=== PATIENT | female | born 1940 | race Caucasian/White ===

== ENCOUNTER → 2017-08-05 | Outpatient (CLI) | payer OTHER ==
[~2017-08-05] MED LIST: ATOR10TA82 PO; CHOL1TAB79 PO; CMD/25 PO; CMD5 PO; COLC0.6T54 PO; FURO-85 PO; FURO40TA3 PO; LDDP5 TOP; LEVO75TA PO; LOSA1TAB PO; METO25TA3 PO; POTA-331 PO; TPRSR25 PO; ULT50X PO; WARF-246 PO
[2017-08-05 16:25] LABS: HEMATOCRIT 43.2 % (37-47); HEMOGLOBIN 14.6 g/dL (12.0-16.0); MEAN CELL VOLUME 92.5 fL (80-100); MEAN CORPUSCULAR HEMOGLOBIN 31.3 pg (25-34); MEAN CORPUSCULAR HGB CONC 33.8 g/dl (32-36); MEAN PLATELET VOLUME 10.2 fL (7.4-10.4); PLATELET COUNT 170 K/uL (130-400); RED CELL DISTRIBUTION WIDTH CV 14.4 % (11.5-14.5); RED CELL DISTRIBUTION WIDTH SD 48.7 fL (36.4-46.3)
[2017-08-05 16:33] LABS: INR 1.8 (0.9-1.1)
== END | disposition home or self-care (01) ==
LOC: C.LAB 16:08
PROVIDERS: ATTEND Ophthalmology
DX: G45.3 Amaurosis fugax (principal)

== ENCOUNTER 2017-08-07 12:03 | Inpatient (IN) | payer OTHER ==
[~2017-08-07] VITALS: Ht 160 cm; Wt 101.7 kg
[~2017-08-07 12:03] MED LIST changes: -ATOR10TA82 PO; -CHOL1TAB79 PO; -CMD/25 PO; -CMD5 PO; -FURO40TA3 PO; -LDDP5 TOP; -TPRSR25 PO
[2017-08-07 12:58] LABS: HEMATOCRIT 41.3 % (37-47); HEMOGLOBIN 14.1 g/dL (12.0-16.0); MEAN CORPUSCULAR HEMOGLOBIN 31.4 pg (25-34); MEAN CORPUSCULAR HGB CONC 34.1 g/dl (32-36); MEAN PLATELET VOLUME 10.2 fL (7.4-10.4); PLATELET COUNT 152 K/uL (130-400); RED CELL DISTRIBUTION WIDTH SD 46.8 fL (36.4-46.3)
[2017-08-07 13:09] LABS: INR 1.8 (0.9-1.1); PTT PATIENT 32.3 SECONDS (21.0-31.0)
[2017-08-07 13:26] LABS: ALBUMIN 3.6 gm/dl (3.4-5.0); CALCIUM 9.3 mg/dl (8.5-10.1); CREATININE 0.98 mg/dl (0.60-1.20); POTASSIUM 4.3 mmol/L (3.5-5.1)
[2017-08-07 13:28] LABS: TOTAL PROTEIN 7.3 gm/dl (6.4-8.2)
[2017-08-07] MEDS ORDERED: SODIUM CHLORIDE 0.9% 500ML 500 ML IV STA (13:32)
--- NOTE | 2017-08-07 13:55 | EMERGENCY ROOM VISIT NOTE ---
History Report prepared by Lyndsey: Tomi Pozo Under the Supervision of: Dr. Fracisco Her M.D. First contact with patient: 13:25 Chief Complaint: TIA Stated Complaint: TIA, SENT FROM DR OFFICE Nursing Triage Summary: Pt presents stating sent by PCP for possible TIA. Sent for STAT MRI. Difficulty with vision. Intermittent h/a. "My head feels weird, like it doesnt want to stay up by itself." Sx started on . History of Present Illness The patient is a 77 year old female who presents to the Emergency Room with complaints of persistent loss of vision in her left eye for the past two days which has been getting slightly better. The vision is worse on the peripheral side. The patient states that she went to an sewer, and they did not find anything and told her to follow up with her PCP. She saw her PCP yesterday , and they told her to come to the ED for further evaluation. The patient is additionally complaining of a headache starting the same time as the vision loss which is worsened with coughing. She notes that she has not been coughing a lot just an occasional cough. The patient denies any dizziness, slurred speech , weakness, and burning with urination. She states that she has not been eating or drinking well recently since it feels like it "gets stuck", and she feels like she is going to throw up. The patient states that she has had this problem for a while, though it comes and goes. She has a history of A-Fib, and she states that she is currently on Coumadin, and she has not taken her medications today. Source of History: patient Onset: two days ago Position: eye (left) Quality: other (loss of vision) Timing: other (persistent but improving) Associated Symptoms: + headache, No weakness Review of Systems See HPI for pertinent positives and negatives. A total of ten systems were reviewed and were otherwise negative. Past Medical & Surgical Medical Problems: (1) Anticoagulated on Coumadin (2) Atrial fibrillation (3) Benign hypertension (4) Chronic atrial fibrillation (5) Gout (6) History of uterine cancer (7) Hyperlipidemia (8) Hypothyroidism (9) Obesity (10) Obstructive sleep apnea (11) Osteoarthritis Surgical Problems: (1) History of total knee arthroplasty (2) Status post cataract extraction (3) Status post cholecystectomy (4) Status post hysterectomy (5) Status post lumbar surgery (6) Status post partial colectomy (7) Status post tonsillectomy (8) Status post total shoulder arthroplasty Social History Problems: (1) Cholecystectomy Family History Cancer Hypertension Social History Smoking Status: Former Smoker Alcohol Use: none Drug Use: none Marital Status: Housing Status: lives with family Occupation Status: retired Current/Historical Medications Scheduled Atorvastatin (Lipitor), 1 TAB PO DAILY Cholecalciferol (D3 2000), 1 TAB PO DAILY Colchicine (Colchicine), 0.6 MG PO BID Furosemide (Lasix), 40 MG PO DAILY Levothyroxine Sodium (Synthroid), 75 MCG PO QAM Losartan Potassium (Cozaar), 25 MG PO QAM Metoprolol Succ (Toprol Xl) (Toprol-Xl), 25 MG PO HS Warfarin Sod (Coumadin), 2.5 MG PO [id number] Warfarin Sod (Coumadin), 1 TAB PO Tu Scheduled PRN Lidocaine (Lidocaine), 1 PATCH TOP DAILY PRN for Pain Potassium Chloride Microencaps (Klor-Con M10), 10 MEQ PO DAILY PRN for If Lasix Taken Tramadol HCl (Tramadol HCl), 50 MG PO BID PRN for Pain Allergies Coded Allergies: Adhesives (Verified Allergy, Unknown, SKIN IRRITATION AND PULLS SKIN OFF, 08/07/17) Iodinated Diagnostic Agents (Verified Allergy, Unknown, RASH, 08/07/17) Morphine (Verified Allergy, Unknown, UNKNOWN, 08/07/17) Penicillins (Verified Allergy, Unknown, UNKNOWN, 08/07/17) Salicylates (Verified Allergy, Unknown, CAUSES HIVES, 08/07/17) Codeine (Verified Adverse Reaction, Unknown, CAUSES NAUSEA, 08/07/17) Physical Exam Vital Signs Date Time Temp Pulse Resp B/P (MAP) Pulse Ox O2 Delivery O2 Flow Rate FiO2 08/07/17 15:18 52 16 148/78 96 Room Air 08/07/17 13:52 54 18 167/85 99 Room Air 08/07/17 13:05 58 08/07/17 12:52 58 20 151/94 94 Room Air 08/07/17 12:51 95 Room Air 08/07/17 12:14 36.5 61 18 155/86 92 Room Air Physical Exam GENERAL: Awake, alert, well-appearing, in no distress HENT: Normocephalic, atraumatic. Oropharynx unremarkable. Dry mucous membranes. EYES: Normal conjunctiva. Sclera non-icteric. Marginal left eye temporal visual field impairment. NECK: Supple. No nuchal rigidity. FROM. No JVD. RESPIRATORY: Clear to auscultation. CARDIAC: Regular rate, normal rhythm. Extremities warm and well perfused. Pulses equal. ABDOMEN: Soft, non-distended. No tenderness to palpation. No rebound or guarding. No masses. RECTAL: Deferred. MUSCULOSKELETAL: Chest examination reveals no tenderness. The back is symmetrical on inspection without obvious abnormality. There is no CVA tenderness to palpation. No joint edema. LOWER EXTREMITIES: Calves are equal size bilaterally and non-tender. No edema. No discoloration. NEURO: Normal sensorium. No sensory or motor deficits noted. Normal cerebellar function with [id number], alternating palms, bclp-zc-[id number]. SKIN: No rash or jaundice noted. Medical Decision & Procedures ER Provider Diagnostic Interpretation: Radiology results as stated below per my review and radiologist interpretation: CHEST ONE VIEW PORTABLE CLINICAL HISTORY: ABDOMINAL PAIN/GI pain COMPARISON STUDY: 05/22/2015 FINDINGS: Moderate cardiac megaly. Mild chronic prominence of pulmonary vasculature. Diaphragms are smooth. No focal infiltrate. Prior left shoulder arthroplasty. IMPRESSION: Cardia megaly. Chronic pulmonary venous congestion. The above report was generated using voice recognition software. It may contain grammatical, syntax or spelling errors. Electronically signed by: Wesely Agee M.D. 08/07/2017 1:57 PM Dictated Date/Time: 08/07/2017 1:57 PM CAROTID DOPPLER NECK ART CLINICAL HISTORY: 77 years-old Female presenting with left eye hemianopia. TECHNIQUE: Real-time grayscale and color and spectral Doppler ultrasound imaging of the bilateral carotid arteries was performed. NASCET criteria was used in evaluating this study. COMPARISON: None. FINDINGS: Right: Common carotid: Atherosclerosis. Peak systolic velocity 42 cm/s. Internal carotid artery: Atherosclerosis. Peak systolic velocity 48 cm/s. Systolic ratio: 1.1. External carotid artery: Patent. Peak systolic velocity 60 cm/s. Left: Common carotid: Atherosclerosis. Peak systolic velocity 45 cm/s. Internal carotid artery: Atherosclerosis. Peak systolic velocity 66 cm/s. Systolic ratio: 1.5. External carotid artery: Patent. Peak systolic velocity 64 cm/s. Bilateral antegrade flow within the vertebral arteries. Reference ranges: Stenosis measurements are compared to reference velocity parameters. Primary parameters: ICA peak systolic velocity (PSV) < 125 cm/s normal or indicating < 50% stenosis; ICA PSV 125-230 cm/s equivalent to 50-69% stenosis; ICA PSV > 230 cm/s equivalent to greater than or equal to 70% stenosis. Additional parameters: ICA PSV to common carotid artery PSV ratio < 2 normal or < 50% stenosis; 2-4 equates to 50-69% stenosis, > 4 equates to greater than or equal to 70% stenosis. Normal ICA end-diastolic velocity less than 40. Blood pressure Not performed. IMPRESSION: Atherosclerosis without hemodynamically significant stenosis seen within the carotid arteries. Electronically signed by: Mauro Alvarez M.D. 08/07/2017 2:58 PM Dictated Date/Time: 08/07/2017 2:57 PM BRAIN WITHOUT CONTRAST CLINICAL HISTORY: 77 years-old Female presenting with left eye hemianopia since Friday, concern for stroke. TECHNIQUE: Multisequence, multiplanar MR imaging of the brain was performed without the use of intravenous contrast. IV contrast: None. COMPARISON: None. FINDINGS: Ventricles and sulci normal in size. Restricted diffusion in the paramedian right occipital lobe with associated sulcal effacement and T2/FLAIR hyperintensity. Evidence of an old infarct with gliosis and cystic encephalomalacia in the paramedian inferior right cerebellar hemisphere. No midline shift. No hemorrhage. No extra-axial fluid collection. T2 skull base flow voids preserved. Mild mucosal thickening in the paranasal sinuses. Bone marrow signal intensity within the calvarium within normal limits. IMPRESSION: 1. Findings consistent with acute infarct in the paramedian right occipital lobe. T2/FLAIR hyperintensity is consistent with an infarct at least 6 to 12 hours old. 2. 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 The report will be called/faxed according to standard departmental protocol. Electronically signed by: Mauro Alvarez M.D. 08/07/2017 3:12 PM Dictated Date/Time: 08/07/2017 3:05 PM Laboratory Results 08/07/17 12:35 08/07/17 12:35 Test 08/07/17 12:35 08/07/17 15:25 Red Blood Count 4.49 M/uL (4.2-5.4) Mean Corpuscular Volume 92.0 fL (80-100) Mean Corpuscular Hemoglobin 31.4 pg (25-34) Mean Corpuscular Hemoglobin Concent 34.1 g/dl (32-36) RDW Standard Deviation 46.8 fL (36.4-46.3) RDW Coefficient of Variation 14.0 % (11.5-14.5) Mean Platelet Volume 10.2 fL (7.4-10.4) Prothrombin Time 18.9 SECONDS (9.0-12.0) Prothromb Time International Ratio 1.8 (0.9-1.1) Activated Partial Thromboplast Time 32.3 SECONDS (21.0-31.0) Partial Thromboplastin Ratio 1.2 Anion Gap 6.0 mmol/L (3-11) Est Creatinine Clear Calc Drug Dose 53.3 ml/min Estimated GFR () 63.6 Estimated GFR (Non- 54.9 BUN/Creatinine Ratio 14.9 (10-20) Calcium Level 9.3 mg/dl (8.5-10.1) Total Bilirubin 2.7 mg/dl (0.2-1) Aspartate Amino Transf (AST/SGOT) 26 U/L (15-37) Alanine Aminotransferase (ALT/SGPT) 15 U/L (12-78) Alkaline Phosphatase 108 U/L (45-117) Total Protein 7.3 gm/dl (6.4-8.2) Albumin 3.6 gm/dl (3.4-5.0) Globulin 3.7 gm/dl (2.5-4.0) Albumin/Globulin Ratio 1.0 (0.9-2) Urine Color YELLOW Urine Appearance CLEAR (CLEAR) Urine pH 6.5 (4.5-7.5) Urine Specific [place] 1.017 (1.000-1.030) Urine Protein NEG (NEG) Urine Glucose (UA) NEG (NEG) Urine Ketones NEG (NEG) Urine Occult Blood NEG (NEG) Urine Nitrite NEG (NEG) Urine Bilirubin NEG (NEG) Urine Urobilinogen NEG (NEG) Urine Leukocyte Esterase NEG (NEG) Laboratory results reviewed by me Medications Administered Medications (Trade) Dose Ordered Sig/Xavi Route Start Time Stop Time Status Last Admin Dose Admin Sodium Chloride 500 ml @ 125 mls/hr Q4H STAT IV 08/07/17 13:32 08/07/17 17:31 DC 08/07/17 13:32 125 MLS/HR ECG Per My Interpretation Indication: other (Neuro symptoms) Rate (beats per minute): 57 Rhythm: atrial fibrillation Findings: no acute ischemic change, other (Normal axis) ED Course 1325: The patient was evaluated in room A11. A complete history and physical exam was performed. 1534: I discussed the patient with Corine Lentz PA-C - she will evaluate the patient for further treatment. 1550: Upon reexamination, the patient was doing well. I discussed the test results and treatment plan with her. The patient will be evaluated for further management. Medical Decision I reviewed the patient's past medical history, medications, and the nursing notes as described above. Differential diagnosis: Etiologies such as metabolic, infection, hypo/hyperglycemia, electrolyte abnormalities, cardiac sources, intracerebral event, toxicologic, neurologic, as well as others were entertained. The patient is a 77 y/o woman with a pmhx of afib on Coumadin who presents to the emergency department with left eye hemianopia than began on Friday per HPI. On arrival the patient is in NAD, AFVSS. On exam the patient has marginal left eye temporal visual field impairment and otherwise is neuro intact including normal cerebellar function with fmantr-[id number], alternating palms, tdyr-ll-jjiq. NIHSS 1. Patient has IV contrast allergy and so CTA deferred. MRI demonstrates right occipital stroke estimated to be 6-12 hours old, although patient's sx did begin on Friday. Carotid duplex without clinically significant stenosis. INR 1.8 but patient reports not taking her Coumadin yet today. Labs otherwise unremarkable. Case was d/w Corine Rubi who will evaluate the patient for further management. Medication Reconcilliation Current Medication List: was personally reviewed by me Blood Pressure Screening Patient's blood pressure: Elevated blood pressure Monitored by the hospitalist Consults Time Called: 1528 Consulting Physician: Corine Lentz PA-C Returned Call: 1534 I discussed the patient with Corine Lentz PA-C - she will evaluate the patient for further treatment. Impression Primary Impression: Occipital stroke Scribe Attestation The scribe's documentation has been prepared under my direction and personally reviewed by me in its entirety. I confirm that the note above accurately reflects all work, treatment, procedures, and medical decision making performed by me. Departure Information Dispostion Being Evaluated By Hospitalist Referrals Jim Alvarez D.O. (PCP) Patient Instructions My [facility]
--- NOTE | 2017-08-07 13:58 | DIAGNOSTIC IMAGING REPORT ---
CHEST ONE VIEW PORTABLE CLINICAL HISTORY: ABDOMINAL PAIN/GI pain COMPARISON STUDY: 05/22/2015 FINDINGS: Moderate cardiac megaly. Mild chronic prominence of pulmonary vasculature. Diaphragms are smooth. No focal infiltrate. Prior left shoulder arthroplasty. IMPRESSION: Cardia megaly. Chronic pulmonary venous congestion. The above report was generated using voice recognition software. It may contain grammatical, syntax or spelling errors. Electronically signed by: Wesley Agee M.D. 08/07/2017 1:57 PM Dictated Date/Time: 08/07/2017 1:57 PM
--- NOTE | 2017-08-07 14:59 | DIAGNOSTIC IMAGING REPORT ---
CAROTID DOPPLER NECK ART CLINICAL HISTORY: 77 years-old Female presenting with left eye hemianopia. TECHNIQUE: Real-time grayscale and color and spectral Doppler ultrasound imaging of the bilateral carotid arteries was performed. NASCET criteria was used in evaluating this study. COMPARISON: None. FINDINGS: Right: Common carotid: Atherosclerosis. Peak systolic velocity 42 cm/s. Internal carotid artery: Atherosclerosis. Peak systolic velocity 48 cm/s. Systolic ratio: 1.1. External carotid artery: Patent. Peak systolic velocity 60 cm/s. Left: Common carotid: Atherosclerosis. Peak systolic velocity 45 cm/s. Internal carotid artery: Atherosclerosis. Peak systolic velocity 66 cm/s. Systolic ratio: 1.5. External carotid artery: Patent. Peak systolic velocity 64 cm/s. Bilateral antegrade flow within the vertebral arteries. Reference ranges: Stenosis measurements are compared to reference velocity parameters. Primary parameters: ICA peak systolic velocity (PSV) < 125 cm/s normal or indicating < 50% stenosis; ICA PSV 125-230 cm/s equivalent to 50-69% stenosis; ICA PSV > 230 cm/s equivalent to greater than or equal to 70% stenosis. Additional parameters: ICA PSV to common carotid artery PSV ratio < 2 normal or < 50% stenosis; 2-4 equates to 50-69% stenosis, > 4 equates to greater than or equal to 70% stenosis. Normal ICA end-diastolic velocity less than 40. Blood pressure Not performed. IMPRESSION: Atherosclerosis without hemodynamically significant stenosis seen within the carotid arteries. Electronically signed by: Mauro Alvarez M.D. 08/07/2017 2:58 PM Dictated Date/Time: 08/07/2017 2:57 PM
--- NOTE | 2017-08-07 15:14 | DIAGNOSTIC IMAGING REPORT ---
BRAIN WITHOUT CONTRAST CLINICAL HISTORY: 77 years-old Female presenting with left eye hemianopia since Friday, concern for stroke. TECHNIQUE: Multisequence, multiplanar MR imaging of the brain was performed without the use of intravenous contrast. IV contrast: None. COMPARISON: None. FINDINGS: Ventricles and sulci normal in size. Restricted diffusion in the paramedian right occipital lobe with associated sulcal effacement and T2/FLAIR hyperintensity. Evidence of an old infarct with gliosis and cystic encephalomalacia in the paramedian inferior right cerebellar hemisphere. No midline shift. No hemorrhage. No extra-axial fluid collection. T2 skull base flow voids preserved. Mild mucosal thickening in the paranasal sinuses. Bone marrow signal intensity within the calvarium within normal limits. IMPRESSION: 1. Findings consistent with acute infarct in the paramedian right occipital lobe. T2/FLAIR hyperintensity is consistent with an infarct at least 6 to 12 hours old. 2. 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 The report will be called/faxed according to standard departmental protocol. Electronically signed by: Mauro Alvarez M.D. 08/07/2017 3:12 PM Dictated Date/Time: 08/07/2017 3:05 PM
[2017-08-07] MEDS ORDERED: PHARMACIST DISCHARGE MED REC CONSULT PRN (17:00)
[2017-08-07] MEDS ORDERED: ACETAMINOPHEN 325 MG TAB PO PRN (17:00)
[2017-08-07] MEDS ORDERED: CHOL1TAB79 PO (17:11)
[2017-08-07] MEDS ORDERED: CMD/25 PO (17:11)
[2017-08-07] MEDS ORDERED: ATOR10TA82 PO (17:11)
[2017-08-07] MEDS ORDERED: CMD5 PO (17:11)
[2017-08-07] MEDS ORDERED: LDDP5 TOP (17:11)
[2017-08-07] MEDS ORDERED: LIDODERM (LIDOCAINE) PATCH 5% TD PRN (17:15)
[2017-08-07] MEDS ORDERED: POTASSIUM CHLORIDE 10 MEQ TABCR PO PRN (17:15)
[2017-08-07] MEDS ORDERED: FURO40TA3 PO (17:33)
--- NOTE | 2017-08-07 17:53 | History and Physical ---
History & Physical Date & Time of Service: Aug 07, 2017 at 17:33 Chief Complaint: Tia, Sent From Dr Office Primary Care Physician: Jim Alvarez D.O. History of Present Illness Source: patient, clinic records, hospital records Patient is a 77-year-old female with a PMH of chronic A. fib (on Coumadin), HTN , HLD, CKD III and other medical problems listed below who presents with persistent loss of vision in left eye 2 days. Patient was playing bingo on Friday and leaned over to pick something off of the ground when she experienced sudden vision loss in both eyes. States that vision of the right eye returned within a minute but left vision loss persisted. Describes it as "seeing amador". Patient drove home and followed up with ophthalmology later that day and her eye exam was unremarkable. Was encouraged to follow-up with PCP, which she did earlier this morning and was sent to ED for further evaluation. Over the last few days, decreased acuity of left eye vision has persisted and patient has been unable to read. Also endorses difficulty with left peripheral vision, but states it is improving. Denies other neurological symptoms such as facial droop, difficulty swallowing or speaking, weakness or paresthesias in extremities. Gait is unaffected. Patient takes Coumadin daily and INR today is 1.8. Denies fever, chills, lightheadedness, dizziness, headache, chest pain, palpitations, SOB, abdominal pain, nausea, vomiting, bowel or bladder changes. LE swelling is at baseline. Patient lives alone in [place]. Denies previous history of CVA. MRI brain was performed in the ED and patient was found to have a subacute paramedian right occipital lobe infarct. Past Medical/Surgical History Medical Problems: (1) Anticoagulated on Coumadin Status: Chronic (2) Atrial fibrillation Status: Chronic (3) Benign hypertension Status: Chronic (4) Chronic atrial fibrillation Status: Chronic (5) Gout Status: Chronic (6) History of uterine cancer Status: Chronic (7) Hyperlipidemia Status: Chronic (8) Hypothyroidism Medical Problems: (1) Anticoagulated on Coumadin Status: Chronic (2) Atrial fibrillation Status: Chronic (3) Benign hypertension Status: Chronic (4) Chronic atrial fibrillation Status: Chronic (5) Gout Status: Chronic (6) History of uterine cancer Status: Chronic (7) Hyperlipidemia Status: Chronic (8) Hypothyroidism Status: Chronic (9) Obesity Status: Chronic (10) Obstructive sleep apnea Status: Chronic (11) Osteoarthritis Status: Chronic Surgical Problems: (1) History of total knee arthroplasty Permanent Comment: bilat; 1993 Status: Resolved (2) Status post cataract extraction Permanent Comment: L side 1994 Status: Chronic (3) Status post cholecystectomy Permanent Comment: 09/14/04; performed by Dr. Barry Status: Chronic (4) Status post hysterectomy Permanent Comment: 1989 Status: Chronic (5) Status post lumbar surgery Permanent Comment: 1984 Status: Chronic (6) Status post partial colectomy Permanent Comment: 10/20/2003 Status: Chronic (7) Status post tonsillectomy Status: Chronic (8) Status post total shoulder arthroplasty Permanent Comment: L side; Dr. Flynn 08/2012 Status: Resolved Social History Problems: (1) Cholecystectomy Status: Resolved Family History CVA Cancer Hypertension Social History Smoking Status: Former Smoker Alcohol Use: none Drug Use: none Marital Status: Housing status: lives alone Occupational Status: retired Immunizations History of Influenza Vaccine: Yes Influenza Vaccine Date: Mar 01, 2015 History of Tetanus Vaccine?: uknown History of Pneumococcal: Yes Pneumococcal Date: Aug 05, 2007 History of Hepatitis B Vaccine: Unknown Allergies Coded Allergies: Adhesives (Verified Allergy, Unknown, SKIN IRRITATION AND PULLS SKIN OFF, 08/07/17) Iodinated Diagnostic Agents (Verified Allergy, Unknown, RASH, 08/07/17) Morphine (Verified Allergy, Unknown, UNKNOWN, 08/07/17) Penicillins (Verified Allergy, Unknown, UNKNOWN, 08/07/17) Salicylates (Verified Allergy, Unknown, CAUSES HIVES, 08/07/17) Codeine (Verified Adverse Reaction, Unknown, CAUSES NAUSEA, 08/07/17) Home Medications Scheduled Atorvastatin (Lipitor), 1 TAB PO DAILY Cholecalciferol (D3 2000), 1 TAB PO DAILY Colchicine (Colchicine), 0.6 MG PO BID Furosemide (Lasix), 40 MG PO DAILY Levothyroxine Sodium (Synthroid), 75 MCG PO QAM Losartan Potassium (Cozaar), 25 MG PO QAM Metoprolol Succ (Toprol Xl) (Toprol-Xl), 25 MG PO HS Warfarin Sod (Coumadin), 2.5 MG PO [id number] Warfarin Sod (Coumadin), 1 TAB PO Tu Scheduled PRN Lidocaine (Lidocaine), 1 PATCH TOP DAILY PRN for Pain Potassium Chloride Microencaps (Klor-Con M10), 10 MEQ PO DAILY PRN for If Lasix Taken Tramadol HCl (Tramadol HCl), 50 MG PO BID PRN for Pain Review of Systems Ten systems reviewed and negative except as noted in the HPI. Physical Exam Vital Signs Date Time Temp Pulse Resp B/P (MAP) Pulse Ox O2 Delivery O2 Flow Rate FiO2 08/07/17 16:56 54 16 175/66 94 Room Air 08/07/17 15:18 52 16 148/78 96 Room Air 08/07/17 13:52 54 18 167/85 99 Room Air 08/07/17 13:05 58 08/07/17 12:52 58 20 151/94 94 Room Air 08/07/17 12:51 95 Room Air 08/07/17 12:14 36.5 61 18 155/86 92 Room Air General Appearance: WD/WN, no apparent distress, + obese Head: normocephalic, atraumatic Eyes: normal inspection, PERRL, EOMI, sclerae normal ENT: normal ENT inspection, hearing grossly normal, pharynx normal (moist mucous membranes ) Neck: supple, thyroid normal, trachea midline Respiratory/Chest: chest non-tender, lungs clear, no respiratory distress Cardiovascular: normal peripheral pulses, + irregularly irregular Abdomen/GI: non tender, soft, no organomegaly Back: normal inspection Extremities/Musculoskelatal: normal inspection, no calf tenderness, no pedal edema Neurologic/Psych: teradata developer II-XII nml as tested (Decreased visual acuity of L eye. Slight impairment of left peripheral vision field. ), no motor/sensory deficits , alert, normal mood/affect, oriented x 3, + pertinent finding (gait intact) Skin: normal color Diagnostics Laboratory Results Results Past 24 Hours Test 08/07/17 12:35 08/07/17 15:25 Range/Units White Blood Count 7.50 4.8-10.8 K/uL Red Blood Count 4.49 4.2-5.4 M/uL Hemoglobin 14.1 12.0-16.0 g/dL Hematocrit 41.3 37-47 % Mean Corpuscular Volume 92.0 80-100 fL Mean Corpuscular Hemoglobin 31.4 25-34 pg Mean Corpuscular Hemoglobin Concent 34.1 32-36 g/dl RDW Standard Deviation 46.8 36.4-46.3 fL RDW Coefficient of Variation 14.0 11.5-14.5 % Platelet Count 152 130-400 K/uL Mean Platelet Volume 10.2 7.4-10.4 fL Prothrombin Time 18.9 9.0-12.0 SECONDS Prothromb Time International Ratio 1.8 0.9-1.1 Activated Partial Thromboplast Time 32.3 21.0-31.0 SECONDS Partial Thromboplastin Ratio 1.2 Sodium Level 136 136-145 mmol/L Potassium Level 4.3 3.5-5.1 mmol/L Chloride Level 105 98-107 mmol/L Carbon Dioxide Level 25 21-32 mmol/L Anion Gap 6.0 3-11 mmol/L Blood Urea Nitrogen 15 7-18 mg/dl Creatinine 0.98 0.60-1.20 mg/dl Est Creatinine Clear Calc Drug Dose 53.3 ml/min Estimated GFR () 63.6 Estimated GFR (Non- 54.9 BUN/Creatinine Ratio 14.9 10-20 Random Glucose 113 70-99 mg/dl Calcium Level 9.3 8.5-10.1 mg/dl Total Bilirubin 2.7 0.2-1 mg/dl Aspartate Amino Transf (AST/SGOT) 26 15-37 U/L Alanine Aminotransferase (ALT/SGPT) 15 12-78 U/L Alkaline Phosphatase 108 45-117 U/L Total Protein 7.3 6.4-8.2 gm/dl Albumin 3.6 3.4-5.0 gm/dl Globulin 3.7 2.5-4.0 gm/dl Albumin/Globulin Ratio 1.0 0.9-2 Urine Color YELLOW Urine Appearance CLEAR CLEAR Urine pH 6.5 4.5-7.5 Urine Specific [place] 1.017 1.000-1.030 Urine Protein NEG NEG Urine Glucose (UA) NEG NEG Urine Ketones NEG NEG Urine Occult Blood NEG NEG Urine Nitrite NEG NEG Urine Bilirubin NEG NEG Urine Urobilinogen NEG NEG Urine Leukocyte Esterase NEG NEG Diagnostic Radiology Brain MRI: IMPRESSION: 1. Findings consistent with acute infarct in the paramedian right occipital lobe. T2/FLAIR hyperintensity is consistent with an infarct at least 6 to 12 hours old. 2. 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 Carotid artery ultrasound: IMPRESSION: Atherosclerosis without hemodynamically significant stenosis seen within the carotid arteries. CXR: IMPRESSION: Cardia megaly. Chronic pulmonary venous congestion. EKG Atrial fibrillation with slow ventricular response at 57 bpm. Impression Assessment and Plan Patient is a 77-year-old female with a PMH of chronic A. fib (on Coumadin), HTN , HLD, CKD III and other medical problems listed below who presents with persistent loss of vision in left eye 2 days and was found to have a sub-acute R occipital infarct. Decreased visual acuity of left eye 2/2 sub-acute R occipital infarct: -Symptoms began suddenly 48 hours ago -L eye vision improving--still unable to read, see full left peripheral field -Brain MRI with findings consistent with acute infarct in the paramedian right occipital lobe. T2/FLAIR hyperintensity is consistent with an infarct at least 6-12 hrs old -Carotid ultrasound with atherosclerosis -June 2016 echo with EF 55-60%, moderate MR, severe TR, pulm HTN -Continue home dose coumadin. Monitor INR -Neuro consult placed for further anticoagulation recommendations -Neuro checks -PT/OT/speech eval -A1c, fasting lipid panel in AM -Telemetry Chronic A Fib: -A fib with slow ventricular response on EKG -Continue Toprol -Continue coumadin -Monitor INR HTN: -Normotensive -Cont home losartan, toprol, lasix HLD: -Cont statin Hypothyroidism: -Cont synthroid Chronic gout: -Cont colchicine CKD III: -At baseline OA, chronic back pain: -Cont tramadol, lidocaine patch PRN YOBANI: -Cpap DVT Ppx: Continue coumadin Code status: FULL PCP: Antonio Dispo: Discharge planning ordered per stroke set protocol Patient seen in collaboration with Dr. Alcantar. Please see addendum. ADDENDUM: I have seen and examined the patient and agree with the assessment as stated above with the following exceptions. She has reported visual deficits that persist on exam but otherwise, no focal neurologic deficits. She reports these visual deficits are continuing to slowly improve. Although her INR was 1.8 today it was therapeutic in mid-June on an outpatient check. She denies any excessive leafy greens in her diet recently and no new medications. MRI revealed R occipital stroke as above. Cont plan as above. Continued with warfarin for now, and would defer to neurology for snf management. Ortiz , DO Resuscitation Status VTE Prophylaxis Will order VTE Prophylaxis: Yes
[2017-08-07 19:15] VITALS: BP 165/90; PULSE 68; TEMP 36.4; O2SAT 96; Ht 160 cm; Wt 101.7 kg
[2017-08-07 19:44] VITALS: BP 165/90; PULSE 68; TEMP 36.4; O2SAT 96
[2017-08-07] MEDS: WARFARIN SOD 2.5 MG TAB PO SCH (20:28)
[2017-08-07] MEDS: COLCHICINE 0.6 MG TAB PO SCH (20:28)
[2017-08-07] MEDS ORDERED: METOPROLOL SUCC 25MG EXT REL TAB PO SCH (21:00)
[2017-08-07] MEDS: TRAMADOL HCL 50 MG TAB PO PRN (22:27)
[2017-08-07 23:50] VITALS: BP 163/94; PULSE 57; TEMP 36.6; O2SAT 96
[2017-08-07 23:59] VITALS: O2SAT 96
[2017-08-08] VITALS (9 sets, daily range): BP systolic 138–158; BP diastolic 63–93; PULSE 51–63; TEMP 36.3–36.9; O2SAT 92–96
[2017-08-08] MEDS: LEVOTHYROXINE 75 MCG TAB PO SCH (05:34)
--- NOTE | 2017-08-08 06:15 | Clinical Documentation Query ---
APOLINAR Gregorio : CLINICAL DOCUMENTATION QUERY Patient is a 77 year old female admitted for subacute right occipital infarct. This occurred in the setting of atrial fibrillation with a subtherapeutic INR. She has been evaluated with CT, MRI, carotid US, to be continued on Coumadin, PT/OT/Speech and neurology consultation and will be monitored on telemetry with serial labs. As appropriate, consider documentation as suggested below. Thank you. In your clinical opinion is this patient being managed for: ( ) Subacute R occipital infarct likely secondary to embolism of posterior cerebral artery in the setting of atrial fibrillation and subtherapeutic INR ( ) Not Agree ( ) Other explanation of clinical findings (Please Explain) ( ) Unable to determine (Please Define) ( ) Need to Discuss The medical record reflects the following clinical findings, treatment, and risk factors. Clinical Indicators: As above Treatment: She has been evaluated with CT, MRI, carotid US, to be continued on Coumadin, PT/OT/Speech and neurology consultation and will be monitored on telemetry with serial labs Risk Factors: Atrial fibrillation with subtherapeutic INR Please clarify and document your clinical opinion in the progress notes and discharge summary. Terms such as "probable", "suspected", "likely", "questionable", "possible", or "still to be ruled out" are acceptable. IF IN AGREEMENT, YOU MUST DOCUMENT ABOVE DIAGNOSTIC STATEMENT IN DAILY PROGRESS NOTES AND DISCHARGE SUMMARY. This document is not part of the patient's record. Thank You, Luis E Mercedes, RN [phone]
[2017-08-08 06:32] LABS: HEMOGLOBIN A1C 5.9 % (4.5-5.6)
[2017-08-08 06:42] LABS: BASO % 0.9 %; BASO ABS # 0.06 K/uL (0-0.2); EOS % 4.5 %; EOS ABS # 0.31 K/uL (0-0.5); HEMATOCRIT 39.6 % (37-47); HEMOGLOBIN 13.3 g/dL (12.0-16.0); IG# 0.02 K/uL (0.00-0.02); LYMPH % 19.6 %; LYMPH ABS # 1.35 K/uL (1.2-3.4); MEAN CELL VOLUME 91.2 fL (80-100); MEAN CORPUSCULAR HEMOGLOBIN 30.6 pg (25-34); MEAN CORPUSCULAR HGB CONC 33.6 g/dl (32-36); MEAN PLATELET VOLUME 9.8 fL (7.4-10.4); MONO % 10.8 %; MONO ABS # 0.74 K/uL (0.11-0.59); NEUT % 63.9 %; PLATELET COUNT 145 K/uL (130-400); RED CELL DISTRIBUTION WIDTH CV 13.8 % (11.5-14.5); RED CELL DISTRIBUTION WIDTH SD 46.4 fL (36.4-46.3); WHITE BLOOD COUNT 6.88 K/uL (4.8-10.8)
[2017-08-08 07:04] LABS: INR 1.9 (0.9-1.1)
[2017-08-08 07:22] LABS: CALCIUM 9.2 mg/dl (8.5-10.1); CREATININE 0.92 mg/dl (0.60-1.20); POTASSIUM 3.9 mmol/L (3.5-5.1)
[2017-08-08] MEDS: COLCHICINE 0.6 MG TAB PO SCH ×2 (08:38→19:48)
[2017-08-08] MEDS: ATORVASTATIN 10 MG TAB PO SCH (08:39)
[2017-08-08] MEDS ORDERED: PERFLUTREN LIPID MICROSPHERE (DEFINITY) IV ONE (08:44)
[2017-08-08] MEDS ORDERED: LOSARTAN POTASSIUM 25 MG TAB PO SCH (09:00)
--- NOTE | 2017-08-08 11:46 | ECHOCARDIOGRAM REPORT ---
*NOTICE TO RECEIVING DEMOCRAT AGENCY This information is strictly Confidential and protected under [place] law. [place] law prohibits you from making any further disclosure of this information unless further disclosure is expressly permitted by the written consent of the person to whom it pertains or is authorized by law. A general authorization for the release of medical or other information is not sufficient for this purpose. Hospital accepts no responsibility if the information is made available to any other person, INCLUDING THE PATIENT. Interpretation Summary * Name: GEORGIE HOLMAN Study Date: 08/08/2017 07:28 AM BP: 158/92 mmHg * Patient Location: C.2T\S\E222\S\1 HR: 55 * : 1940 (M/d/yyy) Gender: Female Height: 63 in * Age: 77 yrs Ethnicity: [place] Weight: 226 lb * Ordering Physician: Abbi Young * Referring Physician: Randi EDDY * Performed By: Zoraida Acosta RDCS * * Reason For Study: Cerebral ischemia/embolus * BSA: 2.0 m2 * The study was technically limited. * Compared to prior study, changes are noted. * -- Conclusions -- * The rhythm is atrial fibrillation with slow ventricular response. * Injection of contrast documented no interatrial shunt. * Moderate biatrial enlargement. * Ejection Fraction = 55-60%. * The right ventricle is moderately dilated. * The right ventricular systolic function is qualitatively normal. * Aortic valve sclerosis mild, without significant aortic valvular stenosis. * There is mild mitral regurgitation. * There is mild tricuspid regurgitation. Procedure Details * A complete two-dimensional transthoracic echocardiogram was performed (2D, M-mode, Doppler and color flow Doppler). * A saline contrast injection was performed to assess for cardiac shunting. * The injection was performed through an intravenous line in the right arm. * The attending nurse who injected the saline contrast was Jamee Dee RN. * A total of 30 cc of agitated saline was given. * A contrast injection of Definity was performed to improve assessment of LV function. * Contrast was injected into an intravenous site in the right arm. * One vial of Definity ultrasound contrast was diluted in normal saline to a total volume of 10 ml. A total of '2' ml of solution was administered during imaging. * Lot # [id number] of Definity utilized for procedure. * Expiration date aug 07. * The attending nurse who injected the contrast agent was Jamee Dee RN. Left Ventricle * The left ventricle is normal in size. * The rhythm is atrial fibrillation with slow ventricular response. * There is normal left ventricular wall thickness. * Ejection Fraction = 55-60%. * Left ventricular systolic function is normal. * The left ventricular wall motion is normal. Right Ventricle * The right ventricle is moderately dilated. * The right ventricular systolic function is qualitatively normal. Atria * The left atrium is moderately dilated. * The right atrium is moderately dilated. * Injection of contrast documented no interatrial shunt. Mitral Valve * The mitral valve is normal. * The mitral valve leaflets appear thickened, but open well. * There is no mitral valve stenosis. * There is mild mitral regurgitation. Tricuspid Valve * The tricuspid valve is normal. * There is no tricuspid stenosis. * There is mild tricuspid regurgitation. * Doppler findings do not suggest pulmonary hypertension. Aortic Valve * The aortic valve is trileaflet. * Aortic valve sclerosis mild, without significant aortic valvular stenosis. * Aortic stenosis is absent. * There is no significant aortic regurgitation. Pulmonic Valve * The pulmonary valve is inadequately visualized, but the Doppler data is adequate for interpretation. * There is no pulmonic valvular stenosis. * Trace pulmonic valvular regurgitation. Great Vessels * The aortic root and proximal ascending aorta are normal sized. Pericardium/Pleural * There is no pericardial effusion. Great Vessels * The inferior vena cava is mildly dilated. Left Ventricular Diastolic Function * Abnormal diastolic function. MMode 2D Measurements and Calculations IVSd 0.98 cm LVIDd 4.4 cm LVIDs 2.9 cm LVPWd 1.2 cm IVS/LVPW 0.81 FS 35.7 % EDV(Teich) 90.0 ml ESV(Teich) 31.2 ml EF(Teich) 65.4 % EDV(cubed) 88.1 ml ESV(cubed) 23.4 ml EF(cubed) 73.4 % LV mass(C)d 171.0 grams LV mass(C)dI 84.0 grams/m\S\2 SV(Teich) 58.8 ml SI(Teich) 28.9 ml/m\S\2 SV(cubed) 64.6 ml SI(cubed) 31.7 ml/m\S\2 Ao root diam 2.7 cm Ao root area 5.8 cm\S\2 ACS 1.5 cm LA dimension 4.8 cm asc Aorta Diam 2.8 cm LA/Ao 1.8 LVOT diam 2.0 cm LVOT area 3.2 cm\S\2 LVAd ap4 28.8 cm\S\2 LVLd ap4 7.1 cm EDV(MOD-sp4) 97.5 ml EDV(sp4-el) 98.2 ml LVAs ap4 14.3 cm\S\2 LVLs ap4 6.0 cm ESV(MOD-sp4) 29.6 ml ESV(sp4-el) 28.5 ml EF(MOD-sp4) 69.6 % EF(sp4-el) 70.9 % LVAd ap2 28.6 cm\S\2 LVLd ap2 6.8 cm EDV(MOD-sp2) 98.5 ml EDV(sp2-el) 102.1 ml LVAs ap2 15.8 cm\S\2 LVLs ap2 6.0 cm ESV(MOD-sp2) 35.8 ml ESV(sp2-el) 35.4 ml EF(MOD-sp2) 63.6 % EF(sp2-el) 65.3 % LVLd %diff -4.82 % EDV(MOD-bp) 98.8 ml LVLs %diff -1.38 % ESV(MOD-bp) 32.6 ml EF(MOD-bp) 67.1 % SV(MOD-sp4) 67.9 ml SI(MOD-sp4) 33.3 ml/m\S\2 SV(MOD-sp2) 62.7 ml SI(MOD-sp2) 30.8 ml/m\S\2 SV(MOD-bp) 66.3 ml SI(MOD-bp) 32.5 ml/m\S\2 SV(sp4-el) 69.7 ml SI(sp4-el) 34.2 ml/m\S\2 SV(sp2-el) 66.7 ml SI(sp2-el) 32.7 ml/m\S\2 Doppler Measurements and Calculations MV E max dede 97.5 cm/sec MV dec time 0.22 sec Ao V2 max 115.4 cm/sec Ao max PG 5.3 mmHg Ao max PG (full) 3.6 mmHg DIOGO(V,A) 1.8 cm\S\2 DIOGO(V,D) 1.8 cm\S\2 LV V1 max PG 1.7 mmHg LV V1 max 65.5 cm/sec PA V2 max 109.9 cm/sec PA max PG 4.8 mmHg PA acc slope 617.2 cm/sec\S\2 PA acc time 0.09 sec PI max dede 158.8 cm/sec PI max PG 10.1 mmHg PI dec slope 168.5 cm/sec\S\2 PI P1/2t 276.1 msec TR max dede 232.1 cm/sec PA pr(Accel) 39.4 mmHg
[2017-08-08] MEDS: WARFARIN SOD 2.5 MG TAB PO SCH (16:10)
--- NOTE | 2017-08-08 16:36 | Neurology Consultation ---
Neurology Consultation Date of Consultation: Aug 08, 2017. Attending Physician: Herson Jiménez MD Primary Care Physician: Jim Alvarez D.O. Reason for Consultation: CVA History of Present Illness Source: patient Bernie is a 77 year old female: PMH of chronic A. fib (on Coumadin), HTN, HLD , CKD III and other medical problems listed below who presents with persistent loss of vision in left eye 2 days. She was playing bingo on Friday and leaned over to pick something off of the ground when she experienced sudden vision loss in both eyes. The vision of the right eye returned within a minute but left vision loss persisted as a graying out. She drove home and followed up with ophthalmology later that day and her eye exam was unremarkable. Over the last few days, decreased acuity of left eye vision has persisted and patient has been unable to read with left peripheral vision. She takes Coumadin daily and INR today is 1.8. LE swelling is at baseline. She has also had bilateral knee replacement back surgery and left shoulder surgery. denies CP, SOB, abdominal pain, one sided weakness, numbness tingling, N, V, swallowing issues, slurred speech. Past Medical/Surgical History Medical Problems: (1) Anticoagulated on Coumadin Status: Chronic (2) Atrial fibrillation Status: Chronic (3) Cellulitis Status: Acute (4) Foot pain Status: Acute (5) Hand pain Status: Acute (6) Left sided chest pain Status: Acute (7) Occipital stroke Status: Acute Social History Smoking Status: Never smoker Alcohol Use: none Drug Use: none Marital Status: Housing Status: lives with family Occupation Status: retired Allergies Coded Allergies: Adhesives (Verified Allergy, Unknown, SKIN IRRITATION AND PULLS SKIN OFF, 08/07/17) Iodinated Diagnostic Agents (Verified Allergy, Unknown, RASH, 08/07/17) Morphine (Verified Allergy, Unknown, UNKNOWN, 08/07/17) Penicillins (Verified Allergy, Unknown, UNKNOWN, 08/07/17) Salicylates (Verified Allergy, Unknown, CAUSES HIVES, 08/07/17) Codeine (Verified Adverse Reaction, Unknown, CAUSES NAUSEA, 08/07/17) Current Inpatient Medications Current Inpatient Medications Medications (Trade) Dose Ordered Sig/Xavi Route Start Time Stop Time Status Last Admin Dose Admin Acetaminophen (Tylenol Tab) 650 mg Q4H PRN PO 08/07/17 17:00 09/06/17 16:59 Miscellaneous Information (Pharmacist Discharge Med Rec Consult) 1 ea UD PRN N/A 08/07/17 17:00 09/06/17 16:59 Atorvastatin Calcium (Lipitor Tab) 10 mg DAILY PO 08/08/17 09:00 09/07/17 08:59 08/08/17 08:39 10 MG Colchicine (Colchicine Tab) 0.6 mg BID PO 08/07/17 21:00 09/06/17 20:59 08/08/17 08:38 0.6 MG Levothyroxine Sodium (Synthroid Tab) 75 mcg DAILYBB PO 08/08/17 06:00 09/07/17 06:59 08/08/17 05:34 75 MCG Lidocaine (Lidoderm Patch 5%) 1 patch DAILY PRN TD 08/07/17 17:15 09/06/17 17:14 Potassium Chloride (Klor-Con M10) 10 meq DAILY PRN PO 08/07/17 17:15 09/06/17 17:14 Tramadol HCl (Ultram Tab) 50 mg BID PRN PO 08/07/17 17:15 09/06/17 17:14 08/07/17 22:27 50 MG Warfarin Sodium (Coumadin Tab) 2.5 mg SuMoWeThFrSa@1600 PO 08/07/17 18:00 09/06/17 17:59 08/07/17 20:28 2.5 MG Warfarin Sodium (Coumadin Tab) 5 mg Tu@1600 PO 08/12/17 16:00 09/11/17 15:59 Miscellaneous Information (Pending Order) 1 ea DAILY@10 N/A 08/08/17 10:00 09/07/17 09:59 Metoprolol Succinate (Toprol Xl Tab) 12.5 mg HS PO 08/08/17 21:00 09/06/17 20:59 Physical Exam Vital Signs (Past 24 Hrs): Date Time Temp Pulse Resp B/P (MAP) Pulse Ox O2 Delivery O2 Flow Rate FiO2 08/08/17 12:00 Room Air 08/08/17 11:46 36.3 53 18 139/82 (101) 95 08/08/17 09:05 96 08/08/17 08:00 Room Air 08/08/17 07:31 36.6 54 18 146/73 (97) 92 08/08/17 04:04 36.8 57 18 158/92 (114) 96 Room Air 08/08/17 04:00 96 Room Air 08/07/17 23:59 96 Room Air 08/07/17 23:50 36.6 57 19 163/94 (117) 96 Room Air 08/07/17 19:44 36.4 68 18 165/90 (115) 96 Room Air 08/07/17 19:15 36.4 68 18 165/90 96 Room Air 08/07/17 18:36 59 22 171/107 96 08/07/17 16:56 54 16 175/66 94 Room Air Physical Exam: Constitutional: appearance nourished, healthy and obese Ears, Nose, Mouth and Throat: mucous membranes moist, no injection and skin normal, eyes normal Cardiovascular: irregular Respiratory: clear to auscultation (CTA) and no rales, rhonchi or wheeze Musculoskeletal: no peripheral edema and good distal pulses Skin: no stigmata of neurocutaneous disease noted and normal and intact Eyes: extraocular muscles intact (EOMI) and pupils equal, round and reactive to light (PERRL) NEUROLOGIC EXAMINATION: Mental status: Alert and interactive Oriented to full date and location Oriented to person Speech fluent with no evidence of aphasia Cranial Nerves smile eye brow raise symmetric Reflexes: Deep tendon reflexes were symmetrical and graded 2/5 UE , decreased LE Sensory: vibration cool touch and GT proprioception intact Coordination: finger to nose with no bi pass Gait/Stance: Posture lying in bed moving with no assistance Motor: Negative for pronator drift of out stretched arms with eyes closed. Strength: biceps triceps deltoids hand senior restaurant manager bilaterally 5/5, hip flex plantar flex ext 5/ 5 bilaterally Laboratory Results Past 24 Hours: 08/08/17 06:32 Red Blood Count 4.34, Mean Corpuscular Volume 91.2, Mean Corpuscular Hemoglobin 30.6, Mean Corpuscular Hemoglobin Concent 33.6, Mean Platelet Volume 9.8, Neutrophils (%) (Auto) 63.9, Lymphocytes (%) (Auto) 19.6, Monocytes (%) (Auto) 10.8, Eosinophils (%) (Auto) 4.5, Basophils (%) (Auto) 0.9, Neutrophils # (Auto ) 4.40, Lymphocytes # (Auto) 1.35, Monocytes # (Auto) 0.74, Eosinophils # (Auto ) 0.31, Basophils # (Auto) 0.06 08/08/17 06:32 Test 08/08/17 06:32 White Blood Count 6.88 K/uL (4.8-10.8) Red Blood Count 4.34 M/uL (4.2-5.4) Hemoglobin 13.3 g/dL (12.0-16.0) Hematocrit 39.6 % (37-47) Mean Corpuscular Volume 91.2 fL (80-100) Mean Corpuscular Hemoglobin 30.6 pg (25-34) Mean Corpuscular Hemoglobin Concent 33.6 g/dl (32-36) Platelet Count 145 K/uL (130-400) Mean Platelet Volume 9.8 fL (7.4-10.4) Neutrophils (%) (Auto) 63.9 % Lymphocytes (%) (Auto) 19.6 % Monocytes (%) (Auto) 10.8 % Eosinophils (%) (Auto) 4.5 % Basophils (%) (Auto) 0.9 % Neutrophils # (Auto) 4.40 K/uL (1.4-6.5) Lymphocytes # (Auto) 1.35 K/uL (1.2-3.4) Monocytes # (Auto) 0.74 K/uL (0.11-0.59) Eosinophils # (Auto) 0.31 K/uL (0-0.5) Basophils # (Auto) 0.06 K/uL (0-0.2) RDW Standard Deviation 46.4 fL (36.4-46.3) RDW Coefficient of Variation 13.8 % (11.5-14.5) Immature Granulocyte % (Auto) 0.3 % Immature Granulocyte # (Auto) 0.02 K/uL (0.00-0.02) Prothrombin Time 19.9 SECONDS (9.0-12.0) Prothromb Time International Ratio 1.9 (0.9-1.1) Anion Gap 6.0 mmol/L (3-11) Est Creatinine Clear Calc Drug Dose 56.7 ml/min Estimated GFR () 68.6 Estimated GFR (Non- 59.2 BUN/Creatinine Ratio 18.9 (10-20) Calcium Level 9.2 mg/dl (8.5-10.1) Triglycerides Level 95 mg/dl (0-150) Cholesterol Level 99 mg/dl (0-200) HDL Cholesterol 31 mg/dl LDL Cholesterol, Calculated 49 mg/dl VLDL Cholesterol, Calculated 19 mg/dl Cholesterol/HDL Ratio 3.2 Thyroid Stimulating Hormone (TSH) 2.390 uIu/ml (0.300-4.500) Imaging MRI brain with and without Findings consistent with acute infarct in the paramedian right occipital lobe. T2/FLAIR hyperintensity is consistent with an infarct at least 6 to 12 hours old. 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 carotid doppler- Atherosclerosis without hemodynamically significant stenosis seen within the carotid arteries. TTE- The rhythm is atrial fibrillation with slow ventricular response. * Injection of contrast documented no interatrial shunt. * Moderate biatrial enlargement. * Ejection Fraction = 55-60%. * The right ventricle is moderately dilated. * The right ventricular systolic function is qualitatively normal. * Aortic valve sclerosis mild, without significant aortic valvular stenosis. * There is mild mitral regurgitation. * There is mild tricuspid regurgitation. Impression 77 year old female s/p left sided occipital stroke Plan 1. PT/OT speech no apparent needs 2. INR today is 1.9 will need to optimize to 2.0.-2.5 3. optimize DL/HTN currently LDL <70 4. add aspirin until coumadin is optimized INR however salicylates are on her allergy list was clarified was when she was a child and is no longer an issue 5. will defer to cardiology when her INR is therapeutic if they prefer to stop. 6. TTE no ASD 7. MRI with right occipital lobe infarct 8. carotid doppler with some plaque no hemodynamic stenosis 9. will need to optimize blood pressure prior to discharge and INR therapeutic neurology follow up in 3-[address] Wilmer Schuster, or Mulu CRUZ I have seen and discussed above patient with Dr Wilmer Schuster, neurology Patient seen and examined and imaging reviewed exam show minimal left paracentral left inferior field cut and imaging shows a larger area that may reflect more edema than completed injury cause likely embolic from afib with subtherapeutic inr now being adjusted and we ae recommending only adding asa low dose and potentially discharge soon will need both neuro and ophthalmology to follow I wll see tomorrow Wilmer Schuster MD
[2017-08-08] MEDS ORDERED: ASPIRIN 81 MG ECTAB PO STA (16:46)
--- NOTE | 2017-08-08 18:19 | Progress Note ---
Medicine Progress Note Date & Time of Visit: Aug 08, 2017 at 18:05. Subjective seen resting in bed, comfortable, in good spirits states she still has blurred left vision- "lines floating" otherwise denies other neurologic deficits denies chest pain, dyspnea, palpitations, dizziness no other symptoms Objective Last 8 Hrs Date Time Temp Pulse Resp B/P (MAP) Pulse Ox O2 Delivery O2 Flow Rate FiO2 08/08/17 16:58 36.5 60 18 141/63 (89) 96 08/08/17 16:00 Room Air 08/08/17 16:00 36.3 57 16 150/81 (104) 96 Room Air 08/08/17 12:00 Room Air 08/08/17 11:46 36.3 53 18 139/82 (101) 95 Physical Exam: General- oriented x 3 , not in distress, speaks in sentences with no effort Head- atraumatic Eyes- PERRL, EOMI, anicteric ENT- oropharynx clear Neck- supple, no JVD, no adenopathy, no thyromegaly; carotids +2/2, no bruits appreciated Lungs- clear to auscultation bilaterally Heart- regular rhythm; no murmurs, normal rate Abdomen- normal bowel sounds, soft, nontender Extremities- no pretibial edema, no calf tenderness; peripheral pulses intact Neuro- alert, oriented x 3; left inferior field cut, PERRL, EOMI; no facial palsy; no dysarthria; motor 5/5 bilaterally; sensation 100% on all ext Skin- warm & dry Laboratory Results: Last 24 Hours Test 08/08/17 06:32 White Blood Count 6.88 K/uL Red Blood Count 4.34 M/uL Hemoglobin 13.3 g/dL Hematocrit 39.6 % Mean Corpuscular Volume 91.2 fL Mean Corpuscular Hemoglobin 30.6 pg Mean Corpuscular Hemoglobin Concent 33.6 g/dl Platelet Count 145 K/uL Mean Platelet Volume 9.8 fL Neutrophils (%) (Auto) 63.9 % Lymphocytes (%) (Auto) 19.6 % Monocytes (%) (Auto) 10.8 % Eosinophils (%) (Auto) 4.5 % Basophils (%) (Auto) 0.9 % Neutrophils # (Auto) 4.40 K/uL Lymphocytes # (Auto) 1.35 K/uL Monocytes # (Auto) 0.74 K/uL Eosinophils # (Auto) 0.31 K/uL Basophils # (Auto) 0.06 K/uL RDW Standard Deviation 46.4 fL RDW Coefficient of Variation 13.8 % Immature Granulocyte % (Auto) 0.3 % Immature Granulocyte # (Auto) 0.02 K/uL Prothrombin Time 19.9 SECONDS Prothromb Time International Ratio 1.9 Sodium Level 136 mmol/L Potassium Level 3.9 mmol/L Chloride Level 104 mmol/L Carbon Dioxide Level 26 mmol/L Anion Gap 6.0 mmol/L Blood Urea Nitrogen 17 mg/dl Creatinine 0.92 mg/dl Est Creatinine Clear Calc Drug Dose 56.7 ml/min Estimated GFR () 68.6 Estimated GFR (Non- 59.2 BUN/Creatinine Ratio 18.9 Random Glucose 82 mg/dl Calcium Level 9.2 mg/dl Triglycerides Level 95 mg/dl Cholesterol Level 99 mg/dl HDL Cholesterol 31 mg/dl LDL Cholesterol, Calculated 49 mg/dl VLDL Cholesterol, Calculated 19 mg/dl Cholesterol/HDL Ratio 3.2 Thyroid Stimulating Hormone (TSH) 2.390 uIu/ml Assessment & Plan Patient is a 77-year-old female with a PMH of chronic A. fib (on Coumadin), HTN , HLD, CKD III and other medical problems listed below who presents with persistent loss of vision in left eye 2 days and was found to have a sub-acute R occipital infarct. Subacute R occipital infarct - presented with left eye blurred vision -Brain MRI with findings consistent with acute infarct in the paramedian right occipital lobe. T2/FLAIR hyperintensity is consistent with an infarct at least 6-12 hrs old -Carotid ultrasound with atherosclerosis -June 2016 echo with EF 55-60%, moderate MR, severe TR, pulm HTN - Neurology consulted Aspirin recommended to be added - continue Coumadin Chronic Atrial Fibrillation -A fib with slow ventricular response on EKG - noted to have episodes of bradycardia, asymptomatic reduce Metoprolol from 25 to 12.5mg po daily - INR 1.9 increase coumadin monitor HTN -Normotensive - hold Losartan to avoid hypotension, in light of recent CVA HLD: -Cont statin Hypothyroidism: -Cont synthroid Chronic gout: -Cont colchicine CKD III: -At baseline OA, chronic back pain: -Cont tramadol, lidocaine patch PRN YOBANI: -Cpap DVT Ppx: Continue coumadin Code status: FULL PCP: Antonio Dispo: pending lives alone at home anticipate return home, when cleared by Neuro Current Inpatient Medications: Current Inpatient Medications Medications (Trade) Dose Ordered Sig/Xavi Route Start Time Stop Time Status Last Admin Dose Admin Acetaminophen (Tylenol Tab) 650 mg Q4H PRN PO 08/07/17 17:00 09/06/17 16:59 Miscellaneous Information (Pharmacist Discharge Med Rec Consult) 1 ea UD PRN N/A 08/07/17 17:00 09/06/17 16:59 Atorvastatin Calcium (Lipitor Tab) 10 mg DAILY PO 08/08/17 09:00 09/07/17 08:59 08/08/17 08:39 10 MG Colchicine (Colchicine Tab) 0.6 mg BID PO 08/07/17 21:00 09/06/17 20:59 08/08/17 08:38 0.6 MG Levothyroxine Sodium (Synthroid Tab) 75 mcg DAILYBB PO 08/08/17 06:00 09/07/17 06:59 08/08/17 05:34 75 MCG Lidocaine (Lidoderm Patch 5%) 1 patch DAILY PRN TD 08/07/17 17:15 09/06/17 17:14 Potassium Chloride (Klor-Con M10) 10 meq DAILY PRN PO 08/07/17 17:15 09/06/17 17:14 Tramadol HCl (Ultram Tab) 50 mg BID PRN PO 08/07/17 17:15 09/06/17 17:14 08/07/17 22:27 50 MG Warfarin Sodium (Coumadin Tab) 2.5 mg SuMoWeThFrSa@1600 PO 08/07/17 18:00 09/06/17 17:59 08/08/17 16:10 2.5 MG Warfarin Sodium (Coumadin Tab) 5 mg Tu@1600 PO 08/12/17 16:00 09/11/17 15:59 Miscellaneous Information (Pending Order) 1 ea DAILY@10 N/A 08/08/17 10:00 09/07/17 09:59 Metoprolol Succinate (Toprol Xl Tab) 12.5 mg HS PO 08/08/17 21:00 09/06/17 20:59 Aspirin (Ecotrin Tab) 81 mg QAM PO 08/09/17 09:00 09/08/17 08:59
[2017-08-08] MEDS ORDERED: WARFARIN SOD 2.5 MG TAB PO ONE (18:30)
[2017-08-08] MEDS ORDERED: CLONIDINE HCL 0.1 MG TAB PO PRN (18:30)
[2017-08-08] MEDS ORDERED: METOPROLOL SUCC 25MG EXT REL TAB PO SCH (21:00)
[2017-08-08] MEDS: TRAMADOL HCL 50 MG TAB PO PRN (21:09)
[2017-08-09 03:44] VITALS: BP 109/57; PULSE 51; TEMP 36.4; O2SAT 96
[2017-08-09] MEDS: LEVOTHYROXINE 75 MCG TAB PO SCH (05:36)
[2017-08-09 06:14] LABS: BASO % 1.1 %; BASO ABS # 0.08 K/uL (0-0.2); EOS % 7.4 %; EOS ABS # 0.52 K/uL (0-0.5); HEMATOCRIT 40.5 % (37-47); HEMOGLOBIN 13.9 g/dL (12.0-16.0); IG# 0.02 K/uL (0.00-0.02); LYMPH ABS # 1.41 K/uL (1.2-3.4); MEAN CORPUSCULAR HEMOGLOBIN 31.2 pg (25-34); MEAN CORPUSCULAR HGB CONC 34.3 g/dl (32-36); MEAN PLATELET VOLUME 9.8 fL (7.4-10.4); MONO % 13.4 %; MONO ABS # 0.94 K/uL (0.11-0.59); NEUT % 57.8 %; NEUT ABS # 4.07 K/uL (1.4-6.5); PLATELET COUNT 149 K/uL (130-400); RED CELL DISTRIBUTION WIDTH SD 46.6 fL (36.4-46.3); WHITE BLOOD COUNT 7.04 K/uL (4.8-10.8)
[2017-08-09 06:38] LABS: INR 2.1 (0.9-1.1)
[2017-08-09 06:46] LABS: CALCIUM 9.2 mg/dl (8.5-10.1); CREATININE 1.09 mg/dl (0.60-1.20); POTASSIUM 4.1 mmol/L (3.5-5.1)
[2017-08-09 07:12] VITALS: BP 150/85; PULSE 52; TEMP 36.3; O2SAT 94
[2017-08-09] MEDS: COLCHICINE 0.6 MG TAB PO SCH (08:10)
[2017-08-09] MEDS: ATORVASTATIN 10 MG TAB PO SCH (08:11)
[2017-08-09] MEDS ORDERED: ASPIRIN 81 MG ECTAB PO SCH (09:00)
[2017-08-09 11:49] VITALS: BP 173/78; PULSE 59; TEMP 36.4; O2SAT 97
--- NOTE | 2017-08-09 12:56 | PROGRESS NOTE ---
DATE: 08/09/2017 Bernie looks good today. Her visual field testing on confrontation appears to be intact, but she still subjectively describes a fuzzy area in her left inferior quadrant which would correlate with the presence of the occipital infarction but would indicate a lesser degree of injury than it would be assumed on the basis of the MRI appearance. Again, what we are seeing may not reflect true tissue injury of a permanent nature. Her INR is up to 2.1. She is on a baby aspirin per day. She wants to go home. I see no reason she could not be discharged today with follow up in the coagulation clinic with continued aspirin, will follow up with ophthalmology for another visual field test and to have her cleared for driving by that individual if he feels it is safe, but to not drive until being assessed and to follow up with neurology in about 3 weeks, specifically with Mulu Brooks PA-C and myself or Dr. Ohara. I reviewed these findings with the current nursing staff that is going to be relayed to Dr. Jiménez and I suspect she will be discharged today as long as she has someone at home to care for her and make sure she follows through with these instructions. Addendum Dr Anderson readdressed the aspirin allergy and the patient now states that is it a valid one In this instance with a now therapeutic INR we will stop the aspirin and not substitute plavix and continue on the other outlined discharge recommendations MTDD
[2017-08-09] MEDS ORDERED: LOSARTAN POTASSIUM 25 MG TAB PO ONE (13:18)
--- NOTE | 2017-08-09 13:20 | Progress Note ---
Medicine Progress Note Date & Time of Visit: Aug 09, 2017 at 13:11. Subjective seen resting in bedside chair states her vision has improved today, seeing less "lines" on the left side no other new focal neuro deficits no chest pain, dyspnea, dizziness, presyncope, palpitations no other symptoms denies lightheadedness, weakness, pre/syncope in the past states she is ready and would like to be discharged today Objective Last 8 Hrs Date Time Temp Pulse Resp B/P (MAP) Pulse Ox O2 Delivery O2 Flow Rate FiO2 08/09/17 12:00 Room Air 08/09/17 11:49 36.4 59 20 173/78 (109) 97 Room Air 08/09/17 08:00 Room Air 08/09/17 07:12 36.3 52 15 150/85 (106) 94 Room Air Physical Exam: General- oriented x 3 , not in distress, speaks in sentences with no effort Eyes- anicteric Neck- supple, no JV Lungs- clear breath sounds bilaterally, no rales/wheezes Heart- regular rhythm; no murmurs,mild deloris (high 50s) Abdomen- normal bowel sounds, soft, nontender Extremities- no pretibial edema, no calf tenderness; peripheral pulses intact Neuro- alert, oriented x 3; left inferior field cut- improved, PERRL, EOMI; no facial palsy; no dysarthria; motor 5/5 bilaterally; sensation 100% on all ext Skin- warm & dry Laboratory Results: Last 24 Hours Test 08/09/17 06:03 White Blood Count 7.04 K/uL Red Blood Count 4.45 M/uL Hemoglobin 13.9 g/dL Hematocrit 40.5 % Mean Corpuscular Volume 91.0 fL Mean Corpuscular Hemoglobin 31.2 pg Mean Corpuscular Hemoglobin Concent 34.3 g/dl Platelet Count 149 K/uL Mean Platelet Volume 9.8 fL Neutrophils (%) (Auto) 57.8 % Lymphocytes (%) (Auto) 20.0 % Monocytes (%) (Auto) 13.4 % Eosinophils (%) (Auto) 7.4 % Basophils (%) (Auto) 1.1 % Neutrophils # (Auto) 4.07 K/uL Lymphocytes # (Auto) 1.41 K/uL Monocytes # (Auto) 0.94 K/uL Eosinophils # (Auto) 0.52 K/uL Basophils # (Auto) 0.08 K/uL RDW Standard Deviation 46.6 fL RDW Coefficient of Variation 14.0 % Immature Granulocyte % (Auto) 0.3 % Immature Granulocyte # (Auto) 0.02 K/uL Prothrombin Time 21.5 SECONDS Prothromb Time International Ratio 2.1 Sodium Level 138 mmol/L Potassium Level 4.1 mmol/L Chloride Level 106 mmol/L Carbon Dioxide Level 26 mmol/L Anion Gap 6.0 mmol/L Blood Urea Nitrogen 21 mg/dl Creatinine 1.09 mg/dl Est Creatinine Clear Calc Drug Dose 47.6 ml/min Estimated GFR () 55.9 Estimated GFR (Non- 48.2 BUN/Creatinine Ratio 18.8 Random Glucose 84 mg/dl Calcium Level 9.2 mg/dl Assessment & Plan Patient is a 77-year-old female with a PMH of chronic A. fib (on Coumadin), HTN , HLD, CKD III and other medical problems listed below who presents with persistent loss of vision in left eye 2 days and was found to have a sub-acute R occipital infarct. Subacute R Occipital Infarct - presented with left eye blurred vision -Brain MRI with findings consistent with acute infarct in the paramedian right occipital lobe. T2/FLAIR hyperintensity is consistent with an infarct at least 6-12 hrs old -Carotid ultrasound with atherosclerosis -June 2016 echo with EF 55-60%, moderate MR, severe TR, pulm HTN - Neurology consulted: Dr. Schuster Aspirin recommended to be added- patient states she has allergy to Aspirin/ Salycilate- causes hives (verified with patient in detail- twice) discussed with Dr. Schuster, due to history of Aspirin allergy, recommends to continue coumadin only, ff up with coumadin clinic closely to ensure INR is therapeutic - follow up with Opthalmologist first before resuming driving follow up with Neurologist in 3 weeks Chronic Atrial Fibrillation -A fib with slow ventricular response on EKG - noted to have episodes of bradycardia 40s, asymptomatic reduce Metoprolol from 25 to 12.5mg po daily HR in the high 50s-60s monitor HR as outpatient - INR 1.8 given additional coumadin INR increased to 2.1 - ff up with Coumadin clinic early next week HTN continue Losartan Metoprolol reduced to 12.5mg due to bradycardia monitor BP HLD: -Cont statin Hypothyroidism: -Cont synthroid Chronic gout: -Cont colchicine CKD III: -At baseline OA, chronic back pain: -Cont tramadol, lidocaine patch PRN YOBANI: -Cpap DVT Ppx: Continue coumadin Code status: FULL PCP: Antonio Dispo: d/c home ff up with Ophthalomology next week (no driving until then) ff up with PCP next week ff up with Neurologist Dr. Schuster in 3 weeks Current Inpatient Medications: Current Inpatient Medications Medications (Trade) Dose Ordered Sig/Xavi Route Start Time Stop Time Status Last Admin Dose Admin Acetaminophen (Tylenol Tab) 650 mg Q4H PRN PO 08/07/17 17:00 09/06/17 16:59 Miscellaneous Information (Pharmacist Discharge Med Rec Consult) 1 ea UD PRN N/A 08/07/17 17:00 09/06/17 16:59 Atorvastatin Calcium (Lipitor Tab) 10 mg DAILY PO 08/08/17 09:00 09/07/17 08:59 08/09/17 08:11 10 MG Colchicine (Colchicine Tab) 0.6 mg BID PO 08/07/17 21:00 09/06/17 20:59 08/09/17 08:10 0.6 MG Levothyroxine Sodium (Synthroid Tab) 75 mcg DAILYBB PO 08/08/17 06:00 09/07/17 06:59 08/09/17 05:36 75 MCG Lidocaine (Lidoderm Patch 5%) 1 patch DAILY PRN TD 08/07/17 17:15 09/06/17 17:14 Potassium Chloride (Klor-Con M10) 10 meq DAILY PRN PO 08/07/17 17:15 09/06/17 17:14 Tramadol HCl (Ultram Tab) 50 mg BID PRN PO 08/07/17 17:15 09/06/17 17:14 08/08/17 21:09 50 MG Warfarin Sodium (Coumadin Tab) 2.5 mg SuMoWeThFrSa@1600 PO 08/07/17 18:00 09/06/17 17:59 08/08/17 16:10 2.5 MG Warfarin Sodium (Coumadin Tab) 5 mg Tu@1600 PO 08/12/17 16:00 09/11/17 15:59 Miscellaneous Information (Pending Order) 1 ea DAILY@10 N/A 08/08/17 10:00 09/07/17 09:59 Metoprolol Succinate (Toprol Xl Tab) 12.5 mg HS PO 08/08/17 21:00 09/06/17 20:59 08/08/17 21:10 12.5 MG Aspirin (Ecotrin Tab) 81 mg QAM PO 08/09/17 09:00 09/08/17 08:59 08/09/17 08:11 81 MG Clonidine HCl (Catapres Tab) 0.1 mg Q6H PRN PO 08/08/17 18:30 09/07/17 18:29
[2017-08-09] MEDS ORDERED: TPRSR25 PO (13:27)
--- NOTE | 2017-08-09 13:38 | Discharge Instructions ---
Discharge Instructions Date of Service Aug 09, 2017. Admission Reason for Admission: Occipital Stroke Discharge Discharge Diagnosis / Problem: ACUTE STROKE- RIGHT OCCIPITAL REGION Discharge Goals Goal(s): Diagnostic testing, Therapeutic intervention Activity Recommendations Activity Limitations: as noted below (NO HEAVY EXERTION UNTIL RE-EVALUATED BY PRIMARY CARE PHYSICIAN) Lifting Limitations: until after follow-up appointment Exercise/Sports Limitations: until after follow-up appointment Driving or Machine Use: NO DRIVING UNTIL EVALUATED AND CLEARED BY AN HAUL CANE BRAKEMAN . Instructions / Follow-Up Instructions / Follow-Up PLEASE REVIEW YOUR NEW MEDICATION LIST AND FOLLOW INSTRUCTIONS CAREFULLY. IF WITH RECURRENCE OF SYMPTOMS, CALL 911 IMMEDIATELY. CALL PRIMARY CARE PHYSICIAN/RIDES ATTENDANT OR RETURN TO ER IMMEDIATELY IF WITH: DIZZINESS, LIGHTHEADEDNESS, PALPITATIONS, SHORTNESS OF BREATH, CHEST PAIN. FOLLOW UP WITH DR. SMITH IN 3- 5 DAYS. THE CLINIC WILL BE CALLING YOU FOR AN APPOINTMENT. FOLLOW UP WITH AN HAUL CANE BRAKEMAN THIS WEEK. NO DRIVING UNTIL CLEARED BY AN HAUL CANE BRAKEMAN. FOLLOW UP WITH NEUROLOGIST DR. ACUNA IN 3 WEEKS. Who to Call and When: Medical Emergencies: Call 911 immediately if you experience any of the following warning signs and symptoms of Stroke: * Sudden numbness or weakness of the face, arm or leg, especially on one side of the body * Sudden confusion, trouble speaking or understanding * Sudden trouble seeing in one or both eyes * Sudden trouble walking, dizziness, loss of balance or coordination * Sudden severe headache with no cause Do not delay calling 911 if you experience any warning signs or symptoms of a stroke. Delay in seeking medical attention may affect what treatments can be given to you. . Risk Factors for Stroke: You can reduce your chances of stroke by working with your medical provider to adopt a healthy lifestyle. Some specific ways to lower your chance of stroke are: * If you are a smoker, now is the time to stop smoking cigarettes * If you are diabetic, improve the control of your blood sugars * Avoid excessive amounts of alcohol * Control high blood pressure * Lose weight if you are overweight * Be sure to lead an active lifestyle * Eat a healthy diet low in salt, cholesterol and fat You should know about other risk factors for stroke that you are unable to control. These include: * Age 55 years or older * Male gender * Certain racial groups: , or / * Family History of Stroke, Mini stroke or Heart Attack * Sickle Cell Disease Follow Up: It is important for you to keep your follow up appointments with your medical provider. Current Hospital Diet Patient's current hospital diet: AHA Diet (Heart Healthy) Discharge Diet Recommended Diet: AHA Diet (Heart Healthy) Procedures Procedures Performed: BRAIN MRI, CAROTID US Pending Studies Studies pending at discharge: yes List of pending studies: EVALUATION BY AN OPHTHALOMOLOGIST Laboratory Results Hemoglobin A1c Test 08/07/17 12:35 Range/Units Estimated Average Glucose 123 mg/dl Hemoglobin A1c 5.9 H 4.5-5.6 % Lipid Panel Test 08/08/17 06:32 Range/Units Triglycerides Level 95 0-150 mg/dl Cholesterol Level 99 0-200 mg/dl HDL Cholesterol 31 mg/dl Cholesterol/HDL Ratio 3.2 LDL Cholesterol, Calculated 49 mg/dl Medical Emergencies . Non-Emergent Contact Non-Emergency issues call your: Primary Care Provider, Neurologist Call Non-Emergent contact if: you have a fever, you have any medication questions . . "Provider Documentation" section prepared by Herson Jiménez. . Stroke Core Measures Reason no t-PA for Stroke: Treatment not indicated Reason no antithrom by day 2: Treatment provided - N/A Reason no antithrom at D/C: Treatment provided - N/A Reason no statin at D/C: Treatment provided - N/A Reason no anticoag w/a fib: Treatment provided - N/A
--- NOTE | 2017-08-09 14:26 | Discharge Summary ---
Discharge Summary Date of Service Aug 09, 2017. Discharge Summary Admission Date: Aug 07, 2017 at 16:47 Discharge Date: Aug 09, 2017 Principal Diagnosis: Subacute Right Occipital Infarct Secondary Diagnoses/Problems: Please refer to hospital course below. Procedures: BRAIN WITHOUT CONTRAST CLINICAL HISTORY: 77 years-old Female presenting with left eye hemianopia since Friday, concern for stroke. TECHNIQUE: Multisequence, multiplanar MR imaging of the brain was performed without the use of intravenous contrast. IV contrast: None. COMPARISON: None. FINDINGS: Ventricles and sulci normal in size. Restricted diffusion in the paramedian right occipital lobe with associated sulcal effacement and T2/FLAIR hyperintensity. Evidence of an old infarct with gliosis and cystic encephalomalacia in the paramedian inferior right cerebellar hemisphere. No midline shift. No hemorrhage. No extra-axial fluid collection. T2 skull base flow voids preserved. Mild mucosal thickening in the paranasal sinuses. Bone marrow signal intensity within the calvarium within normal limits. IMPRESSION: 1. Findings consistent with acute infarct in the paramedian right occipital lobe. T2/FLAIR hyperintensity is consistent with an infarct at least 6 to 12 hours old. 2. 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 The report will be called/faxed according to standard departmental protocol. Electronically signed by: Mauro Alvarez M.D. 08/07/2017 3:12 PM CAROTID DOPPLER NECK ART IMPRESSION: Atherosclerosis without hemodynamically significant stenosis seen within the carotid arteries. ECHO: * -- Conclusions -- * The rhythm is atrial fibrillation with slow ventricular response. * Injection of contrast documented no interatrial shunt. * Moderate biatrial enlargement. * Ejection Fraction = 55-60%. * The right ventricle is moderately dilated. * The right ventricular systolic function is qualitatively normal. * Aortic valve sclerosis mild, without significant aortic valvular stenosis. * There is mild mitral regurgitation. There is mild tricuspid regurgitation Consultations: Neurologist Dr. Acuna Pending Studies/Follow-Up: Please refer to hospital course below. Medication Reconciliation New Medications: Metoprolol Succinate (Metoprolol Succinate ER) 25 Mg Tabcr 0.5 TAB PO HS for 30 Days, #30 TAB 2 Refills Continued Medications: Atorvastatin (Lipitor) 10 Mg Tab 1 TAB PO DAILY for 30 Days, #30 TAB 5 Refills Cholecalciferol (D3 2000) 2,000 Unit Tab 1 TAB PO DAILY Colchicine (Colchicine) 0.6 Mg Tab 0.6 MG PO BID, TAB Furosemide (Lasix) 40 Mg Tab 40 MG PO DAILY, TAB Levothyroxine Sodium (Synthroid) 75 Mcg Tab 75 MCG PO QAM Lidocaine (Lidocaine) 1 Patch Tdsy 1 PATCH TOP DAILY PRN for Pain Losartan Potassium (Cozaar) 25 Mg Tab 25 MG PO QAM Potassium Chloride Microencaps (Klor-Con M10) 10 Meq Tab 10 MEQ PO DAILY PRN for If Lasix Taken Tramadol HCl (Tramadol HCl) 50 Mg Tab 50 MG PO BID PRN for Pain Patient takes HS only Warfarin Sod (Coumadin) 2.5 Mg Tab 2.5 MG PO SuMoWeThFr, TAB Warfarin Sod (Coumadin) 5 Mg Tab 1 TAB PO Discontinued Medications: Metoprolol Succ (Toprol Xl) (Toprol-Xl) 25 Mg Tabcr 25 MG PO HS Admission Information HPI (per Admitting provider): Patient is a 77-year-old female with a PMH of chronic A. fib (on Coumadin), HTN , HLD, CKD III and other medical problems listed below who presents with persistent loss of vision in left eye 2 days. Patient was playing bingo on Friday and leaned over to pick something off of the ground when she experienced sudden vision loss in both eyes. States that vision of the right eye returned within a minute but left vision loss persisted. Describes it as "seeing amador". Patient drove home and followed up with ophthalmology later that day and her eye exam was unremarkable. Was encouraged to follow-up with PCP, which she did earlier this morning and was sent to ED for further evaluation. Over the last few days, decreased acuity of left eye vision has persisted and patient has been unable to read. Also endorses difficulty with left peripheral vision, but states it is improving. Denies other neurological symptoms such as facial droop, difficulty swallowing or speaking, weakness or paresthesias in extremities. Gait is unaffected. Patient takes Coumadin daily and INR today is 1.8. Denies fever, chills, lightheadedness, dizziness, headache, chest pain, palpitations, SOB, abdominal pain, nausea, vomiting, bowel or bladder changes. LE swelling is at baseline. Patient lives alone in [place]. Denies previous history of CVA. MRI brain was performed in the ED and patient was found to have a subacute paramedian right occipital lobe infarct. Physical Exam (per Admitting): General Appearance: WD/WN, no apparent distress, + obese Head: normocephalic, atraumatic Eyes: normal inspection, PERRL, EOMI, sclerae normal ENT: normal ENT inspection, hearing grossly normal, pharynx normal (moist mucous membranes ) Neck: supple, thyroid normal, trachea midline Respiratory/Chest: chest non-tender, lungs clear, no respiratory distress Cardiovascular: normal peripheral pulses, + irregularly irregular Abdomen/GI: non tender, soft, no organomegaly Back: normal inspection Extremities/Musculoskelatal: normal inspection, no calf tenderness, no pedal edema Neurologic/Psych: harvest worker fruit II-XII nml as tested (Decreased visual acuity of L eye. Slight impairment of left peripheral vision field. ), no motor/sensory deficits, alert, normal mood/affect, oriented x 3, + pertinent finding (gait intact) Skin: normal color Hospital Course Patient is a 77-year-old female with a PMH of chronic A. fib (on Coumadin), HTN , HLD, CKD III and other medical problems listed below who presents with persistent loss of vision in left eye 2 days and was found to have a sub-acute R occipital infarct. Subacute Right Occipital Infarct - presented with left eye blurred vision -Brain MRI with findings consistent with acute infarct in the paramedian right occipital lobe. T2/FLAIR hyperintensity is consistent with an infarct at least 6-12 hrs old -Carotid ultrasound with atherosclerosis - Neurology consulted: Dr. Acuna Aspirin initially recommended to be added while INR subetherapeutic- patient states she has allergy to Aspirin/Salycilate- causes hives (verified with patient in detail- twice) discussed with Dr. Acuna, due to history of Aspirin allergy, recommends to continue coumadin only, ff up with coumadin clinic closely to ensure INR is therapeutic - follow up with Metal Container Maker raymond martinez before resuming driving follow up with Neurologist in 3 weeks Chronic Atrial Fibrillation - A fib with slow ventricular response on EKG - noted to have episodes of bradycardia 40s, asymptomatic reduce Metoprolol from 25 to 12.5mg po daily HR improved, in the high 50s-60s monitor HR as outpatient - INR 1.8 given additional coumadin INR increased to 2.1 ff up with Coumadin clinic early next week HTN continue Losartan Metoprolol reduced to 12.5mg due to bradycardia monitor BP HLD: -Cont statin Hypothyroidism TSH normal Cont synthroid Dispo: d/c home ff up with Ophthalomology next week (no driving until then) ff up with PCP next week ff up with Neurologist Dr. Acuna in 3 weeks Total time spent on discharge = 35 minutes This includes examination of the patient, discharge planning, medication reconciliation, and communication with other providers. Discharge Instructions Discharge Instructions Date of Service Aug 09, 2017. Admission Reason for Admission: Occipital Stroke Discharge Discharge Diagnosis / Problem: ACUTE STROKE- RIGHT OCCIPITAL REGION Discharge Goals Goal(s): Diagnostic testing, Therapeutic intervention Activity Recommendations Activity Limitations: as noted below (NO HEAVY EXERTION UNTIL RE-EVALUATED BY PRIMARY CARE PHYSICIAN) Lifting Limitations: until after follow-up appointment Exercise/Sports Limitations: until after follow-up appointment Driving or Machine Use: NO DRIVING UNTIL EVALUATED AND CLEARED BY AN CHIEF GAUGER . Instructions / Follow-Up Instructions / Follow-Up PLEASE REVIEW YOUR NEW MEDICATION LIST AND FOLLOW INSTRUCTIONS CAREFULLY. IF WITH RECURRENCE OF SYMPTOMS, CALL 911 IMMEDIATELY. CALL PRIMARY CARE PHYSICIAN/SANITATION MANAGER OR RETURN TO ER IMMEDIATELY IF WITH: DIZZINESS, LIGHTHEADEDNESS, PALPITATIONS, SHORTNESS OF BREATH, CHEST PAIN. FOLLOW UP WITH DR. SMITH IN 3- 5 DAYS. THE CLINIC WILL BE CALLING YOU FOR AN APPOINTMENT. FOLLOW UP WITH AN CHIEF GAUGER THIS WEEK. NO DRIVING UNTIL CLEARED BY AN CHIEF GAUGER. FOLLOW UP WITH NEUROLOGIST DR. ACUNA IN 3 WEEKS. Who to Call and When: Medical Emergencies: Call 911 immediately if you experience any of the following warning signs and symptoms of Stroke: * Sudden numbness or weakness of the face, arm or leg, especially on one side of the body * Sudden confusion, trouble speaking or understanding * Sudden trouble seeing in one or both eyes * Sudden trouble walking, dizziness, loss of balance or coordination * Sudden severe headache with no cause Do not delay calling 911 if you experience any warning signs or symptoms of a stroke. Delay in seeking medical attention may affect what treatments can be given to you. . Risk Factors for Stroke: You can reduce your chances of stroke by working with your medical provider to adopt a healthy lifestyle. Some specific ways to lower your chance of stroke are: * If you are a smoker, now is the time to stop smoking cigarettes * If you are diabetic, improve the control of your blood sugars * Avoid excessive amounts of alcohol * Control high blood pressure * Lose weight if you are overweight * Be sure to lead an active lifestyle * Eat a healthy diet low in salt, cholesterol and fat You should know about other risk factors for stroke that you are unable to control. These include: * Age 55 years or older * Male gender * Certain racial groups: , or / * Family History of Stroke, Mini stroke or Heart Attack * Sickle Cell Disease Follow Up: It is important for you to keep your follow up appointments with your medical provider. Current Hospital Diet Patient's current hospital diet: AHA Diet (Heart Healthy) Discharge Diet Recommended Diet: AHA Diet (Heart Healthy) Procedures Procedures Performed: BRAIN MRI, CAROTID US Pending Studies Studies pending at discharge: yes List of pending studies: EVALUATION BY AN OPHTHALOMOLOGIST Laboratory Results Hemoglobin A1c Test 08/07/17 12:35 Range/Units Estimated Average Glucose 123 mg/dl Hemoglobin A1c 5.9 H 4.5-5.6 % Lipid Panel Test 08/08/17 06:32 Range/Units Triglycerides Level 95 0-150 mg/dl Cholesterol Level 99 0-200 mg/dl HDL Cholesterol 31 mg/dl Cholesterol/HDL Ratio 3.2 LDL Cholesterol, Calculated 49 mg/dl Medical Emergencies . Non-Emergent Contact Non-Emergency issues call your: Primary Care Provider, Neurologist Call Non-Emergent contact if: you have a fever, you have any medication questions . . "Provider Documentation" section prepared by Herson Jiménez. . Stroke Core Measures Reason no t-PA for Stroke: Treatment not indicated Reason no antithrom by day 2: Treatment provided - N/A Reason no antithrom at D/C: Treatment provided - N/A Reason no statin at D/C: Treatment provided - N/A Reason no anticoag w/a fib: Treatment provided - N/A
[2017-08-09 14:51] VITALS: BP 173/78; PULSE 59; TEMP 36.4; O2SAT 97
--- NOTE | 2017-08-09 14:57 | Pharmacy Progress Note ---
Pharmacist Stroke Counseling Date of Service Aug 09, 2017. Scope Pharmacy has been consulted to provide medication discharge counseling for this patient admitted with ischemic stroke/hemorrhagic stroke/ transient ischemic attack as per the Pharmacist Discharge Counseling for Stroke Patients Protocol. Medications on Discharge New Medications: Metoprolol Succinate (Metoprolol Succinate ER) 25 Mg Tabcr 0.5 TAB PO HS for 30 Days, #30 TAB 2 Refills Continued Medications: Atorvastatin (Lipitor) 10 Mg Tab 1 TAB PO DAILY for 30 Days, #30 TAB 5 Refills Cholecalciferol (D3 2000) 2,000 Unit Tab 1 TAB PO DAILY Colchicine (Colchicine) 0.6 Mg Tab 0.6 MG PO BID, TAB Furosemide (Lasix) 40 Mg Tab 40 MG PO DAILY, TAB Levothyroxine Sodium (Synthroid) 75 Mcg Tab 75 MCG PO QAM Lidocaine (Lidocaine) 1 Patch Tdsy 1 PATCH TOP DAILY PRN for Pain Losartan Potassium (Cozaar) 25 Mg Tab 25 MG PO QAM Potassium Chloride Microencaps (Klor-Con M10) 10 Meq Tab 10 MEQ PO DAILY PRN for If Lasix Taken Tramadol HCl (Tramadol HCl) 50 Mg Tab 50 MG PO BID PRN for Pain Patient takes HS only Warfarin Sod (Coumadin) 2.5 Mg Tab 2.5 MG PO SuMoWeThFrSa, TAB Warfarin Sod (Coumadin) 5 Mg Tab 1 TAB PO Tu Discontinued Medications: Metoprolol Succ (Toprol Xl) (Toprol-Xl) 25 Mg Tabcr 25 MG PO HS Action The above medications, specifically ones for stroke treatment/prophylaxis, have been reviewed in detail with the patient and/or patient jewelry sales representative(s) prior to discharge. This includes indication, common adverse reactions, drug interactions, and medication administration. Medication counseling has been employed using the teach-back method to ensure understanding. Outcome Spoke to patient this afternoon about her medications especially Warfarin and talked also about Aspirin and Plavix in case she gets started on one of them. Asked her about her possible allergy to Aspirin and she said she has taken this occasionally without any problems. She also received a dose of Aspirin this morning here in the hospital and told me she did not have any problems with it. Explained to her the antiplatelet effects of ASA and Plavix and anticoagulant effects of Warfarin and to be careful since they are blood thinners. Went over what to look out for as far as side effects for both of these and Lipitor. I discussed her recent INRs, about them being sub-therapeutic and recommended closer monitoring. Also went over dietary Vit K choices that can affect Warfarin. She was appreciative of the counseling. She preferred the phone call to be on Saturday 08/12 after she has seen Dr. Alvarez on Friday 08/11. Please note, they are aware that the pharmacist will call them within 72 hours post-discharge to confirm that the appropriate medications are being taken and answer any further medication related questions the patient might have at that time. Contact information Individual to be contacted: PATIENT Relationship to patient (if applicable): SELF Phone number: [phone] Best time to call: AFTERNOON on 08/12 (Friday) Thank you for allowing pharmacy to be involved in the care of this patient. Please call [phone] or [phone] with any additional questions
[2017-08-10] MEDS ORDERED: LOSARTAN POTASSIUM 25 MG TAB PO SCH (09:00)
--- NOTE | 2017-08-11 15:44 | Pharmacy Progress Note ---
Pharmacist Post D/C Phone Note Date of phone call: Aug 11, 2017. The patient and/or patient senior human resources representative(s) were unable to be reached for a follow-up phone call within the 72 hour time frame. Discharge counseling pharmacist contact information has already been provided to the patient should questions arise. Thank you for allowing us to be involved in the care of this patient.
[2017-08-12] MEDS ORDERED: WARFARIN SOD 5 MG TAB PO SCH (16:00)
== END 2017-08-09 15:30 | disposition home or self-care (01) | DRG 66 ==
LOC: C.EDB 12:04 → C.2T 16:47 → ENRESERV 18:15
PROVIDERS: ADMIT Hospitalist; ATTEND Internal Medicine
DX: I63.8 Other cerebral infarction (principal); I48.2 Chronic atrial fibrillation; M10.9 Gout, unspecified; E78.5 Hyperlipidemia, unspecified; N18.3 Chronic kidney disease, stage 3 (moderate); E03.9 Hypothyroidism, unspecified; I12.9 Hypertensive chronic kidney disease with stage 1 through stage 4 chronic kidney disease, or unspecified chronic kidney disease; G47.33 Obstructive sleep apnea (adult) (pediatric); G89.29 Other chronic pain; M54.9 Dorsalgia, unspecified; M19.90 Unspecified osteoarthritis, unspecified site; Z96.653 Presence of artificial knee joint, bilateral; Z96.611 Presence of right artificial shoulder joint; Z96.612 Presence of left artificial shoulder joint; Z98.49 Cataract extraction status, unspecified eye; Z90.49 Acquired absence of other specified parts of digestive tract; Z90.710 Acquired absence of both cervix and uterus; Z87.891 Personal history of nicotine dependence; Z88.0 Allergy status to penicillin; Z88.5 Allergy status to narcotic agent; Z85.42 Personal history of malignant neoplasm of other parts of uterus; Z79.01 Long term (current) use of anticoagulants; Z82.49 Family history of ischemic heart disease and other diseases of the circulatory system; Z80.9 Family history of malignant neoplasm, unspecified

== ENCOUNTER 2018-11-22 16:43 | Observation (INO) ==
--- OUTSIDE RECORDS SUMMARY | 2018-11-22 16:45 | External Medical Summary | Continuity of Care Document ---
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 Refills: 0 Metoprolol Succinate ER 25 MG Oral Table t Extended Release 24 Hour; TAKE 1 TABLET DAILY. Refills: 0 Synthroid 50 MCG Oral Tablet; TAKE 1 TABLET DAILY. Refills: 0 traMADol HCl - 50 MG Oral Tablet Refills: 0 Voltaren 1 % Transdermal Gel; APPLY TO U PPER EXTREMITIES, 2 GM OF GEL TO AFFECTED AREA 4 TIMES DAILY. DO NOT APPLY MORE THAN 8 GM DAILY TO ANY ONE AFFECTED JOINT. Denis Mcbride Start: 22-Jun-2014 Quantity: 1 100 GM Tube Refills: 3 Procedures History of Cholecystectomy Status: Compl eted History of Partial Colectomy Status: Com pleted History of Shoulder Surgery Status: Comp leted History of Tonsillectomy Status: Complet ed History of Manual Percutaneous Discectomy Of Nucleus Pulposu s Of Status: Completed Intervertebral Lumbar Disk History of Neuroplasty Decompression Median Nerve At Carpal Status: Completed Tunnel History of Cataract Surgery Status: Comp leted Immunizations Immunizations not documented Family History Mother Family history of arthritis (V17.7) (Z82.61) Status: Active Family history of hypertension (V17.49) (Z82.49) Status: Act nicolas Father Family history of malignant neoplasm of testis (V16.43) (Z80 .43) Status: Active Sister Family history of colon cancer (V16.0) (Z80.0) Status: Activ e Social History - Smoking Status Former smoker Interventions Medication ChangesVoltaren 1 % Transdermal Gel - StartDiscussion/[id number] y.o. WF with R hand/wrist swelling, now resolved, erosive OAReviewed MRI pt had in Mar of her R hand and wrist. Noted to have erosion in the R 2nd DIP which had appearance of erosive OA. Discussed look of erosive OA and how it differs from more typical OA. I amstill not sure why she had the swelling in her R hand previously; crystal arthritis (gout, pseudogout) do seem to be the most likely culprits. Pt aware if she has new swelling, should call if this returns. Until then, suggested treatment with Voltaren gel -- 2gm to her affected fingers at least bid, but may use up to max of 16g/day. Did discuss that with NSAIDs and coumadin, there is a theoretical increase in bleeding risk. She is aware to monitor for this. Pt is aware that I will be leaving the area and will f/u with her PCP for now. Pt agreeable to plan. Plan of Treatment Planned Observations Planned Goals not documented Results No Known Results Results not documented Encounters Appointment; Helen Mcbride M.D. 22-Jun-2014 10:40 Encounter Diagnosis: Problem not documented
[2018-11-22] MEDS ORDERED: TRAMADOL HCL 50 MG TABLET PO STA ×2 (16:55→21:41)
--- NOTE | 2018-11-22 18:05 | XRay Report ---
XR hand LT min 3V routine, XR hand RT min 3V routine CLINICAL HISTORY: Fall. Bilateral hand pain. COMPARISON STUDY: None. FINDINGS: The bones are osteopenic. Advanced degenerative changes within the hands. No fracture or di slocation. Mild soft tissue swelling at the PIP, DIP, and MCP joints likely due to the degenerative c hange. IMPRESSION: No fracture or dislocation within the right or left hand. Electronically signed by: Harlan Sylvester M.D. 11/22/2018 6:03 PM
--- NOTE | 2018-11-22 18:07 | XRay Report ---
XR humerus LT 2V, XR shoulder LT min 2V routine CLINICAL HISTORY: Fall. Left shoulder and arm pain. COMPARISON STUDY: None. FINDINGS: No fracture or dislocation within the left shoulder or left humerus. The left clavicle is i ntact. Mild soft tissue swelling in the shoulder. The left total shoulder arthroplasty. The hardware is intact. IMPRESSION: No fracture or dislocation within the left shoulder or left humerus. Electronically signed by: Harlan Sylvester M.D. 11/22/2018 6:06 PM
--- NOTE | 2018-11-22 18:08 | XRay Report ---
XR knee RT 2V routine CLINICAL HISTORY: Fall. Right knee pain. COMPARISON STUDY: None. FINDINGS: There is a right total knee arthroplasty. The hardware appears intact. No fracture or dislo cation within the right knee. Anterior soft tissue swelling. Small knee effusion. IMPRESSION: 1. No fractures within the right knee. 2. Anterior soft tissue swelling and a small knee effusion. Electronically signed by: Harlan Sylvester M.D. 11/22/2018 6:06 PM
--- NOTE | 2018-11-22 18:35 | CT Scan Report ---
HEAD CT NONCONTRAST CT DOSE: HISTORY: fall, coumadin TECHNIQUE: Multiaxial CT images of the head were performed without the use of intravenous contrast. A utomated exposure control was utilized for this study. A dose lowering technique was utilized adheri ng to the principles of ALARA. Comparison: None. Findings: Mild mucosal thickening within the ethmoid air cells and right maxillary sinus. Trace fluid level within the left maxillary sinus. Nasal bone fractures are noted. Nasal swelling and frontal sc alp swelling. The calvarium and skull base are intact. There is no mass, hematoma, midline shift, acu te infarct. White matter hypodensity is nonspecific but suggestive of microvascular ischemic change. The ventricles and sulci demonstrate mild age-related involutional changes. Old small infarct within the base of the right cerebellum. Impression: 1. No acute intracranial abnormality. 2. Nasal bone fractures. 3. Frontal scalp swelling. Electronically signed by: Harlan Sylvester M.D. 11/22/2018 6:33 PM
--- NOTE | 2018-11-22 18:38 | CT Scan Report ---
CERVICAL SPINE CT CT DOSE: HISTORY: fall, pain TECHNIQUE: Multiaxial CT images of the cervical spine were performed and reformatted in the sagittal and coronal plane without the use of contrast. A dose lowering technique was utilized adhering to th e principles of ALARA. COMPARISON: None. FINDINGS: No fractures. No subluxation. Prevertebral soft tissues and the C1-C2 interval are intact. No pneumothorax. Straightening of the cervical spine. Moderate to severe degenerative changes within the mid to lower cervical spine. IMPRESSION: No fractures within the cervical spine. Electronically signed by: Harlan Sylvester M.D. 11/22/2018 6:37 PM
--- NOTE | 2018-11-22 18:41 | CT Scan Report ---
MAXILLOFACIAL CT CT DOSE: 1508.30 mGy.cm HISTORY: Facial pain. fall, pain TECHNIQUE: Multiaxial CT images of the maxillofacial region were performed and reformatted in the cor onal plane without the use of contrast. A dose lowering technique was utilized adhering to the [place]. COMPARISON: None. FINDINGS: Frontal scalp swelling with a small laceration. Mildly displaced nasal bone fractures. Mild right deviation of the nasal septum. Small fluid level within the left sphenoid sinus. Mild mucosal thickening within the ethmoid air cells and hypoplastic right maxillary sinus. The pterygoid plates, zygomatic arches, skull base, mandible, and orbital floors are intact. The globes and retrobulbar fat are unremarkable. IMPRESSION: 1. Mildly displaced nasal bone fractures. 2. Frontal scalp swelling with a small laceration. Electronically signed by: Harlan Sylvester M.D. 11/22/2018 6:40 PM
--- NOTE | 2018-11-22 20:16 | Emergency Department Note ---
Entered by Nighat Hernandez acting as a scribe for Kody Guzmán MD History of Present Illness General Chief complaint: Fall Time Seen by Provider: 11/22/18 16:45 Source: patient and EMS History of Present Illness Onset (ago): hour(s) (prior to arrival) Location: knee (knee pain due to fall) Pain Consistency: + other (episode) Exacerbated By: + movement Associated symptoms: + denies other symptoms (jaw pain and neck pain) and + other (bilateral knee pain, bilateral leg swelling, left shoulder pain, and finger pain); no chest pain and no shortness of breath The patient is a 78 year old F who presents to the Emergency Room with complaints of a fall that occurred prior to arrival. The HPI was first provided by the delicate fabrics presser. He states that the patient was at a family reunion when she tripped. He notes that the patient was on a tile floor and fell forward. He adds that the patient tried to brace herself with her hand but ended up hitting her face off of the floor. The rest of the HPI was provided by the patient. She states that she did not lose consciousness. She notes that she is currently experiencing bilateral knee pain, bilateral leg swelling, left shoulder pain, and finger pain. She states that her pain is worsened with movement. She denies currently experiencing neck pain, chest pain, shortness of breath, and jaw pain. She states that she has artificial teeth, shoulders, and knees. She adds that she has a history of arthritis. She states that she is currently on Coumadin. She adds that she had her INR level checked 2 day ago, which was 2.3. Home Medications Home Medications Medication Instructions Recorded Confirmed Type cholecalciferol (vitamin D3) 2,000 unit PO DAILY 02/01/18 11/22/18 History colchicine [Colcrys] 0.6 mg PO Q OTHER DAY 02/01/18 11/22/18 History furosemide [Lasix] 40 mg PO DAILY 02/01/18 11/22/18 History levothyroxine [Synthroid] 75 mcg PO QAM 02/01/18 11/22/18 History lidocaine 1 patch TOPICAL DAILY PRN 02/01/18 11/22/18 History losartan [Cozaar] 25 mg PO QAM 02/01/18 11/22/18 History metoprolol succinate [Toprol XL] 12.5 mg PO HS 02/01/18 11/22/18 History potassium chloride 10 meq PO DAILY 02/01/18 11/22/18 History tramadol [Ultram] 50 mg PO BID PRN 02/01/18 11/22/18 History warfarin [Coumadin] 2.5 mg PO DIRECTED 02/01/18 11/22/18 History warfarin [Coumadin] 5 mg PO WK 02/01/18 11/22/18 History Allergies Allergy/AdvReac Type Severity Reaction Status Date / Time adhesive Allergy Unknown SKIN Verified 11/22/18 17:29 IRRITATION AND PULLS SKIN OFF Iodinated Contrast- Oral and Allergy Unknown RASH Verified 11/22/18 17:29 IV Dye morphine Allergy Unknown UNKNOWN Verified 11/22/18 17:29 Penicillins Allergy Unknown UNKNOWN Verified 11/22/18 17:29 salicylates Allergy Unknown CAUSES Verified 11/22/18 17:29 HIVES codeine AdvReac Unknown CAUSES Verified 11/22/18 17:29 NAUSEA Past Med/Surg History Medical History HLD (hyperlipidemia) (Chronic) HTN (hypertension) (Chronic) YOBANI (obstructive sleep apnea) (Chronic) on cpap Hypothyroidism (Chronic) CKD (chronic kidney disease), stage III (Chronic) History of uterine cancer (Chronic) Gout (Chronic) Chronic atrial fibrillation (Chronic) Occipital stroke (Chronic) Surgical History Status post hysterectomy (Chronic) "1989" Status post tonsillectomy (Chronic) Status post cholecystectomy (Chronic) "09/14/04; performed by Dr. Barry" Status post lumbar surgery (Chronic) "1984" Status post cataract extraction (Chronic) "L side 1994" Status post partial colectomy (Chronic) "10/20/2003" Status post total shoulder arthroplasty (Chronic) "L side; Dr. Flynn 08/2012" History of back surgery (Chronic) Total knee replacement status (Chronic) Family History Father Testicular cancer Mother Stroke Other Diabetes Hypertension Social History marital status: / current occupational status: retired Feels Safe at Home: Yes Smoking Status: Former smoker Hx Alcohol Use: No Hx Substance Use: No Review of Systems See HPI for pertinent positives & negatives. and A total of 10 systems reviewed and were otherwise negative Physical Exam Vital Signs Vital Signs - 24 hr 11/22/18 16:56 11/22/18 16:58 11/22/18 17:00 Temperature Temperature Source Sepsis Recent Fever Within 48 Hours Sepsis New/Unexplained Change in Mental Status Sepsis Action Taken by Nursing Pulse Rate 59 L 61 58 L Pulse Rate from SpO2 Sensor 62 63 62 Respiratory Rate 24 18 26 H Respiratory Effort / Characteristics Respiratory Depth Respiratory Pattern Blood Pressure 172/71 H Blood Pressure Mean 104 Pulse Oximetry 94 94 94 Oxygen Delivery Method 11/22/18 17:01 11/22/18 18:00 11/22/18 18:22 Temperature 36.2 C L Temperature Source Oral Sepsis Recent Fever Within 48 Hours No Sepsis New/Unexplained Change in Mental Status No Sepsis Action Taken by Nursing No Action Required Pulse Rate 58 L 60 57 L Pulse Rate from SpO2 Sensor 62 62 Respiratory Rate 20 22 20 Respiratory Effort / Characteristics Non-Labored Spontaneous Respiratory Depth Normal Respiratory Pattern Regular Blood Pressure 172/71 H 171/65 H Blood Pressure Mean 104 100 Pulse Oximetry 94 95 95 Oxygen Delivery Method Room Air 11/22/18 18:23 11/22/18 19:00 Temperature Temperature Source Sepsis Recent Fever Within 48 Hours Sepsis New/Unexplained Change in Mental Status Sepsis Action Taken by Nursing Pulse Rate 59 L 64 Pulse Rate from SpO2 Sensor 58 L 63 Respiratory Rate 19 22 Respiratory Effort / Characteristics Respiratory Depth Respiratory Pattern Blood Pressure Blood Pressure Mean Pulse Oximetry 96 96 Oxygen Delivery Method GENERAL: Patient is in no acute distress. HEENT: 1 cm laceration to the medial right eyebrow. 1 cm laceration to the nasal bridge, evidence of prior nasal bleeding, nothing active, nose is not deformed but tender. Bite is normal, contusion to the forehead nose and the maxillary face. NECK: No stridor, no adenopathy, non-tender cervical spine, trachea is midline. LUNGS: Clear to auscultation bilaterally, no wheeze, no rhonchi, breath sounds equal. HEART: Slightly irregular rhythm, normal rate, no murmur. CHEST: Non-tender chest wall. ABDOMEN: Soft, nontender, bowel sounds positive, no hernias, no peritonitis. EXTREMITIES: Pain to palpate the 2nd metacarpal on the left hand. Pain to palpate the 4th and 5th metacarpals on the right hand. Pain with movement and palpation of the lateral left shoulder. Contusion to the anterior right knee, this area is tender to touch. NEUROLOGIC: Oriented x 3, no acute motor or sensory deficits, no focal weakness. SKIN: No rash, no jaundice, no diaphoresis. Course 1645: The patient was evaluated in room B11B. A complete history and physical exam was performed. 1900: I re-checked the patient. I talked to the patient about the cuts on her face. We are going to use Steri-Strips because the patient does not want sutures. I ordered an ambulation trial on the patient to see if she can get around okay. 3: The nurse states that the patient failed the ambulation trial. She notes that the patient was crying when she was trying to complete the ambulation trial due to right knee pain. 1930: [facility] He will evaluate the patient for further management. Consultations Consultation #1: [facility] He will evaluate the patient for further management. Time: 19:30 Administered Medications Discontinued Medications Tramadol HCl (Ultram) 50 mg PO NOW STA Stop: 11/22/18 16:56 Last Admin: 11/22/18 17:09 Dose: 50 mg Documented by: [id number] Medical Decision Making Differential Diagnosis Differential diagnosis includes: intracranial bleeding, facial fracture, cervical spine fracture, shoulder fracture or dislocation, extremity fracture, right knee fracture, chest or abdominal trauma, coagulopathy Medical Records Attestation: I reviewed the patient's medical records. Home Medications Current Medication List: was personally reviewed by me Imaging Data Radiologist's Impression: Radiology results as stated below per my review and the radiologist's interpretation: MAXILLOFACIAL CT CT DOSE: 1508.30 mGy.cm HISTORY: Facial pain. fall, pain TECHNIQUE: Multiaxial CT images of the maxillofacial region were performed and reformatted in the coronal plane without the use of contrast. A dose lowering technique was utilized adhering to the principles of ALARA. COMPARISON: None. FINDINGS: Frontal scalp swelling with a small laceration. Mildly displaced nasal bone fractures. Mild right deviation of the nasal septum. Small fluid level with in the left sphenoid sinus. Mild mucosal thickening within the ethmoid air cells and hypoplastic right maxillary sinus. The pterygoid plates, zygomatic arches, skull base, mandible, and orbital floors are intact. The globes and retrobulbar fat are unremarkable. IMPRESSION: 1. Mildly displaced nasal bone fractures. 2. Frontal scalp swelling with a small laceration. Electronically signed by: Harlan Sylvester M.D. 11/22/2018 6:[address] DOSE: HISTORY: fall, coumadin TECHNIQUE: Multiaxial CT images of the head were performed without the use of intravenous contrast. Automated exposure control was utilized for this study. A dose lowering technique was utilized adhering to the principles of ALARA. Comparison: None. Findings: Mild mucosal thickening within the ethmoid air cells and right maxillary sinus. Trace fluid level within the left maxillary sinus. Nasal bone fractures are noted. Nasal swelling and frontal scalp swelling. The calvarium and skull base are intact. There is no mass, hematoma, midline shift, acute infarct. White matter hypodensity is nonspecific but suggestive of microvascular ischemic change. The ventricles and sulci demonstrate mild age-related involutional changes. Old small infarct within the base of the right cerebellum. Impression: 1. No acute intracranial abnormality. 2. Nasal bone fractures. 3. Frontal scalp swelling. Electronically signed by: Harlan Sylvester M.D. 11/22/2018 6:33 PM XR hand LT min 3V routine, XR hand RT min 3V routine CLINICAL HISTORY: Fall. Bilateral hand pain. COMPARISON STUDY: None. FINDINGS: The bones are osteopenic. Advanced degenerative changes within the hands. No fracture or dislocation. Mild soft tissue swelling at the PIP, DIP, and MCP joints likely due to the degenerative change. IMPRESSION: No fracture or dislocation within the right or left hand. Electronically signed by: Harlan Sylvester M.D. 11/22/2018 6:03 PM XR humerus LT 2V, XR shoulder LT min 2V routine CLINICAL HISTORY: Fall. Left shoulder and arm pain. COMPARISON STUDY: None. FINDINGS: No fracture or dislocation within the left shoulder or left humerus. The left clavicle is intact. Mild soft tissue swelling in the shoulder. The left total shoulder arthroplasty. The hardware is intact. IMPRESSION: No fracture or dislocation within the left shoulder or left humerus. Electronically signed by: Harlan Sylvester M.D. 11/22/2018 6:06 PM XR knee RT 2V routine CLINICAL HISTORY: Fall. Right knee pain. COMPARISON STUDY: None. FINDINGS: There is a right total knee arthroplasty. The hardware appears intact. No fracture or dislocation within the right knee. Anterior soft tissue swelling. Small knee effusion. IMPRESSION: 1. No fractures within the right knee. 2. Anterior soft tissue swelling and a small knee effusion. Electronically signed by: Harlan Sylvester M.D. 11/22/2018 6:06 PM XR humerus LT 2V, XR shoulder LT min 2V routine CLINICAL HISTORY: Fall. Left shoulder and arm pain. COMPARISON STUDY: None. FINDINGS: No fracture or dislocation within the left shoulder or left humerus. The left clavicle is intact. Mild soft tissue swelling in the shoulder. The left total shoulder arthroplasty. The hardware is intact. IMPRESSION: No fracture or dislocation within the left shoulder or left humerus. Electronically signed by: Harlan Sylvester M.D. 11/22/2018 6:[address] DOSE: HISTORY: fall, pain TECHNIQUE: Multiaxial CT images of the cervical spine were performed and reformatted in the sagittal and coronal plane without the use of contrast. A dose lowering technique was utilized adhering to the principles of ALARA. COMPARISON: None. FINDINGS: No fractures. No subluxation. Prevertebral soft tissues and the C1-C2 interval are intact. No pneumothorax. Straightening of the cervical spine. Moderate to severe degenerative changes within the mid to lower cervical spine. IMPRESSION: No fractures within the cervical spine. Electronically signed by: Harlan Sylvester M.D. 11/22/2018 6:37 PM XR hand LT min 3V routine, XR hand RT min 3V routine CLINICAL HISTORY: Fall. Bilateral hand pain. COMPARISON STUDY: None. FINDINGS: The bones are osteopenic. Advanced degenerative changes within the hands. No fracture or dislocation. Mild soft tissue swelling at the PIP, DIP, and MCP joints likely due to the degenerative change. IMPRESSION: No fracture or dislocation within the right or left hand. Electronically signed by: Harlan Sylvester M.D. 11/22/2018 6:03 PM Blood Pressure Blood Pressure Findings: Elevated blood pressure Blood Pressure Disposition: further management by hospitalist Head Trauma GCS Score: 15 MDM Narrative The patient presents after falling. She fell face first and struck her nose. There was no loss of consciousness. She was complaining of some extremity pain in particular her left shoulder was painful. She also had some right knee pain. The patient was on Coumadin. Films of the left shoulder and left humerus were done. The prosthetic shoulder joint was in proper position. There was no fracture. Films of the bilateral hands were done, there was some arthritis, no fracture seen. A right knee film was done, there was no fracture. The prosthetic joint was in proper position. Brain CT shows no acute bleed or mass-effect. C-spine CT shows no acute fracture. Facial CT shows some minimally displaced nasal bone fractures, no other facial fracture noted. The patient was given oral tramadol for pain. The facial lacerations were fairly small and the patient did not want suturing. Steri-Strips were applied. The patient was helped off the stretcher and did attempt an ambulation trial. She failed. She could not walk because her left shoulder was too painful to help her with balance and her right knee was too painful to move forward. She cannot be discharged in this condition. I did speak with case management, the on-call hospitalist was consulted. I spoke to the family at length. Patient may require rehab pending how she does overnight. In short, the patient has contused and strained her extremities. She cannot function with all her discomfort. She does live alone. Impression & Plan Fracture, nasal, Facial contusion, Head trauma, Contusion of right knee, Coagulopathy, Contusion of arm, right, Contusion of arm, left Discharge Plan Visit Data Chief Complaint: Fall ED Provider: Kody Guzmán Discharge Problem: Fracture, nasal, Facial contusion, Head trauma, Contusion of right knee, Coagulopathy, Contusion of arm, right, Contusion of arm, left Patient Disposition: Admitted As Inpatient Forms Stand Alone Forms: My [facility] Prescriptions Prescriptions: No Action furosemide [Lasix] 40 mg tablet 40 mg PO DAILY RF: 0 potassium chloride 10 mEq Capsule, Extended Release 10 meq PO DAILY RF: 0 warfarin [Coumadin] 2.5 mg tablet 2.5 mg PO DIRECTED RF: 0 tramadol [Ultram] 50 mg tablet 50 mg PO BID PRN (Reason: Pain) RF: 0 levothyroxine [Synthroid] 75 mcg tablet 75 mcg PO QAM RF: 0 warfarin [Coumadin] 5 mg tablet 5 mg PO WK RF: 0 losartan [Cozaar] 25 mg tablet 25 mg PO QAM RF: 0 metoprolol succinate [Toprol XL] 25 mg tablet extended release 24 hr 12.5 mg PO HS RF: 0 colchicine [Colcrys] 0.6 mg tablet 0.6 mg PO Q OTHER DAY RF: 0 cholecalciferol (vitamin D3) 2,000 unit Tablet 2,000 unit PO DAILY RF: 0 lidocaine 1.8 % Adhesive Patch,Medicated 1 patch TOPICAL DAILY PRN (Reason: Pain) RF: 0 Referrals Referrals: Jim Alvarez DO [Primary Care Provider] - Discharge Problem: Fracture, nasal Qualifiers: Encounter type: initial encounter Fracture type: closed Qualified Code(s): S02.2XXA - Fracture of nasal bones, initial encounter for closed fracture Facial contusion Qualifiers: Encounter type: initial encounter Qualified Code(s): S00.83XA - Contusion of other part of head, initial encounter Head trauma Qualifiers: Encounter type: initial encounter Qualified Code(s): S09.90XA - Unspecified injury of head, initial encounter Contusion of right knee Qualifiers: Encounter type: initial encounter Qualified Code(s): S80.01XA - Contusion of right knee, initial encounter Contusion of arm, right Qualifiers: Encounter type: initial encounter Qualified Code(s): S40.021A - Contusion of right upper arm, initial encounter Contusion of arm, left Qualifiers: Encounter type: initial encounter Qualified Code(s): S40.022A - Contusion of left upper arm, initial encounter The scribe's documentation has been prepared under my direction and personally reviewed by me in its entirety. I confirm that the note above accurately reflects all work, treatment, procedures, and medical decision making performed by me.
--- NOTE | 2018-11-22 20:51 | History & Physical Report ---
Date of Service November 22, 2018 Assessment & Plan (1) Fall: (2) Fracture, nasal: (3) Contusion of right knee: (4) Left shoulder pain: (5) Chronic atrial fibrillation: (6) CKD (chronic kidney disease), stage III: (7) YOBANI (obstructive sleep apnea): (8) HTN (hypertension): (9) HLD (hyperlipidemia): (10) Hypothyroidism: Pt presented with mechanical fall today Found to have nasal fracture in ER. No nasal septal hematoma noted on exam. Moderate nasal bridge edema with laceration that was closed with steri strips. Pt should follow up with ENT within 10 days. Will need to hold CPAP with nasal fracture and laceration Will need to obtain INR, CBC, BMP Pt was seen and care coordinated with Dr Sánchez. Assessment and plan per Dr Sánchez History of Present Illness Chief Complaint: Fall Primary Care Provider: Jim Alvarez, Pt is 78 y/o F with PMH chronic atrial fibrillation on Coumadin, CKD III, HTN, HLD, hypothyroidism, gout, CVA, YOBANI on CPAP, obesity presented to ER with complaint of fall. Patient states today was walking when she tripped and fell forward landing on bilateral outstretched hands and hitting face on ground. Patient denies any loss of consciousness. Reports had moderate epistaxis. EMS transported patient to ER. Patient complaining of left shoulder and left upper arm pain and c/of limited ROM left shoulder. C/O right hand and finger pain however reports that has improved since being in ER and able to move right fingers, wrist, elbow and shoulder. Complaining of pain to her forehead and no se. No further epistaxis. Reports pain to right knee and has developed edema to right knee. Reports unable to move right knee and was unable to stand while in ER. Patient typically uses a walker or cane to help ambulate. She reports history of chronic low back pain denies any increased back pain. Reports INR was 2.3 couple of days ago. Denies fever/chills, diaphoresis, N/V/D/C, POTTS, dizziness, syncope, vision changes, neck pain, CP, SOB, orthopnea, palpitations, cough, sore throat, choking, otalgia, rhinorrhea, abdominal pain, paresthesias, recent increased extremity edema, rashes, urinary symptoms. Denies left elbow/wrist pain, right shoulder/elbow pain, hip pain, left knee pain, right or left ankle pain. In ER pt unable to ambulate as reports can't bear weight on right leg with knee pain. Allergies Allergy/AdvReac Type Severity Reaction Status Date / Time adhesive Allergy Unknown SKIN Verified 11/22/18 17:29 IRRITATION AND PULLS SKIN OFF Iodinated Contrast- Oral and Allergy Unknown RASH Verified 11/22/18 17:29 IV Dye morphine Allergy Unknown UNKNOWN Verified 11/22/18 17:29 Penicillins Allergy Unknown UNKNOWN Verified 11/22/18 17:29 salicylates Allergy Unknown CAUSES Verified 11/22/18 17:29 HIVES codeine AdvReac Unknown CAUSES Verified 11/22/18 17:29 NAUSEA Home Medications Home Medications Medication Instructions Recorded Confirmed Type cholecalciferol (vitamin D3) 2,000 unit PO DAILY 02/01/18 11/22/18 History colchicine [Colcrys] 0.6 mg PO Q OTHER DAY 02/01/18 11/22/18 History furosemide [Lasix] 40 mg PO DAILY 02/01/18 11/22/18 History levothyroxine [Synthroid] 75 mcg PO QAM 02/01/18 11/22/18 History lidocaine 1 patch TOPICAL DAILY PRN 02/01/18 11/22/18 History losartan [Cozaar] 25 mg PO QAM 02/01/18 11/22/18 History metoprolol succinate [Toprol XL] 12.5 mg PO HS 02/01/18 11/22/18 History potassium chloride 10 meq PO DAILY 02/01/18 11/22/18 History tramadol [Ultram] 50 mg PO BID PRN 02/01/18 11/22/18 History warfarin [Coumadin] 2.5 mg PO DIRECTED 02/01/18 11/22/18 History warfarin [Coumadin] 5 mg PO WK 02/01/18 11/22/18 History Past Med/Surg History Medical History HLD (hyperlipidemia) (Chronic) HTN (hypertension) (Chronic) YOBANI (obstructive sleep apnea) (Chronic) on cpap Hypothyroidism (Chronic) CKD (chronic kidney disease), stage III (Chronic) History of uterine cancer (Chronic) Gout (Chronic) Chronic atrial fibrillation (Chronic) Occipital stroke (Chronic) Surgical History Status post hysterectomy (Chronic) "1989" Status post tonsillectomy (Chronic) Status post cholecystectomy (Chronic) "09/14/04; performed by Dr. Barry" Status post lumbar surgery (Chronic) "1984" Status post cataract extraction (Chronic) "L side 1994" Status post partial colectomy (Chronic) "10/20/2003" Status post total shoulder arthroplasty (Chronic) "L side; Dr. Flynn 08/2012" History of back surgery (Chronic) Total knee replacement status (Chronic) Family History Father Testicular cancer Mother Stroke Other Diabetes Hypertension Social History Preferred Language: Singaporean Communication Ability: Effective Refrigeration Houseman Required: No Beliefs That Will Affect Care: None marital status: / Current Living Situation: Alone current occupational status: retired Other Information That Helps Us Care for You: No Feels Safe at Home: Yes Safety Concerns: Feels Safe At This Time Smoking Status: Former smoker Smoking End Date: 40 years ago ; Hx Alcohol Use: No Hx Substance Use: No Review of Systems Review of Systems: All systems reviewed & are unremarkable except as noted in HPI & below Physical Exam Physical Exam: General: no acute distress, obese Head: normocephalic, forehead +ecchymosis/hematoma frontal, +laceration with steri strips in place to forehead Eyes: PERRL, EOM's intact, conjunctiva non-injected, anicteric Face: no orbital, maxillary or mandibular tenderness to palpation. Pt able to open and close jaw. ENT: normal inspection external ears; nose: +laceration bridge of nose closed with steri strips, +moderate edema and ecchymosis nose, no active epistaxis, no nasal septum hematoma noted; mucous membranes moist Neck: supple, trachea midline, non-tender to palpation, ROM to rotation and flexion, extension intact Lungs: clear, no respiratory distress CV:rate: 68, irregular irregular, trace pretibial edema Abd: normal BS, soft, non-tender Ext: LUE: no ecchymosis or edema noted to left shoulder or upper arm and nontender to palpation, active ROM left shoulder very limited, Elbow non-tender with ROM flexion and extension intact, forearm with skin tear, wrist and hand and fingers non-tender with ROM intact, distal pulses intact, brisk capillary refill RUE: no ecchymosis or edema noted. Shoulder and elbow non-tender to palpation with ROM intact, Wrist without edema or ecchymosis and ROM intact, 3rd and 4th fingers tender to palpation without ecchymosis with flexion and extension of all digits intact, distal pulses intact, brisk capillary refill RLE: hip non-tender, right knee +edema and ecchymosis, very limited active flexion of knee and moderate tenderness to palpation, ankle and foot without tenderness to palpation, distal pulses intact LLE: Hip non-tender, left leg and knee non-tender and without ecchymosis with limited flexion which pt reports is baseline for left knee, ankle and foot non- tender Neuro: A&O x 3, no focal deficits noted, normal affect Skin: warm, dry, lacerations to face as above Results & Data Vital Signs (Past 12 Hours) Vital Signs Temp Pulse Resp BP Pulse Ox 11/22/18 19:00 64 22 96 11/22/18 18:23 59 L 19 96 11/22/18 18:22 57 L 20 171/65 H 95 11/22/18 18:00 60 22 95 11/22/18 17:01 36.2 C L 58 L 20 172/71 H 94 11/22/18 17:00 58 L 26 H 94 11/22/18 16:58 61 18 94 11/22/18 16:56 59 L 24 172/[address] HEAD: Impression: 1. No acute intracranial abnormality. 2. Nasal bone fractures. 3. Frontal scalp swelling. CT FACE: IMPRESSION: 1. Mildly displaced nasal bone fractures. 2. Frontal scalp swelling with a small laceration. CT C-SPINE: IMPRESSION: No fractures within the cervical spine. L SHOULDER XRAY, L HUMURUS XRAY: IMPRESSION: No fracture or dislocation within the left shoulder or left humerus. BILATERAL HAND XRAY: IMPRESSION: No fracture or dislocation within the right or left hand. R KNEE XRAY: IMPRESSION: 1. No fractures within the right knee. 2. Anterior soft tissue swelling and a small knee effusion. Supervising Physician Co-Signing Physician Notes IM ATTENDING : Patient seen and examined. History obtained from patient and records. Preceding documentation by Ms. Melida Carcamo PA-C reviewed. FINAL ASSESSMENT AND PLAN as follows : Traumatic right knee swelling, left shoulder pain secondary to mechanical fall Possible hemarthrosis, hematoma hx atrial fibrillation on Coumadin, rate controlled, INR therapeutic Hemoglobin stable Hypertension, elevated secondary to discomfort History CVA as per records uterine cancer status post surgery Traumatic nasal bone fracture History YOBANI on CPAP Past tobacco abuse OBS Analgesia Orthopedics consult RE right knee swelling, left shoulder pain Appropriate to hold Coumadin for now until hemoglobin stable. ENT consult RE traumatic nasal bone fracture, hx CPAP use Hold home CPAP until patient seen by ENT. PT OT eval DVT prophylaxis. SCDs while Coumadin on hold if INR less than 2 RE possible hematoma/hemarthrosis Full code (1) Fracture, nasal Encounter type: initial encounter Fracture type: closed Qualified Code(s): S02.2XXA - Fracture of nasal bones, initial encounter for closed fracture (2) Contusion of right knee Encounter type: initial encounter Qualified Code(s): S80.01XA - Contusion of right knee, initial encounter
[2018-11-22] MEDS: METOPROLOL SUCC 25MG EXT REL TAB PO SCH (21:37)
[2018-11-22 22:05] LABS: Basophils # (auto) 0.05 K/uL (0-0.2); Basophils % (auto) 0.5 %; Eosinophils # (auto) 0.26 K/uL (0-0.5); Eosinophils % (auto) 2.6 %; Hematocrit (blood only) 38.3 % (37-47); Hemoglobin 13.1 g/dL (12.0-16.0); Immature Granulocytes # (auto) 0.02 K/uL (0.00-0.02); Immature Granulocytes % (auto) 0.2 %; Lymphocytes # (auto) 1.15 K/uL (1.2-3.4); Lymphocytes % (auto) 11.6 %; Mean Corpuscular Hgb Conc 34.2 g/dL (32-36); Mean Platelet Volume 10.1 fL (7.4-10.4); Monocytes # (auto) 0.97 K/uL (0.11-0.59); Monocytes % (auto) 9.8 %; Neutrophils # (auto) 7.43 K/uL (1.4-6.5); Neutrophils % (auto) 75.3 %; Platelet Count 164 K/uL (130-400); RDW Standard Deviation 46.3 fL (36.4-46.3); Red Blood Count 4.21 M/uL (4.2-5.4); White Blood Count 9.88 K/uL (4.8-10.8)
[2018-11-22 22:18] LABS: Albumin Level 3.4 gm/dl (3.4-5.0); BUN Creatinine Ratio 19.8 (10-20); Calcium 9.3 mg/dl (8.5-10.1); Creatinine Clr Calc Pharmacy 44.6 ml/min; Est GFR (African American) 57.4; Est GFR (Non-African American) 49.6; Magnesium 2.2 mg/dl (1.8-2.4); Potassium 4.2 mmol/L (3.5-5.1)
[2018-11-22 22:20] LABS: Albumin Globulin Ratio 0.9 (0.9-2); Bilirubin,Total 1.5 mg/dl (0.2-1); Globulin 3.9 gm/dl (2.5-4.0); Total Protein 7.3 gm/dl (6.4-8.2)
[2018-11-22 22:24] LABS: INR 2.1 (0.9-1.1); Partial Thromboplastin Ratio 1.2; Partial Thromboplastin Time 32.6 Seconds (21.0-31.0); Prothrombin Time 20.3 Seconds (9.0-12.0)
[2018-11-22] MEDS ORDERED: HYDROmorphone INJ 0.5 MG/0.5 ML SYR IV PRN (23:11)
[2018-11-22] MEDS ORDERED: ACETAMINOPHEN 325 MG TAB PO PRN (23:11)
[2018-11-22] MEDS ORDERED: PROMETHAZINE HCL 12.5 MG in SODIUM CHLORIDE 0.9% 50 ML IV PRN (23:11)
[2018-11-23] MEDS: LOSARTAN POTASSIUM 25 MG TAB PO SCH (02:12)
[2018-11-23] MEDS: TRAMADOL HCL 50 MG TABLET PO PRN ×3 (03:12→20:37)
[2018-11-23 05:28] LABS: Basophils # (auto) 0.06 K/uL (0-0.2); Basophils % (auto) 0.8 %; Eosinophils # (auto) 0.33 K/uL (0-0.5); Eosinophils % (auto) 4.2 %; Hematocrit (blood only) 36.9 % (37-47); Hemoglobin 12.5 g/dL (12.0-16.0); Immature Granulocytes # (auto) 0.02 K/uL (0.00-0.02); Immature Granulocytes % (auto) 0.3 %; Lymphocytes # (auto) 1.08 K/uL (1.2-3.4); Lymphocytes % (auto) 13.7 %; Mean Corpuscular Hgb Conc 33.9 g/dL (32-36); Mean Corpuscular Volume 90.9 fL (80-100); Mean Platelet Volume 10.1 fL (7.4-10.4); Monocytes % (auto) 12.7 %; Neutrophils # (auto) 5.38 K/uL (1.4-6.5); Neutrophils % (auto) 68.3 %; Platelet Count 168 K/uL (130-400); RDW Coefficient of Variation 13.9 % (11.5-14.5); RDW Standard Deviation 46.1 fL (36.4-46.3); Red Blood Count 4.06 M/uL (4.2-5.4); White Blood Count 7.87 K/uL (4.8-10.8)
[2018-11-23 05:42] LABS: INR 2.1 (0.9-1.1); Prothrombin Time 20.4 Seconds (9.0-12.0)
[2018-11-23] MEDS: LEVOTHYROXINE SODIUM 75 MCG TABLET PO SCH (06:35)
[2018-11-23] MEDS ORDERED: PNEUMOCOCCAL POLYSACCHARIDES 25 MCG/0.5 ML VIAL/SYR IM ONE (08:00)
[2018-11-23] MEDS ORDERED: PNEUMOCOCCAL ADMINISTRATION CHARGE ONE (08:00)
[2018-11-23] MEDS ORDERED: COLCHICINE 0.6 MG TAB PO SCH (09:00)
[2018-11-23] MEDS ORDERED: LOSARTAN POTASSIUM 25 MG TAB PO SCH (09:00)
--- NOTE | 2018-11-23 12:11 | Orthopedic Consultation ---
Date of Consultation November 23, 2018 Assessment & Plan (1) Contusion of right knee: X-rays reviewed. Knee replacement done in the mid to late s by Dr. Bernal. Left reverse total shoulder arthroplasty done by Dr. Flynn approximately 4 to 5 years ago. No obvious fractures noted other than nasal bone fractures. No dislocations. There appears to be no hardware issues. Small hemarthrosis of the right knee. Increased soft tissue swelling of the anterior knee. I have discussed the case with Dr. Romo. Patient will be continued weightbearing as tolerated on the right lower extremity. Her left shoulder appears to be unaffected at this time. Continue gentle range of motion and weightbearing as tolerated with the left shoulder. There are concerns for continued bleeding with a therapeutic INR. She went through physical therapy and occupational therapy this morning. I spoke to Davi Bentley PT who said she did well. Ambulated approximately 140 feet without too much difficulty. Plan will be for conservative measures at this time. Ice to the right knee regularly. Her shoulder is not bothering her at this time and can be as used as tolerated. Continue PT and OT. Weightbearing as tolerated. If she begins to experience increased pain in the right knee, plan for CT scan. Follow-up with [facility] in 10 to 14 days if she is continuing to have problems with her knee. History of Present Illness Reason for Consultation: Right knee pain, left shoulder pain. Attending Physician: Darlene Alcantar, History of Present Illness Patient is an 78-year-old white female who sustained a mechanical fall yesterday evening. She states that she was walking and ended up tripping and falling onto outstretched arms. Her face hit the ground during the fall as well and apparently she had a fair amount of epistaxis that occurred afterwards. She denies any shortness of breath, chest pain or lightheadedness prior to or after the fall. She did not lose consciousness. She had multiple complaints of pain over portions of her body and was brought to the emergency room. She was seen by the staff and [facility] service. She was found to have nasal bone fracture and epistaxis was controlled. She also had difficulty ambulating with right knee pain and some left shoulder pain as well. Currently she is lying in bed awake and alert. She appears comfortable. She is in no acute distress, pleasant and cooperative. Allergies Allergy/AdvReac Type Severity Reaction Status Date / Time adhesive Allergy Unknown SKIN Verified 11/22/18 17:29 IRRITATION AND PULLS SKIN OFF Iodinated Contrast- Oral and Allergy Unknown RASH Verified 11/22/18 17:29 IV Dye morphine Allergy Unknown UNKNOWN Verified 11/22/18 17:29 Penicillins Allergy Unknown UNKNOWN Verified 11/22/18 17:29 salicylates Allergy Unknown CAUSES Verified 11/22/18 17:29 HIVES codeine AdvReac Unknown CAUSES Verified 11/22/18 17:29 NAUSEA Home Medications Home Medications Medication Instructions Recorded Confirmed Type cholecalciferol (vitamin D3) 2,000 unit PO DAILY 02/01/18 11/22/18 History colchicine [Colcrys] 0.6 mg PO Q OTHER DAY 02/01/18 11/22/18 History furosemide [Lasix] 40 mg PO DAILY 02/01/18 11/22/18 History levothyroxine [Synthroid] 75 mcg PO QAM 02/01/18 11/22/18 History lidocaine 1 patch TOPICAL DAILY PRN 02/01/18 11/22/18 History losartan [Cozaar] 25 mg PO QAM 02/01/18 11/22/18 History metoprolol succinate [Toprol XL] 12.5 mg PO HS 02/01/18 11/22/18 History potassium chloride 10 meq PO DAILY 02/01/18 11/22/18 History tramadol [Ultram] 50 mg PO BID PRN 02/01/18 11/22/18 History warfarin [Coumadin] 2.5 mg PO DIRECTED 02/01/18 11/22/18 History warfarin [Coumadin] 5 mg PO WK 02/01/18 11/22/18 History Patient History Medical History HLD (hyperlipidemia) (Chronic) HTN (hypertension) (Chronic) YOBANI (obstructive sleep apnea) (Chronic) on cpap Hypothyroidism (Chronic) CKD (chronic kidney disease), stage III (Chronic) History of uterine cancer (Chronic) Gout (Chronic) Chronic atrial fibrillation (Chronic) Occipital stroke (Chronic) Surgical History Status post hysterectomy (Chronic) "1989" Status post tonsillectomy (Chronic) Status post cholecystectomy (Chronic) "09/14/04; performed by Dr. Barry" Status post lumbar surgery (Chronic) "1984" Status post cataract extraction (Chronic) "L side 1994" Status post partial colectomy (Chronic) "10/20/2003" Status post total shoulder arthroplasty (Chronic) "L side; Dr. Flynn 08/2012" History of back surgery (Chronic) Total knee replacement status (Chronic) Family History Father Testicular cancer Mother Stroke Other Diabetes Hypertension Social History Preferred Language: Vietnamese Communication Ability: Effective Certified Retinal Angiographer Required: No Beliefs That Will Affect Care: None marital status: Current Living Situation: Alone current occupational status: retired Other Information That Helps Us Care for You: No Feels Safe at Home: Yes Safety Concerns: Feels Safe At This Time Smoking Status: Former smoker Smoking End Date: 40 years ago ; Hx Alcohol Use: No Hx Substance Use: No Physical Exam Physical Exam: Patient is currently sitting up in bed awake and alert and oriented. Focusing exam on her left shoulder which has a reverse total shoulder arthroplasty implant, she has no overt swelling noted at this time. She has no pain on palpation. Passive range of motion does not elicit any pain. I cannot feel any crepitus during the exam. She forward flexes to approximately 80 to 85 degrees without difficulty; abduction to 60+ degrees; internal and external rotation within normal limits. She states that at this time she feels it is not coming from her shoulder but she has some pain at times in her neck centrally located that travels across the shoulder. Palpation of her cervical spine does not elicit any pain anywhere at this time. Range of motion of the neck at this time does not elicit any pain as well. She denies any radiculopathy at this time going down the left upper extremity. Denies decreased sensation in the left upper extremity. She does have some bruising over her left hand which is tender on palpation however this has not affected her range of motion of the fingers and hand and she has good roving frame tender strength. Right shoulder and elbow unaffected. Right hand with ecchymosis over the dorsum and volar aspect of the hand. Looking at her right knee, the size of her knee appears to be about the same as her left. She is fairly tender on palpation over the anterior knee and also just below the joint down the lower leg to about mid tibia. No pain on palpation above the superior pouch of the knee and thigh. Taking her knee through gentle range of motion does not elicit any pain in the knee. She states she does have some pain but feels its more anterior in the soft tissues. Collateral ligaments feel stable. No anterior/ posterior translation of the knee. Results & Data Vital Signs (Past 12 Hours) Vital Signs Temp Pulse Resp BP BP Pulse Ox 11/23/18 08:11 36.4 C L 60 20 144/78 H 95 11/23/18 02:10 149/76 H Diagnostic Findings XR knee RT 2V routine CLINICAL HISTORY: Fall. Right knee pain. COMPARISON STUDY: None. FINDINGS: There is a right total knee arthroplasty. The hardware appears intact. No fracture or dislocation within the right knee. Anterior soft tissue swelling. Small knee effusion. IMPRESSION: 1. No fractures within the right knee. 2. Anterior soft tissue swelling and a small knee effusion. XR humerus LT 2V, XR shoulder LT min 2V routine CLINICAL HISTORY: Fall. Left shoulder and arm pain. COMPARISON STUDY: None. FINDINGS: No fracture or dislocation within the left shoulder or left humerus. The left clavicle is intact. Mild soft tissue swelling in the shoulder. The left total shoulder arthroplasty. The hardware is intact. IMPRESSION: No fracture or dislocation within the left shoulder or left humerus. CERVICAL SPINE CT CT DOSE: HISTORY: fall, pain TECHNIQUE: Multiaxial CT images of the cervical spine were performed and reformatted in the sagittal and coronal plane without the use of contrast. A dose lowering technique was utilized adhering to the principles of ALARA. COMPARISON: None. FINDINGS: No fractures. No subluxation. Prevertebral soft tissues and the C1-C2 interval are intact. No pneumothorax. Straightening of the cervical spine. Moderate to severe degenerative changes within the mid to lower cervical spine. IMPRESSION: No fractures within the cervical spine. MAXILLOFACIAL CT CT DOSE: 1508.30 mGy.cm HISTORY: Facial pain. fall, pain TECHNIQUE: Multiaxial CT images of the maxillofacial region were performed and reformatted in the coronal plane without the use of contrast. A dose lowering technique was utilized adhering to the principles of ALARA. COMPARISON: None. FINDINGS: Frontal scalp swelling with a small laceration. Mildly displaced nasal bone fractures. Mild right deviation of the nasal septum. Small fluid level within the left sphenoid sinus. Mild mucosal thickening within the ethmoid air cells and hypoplastic right maxillary sinus. The pterygoid plates, zygomatic arches, skull base, mandible, and orbital floors are intact. The globes and retrobulbar fat are unremarkable. IMPRESSION: 1. Mildly displaced nasal bone fractures. 2. Frontal scalp swelling with a small laceration. (1) Contusion of right knee Encounter type: initial encounter Qualified Code(s): S80.01XA - Contusion of right knee, initial encounter
--- NOTE | 2018-11-23 14:58 | Hospitalist Progress Note ---
Date of Service November 23, 2018 Assessment & Plan (1) Fall: PT/OT to assess safety to return home at discharge. (2) Fracture, nasal: Supportive care, ENT consult in place. (3) Contusion of right knee: Per orthopedic evaluation no gross hemarthrosis is present. Range of motion is normal and patient able to bear weight. Pain is controlled with tramadol. Monitoring her overnight with therapeutic INR to ensure no progressive bleeding or disability. (4) Left shoulder pain: Controlled with tramadol. Feels better today. (5) Chronic atrial fibrillation: Patient on Coumadin for chronic atrial fibrillation but also has a history of stroke making her higher risk. Considering holding Coumadin in the setting of massive ecchymosis of the knee and face for 1 to 2 weeks. This however will bring her an increased stroke risk. We will review prior records to see if the stroke 2 years ago was provoked by subtherapeutic INR, as this is not clear. Rate is controlled with Toprol-XL. (6) CKD (chronic kidney disease), stage III: At baseline (7) YOBANI (obstructive sleep apnea): Wears CPAP, however this is contraindicated in setting of nasal fractures. ENT is consulted. (8) HTN (hypertension): At goal, continue Toprol-XL and Cozaar 25 mg p.o. every morning (9) Hypothyroidism: Continue Synthroid 75 mg p.o. daily per home regimen. (10) DVT prophylaxis: Currently on hold in setting of ecchymosis Full code Disposition-possibly to home in a.m. pending orthopedic clearance Darlene Alcantar DO [facility] Hospitalist Subjective Patient feels well, pain is controlled with tramadol p.o. She was ambulating with physical therapy today without much issue. She has a history of stroke, it is uncertain if this is related to atrial fibrillation. She reports being diagnosed with atrial fibrillation 4 years ago and her stroke occurred 2 years ago. It is unclear if her INR was therapeutic at that time. Coumadin is currently been held in the setting of significant ecchymosis after trauma. Her nasal bone fractures are present but again discomfort is controlled with tramadol. She does not have any interference with her breathing at this time. There is significant ecchymosis around her face. She also reports some shoulder pain but this is improved today since yesterday. She is tolerating p.o. and is hemodynamically stable and afebrile. She hopes to be discharged tomorrow Review of Systems Review of Systems: All systems reviewed & are unremarkable except as noted in HPI & below Physical Exam Physical Exam: CONSTITUTIONAL: WNWD, vitals as above, generally well- appearing EYES: normal conjunctivae, no scleral icterus ENT: nasal fractures with multiple areas of ecchymosis around the nose and under the eyes. Small steri strips in place. MMM RESPIRATORY: clear to auscultation bilaterally, no crackles, rales or wheezes, normal respiratory effort CARDIOVASCULAR: regular rate and rhythm, S1 and 2 heard without murmurs, gallops or rubs, no JVD, no peripheral edema GASTROINTESTINAL: soft, nontender, nondistended MUSCULOSKELETAL: strength 5/5 throughout, head is normocephalic and atraumatic R KNEE: Significant ecchymosis around patella superficially. Range of motion of knee is normal. We did not test this but she reports being able to bear weight. There is no posterior knee pain but there is significant tenderness to palpation around ecchymosis and swollen area anteriorly. SKIN: warm and dry, and multiple areas of bruising on face and R knee as above. Small skin tear on L forearm. NEUROLOGIC: CN 2-12 grossly intact, normal cognition, normal speech, no gross focal deficits. PSYCHIATRIC: alert cooperative and oriented to person, place and time. Results & Data Vital Signs (Past 12 Hours) Vital Signs Temp Pulse Resp BP Pulse Ox 11/23/18 08:11 36.4 C L 60 20 144/78 H 95 Laboratory Results Short CBC 11/22/18 11/23/18 Range/Units 21:47 05:01 WBC 9.88 7.87 (4.8-10.8) K/uL Hgb 13.1 12.5 (12.0-16.0) g/dL Hct 38.3 36.9 L (37-47) % Plt Count 164 168 (130-400) K/uL BMP 11/22/18 21:47 Sodium 139 Potassium 4.2 Chloride 106 Carbon Dioxide 28 BUN 21 H Creatinine 1.06 Glucose 113 H Calcium 9.3 Liver Function 11/22/18 Range/Units 21:47 Total Bilirubin 1.5 H (0.2-1) mg/dl AST 21 (15-37) U/L ALT 11 L (12-78) U/L Alkaline Phosphatase 91 (45-117) U/L Albumin 3.4 (3.4-5.0) gm/dl Medications Administered Current Inpatient Medications Acetaminophen (Tylenol) 650 mg PO Q4H PRN PRN Reason: pain/fever Stop: 12/22/18 23:10 Colchicine (Colcrys) 0.6 mg PO Q2D [facility] Stop: 12/23/18 08:59 Last Admin: 11/23/18 08:36 Dose: 0.6 mg Documented by: Hydromorphone HCl (Dilaudid) 0.25 mg IV Q3H PRN PRN Reason: Pain Stop: 12/06/18 23:10 Promethazine HCl 12.5 mg/ (Sodium Chloride) 50.5 mls @ 202 mls/hr IV Q6H PRN PRN Reason: Nausea And Vomiting Stop: 12/22/18 23:10 Levothyroxine Sodium (Synthroid) 75 mcg PO DAILYBB [facility] Stop: 12/23/18 06:29 Last Admin: 11/23/18 06:35 Dose: 75 mcg Documented by: Losartan Potassium (Cozaar) 25 mg PO QAM [facility] Stop: 12/23/18 00:44 Last Admin: 11/23/18 02:12 Dose: 25 mg Documented by: Metoprolol Succinate (Toprol Xl) 12.5 mg PO HS [facility] Stop: 12/22/18 19:54 Last Admin: 11/22/18 21:37 Dose: 12.5 mg Documented by: Tramadol HCl (Ultram) 50 mg PO Q4H PRN PRN Reason: Pain Stop: 12/22/18 23:10 Last Admin: 11/23/18 11:51 Dose: 50 mg Documented by: (1) Fracture, nasal Encounter type: initial encounter Fracture type: closed Qualified Code(s): S02.2XXA - Fracture of nasal bones, initial encounter for closed fracture (2) Contusion of right knee Encounter type: initial encounter Qualified Code(s): S80.01XA - Contusion of right knee, initial encounter
[2018-11-23] MEDS: METOPROLOL SUCC 25MG EXT REL TAB PO SCH (20:32)
[2018-11-24] MEDS: LEVOTHYROXINE SODIUM 75 MCG TABLET PO SCH (06:42)
[2018-11-24] MEDS: TRAMADOL HCL 50 MG TABLET PO PRN ×2 (07:55→16:08)
[2018-11-24] MEDS: LOSARTAN POTASSIUM 25 MG TAB PO SCH (07:57)
[2018-11-24 09:44] LABS: Hematocrit (blood only) 38.2 % (37-47); Hemoglobin 12.9 g/dL (12.0-16.0); Mean Corpuscular Hgb Conc 33.8 g/dL (32-36); Mean Corpuscular Volume 93.4 fL (80-100); Platelet Count 165 K/uL (130-400); RDW Coefficient of Variation 14.2 % (11.5-14.5); RDW Standard Deviation 47.8 fL (36.4-46.3); Red Blood Count 4.09 M/uL (4.2-5.4); White Blood Count 8.19 K/uL (4.8-10.8)
[2018-11-24 10:04] LABS: INR 1.7 (0.9-1.1); Prothrombin Time 16.9 Seconds (9.0-12.0)
[2018-11-24 10:15] LABS: BUN Creatinine Ratio 17.1 (10-20); Creatinine Clr Calc Pharmacy 42.2 ml/min; Est GFR (African American) 53.7; Est GFR (Non-African American) 46.4; Potassium 3.7 mmol/L (3.5-5.1)
--- NOTE | 2018-11-24 16:20 | Discharge Summary ---
Date of Service November 24, 2018 Admission HPI Per Admitting Provider Pt is 78 y/o F with PMH chronic atrial fibrillation on Coumadin, CKD III, HTN, HLD, hypothyroidism, gout, CVA, YOBANI on CPAP, obesity presented to ER with complaint of fall. Patient states today was walking when she tripped and fell forward landing on bilateral outstretched hands and hitting face on ground. Patient denies any loss of consciousness. Reports had moderate epistaxis. EMS transported patient to ER. Patient complaining of left shoulder and left upper arm pain and c/of limited ROM left shoulder. C/O right hand and finger pain however reports that has improved since being in ER and able to move right fingers, wrist, elbow and shoulder. Complaining of pain to her forehead and nose. No further epistaxis. Reports pain to right knee and has developed edema to right knee. Reports unable to move right knee and was unable to stand while in ER. Patient typically uses a walker or cane to help ambulate. She reports history of chronic low back pain denies any increased back pain. Reports INR was 2.3 couple of days ago. Denies fever/chills, diaphoresis, N/V/D/C, POTTS, dizziness, syncope, vision changes, neck pain, CP, SOB, orthopnea, palpitations, cough, sore throat, choking, otalgia, rhinorrhea, abdominal pain, paresthesias, recent increased extremity edema, rashes, urinary symptoms. Denies left elbow/wrist pain, right shoulder/elbow pain, hip pain, left knee pain, right or left ankle pain. In ER pt unable to ambulate as reports can't bear weight on right leg with knee pain. Admission Exam Per Admitting Provider General: no acute distress, obese Head: normocephalic, forehead +ecchymosis/hematoma frontal, +laceration with steri strips in place to forehead Eyes: PERRL, EOM's intact, conjunctiva non-injected, anicteric Face: no orbital, maxillary or mandibular tenderness to palpation. Pt able to open and close jaw. ENT: normal inspection external ears; nose: +laceration bridge of nose closed with steri strips, +moderate edema and ecchymosis nose, no active epistaxis, no nasal septum hematoma noted; mucous membranes moist Neck: supple, trachea midline, non-tender to palpation, ROM to rotation and flexion, extension intact Lungs: clear, no respiratory distress CV:rate: 68, irregular irregular, trace pretibial edema Abd: normal BS, soft, non-tender Ext: LUE: no ecchymosis or edema noted to left shoulder or upper arm and nontender to palpation, active ROM left shoulder very limited, Elbow non-tender with ROM flexion and extension intact, forearm with skin tear, wrist and hand and fingers non-tender with ROM intact, distal pulses intact, brisk capillary refill RUE: no ecchymosis or edema noted. Shoulder and elbow non-tender to palpation with ROM intact, Wrist without edema or ecchymosis and ROM intact, 3rd and 4th fingers tender to palpation without ecchymosis with flexion and extension of all digits intact, distal pulses intact, brisk capillary refill RLE: hip non-tender, right knee +edema and ecchymosis, very limited active flexion of knee and moderate tenderness to palpation, ankle and foot without tenderness to palpation, distal pulses intact LLE: Hip non-tender, left leg and knee non-tender and without ecchymosis with limited flexion which pt reports is baseline for left knee, ankle and foot non- tender Neuro: A&O x 3, no focal deficits noted, normal affect Skin: warm, dry, lacerations to face as above Principal Diagnosis Contusion of R knee s/p mechanical fall Nasal fracture chronic atrial fibrillation on coumadin h/o CVA Discharge Data Allergies Allergy/AdvReac Type Severity Reaction Status Date / Time adhesive Allergy Unknown SKIN Verified 11/22/18 17:29 IRRITATION AND PULLS SKIN OFF Iodinated Contrast- Oral and Allergy Unknown RASH Verified 11/22/18 17:29 IV Dye morphine Allergy Unknown UNKNOWN Verified 11/22/18 17:29 Penicillins Allergy Unknown UNKNOWN Verified 11/22/18 17:29 salicylates Allergy Unknown CAUSES Verified 11/22/18 17:29 HIVES codeine AdvReac Unknown CAUSES Verified 11/22/18 17:29 NAUSEA Consultations 11/22/18 19:30 ED Decision to Admit Stat 11/22/18 23:11 Consult Case Management - Discharge Planning Routine Consult Orthopedic Surgery Routine 11/23/18 02:05 Consult Otolaryngology (Head and Neck) Routine Ordered Studies 11/22/18 16:55 CT cervical spine wo con Stat CT facial bones wo con Stat CT head/brain wo con Stat Hospital Course (1) Fall: (2) Fracture, nasal: (3) Contusion of right knee: (4) Left shoulder pain: (5) Chronic atrial fibrillation: (6) CKD (chronic kidney disease), stage III: (7) OYBANI (obstructive sleep apnea): (8) HTN (hypertension): (9) Hypothyroidism: 78-year-old female status post mechanical fall presented to the emergency room with bilateral knee pain jaw and neck pain bilateral leg swelling and left shoulder pain. She was at a family reunion when she tripped on fell on a tile floor. She tried to brace herself with her hand but ended up hitting her face on the floor. Small facial cuts were addressed in the ER she was admitted to the Hospitalist service. Orthopedics was consulted for the contusion of the right knee as patient was on Coumadin therapy. X-rays were reviewed and she was status post knee replacement performed in the mid to late s by Dr. Bernal. She also had a left reverse total shoulder arthroplasty done by Dr. Flynn proximally 4 to 5 years ago. There were no obvious fractures other than nasal bone fractures and no dislocations present. There appeared to be no hardware issues. There was a small hemarthrosis of the right knee and increased soft tissue swelling of the anterior knee. She was able to continue bearing weight on right lower extremity and pain was controlled with tramadol per her home regimen. INR was therapeutic until the day of discharge which was 1.7. She went through physical therapy and Occupational Therapy and did well ambulating approximately 140 feet without too much difficulty. Conservative measures were recommended including ice to the right knee regularly. Her shoulder was not bothering her and could be used as tolerated. Range of motion of the knee was normal. It was recommended that she continue weightbearing as tolerated but if she began to experience increased pain in the right knee a CT scan will be performed. At time of discharge a [id number] examination was performed revealing a hemodynamically stable and afebrile patient with some pain that was well managed with tramadol. She was reporting feeling comfortable with going home and ambulating with her walker. [facility] 10 to 14 days only if she was continued to have problems with her knee. Otherwise arrangements were made for her to follow-up with primary care. Regarding her Coumadin therapy this was held throughout the hospitalization to be restarted at her normal dose of 2.5 mg p.o. daily the day after discharge. Although she has a history of stroke from atrial fibrillation, Lovenox bridging was not thought to be prudent in the setting of resolving bleeding. The case was discussed with Dr. Larsen from the Pathology/Anticoagulation Dept. She was given instructions for repeating an INR in the next couple of days. She verbalized understanding with intent to comply. Regarding her nasal fracture, the ecchymosis was improving and this was not interfering with her breathing overtly. Otorhinolaryngology was consulted however, never saw the patient in the hospital. A one week follow-up with otorhinolaryngology was recommended to evaluate her nasal fractures. She will be unable to use her CPAP during this time. Total Time Total Time Spent Total Time Spent (In Minutes): 60 Total Time Includes: Examination of the Patient, Discharge Planning, Medication Reconciliation, Communication With Other Providers and Other (arranged PCP followup) Discharge Plan Discharge Items Patient Disposition: Home - Self-Care Reason For Visit: R KNEE PAIN Discharge Diagnosis: Contusion of R knee s/p mechanical fall Nasal fracture chronic atrial fibrillation on coumadin h/o CVA Condition: Good Discharge Goals: Decrease discomfort and Improve function Activity: Resume your previous activity Non-emergency contact: Primary Care Provider and Surgeon Call non-emergency contact if: you have any medication questions, your symptoms worsen, your pain is not controlled, your pain is worsening, your pain is unusual for you, your pain is concerning for you and you have a fever Follow-up/Referrals: Jim Alvarez, [Primary Care Provider] - Diet: Heart Healthy Addtl Provider Instructions: Please take all medications as instructed on discharge list below. You INR today is subtherapeutic at 1.7 for not taking it for the last couple of days with your bruising. Please restart your coumadin at your home dose tomorrow, 11/25, and followup for an INR recheck at your Anticoagulation Clinic on Friday. You have the following appointment: 12/01/2018 1:00 PM Oracio Lu MD General Internal Medicine [facility] A follow-up Orthopedic appointment is recommended in 10-14 days if you continue to have pain in your knee. You were seen by Dr. Stefan Romo with [facility] while in the hospital. If you develop increased pain in your knee, fever, decreased range of motion of your knee or are unable to walk please seek immediate medical attention. It is recommended that you see an ear, nose and throat surgeon ([facility]) for your nasal fracture. You should obtain a referral to one from your primary care physician at follow-up. It was a pleasure taking care of you! Please call if you have any questions or problems. You can reach a [facility] hospitalist on duty at [facility] 24 hours a day by calling [phone]. Take care of yourself. Darlene Alcantar, DO [facility] Hospitalist Prescriptions: Continued furosemide [Lasix] 40 mg tablet 40 mg PO DAILY RF: 0 potassium chloride 10 mEq Capsule, Extended Release 10 meq PO DAILY RF: 0 warfarin [Coumadin] 2.5 mg tablet 2.5 mg PO DIRECTED RF: 0 tramadol [Ultram] 50 mg tablet 50 mg PO BID PRN (Reason: Pain) RF: 0 levothyroxine [Synthroid] 75 mcg tablet 75 mcg PO QAM RF: 0 warfarin [Coumadin] 5 mg tablet 5 mg PO WK RF: 0 losartan [Cozaar] 25 mg tablet 25 mg PO QAM RF: 0 metoprolol succinate [Toprol XL] 25 mg tablet extended release 24 hr 12.5 mg PO HS RF: 0 colchicine [Colcrys] 0.6 mg tablet 0.6 mg PO Q OTHER DAY RF: 0 cholecalciferol (vitamin D3) 2,000 unit Tablet 2,000 unit PO DAILY RF: 0 lidocaine 1.8 % Adhesive Patch,Medicated 1 patch TOPICAL DAILY PRN (Reason: Pain) RF: 0 Stand-Alone Forms: [facility]/Other Patient Handouts: Falls Risks Prevent Discharge Orders: Discharge Order (Routine); Ordered 11/24/18 Ordered By: Darlene Alcantar Admission Data Admit Date/Time: 11/22/18 21:45 Attending Provider: Darlene Alcantar Admit Provider: Melecio Sánchez Primary Care Provider: Jim Alvarez Other Providers: Melecio Sánchez ; Serjio Gonzalez ; Stefan Romo ; Segundo Chua ; Camille Adamis,Darrell J ; Kaitlin Butt ; Rambo Manuel ; Wesley Baker ; Khoa Bryant ; Wesley Valdez ; Ramon Armstrong. ; Khoa Parikh ; José Miguel Shoemaker ; Garret Ponce ; Richard Marshall ; Mauro Barraza ; Kingsley Burton ; Kaitlin Hogan ; Sherif Berrios ; Jim Jefferson ; Wilmer Santiago ; Rogelio Donohue. Service: Medical Other Interventions: Discharge Summary Assessment (RN) Last Done: 11/24/18 17:51 DC Date/Time DO NOT enter until pt leaves facility: 11/24/18 18:55
--- NOTE | 2018-11-24 16:50 | Orthopedic Progress Note ---
Date of Service November 24, 2018 Assessment & Plan (1) Contusion of right knee: Hematoma/contusion right knee status post fall. No obvious fractures and patient is continuing to increase her ambulation ability. No further complaints with the left shoulder. Orthopedics will sign off at this time. I discussed with her that she can follow-up with either [facility] or with Dr. Flynn if she continues have further problems with her knees or shoulder over the next 2 weeks. Subjective Patient is sitting at the bedside visiting with family. No new complaints. She states that she is feeling better. He states that she is been up and ambulating without difficulty. Physical Exam Physical Exam: Ecchymosis forming around the knee which was there is swelling yesterday. Now more well-defined. He does not appear to have gotten any bigger from yesterday. No increase in pain at rest or with ambulation. Complaints with the left shoulder. Results & Data Vital Signs (Past 12 Hours) Vital Signs Temp Pulse Resp BP BP Pulse Ox 11/24/18 15:21 36.6 C 61 18 122/74 94 11/24/18 07:40 36.5 C 60 16 120/75 94 (1) Contusion of right knee Encounter type: initial encounter Qualified Code(s): S80.01XA - Contusion of right knee, initial encounter
== END 2018-11-24 18:55 | disposition home or self-care (01) ==
LOC: ED 16:43 → 3N 16:43
DX: Z79.899 Other long term (current) drug therapy; Z80.9 Family history of malignant neoplasm, unspecified; S00.83XA Contusion of other part of head, initial encounter; W01.0XXA Fall on same level from slipping, tripping and stumbling without subsequent striking against object, initial encounter; S02.2XXA Fracture of nasal bones, initial encounter for closed fracture; I12.9 Hypertensive chronic kidney disease with stage 1 through stage 4 chronic kidney disease, or unspecified chronic kidney disease; G47.33 Obstructive sleep apnea (adult) (pediatric); Z85.42 Personal history of malignant neoplasm of other parts of uterus; M25.512 Pain in left shoulder; I48.2 Chronic atrial fibrillation; E03.9 Hypothyroidism, unspecified; Z87.891 Personal history of nicotine dependence; N18.3 Chronic kidney disease, stage 3 (moderate); S50.12XA Contusion of left forearm, initial encounter; S80.01XA Contusion of right knee, initial encounter; S01.81XA Laceration without foreign body of other part of head, initial encounter

== ENCOUNTER 2019-06-14 06:30 | Inpatient (IN) ==
[2019-06-14] MEDS ORDERED: ONDANSETRON INJ 2 MG/ML 2 ML VIAL IV STA (06:52)
[2019-06-14] MEDS ORDERED: SODIUM CHLORIDE 0.9% 1000ML 1,000 ML IV SCH (07:00)
[2019-06-14 07:20] LABS: Basophils # (auto) 0.04 K/uL (0-0.2); Basophils % (auto) 0.3 %; Eosinophils # (auto) 0.26 K/uL (0-0.5); Hematocrit (blood only) 45.6 % (37-47); Hemoglobin 15.3 g/dL (12.0-16.0); Immature Granulocytes # (auto) 0.03 K/uL (0.00-0.02); Immature Granulocytes % (auto) 0.2 %; Lymphocytes # (auto) 1.16 K/uL (1.2-3.4); Lymphocytes % (auto) 8.9 %; Mean Corpuscular Hemoglobin 31.2 pg (25-34); Mean Corpuscular Hgb Conc 33.6 g/dL (32-36); Mean Corpuscular Volume 92.9 fL (80-100); Mean Platelet Volume 10.1 fL (7.4-10.4); Monocytes # (auto) 1.25 K/uL (0.11-0.59); Monocytes % (auto) 9.6 %; Neutrophils # (auto) 10.32 K/uL (1.4-6.5); Platelet Count 232 K/uL (130-400); RDW Coefficient of Variation 14.4 % (11.5-14.5); RDW Standard Deviation 48.2 fL (36.4-46.3); Red Blood Count 4.91 M/uL (4.2-5.4); White Blood Count 13.06 K/uL (4.8-10.8)
[2019-06-14 07:28] LABS: Appearance Urine Cloudy (Clear); Bacteria Urine Automated Negative (Negative); Blood Urine Trace (Negative); Color Urine Dark Yellow; Epithelial Cell Urine Auto >30 /lpf (0-5); Glucose Urine UA Negative (Negative); Ketones Urine 1+ (Negative); Leukocyte Esterase Urine Negative (Negative); Nitrite Urine Negative (Negative); Protein Urine 1+ (Negative); RBC Urine Automated 0-4 /hpf (0-4); Specific Gravity Urine 1.029 (1.000-1.030); Urobilinogen Urine Negative (Negative)
[2019-06-14 07:32] LABS: INR 2.3 (0.9-1.1); Prothrombin Time 22.4 Seconds (9.0-12.0)
[2019-06-14 07:36] LABS: Bilirubin Urine Negative (Negative); Ictotest Urine Negative (Negative)
[2019-06-14 07:39] LABS: Alanine Aminotransferase 14 U/L (12-78); Albumin Level 3.9 gm/dl (3.4-5.0); Aspartate Aminotransferase 19 U/L (15-37); BUN Creatinine Ratio 15.6 (10-20); Blood Urea Nitrogen 19 mg/dl (7-18); Calcium 9.9 mg/dl (8.5-10.1); Carbon Dioxide 28 mmol/L (21-32); Chloride 105 mmol/L (98-107); Est GFR (African American) 49.6; Est GFR (Non-African American) 42.8; Glucose 125 mg/dl (70-99); Lipase 123 U/L (73-393); Potassium 4.3 mmol/L (3.5-5.1); Sodium 139 mmol/L (136-145)
[2019-06-14 07:44] LABS: Albumin Globulin Ratio 0.9 (0.9-2); Alkaline Phosphatase 99 U/L (45-117); Bilirubin,Total 2.3 mg/dl (0.2-1); Globulin 4.5 gm/dl (2.5-4.0); Total Protein 8.4 gm/dl (6.4-8.2); Troponin I < 0.015 ng/ml (0-0.045)
--- NOTE | 2019-06-14 07:57 | CT Scan Report ---
ABDOMEN AND PELVIS CT WITHOUT CONTRAST CT DOSE: 1425.58 mGy.cm HISTORY: Acute generalized abdominal pain with nausea and vomiting n/v, abd pain (diffuse but > epig LLQ) TECHNIQUE: Multiaxial CT images of the abdomen and pelvis were performed without contrast. A dose lo wering technique was utilized adhering to the principles of ALARA. COMPARISON STUDY: None. FINDINGS: Partially imaged subpleural nodular consolidation measuring 1.2 cm involves the medial segment right middle lobe. Mild bibasilar atelectasis with air trapping. There is no pneumatosis or pneumoperitoneu m. The imaged inferior cardiac chambers are moderately enlarged. Coronary arterial calcifications are noted. Limited evaluation of the solid abdominal organs without the use of IV contrast. Within the limitatio ns of the exam the spleen, pancreas, adrenal glands and liver appear unremarkable. Gallbladder appear s to be surgically absent. Mild prominence of the common bile duct may be on a postsurgical basis. There is mild cortical thinning of the bilateral kidneys. 5.7 x 5.4 cm exophytic lesion of the interp olar left kidney is suggestive of a cyst. 1.5 cm exophytic cyst of the inferior pole right kidney. No ureteral calculi or obstructive uropathy. Decompressed urinary bladder. Surgical clips of the bilate ral pelvic cochran. No adnexal mass lesions. Calcified plaque of the abdominal aorta without aneurysm. Prominent and mildly enlarged periportal and precaval lymph nodes are incidentally noted. Mild colonic diverticulosis without acute diverticulitis. The terminal ileum is decompressed. There a re several loops of dilated air and fluid-filled small bowel with a few stool-filled loops of small b owel measuring up to 3.9 cm transversely. Transition point is noted within the abdominal left lower q uadrant on image 214 series 3, likely secondary to underlying small bowel adhesions. No bowel wall th ickening. There is mild interloop edema. 9 mm soft tissue nodule of the right paracentral abdominal w all. Tiny periumbilical hernia. Surgical suture material and wires are noted within the soft tissues of the lower lumbar spine. Laminectomy changes of the lower lumbar spine are noted along with multile dede spondylitic spurring and facet arthrosis. No acute fracture or subluxation. Large posterior disc osteophyte complex formation is noted at multiple levels. IMPRESSION: 1. Moderate grade small bowel obstruction with transition point noted within the abdominal left lower quadrant, likely secondary to underlying small bowel adhesions. 2. No pneumatosis or pneumoperitoneum. 3. Mild colonic diverticulosis without acute diverticulitis. 4. Partially imaged subpleural nodular consolidative opacity of the medial segment right middle lobe measures 1.2 cm suggestive of probable fibrosis with atelectasis. As a precautionary measure, a 3 mon follow-up CT of the chest is recommended to further evaluate. 5. Additional findings as above. ACT 112: Negative or not required by law. The above report was generated using voice recognition software. It may contain grammatical, syntax o r spelling errors. Electronically signed by: Rahul Moise M.D. 06/14/2019 7:55 AM
--- NOTE | 2019-06-14 08:21 | Emergency Department Note ---
Entered by Maninder Willett acting as a scribe for Allen Hopson DO History of Present Illness General Chief complaint: Vomiting Stated complaint: VOMITING,CAN'T ANYTHING DOWN Time Seen by Provider: 06/14/19 06:41 Source: patient History of Present Illness Onset (ago): day(s) 2 Location: abdomen Pain Consistency: + constant Quality: + other (vomiting) Exacerbated By: + eating Associated symptoms: + other (+deep burps; +generalized abdominal pain; +loose stool; -diarrhea; ) The patient is an 79 year old female, with past medical history of HTN, HLD, DVT, and CKD, who presents to the Emergency Room with complaints of constant vo miting upon eating or drinking anything over the last two days. The patient reports she has had 4-5 episodes of vomiting over the past two days, and the patient reports that shell vomit any time she tries to take anything in, including drinks or food. The patient reports she still feel nauseated in between meals/fluids. She states she has also been bringing up deep burps. The patient describes her vomit as yellow and bitter. The patient also reports of upper abdominal pain that she states has progressed to become generalized abdominal pain. The patient denies diarrhea, but she notes of loose stool. She states she has had 3 bowel movements since her present symptoms started. The patient states she originally believed the cause of her symptoms to be eating oranges. Home Medications Home Medications Medication Instructions Recorded Confirmed Type cholecalciferol (vitamin D3) 2,000 unit PO DAILY@1400 02/01/18 06/14/19 History colchicine [Colcrys] 0.6 mg PO Q OTHER DAY 02/01/18 06/14/19 History furosemide [Lasix] 40 mg PO 4XWK 02/01/18 06/14/19 History levothyroxine [Synthroid] 75 mcg PO QAM 02/01/18 06/14/19 History lidocaine 1 patch TOPICAL DAILY PRN 02/01/18 06/14/19 History losartan [Cozaar] 25 mg PO DAILY@1400 02/01/18 06/14/19 History metoprolol succinate [Toprol XL] 12.5 mg PO DAILY@1400 02/01/18 06/14/19 History potassium chloride 10 meq PO 4XWK 02/01/18 06/14/19 History tramadol [Ultram] 50 mg PO BID PRN 02/01/18 06/14/19 History warfarin [Coumadin] 2.5 mg PO DIRECTED 02/01/18 06/14/19 History warfarin [Coumadin] 5 mg PO WK 02/01/18 06/14/19 History Allergies Allergy/AdvReac Type Severity Reaction Status Date / Time adhesive Allergy Unknown SKIN Verified 06/14/19 07:20 IRRITATION AND PULLS SKIN OFF Iodinated Contrast Media Allergy Unknown RASH Verified 06/14/19 07:20 morphine Allergy Unknown UNKNOWN Verified 06/14/19 07:20 Penicillins Allergy Unknown UNKNOWN Verified 06/14/19 07:20 salicylates Allergy Unknown CAUSES Verified 06/14/19 07:20 HIVES codeine AdvReac Unknown CAUSES Verified 06/14/19 07:20 NAUSEA Past Med/Surg History Medical History Chronic atrial fibrillation (Chronic) CKD (chronic kidney disease), stage III (Chronic) Gout (Chronic) History of uterine cancer (Chronic) HLD (hyperlipidemia) (Chronic) HTN (hypertension) (Chronic) Hypothyroidism (Chronic) Occipital stroke (Chronic) YOBANI (obstructive sleep apnea) (Chronic) on cpap Surgical History History of back surgery (Chronic) Status post cataract extraction (Chronic) "L side 1994" Status post cholecystectomy (Chronic) "09/14/04; performed by Dr. Barry" Status post hysterectomy (Chronic) "1989" Status post lumbar surgery (Chronic) "1984" Status post partial colectomy (Chronic) "10/20/2003" Status post tonsillectomy (Chronic) Status post total shoulder arthroplasty (Chronic) "L side; Dr. 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 and A total of 10 systems reviewed and were otherwise negative Physical Exam Vital Signs Vital Signs - 24 hr 06/14/19 06:34 06/14/19 07:18 Temperature 36.5 C Temperature Source Oral Pulse Rate 76 Respiratory Rate 18 Respiratory Effort / Characteristics Non-Labored Spontaneous Respiratory Depth Normal Respiratory Pattern Regular Blood Pressure 159/83 H Blood Pressure Mean 108 Blood Pressure Position Sitting Pulse Oximetry 96 94 Oxygen Delivery Method Room Air Room Air Sepsis Recent Fever Within 48 Hours No Sepsis New/Unexplained Change in Mental Status No Sepsis Action Taken by Nursing No Action Required CONSTITUTIONAL/VITAL SIGNS: Reviewed / noted above. GENERAL: Non-toxic in appearance. INTEGUMENTARY: Warm, dry, and [place]. HEAD: Normocephalic. EYES: without scleral icterus or trauma. ENT/OROPHARYNX: clear and moist. LYMPHADENOPATHY/NECK: Is supple without lymphadenopathy or meningismus. RESPIRATORY: Lungs clear and equal. CARDIOVASCULAR: Regular rate and rhythm. GI/ABDOMEN: Soft. Diffusely tender, more so to the left lower quadrant and epigastric area. No organomegaly or pulsatile mass. No rebound or guarding. Normal bowel sounds. EXTREMITIES: Warm and well perfused. BACK: No CVA tenderness. NEUROLOGICAL: Intact without focal deficits. PSYCHIATRIC: normal affect. MUSCULOSKELETAL: Normally developed with good muscle tone. Course Course 0642: Past medical records reviewed. The patient was evaluated in room B2. A complete history and physical exam was performed. 0800: I discussed the patient's case with Dr. Bowman Surgery. Dr. Balaji gibbs requests to admit the patient to medicine, and that he will follow up with the patient in consultation. 0814: I reviewed the patient's case with Dr. Oconnell Hospitalist. Dr. Renteria will evaluate the patient for further management. Consultations Consultation #1: I discussed the patient's case with Dr. Bowman Surgery. Dr. Parmar requests to admit the patient to medicine, and that he will follow up with the patient in consultation. Time: 08:00 Consultation #2: I reviewed the patient's case with Dr. Oconnell [facility]. Dr. Renteria will evaluate the patient for further management. Time: 08:14 Administered Medications Discontinued Medications Sodium Chloride (Nss 1000ml) 1,000 mls @ 999 mls/hr IV .Q1H1M ARIC Stop: 06/14/19 08:00 Last Admin: 06/14/19 07:14 Dose: 999 mls/hr Documented by: [id number] Ondansetron HCl (Zofran) 4 mg IV NOW STA Stop: 06/14/19 06:53 Last Admin: 06/14/19 07:14 Dose: 4 mg Documented by: [id number] Medical Decision Making Differential Diagnosis Differential diagnosis: Etiologies such as gastroenteritis, food borne illness, infections, appendicitis, diverticulitis, inflammatory bowel disease, obstruction, GI bleed, biliary pathology, as well as others were entertained. Medical Records Attestation: I reviewed the patient's medical records. Home Medications Current Medication List: was personally reviewed by me Laboratory Data Attestation: I reviewed the patient's lab results. Result diagrams: 06/14/19 07:13 06/14/19 07:13 Lab Results 06/14/19 06/14/19 06/14/19 Range/Units 07:13 07:13 07:13 WBC 13.06 H (4.8-10.8) K/uL RBC 4.91 (4.2-5.4) M/uL Hgb 15.3 (12.0-16.0) g/dL Hct 45.6 (37-47) % MCV 92.9 (80-100) fL MCH 31.2 (25-34) pg MCHC 33.6 (32-36) g/dL RDW Std Deviation 48.2 H (36.4-46.3) fL RDW Coeff of Jayla 14.4 (11.5-14.5) % Plt Count 232 (130-400) K/uL MPV 10.1 (7.4-10.4) fL Immature Gran % (Auto) 0.2 % Neut % (Auto) 79.0 % Lymph % (Auto) 8.9 % Lamar % (Auto) 9.6 % Eos % (Auto) 2.0 % Baso % (Auto) 0.3 % Immature Gran # (Auto) 0.03 H (0.00-0.02) K/uL Neut # (Auto) 10.32 H (1.4-6.5) K/uL Lymph # (Auto) 1.16 L (1.2-3.4) K/uL Lamar # (Auto) 1.25 H (0.11-0.59) K/uL Eos # (Auto) 0.26 (0-0.5) K/uL Baso # (Auto) 0.04 (0-0.2) K/uL PT 22.4 H (9.0-12.0) Seconds INR 2.3 H (0.9-1.1) Sodium 139 (136-145) mmol/L Potassium 4.3 (3.5-5.1) mmol/L Chloride 105 (98-107) mmol/L Carbon Dioxide 28 (21-32) mmol/L Anion Gap 6.0 (3-11) BUN 19 H (7-18) mg/dl Creatinine 1.19 (0.6-1.2) mg/dl Est Cr Clr Drug Dosing Not Reportable Est GFR ( Amer) 49.6 Est GFR (Non-Af Amer) 42.8 BUN/Creatinine Ratio 15.6 (10-20) Glucose 125 H (70-99) mg/dl Calcium 9.9 (8.5-10.1) mg/dl Total Bilirubin 2.3 H (0.2-1) mg/dl AST 19 (15-37) U/L ALT 14 (12-78) U/L Alkaline Phosphatase 99 (45-117) U/L Troponin I < 0.015 (0-0.045) ng/ml Total Protein 8.4 H (6.4-8.2) gm/dl Albumin 3.9 (3.4-5.0) gm/dl Globulin 4.5 H (2.5-4.0) gm/dl Albumin/Globulin Ratio 0.9 (0.9-2) Lipase 123 (73-393) U/L Urine Color Urine Appearance (Clear) Urine pH (4.5-7.5) Ur Specific [place] (1.000-1.030) Urine Protein (Negative) Urine Glucose (UA) (Negative) Urine Ketones (Negative) Urine Blood (Negative) Urine Nitrite (Negative) Urine Bilirubin (Negative) Urine Urobilinogen (Negative) Ur Leukocyte Esterase (Negative) Urine WBC (Auto) (0-5) /hpf Urine RBC (Auto) (0-4) /hpf U Hyaline Cast (Auto) (0-5) /lpf U Epithel Cells (Auto) (0-5) /lpf Urine Bacteria (Auto) (Negative) 06/14/19 Range/Units 07:13 WBC (4.8-10.8) K/uL RBC (4.2-5.4) M/uL Hgb (12.0-16.0) g/dL Hct (37-47) % MCV (80-100) fL MCH (25-34) pg MCHC (32-36) g/dL RDW Std Deviation (36.4-46.3) fL RDW Coeff of Jayla (11.5-14.5) % Plt Count (130-400) K/uL MPV (7.4-10.4) fL Immature Gran % (Auto) % Neut % (Auto) % Lymph % (Auto) % Lamar % (Auto) % Eos % (Auto) % Baso % (Auto) % Immature Gran # (Auto) (0.00-0.02) K/uL Neut # (Auto) (1.4-6.5) K/uL Lymph # (Auto) (1.2-3.4) K/uL Lamar # (Auto) (0.11-0.59) K/uL Eos # (Auto) (0-0.5) K/uL Baso # (Auto) (0-0.2) K/uL PT (9.0-12.0) Seconds INR (0.9-1.1) Sodium (136-145) mmol/L Potassium (3.5-5.1) mmol/L Chloride (98-107) mmol/L Carbon Dioxide (21-32) mmol/L Anion Gap (3-11) BUN (7-18) mg/dl Creatinine (0.6-1.2) mg/dl Est Cr Clr Drug Dosing Est GFR ( Amer) Est GFR (Non-Af Amer) BUN/Creatinine Ratio (10-20) Glucose (70-99) mg/dl Calcium (8.5-10.1) mg/dl Total Bilirubin (0.2-1) mg/dl AST (15-37) U/L ALT (12-78) U/L Alkaline Phosphatase (45-117) U/L Troponin I (0-0.045) ng/ml Total Protein (6.4-8.2) gm/dl Albumin (3.4-5.0) gm/dl Globulin (2.5-4.0) gm/dl Albumin/Globulin Ratio (0.9-2) Lipase (73-393) U/L Urine Color Dark Yellow Urine Appearance Cloudy A (Clear) Urine pH 5.0 (4.5-7.5) Ur Specific [place] 1.029 (1.000-1.030) Urine Protein 1+ H (Negative) Urine Glucose (UA) Negative (Negative) Urine Ketones 1+ H (Negative) Urine Blood Trace H (Negative) Urine Nitrite Negative (Negative) Urine Bilirubin Negative (Negative) Urine Urobilinogen Negative (Negative) Ur Leukocyte Esterase Negative (Negative) Urine WBC (Auto) 1-5 (0-5) /hpf Urine RBC (Auto) 0-4 (0-4) /hpf U Hyaline Cast (Auto) 5-10 H (0-5) /lpf U Epithel Cells (Auto) >30 H (0-5) /lpf Urine Bacteria (Auto) Negative (Negative) Imaging Data Radiologist's Impression: Radiology results as stated below per my review and the radiologist's interpretation: ABDOMEN AND PELVIS CT WITHOUT CONTRAST CT DOSE: 1425.58 mGy.cm HISTORY: Acute generalized abdominal pain with nausea and vomiting n/v, abd pain (diffuse but > epig LLQ) TECHNIQUE: Multiaxial CT images of the abdomen and pelvis were performed without contrast. A dose lowering technique was utilized adhering to the principles of ALARA. COMPARISON STUDY: None. FINDINGS: Partially imaged subpleural nodular consolidation measuring 1.2 cm involves the medial segment right middle lobe. Mild bibasilar atelectasis with air trapping. There is no pneumatosis or pneumoperitoneum. The imaged inferior cardiac rashaad bers are moderately enlarged. Coronary arterial calcifications are noted. Limited evaluation of the solid abdominal organs without the use of IV contrast. Within the limitations of the exam the spleen, pancreas, adrenal glands and liver appear unremarkable. Gallbladder appears to be surgically absent. Mild prominence of the common bile duct may be on a postsurgical basis. There is mild cortical thinning of the bilateral kidneys. 5.7 x 5.4 cm exophytic lesion of the interpolar left kidney is suggestive of a cyst. 1.5 cm exophytic cyst of the inferior pole right kidney. No ureteral calculi or obstructive uropathy. Decompressed urinary bladder. Surgical clips of the bilateral pelvic cochran. No adnexal mass lesions. Calcified plaque of the abdominal aorta without aneurysm. Prominent and mildly enlarged periportal and precaval lymph nodes are incidentally noted. Mild colonic diverticulosis without acute diverticulitis. The terminal ileum is decompressed. There are several loops of dilated air and fluid-filled small bowel with a few stool-filled loops of small bowel measuring up to 3.9 cm transversely. Transition point is noted within the abdominal left lower quadrant on image 214 series 3, likely secondary to underlying small bowel adhesions. No bowel wall thickening. There is mild interloop edema. 9 mm soft tissue nodule of the right paracentral abdominal wall. Tiny periumbilical hernia. Surgical suture material and wires are noted within the soft tissues of the lower lumbar spine. Laminectomy changes of the lower lumbar spine are noted along with multilevel spondylitic spurring and facet arthrosis. No acute fracture or subluxation. Large posterior disc osteophyte complex formation is noted at multiple levels. IMPRESSION: 1. Moderate grade small bowel obstruction with transition point noted within the abdominal left lower quadrant, likely secondary to underlying small bowel adhesions. 2. No pneumatosis or pneumoperitoneum. 3. Mild colonic diverticulosis without acute diverticulitis. 4. Partially imaged subpleural nodular consolidative opacity of the medial segment right middle lobe measures 1.2 cm suggestive of probable fibrosis with atelectasis. As a precautionary measure, a 3 month follow-up CT of the chest is recommended to further evaluate. 5. Additional findings as above. ACT 112: Negative or not required by law. The above report was generated using voice recognition software. It may contain grammatical, syntax or spelling errors. Electronically signed by: Rahul Moise M.D. 06/14/2019 7:55 AM ECG Data Attestation: I personally reviewed and interpreted this ECG as follows: Indication: + vomiting Rate (beats per minute): 70 Rhythm: + atrial fibrillation ECG Intervals/blocks: + Normal QT-c ECG ST segments: no ST elevation ECG Findings: no PVCs Blood Pressure Blood Pressure Findings: Elevated blood pressure Blood Pressure Disposition: further management by hospitalist LASHONDA Contreras Continuous Cardiac Monitoring: An order was placed for continuous cardiac monitoring. The monitor shows a rate of 70 with atrial fibrillation. This is a 79-year-old female who presents to the ED with a chief complaint of nausea and vomiting as well as some abdominal pains. The symptoms started on Friday. The patient states that she cannot keep any fluids down. She reports several loose bowels in the past couple of days. The patient's physical exam reveals some tenderness in the abdomen predominantly in the left upper lower quadrant and epigastric area. A CT scan of the abdomen pelvis reveals a moderate small bowel obstruction with adhesions in the left lower quadrant. EKG shows A. fib at a rate of 70. INR is 2.3. She is on Coumadin. Urine did not show infection. White blood cell count is 13. Metabolic panel was unremarkable. Troponin was negative. The patient was given IV fluids and IV Zofran. I spoke with Dr. Parmar from surgery. He requested that the patient be admitted to medicine. I spoke with the hospitalist and the patient be seen by them for further evaluation and care. Impression & Plan SBO (small bowel obstruction) Discharge Plan Visit Data Chief Complaint: Vomiting Stated Complaint: VOMITING,CAN'T ANYTHING DOWN ED Provider: Allen Hopson Discharge Problem: SBO (small bowel obstruction) Patient Disposition: Being Evaluated by Hospitalist Forms Stand Alone Forms: My [facility] Prescriptions Prescriptions: No Action furosemide [Lasix] 40 mg tablet 40 mg PO 4XWK RF: 0 potassium chloride 10 mEq Capsule, Extended Release 10 meq PO 4XWK RF: 0 warfarin [Coumadin] 2.5 mg tablet 2.5 mg PO DIRECTED RF: 0 tramadol [Ultram] 50 mg tablet 50 mg PO BID PRN (Reason: Pain) RF: 0 levothyroxine [Synthroid] 75 mcg tablet 75 mcg PO QAM RF: 0 warfarin [Coumadin] 5 mg tablet 5 mg PO WK RF: 0 losartan [Cozaar] 25 mg tablet 25 mg PO DAILY@1400 RF: 0 metoprolol succinate [Toprol XL] 25 mg tablet extended release 24 hr 12.5 mg PO DAILY@1400 RF: 0 colchicine [Colcrys] 0.6 mg tablet 0.6 mg PO Q OTHER DAY RF: 0 cholecalciferol (vitamin D3) 2,000 unit Tablet 2,000 unit PO DAILY@1400 RF: 0 lidocaine 1.8 % Adhesive Patch,Medicated 1 patch TOPICAL DAILY PRN (Reason: Pain) RF: 0 Referrals Referrals: Jim Alvarez, DO [Primary Care Provider] - The scribe's documentation has been prepared under my direction and personally r eviewed by me in its entirety. I confirm that the note above accurately reflects all work, treatment, procedures, and medical decision making performed by me.
--- NOTE | 2019-06-14 08:22 | History & Physical Report ---
Date of Service June 14, 2019 Assessment & Plan (1) Small bowel obstruction due to adhesions: Presented with abdominal pain, CT abdomen pelvis shows small bowel obstruction, Risk factor, prior abdominal surgery Appreciate input from surgery, patient remains clinically stable, minimal GI symptoms Recommends conservative management with bowel rest, pain control, IV fluids NG tube not inserted as patient's not having any active episodes of vomiting Continue to monitor, Ordered IV fluids at rate 125 mL/h, patient will be allowed to sips of ice chips Encouraged to increase activity as tolerated (2) Chronic atrial fibrillation: EKG shows rate controlled A. fib, Follows with [facility] cardiology Home medication Toprol-XL 12.5 mg p.o. daily will be kept on hold for n.p.o. status started with IV Lopressor, continue to monitor in telemetry hold Coumadin for acute abdomen /SBO Patient is a moderate to high risk for stroke given persistent A. fib, INR 2.1 today, continue to hold Coumadin, will plan for IV heparin bridge when INR less than 2 (Any episode of worsening clinical status, development of acute abdominal pain requiring surgery heparin can be turned off 6-8 hours prior to procedure) (3) HTN (hypertension): PO antihypertensives : Lasix , losartan , toprol xl on hold for SBP , Npo status beta joanne changed to IV cont to monitor In telemetry (4) HLD (hyperlipidemia): Not on statin (5) CKD (chronic kidney disease), stage III: renal function stable ordered IV fluid for SBO follow BMP avoid NSAID /contrast studies CODE STATUS :Full code DVT PROPHYLAXIS : INR THERAPUTIC coimadin on hold for bowel obstruction DISPOSITION : expected to be discharged home when medically stable Family Physician follow up with Dr Alvarez History of Present Illness Primary Care Provider: Jim Alvarez DO Patient is an 79 year old female with a history of Atrial Fibrillation, Pulmonary Embolism-On chronic anticoagulation with Coumadin, HTH, Hyperlipidemia, Hypothyroidism, right occipital lobe CVA, Sleep Apnea, admitted with abdominal pain Patient mentioned that she started to have epigastric pain on Friday after eating oranges, She attributed her symptoms possibly secondary to acid reflux Yesterday she started to experience diffuse pain, with intermittent cramps mostly to lower abdomen, associated with nausea She vomited after trying to drink tea, Her pain subsided later ,so she decided to stay home was able to pass gas have had a small bowel movement yesterday Since yesterday she was not able to keep anything down, This morning woke up with diffuse abdominal pain, nausea ,vomited after sips of water, Came to ER for evaluation Ct abdomen /pelvis shows , moderate small bowel obstruction , due to adhesion past surgical hx includes : s/p open cholecystectomy at [facility] on 09/14/[address] Barry s/p total hysterectomy , bilateral oophorectomy in 1989 ( dx uterine /ovarian tumor ) s/p sigmoid colectomy on 10/20/03 No prior history of bowel obstruction till this episode During my interview patient's abdominal pain was Controlled, sitting up on edge of bed, comfortable line Does not have any symptoms of nausea, did not had any vomiting since admission No report of fever or chills, Patient denies of any dizzy spell lightheadedness, no cough No complaint of chest pain shortness of breath palpitation or dyspnea on exertion Allergies Allergy/AdvReac Type Severity Reaction Status Date / Time adhesive Allergy Unknown SKIN Verified 06/14/19 07:20 IRRITATION AND PULLS SKIN OFF Iodinated Contrast Media Allergy Unknown RASH Verified 06/14/19 07:20 morphine Allergy Unknown UNKNOWN Verified 06/14/19 07:20 Penicillins Allergy Unknown UNKNOWN Verified 06/14/19 07:20 salicylates Allergy Unknown CAUSES Verified 06/14/19 07:20 HIVES codeine AdvReac Unknown CAUSES Verified 06/14/19 07:20 NAUSEA Home Medications Home Medications Medication Instructions Recorded Confirmed Type cholecalciferol (vitamin D3) 2,000 unit PO DAILY@1400 02/01/18 06/14/19 History colchicine [Colcrys] 0.6 mg PO Q OTHER DAY 02/01/18 06/14/19 History furosemide [Lasix] 40 mg PO 4XWK 02/01/18 06/14/19 History levothyroxine [Synthroid] 75 mcg PO QAM 02/01/18 06/14/19 History lidocaine 1 patch TOPICAL DAILY PRN 02/01/18 06/14/19 History losartan [Cozaar] 25 mg PO DAILY@1400 02/01/18 06/14/19 History metoprolol succinate [Toprol XL] 12.5 mg PO DAILY@1400 02/01/18 06/14/19 History potassium chloride 10 meq PO 4XWK 02/01/18 06/14/19 History tramadol [Ultram] 50 mg PO BID PRN 02/01/18 06/14/19 History warfarin [Coumadin] 2.5 mg PO DIRECTED 02/01/18 06/14/19 History warfarin [Coumadin] 5 mg PO WK 02/01/18 06/14/19 History Past Med/Surg History Medical History Chronic atrial fibrillation (Chronic) CKD (chronic kidney disease), stage III (Chronic) Gout (Chronic) History of uterine cancer (Chronic) HLD (hyperlipidemia) (Chronic) HTN (hypertension) (Chronic) Hypothyroidism (Chronic) Occipital stroke (Chronic) YOBANI (obstructive sleep apnea) (Chronic) on cpap Surgical History History of back surgery (Chronic) Status post cataract extraction (Chronic) "L side 1994" Status post cholecystectomy (Chronic) "09/14/04; performed by Dr. Barry" Status post hysterectomy (Chronic) "1989" Status post lumbar surgery (Chronic) "1984" Status post partial colectomy (Chronic) "10/20/2003" Status post tonsillectomy (Chronic) Status post total shoulder arthroplasty (Chronic) "L side; Dr. 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 Beliefs That Will Affect Care: None marital status: Current Living Situation: Alone current occupational status: retired Other Information That Helps Us Care for You: No Feels Safe at Home: Yes Safety Concerns: Feels Safe At This Time Smoking Status: Former smoker Hx Alcohol Use: No Hx Substance Use: No Review of Systems Review of Systems: All systems reviewed & are unremarkable except as noted in HPI & below Constitutional: as per Subjective / HPI; no fever, no chills and no fatigue Gastrointestinal: as per Subjective / HPI, + abdominal pain, + nausea and + vomiting Physical Exam Constitutional: WD/WN, vitals as above + obese; no acute distress Eyes: PERRL, conjunctivae normal, anicteric sclerae ENMT: external ear and nose normal, oropharynx normal Neck: trachea midline, no thyromegaly Respiratory: normal respiratory effort, lungs clear to auscultation Cardiovascular: RRR, no murmur, no edema Gastrointestinal (Abdomen): Inspection/Auscultation: + abdomen distended (Due to obesity) and normal bowel sounds Percussion/Palpation: + abdomen tender (On mostly right lower quadrant) and abdomen soft; no guarding Musculoskeletal: no cyanosis or clubbing, extremities motor strength 5/5 Skin: no rashes, warm and dry Neurologic: PERRL, EOMI, accommodation nl, no face palsy, no dysarthria Psychiatric: A+Ox3, euthymic affect Results & Data Vital Signs (Past 12 Hours) Vital Signs Temp Pulse Resp BP Pulse Ox 06/14/19 07:18 94 06/14/19 06:34 36.5 C 76 18 159/[address] abdomen pelvis noncontrast: IMPRESSION: 1. Moderate grade small bowel obstruction with transition point noted within the abdominal left lower quadrant, likely secondary to underlying small bowel adhesions. 2. No pneumatosis or pneumoperitoneum. 3. Mild colonic diverticulosis without acute diverticulitis. 4. Partially imaged subpleural nodular consolidative opacity of the medial segment right middle lobe measures 1.2 cm suggestive of probable fibrosis with atelectasis. As a precautionary measure, a 3 month follow-up CT of the chest is recommended to further evaluate.
[2019-06-14] MEDS: LACTATED RINGER'S 1,000 ML IV SCH ×3 (08:44→23:51)
[2019-06-14] MEDS ORDERED: ONDANSETRON INJ 2 MG/ML 2 ML VIAL IV PRN (09:23)
--- NOTE | 2019-06-14 09:42 | Surgery Consultation ---
Date of Consultation June 14, 2019 Assessment & Plan (1) SBO (small bowel obstruction): This is an 79y F with a PMH of afib on coumadin, HTN, YOBANI, CVA, CKD, partial colectomy, hysterectomy, and cholecystectomy who presents to the [facility] ED this AM with complaints of abdominal pain and vomiting. Workup in the ED with a CT scan show concern for a moderate grade small bowel obstruction with transition point in the left lower quadrant, likely caused by adhesions. The patient is currently admitted under medicine and is in stable condition. Her abdomen is soft, non distended, and mildly tender on the L side. She states her pain and nausea are currently controlled. Agree with a trial of conservative management for now keep patient NPO with IVF. I have cautioned patient that if she should develop worsening symptoms and ongoing episodes of nausea she may benefit from an NGT. We will continue to follow the patient. History of Present Illness Attending Physician: Hetal Renteria MD History of Present Illness This is an 79y F with a PMH of afib on coumadin, HTN, YOBANI, CVA, CKD, partial colectomy, hysterectomy, and cholecystectomy who presents to the [facility] ED this AM with complaints of abdominal pain and vomiting. Patient reports that her abdominal pain has been intermittently coming in waves since Friday. She ate some oranges over the wknd and vomited, which she initially thought was due to gastritis, however since then she has not been able to keep anything down. She reports vomiting a total of 4 times, last was this AM in the ED. She is not passing flatus and says her last BM was yesterday. Since her abdominal pain continued the patient reported to the ED. A CT a/p was performed revealing a moderate grade small bowel obstruction with a transition point in the left lower quadrant, likely related to adhesions. WBC 13, INR 2.3, and her vital signs are stable. Currently the patient feels as though her nausea and pain are controlled. She says this is her first time shes developed symptoms like this and been told she had a bowel obstruction. She was subsequently admitted under the medicine service and surgery was consulted for evaluation. Allergies Allergy/AdvReac Type Severity Reaction Status Date / Time adhesive Allergy Unknown SKIN Verified 06/14/19 07:20 IRRITATION AND PULLS SKIN OFF Iodinated Contrast Media Allergy Unknown RASH Verified 06/14/19 07:20 morphine Allergy Unknown UNKNOWN Verified 06/14/19 07:20 Penicillins Allergy Unknown UNKNOWN Verified 06/14/19 07:20 salicylates Allergy Unknown CAUSES Verified 06/14/19 07:20 HIVES codeine AdvReac Unknown CAUSES Verified 06/14/19 07:20 NAUSEA Home Medications Home Medications Medication Instructions Recorded Confirmed Type cholecalciferol (vitamin D3) 2,000 unit PO DAILY@1400 02/01/18 06/14/19 History colchicine [Colcrys] 0.6 mg PO Q OTHER DAY 02/01/18 06/14/19 History furosemide [Lasix] 40 mg PO 4XWK 02/01/18 06/14/19 History levothyroxine [Synthroid] 75 mcg PO QAM 02/01/18 06/14/19 History lidocaine 1 patch TOPICAL DAILY PRN 02/01/18 06/14/19 History losartan [Cozaar] 25 mg PO DAILY@1400 02/01/18 06/14/19 History metoprolol succinate [Toprol XL] 12.5 mg PO DAILY@1400 02/01/18 06/14/19 History potassium chloride 10 meq PO 4XWK 02/01/18 06/14/19 History tramadol [Ultram] 50 mg PO BID PRN 02/01/18 06/14/19 History warfarin [Coumadin] 2.5 mg PO DIRECTED 02/01/18 06/14/19 History warfarin [Coumadin] 5 mg PO WK 02/01/18 06/14/19 History Patient History Medical History Chronic atrial fibrillation (Chronic) CKD (chronic kidney disease), stage III (Chronic) Gout (Chronic) History of uterine cancer (Chronic) HLD (hyperlipidemia) (Chronic) HTN (hypertension) (Chronic) Hypothyroidism (Chronic) Occipital stroke (Chronic) YOBANI (obstructive sleep apnea) (Chronic) on cpap Surgical History History of back surgery (Chronic) Status post cataract extraction (Chronic) "1994" Status post cholecystectomy (Chronic) "09/14/04; performed by Dr. Barry" Status post hysterectomy (Chronic) "1989" Status post lumbar surgery (Chronic) "1984" Status post partial colectomy (Chronic) "10/20/2003" Status post tonsillectomy (Chronic) Status post total shoulder arthroplasty (Chronic) "L side; Dr. Flynn 08/2012" Total knee replacement status (Chronic) Family History Father Testicular cancer Mother Stroke Other Diabetes Hypertension Social History Preferred Language: [place] Communication Ability: Effective Hat Model Required: No Beliefs That Will Affect Care: None marital status: Current Living Situation: Alone current occupational status: retired Other Information That Helps Us Care for You: No Feels Safe at Home: Yes Safety Concerns: Feels Safe At This Time Smoking Status: Former smoker Hx Alcohol Use: No Hx Substance Use: No Review of Systems Constitutional: no fever and no chills Respiratory: no shortness of breath Cardiovascular: no chest pain Gastrointestinal: + abdominal pain (intermittent), + belching, + nausea and + vomiting; no bloating no flatus, last BM was yesterday Physical Exam Physical Exam: awake/alert Constitutional: well developed, well nourished and comfortable; no acute distress Respiratory: normal respiratory effort Gastrointestinal (Abdomen): Inspection/Auscultation: + abdominal surgical scar (midline); abdomen not distended Percussion/Palpation: + abdomen tender (mild ttp on L side) and abdomen soft Results & Data Vital Signs (Past 12 Hours) Vital Signs Temp Pulse Pulse Resp BP Pulse Ox 06/14/19 09:27 36.7 C 70 20 92 06/14/19 08:30 63 19 147/75 H 95 06/14/19 08:00 69 19 156/93 H 93 06/14/19 07:18 94 06/14/19 07:16 67 23 177/75 H 96 06/14/19 06:34 36.5 C 76 18 159/83 H [address] WITHOUT CONTRAST CT DOSE: 1425.58 mGy.cm HISTORY: Acute generalized abdominal pain with nausea and vomiting n/v, abd pain (diffuse but > epig LLQ) TECHNIQUE: Multiaxial CT images of the abdomen and pelvis were performed without contrast. A dose lowering technique was utilized adhering to the principles of ALARA. COMPARISON STUDY: None. FINDINGS: Partially imaged subpleural nodular consolidation measuring 1.2 cm involves the medial segment right middle lobe. Mild bibasilar atelectasis with air trapping. There is no pneumatosis or pneumoperitoneum. The imaged inferior cardiac c hambers are moderately enlarged. Coronary arterial calcifications are noted. Limited evaluation of the solid abdominal organs without the use of IV contrast. Within the limitations of the exam the spleen, pancreas, adrenal glands and liver appear unremarkable. Gallbladder appears to be surgically absent. Mild prominence of the common bile duct may be on a postsurgical basis. There is mild cortical thinning of the bilateral kidneys. 5.7 x 5.4 cm exophytic lesion of the interpolar left kidney is suggestive of a cyst. 1.5 cm exophytic cyst of the inferior pole right kidney. No ureteral calculi or obstructive uropathy. Decompressed urinary bladder. Surgical clips of the bilateral pelvic cochran. No adnexal mass lesions. Calcified plaque of the abdominal aorta without aneurysm. Prominent and mildly enlarged periportal and precaval lymph nodes are incidentally noted. Mild colonic diverticulosis without acute diverticulitis. The terminal ileum is decompressed. There are several loops of dilated air and fluid-filled small bowel with a few stool-filled loops of small bowel measuring up to 3.9 cm transversely. Transition point is noted within the abdominal left lower quadrant on image 214 series 3, likely secondary to underlying small bowel adhesions. No bowel wall thickening. There is mild interloop edema. 9 mm soft tissue nodule of the right paracentral abdominal wall. Tiny periumbilical hernia. Surgical suture material and wires are noted within the soft tissues of the lower lumbar spine. Laminectomy changes of the lower lumbar spine are noted along with multilevel spondylitic spurring and facet arthrosis. No acute fracture or subluxation. Large posterior disc osteophyte complex formation is noted at multiple levels. IMPRESSION: 1. Moderate grade small bowel obstruction with transition point noted within the abdominal left lower quadrant, likely secondary to underlying small bowel adhesions. 2. No pneumatosis or pneumoperitoneum. 3. Mild colonic diverticulosis without acute diverticulitis. 4. Partially imaged subpleural nodular consolidative opacity of the medial segment right middle lobe measures 1.2 cm suggestive of probable fibrosis with atelectasis. As a precautionary measure, a 3 month follow-up CT of the chest is recommended to further evaluate. 5. Additional findings as above. ACT 112: Negative or not required by law. The above report was generated using voice recognition software. It may contain grammatical, syntax or spelling errors. Electronically signed by: Rahul Moise M.D. 06/14/2019 7:55 AM PG Care Time/CCT Total # of Minutes Spent Total Time Spent with Patient: Total time spent is greater than 50% in coordination of care (as documented) at patient's floor/unit and/or counseling patient: Coding Level of Care Code 24597 Initial Inpt Care Lvl 3 Diagnoses SBO (small bowel obstruction) K56.609
--- NOTE | 2019-06-14 10:31 | Electrocardiogram Report ---
Test Reason : Blood Pressure : / mmHG Vent. Rate : 070 BPM Atrial Rate : 202 BPM P-R Int : 000 ms QRS Dur : 086 ms QT Int : 430 ms P-R-T Axes : 000 081 024 degrees QTc Int : 464 ms Atrial fibrillation with a competing junctional pacemaker Low voltage QRS Incomplete right bundle branch block Abnormal ECG When compared with ECG of 22-NOV-2018 21:42, Nonspecific T wave abnormality has replaced inverted T waves in Inferior leads Confirmed by Mahamed Winters ([id number]) on 06/14/2019 10:31:08 AM Referred By: REFERRED SELF Confirmed By:Vasquez Winters
[2019-06-14] MEDS: METOPROLOL TARTRATE 1 MG/ML VIAL IV SCH ×3 (12:06→23:52)
[2019-06-14] MEDS: MoRPHine SULFATE 2 MG/ML CARP IV PRN ×2 (15:47→23:51)
[2019-06-15] MEDS: LEVOTHYROXINE SODIUM 75 MCG TABLET PO SCH (05:46)
[2019-06-15] MEDS: METOPROLOL TARTRATE 1 MG/ML VIAL IV SCH (06:33)
[2019-06-15 06:39] LABS: Hematocrit (blood only) 39.5 % (37-47); Hemoglobin 12.8 g/dL (12.0-16.0); Mean Corpuscular Hemoglobin 30.2 pg (25-34); Mean Corpuscular Hgb Conc 32.4 g/dL (32-36); Mean Corpuscular Volume 93.2 fL (80-100); Mean Platelet Volume 10.1 fL (7.4-10.4); Platelet Count 195 K/uL (130-400); RDW Coefficient of Variation 14.5 % (11.5-14.5); RDW Standard Deviation 48.9 fL (36.4-46.3); Red Blood Count 4.24 M/uL (4.2-5.4)
[2019-06-15 06:51] LABS: INR 2.6 (0.9-1.1); Prothrombin Time 24.6 Seconds (9.0-12.0)
[2019-06-15 07:09] LABS: BUN Creatinine Ratio 22.3 (10-20); Calcium 9.1 mg/dl (8.5-10.1); Creatinine Clr Calc Pharmacy 51.3 ml/min; Est GFR (African American) 61.9; Est GFR (Non-African American) 53.4
[2019-06-15] MEDS: LACTATED RINGER'S 1,000 ML IV SCH (07:28)
--- NOTE | 2019-06-15 07:32 | Surgery Progress Note ---
Date of Service June 15, 2019 Assessment & Plan (1) SBO (small bowel obstruction): Discussed with the patient I think her clinical picture is improved sufficiently that we can start on oral intake and probably keep her here another day to make sure that there is no issues with any delayed return of her GI function although clinically as stated she has moved her bowels and has no abdominal discomfort Present on Admission?: Yes Subjective Patient is having no abdominal pain she had a good night states she is moving her bowels and pass flatus Physical Exam Physical Exam: She alert coherent The abdomen is completely benign there is no localized guarding or tenderness Results & Data Vital Signs (Past 12 Hours) Vital Signs Temp Pulse Pulse Resp BP BP Pulse Ox 06/15/19 06:33 55 L 129/66 06/15/19 04:32 36.6 C 67 18 125/76 92 06/14/19 23:59 36.4 C L 76 18 150/96 H 95 06/14/19 23:52 72 153/94 H PG Care Time/CCT Total # of Minutes Spent Total Time Spent with Patient: Total time spent is greater than 50% in coordination of care (as documented) at patient's floor/unit and/or counseling patient: Coding Level of Care Code 28571 Subseq Hosp Care Lvl 3 Diagnoses SBO (small bowel obstruction) K56.609
[2019-06-15] MEDS ORDERED: TRAMADOL HCL 50 MG TABLET PO PRN (07:58)
[2019-06-15] MEDS ORDERED: COLCHICINE 0.6 MG TAB PO SCH (08:45)
[2019-06-15] MEDS: CHOLECALCIFEROL 1,000 UNITS 25 MCG TAB PO SCH (13:56)
[2019-06-15] MEDS: LOSARTAN POTASSIUM 25 MG TAB PO SCH (13:56)
--- NOTE | 2019-06-15 18:36 | Hospitalist Progress Note ---
Date of Service June 15, 2019 Assessment & Plan (1) Small bowel obstruction due to adhesions: Resolved with conservative management only Presented with abdominal pain, CT abdomen pelvis shows small bowel obstruction, Risk factor, prior abdominal surgery Appreciate input from surgery, patient clinically improved No evidence of nausea vomiting, able to move bowels, Diet advanced to clears, tolerating well (2) Chronic atrial fibrillation: EKG shows rate controlled A. fib, [facility] Medication Toprol-XL resumed, Coumadin was kept on hold from small bowel obstruction, INR therapeutic 2.6 today Will be resumed with lower dose tomorrow, goal INR 23 (3) HTN (hypertension): Resumed p.o. antihypertensives (4) HLD (hyperlipidemia): Not on statin (5) CKD (chronic kidney disease), stage III: renal function stable follow BMP avoid NSAID /contrast studies CODE STATUS :Full code DVT PROPHYLAXIS : INR THERAPEUTIC DISPOSITION : Possible DC home tomorrow if able to tolerate advanced mental diet Family Physician follow up with Dr Alvarez Admission and Anticipated Discharge Date Admission Date: June 14, 2019 Anticipated date of discharge: 06/16/19 Subjective no complain of abdominal pain able to have a bowel movement diet advanced to clears , tolerating no nausea/vomiting Review of Systems Constitutional: as per Subjective / HPI; no fever, no chills and no fatigue Gastrointestinal: as per Subjective / HPI; no abdominal pain, no nausea and no vomiting Physical Exam Constitutional: WD/WN, vitals as above + obese; no acute distress Eyes: PERRL, conjunctivae normal, anicteric sclerae ENMT: external ear and nose normal, oropharynx normal Neck: trachea midline, no thyromegaly Respiratory: normal respiratory effort, lungs clear to auscultation Cardiovascular: RRR, no murmur, no edema Gastrointestinal (Abdomen): Inspection/Auscultation: normal bowel sounds Percussion/Palpation: abdomen soft; no guarding Musculoskeletal: no cyanosis or clubbing, extremities motor strength 5/5 Skin: no rashes, warm and dry Neurologic: PERRL, EOMI, accommodation nl, no face palsy, no dysarthria Psychiatric: A+Ox3, euthymic affect Results & Data ([facility]) Vital Signs (Past 12 Hours) Vital Signs Temp Pulse Pulse Resp BP Pulse Ox 06/15/19 16:00 46 L 06/15/19 15:25 36.3 C L 51 L 18 144/82 H 96 06/15/19 08:01 36.4 C L 61 19 132/79 91 06/15/19 08:00 57 L
[2019-06-15] MEDS ORDERED: LIDOCAINE 5% 1 PATCH TD PRN (18:47)
--- NOTE | 2019-06-15 19:43 | XRay Report ---
XR KUB/Abdomen 1 view CLINICAL HISTORY: Small bowel obstruction COMPARISON STUDY: CT scan dated 06/14/2019 FINDINGS: There are mildly dilated small bowel loops measuring up to 43 mm in diameter. There is gas present within nondilated colon. There are multiple surgical clips the pelvis suggesting prior lymph node dissection. IMPRESSION: Mildly dilated small bowel loops, consistent with the clinical history of a small bowel obstruction. ACT 112: Negative or not required by law. Electronically signed by: Rangel Sanchez M.D. 06/15/2019 7:42 PM
[2019-06-16] MEDS: LEVOTHYROXINE SODIUM 75 MCG TABLET PO SCH (06:17)
[2019-06-16 06:56] LABS: INR 2.6 (0.9-1.1); Prothrombin Time 25.3 Seconds (9.0-12.0)
[2019-06-16] MEDS ORDERED: POTASSIUM CHLORIDE 10 MEQ TABCR PO SCH (09:00)
[2019-06-16] MEDS ORDERED: FUROSEMIDE 40 MG TAB PO SCH (09:00)
--- NOTE | 2019-06-16 13:58 | Hospitalist Progress Note ---
Date of Service June 16, 2019 Assessment & Plan (1) SBO (small bowel obstruction): Improved and tolerating solid foods. Will plan to see PCP in one week for followup. (2) Chronic atrial fibrillation: in atrial fibrillation on telemetry. Rate is stable. Cont Toprol and coumadin per home regimen. (3) HTN (hypertension): At goal, cont Cozaar per home regimen. Cont low salt diet. (4) Hypothyroidism: Cont levothyroxine per home regimen. (5) DVT prophylaxis: coumadin Full Code Dispo-to home this afternoon pending continued tolerance of solid foods. Darlene Alcantar DO [facility] Hospitalist Admission and Anticipated Discharge Date Admission Date: June 14, 2019 Anticipated date of discharge: 06/16/19 Subjective 79 yo F here for SBO likely 2/2 intraabdominal adhesions. She is reporting feeling better this morning and has been tolerating clears. She had some solids this morning and states "I think I might have eaten too much." She denies nausea or abdominal pain, is ambulating at baseline. She is mentating clearly and states that she feels like she would like to get home later today. Review of Systems Review of Systems: All systems reviewed & are unremarkable except as noted in Subjective Physical Exam Physical Exam: CONSTITUTIONAL: obese, vitals as above, generally well- appearing EYES: normal conjunctivae, no scleral icterus ENT: MMM RESPIRATORY: clear to auscultation bilaterally, no crackles, rales or wheezes, normal respiratory effort CARDIOVASCULAR: regular rate and rhythm, S1 and 2 heard without murmurs, gallops or rubs, no JVD, no peripheral edema GASTROINTESTINAL: normal bowel sounds, soft, very mild discomfort in the upper central abdomen without guarding, nondistended MUSCULOSKELETAL: strength 5/5 throughout, head is normocephalic and atraumatic SKIN: warm and dry NEUROLOGIC: CN 2-12 grossly intact, no sensory deficit, normal cognition, normal speech, no gross focal deficits. PSYCHIATRIC: alert cooperative and oriented to person, place and time. Results & Data ([facility]) Vital Signs (Past 12 Hours) Vital Signs Temp Pulse Resp BP Pulse Ox 06/16/19 12:11 36.5 C 57 L 18 123/62 93 06/16/19 07:37 36.5 C 58 L 18 150/82 H 92 06/16/19 03:59 36.4 C L 54 L 18 138/78 93 Medications Administered Current Inpatient Medications Colchicine (Colcrys) 0.6 mg PO Q2D@0900 [facility] Stop: 07/15/19 08:44 Last Admin: 06/15/19 10:03 Dose: 0.6 mg Documented by: Furosemide (Lasix) 40 mg PO MoWeFrSa@0900 [facility] Stop: 07/16/19 08:59 Last Admin: 06/16/19 08:40 Dose: 40 mg Documented by: Levothyroxine Sodium (Synthroid) 75 mcg PO DAILYBB [facility] Stop: 07/15/19 06:29 Last Admin: 06/16/19 06:17 Dose: 75 mcg Documented by: Lidocaine (Lidoderm 5%) 1 patch TD DAILY PRN PRN Reason: Pain Stop: 07/15/19 18:46 Losartan Potassium (Cozaar) 25 mg PO DAILY@1400 [facility] Stop: 07/15/19 13:59 Last Admin: 06/15/19 13:56 Dose: 25 mg Documented by: Metoprolol Succinate (Toprol Xl) 12.5 mg PO DAILY@1400 [facility] Stop: 07/16/19 13:59 Ondansetron HCl (Zofran) 4 mg IV Q6H PRN PRN Reason: Nausea Stop: 07/14/19 09:22 Last Admin: 06/14/19 15:54 Dose: 4 mg Documented by: Potassium Chloride (Klor-Con M10) 10 meq PO MoWeFrSa@0900 [facility] Stop: 07/16/19 08:59 Last Admin: 06/16/19 08:40 Dose: 10 meq Documented by: Tramadol HCl (Ultram) 50 mg PO BID PRN PRN Reason: Pain Stop: 07/15/19 07:57 Vitamin D (Vitamin D3) 2,000 units PO DAILY@1400 [facility] Stop: 07/15/19 13:59 Last Admin: 06/15/19 13:56 Dose: 2,000 units Documented by: Warfarin Sodium (Coumadin) 2.5 mg PO DAILY@1600 [facility] Stop: 07/16/19 15:59
[2019-06-16] MEDS ORDERED: METOPROLOL SUCC 25MG EXT REL TAB PO SCH (14:00)
[2019-06-16] MEDS: CHOLECALCIFEROL 1,000 UNITS 25 MCG TAB PO SCH (14:18)
[2019-06-16] MEDS: LOSARTAN POTASSIUM 25 MG TAB PO SCH (14:18)
[2019-06-16] MEDS ORDERED: WARFARIN SOD 2.5 MG TAB PO SCH (16:00)
--- NOTE | 2019-06-16 16:31 | Discharge Summary ---
Date of Service June 16, 2019 Admission HPI Per Admitting Provider Patient is an 79 year old female with a history of Atrial Fibrillation, Pulmonary Embolism-On chronic anticoagulation with Coumadin, HTH, Hyperlipidemia, Hypothyroidism, right occipital lobe CVA, Sleep Apnea, admitted with abdominal pain Patient mentioned that she started to have epigastric pain on Friday after eating oranges, She attributed her symptoms possibly secondary to acid reflux Yesterday she started to experience diffuse pain, with intermittent cramps mostly to lower abdomen, associated with nausea She vomited after trying to drink tea, Her pain subsided later ,so she decided to stay home was able to pass gas have had a small bowel movement yesterday Since yesterday she was not able to keep anything down, This morning woke up with diffuse abdominal pain, nausea ,vomited after sips of water, Came to ER for evaluation Ct abdomen /pelvis shows , moderate small bowel obstruction , due to adhesion past surgical hx includes : s/p open cholecystectomy at [facility] on 09/14/[address] Barry s/p total hysterectomy , bilateral oophorectomy in 1989 ( dx uterine /ovarian tumor ) s/p sigmoid colectomy on 10/20/03 No prior history of bowel obstruction till this episode During my interview patient's abdominal pain was Controlled, sitting up on edge of bed, comfortable line Does not have any symptoms of nausea, did not had any vomiting since admission No report of fever or chills, Patient denies of any dizzy spell lightheadedness, no cough No complaint of chest pain shortness of breath palpitation or dyspnea on exertion Admission Exam Per Admitting Provider Constitutional: WD/WN, vitals as above + obese; no acute distress Eyes: PERRL, conjunctivae normal, anicteric sclerae ENMT: external ear and nose normal, oropharynx normal Neck: trachea midline, no thyromegaly Respiratory: normal respiratory effort, lungs clear to auscultation Cardiovascular: RRR, no murmur, no edema Gastrointestinal (Abdomen): Inspection/Auscultation: + abdomen distended (Due to obesity) and normal bowel sounds Percussion/Palpation: + abdomen tender (On mostly right lower quadrant) and abdomen soft; no guarding Musculoskeletal: no cyanosis or clubbing, extremities motor strength 5/5 Skin: no rashes, warm and dry Neurologic: PERRL, EOMI, accommodation nl, no face palsy, no dysarthria Psychiatric: A+Ox3, euthymic affect Principal Diagnosis Small bowel obstruction, resolved Discharge Exam CONSTITUTIONAL: obese, vitals as above, generally well-appearing EYES: normal conjunctivae, no scleral icterus ENT: MMM RESPIRATORY: clear to auscultation bilaterally, no crackles, rales or wheezes, normal respiratory effort CARDIOVASCULAR: regular rate and rhythm, S1 and 2 heard without murmurs, gallops or rubs, no JVD, no peripheral edema GASTROINTESTINAL: normal bowel sounds, soft, very mild discomfort in the upper central abdomen without guarding, nondistended MUSCULOSKELETAL: strength 5/5 throughout, head is normocephalic and atraumatic SKIN: warm and dry NEUROLOGIC: CN 2-12 grossly intact, no sensory deficit, normal cognition, normal speech, no gross focal deficits. PSYCHIATRIC: alert cooperative and oriented to person, place and time. Discharge Data Allergies Allergy/AdvReac Type Severity Reaction Status Date / Time adhesive Allergy Unknown SKIN Verified 06/14/19 07:20 IRRITATION AND PULLS SKIN OFF Iodinated Contrast Media Allergy Unknown RASH Verified 06/14/19 07:20 morphine Allergy Unknown UNKNOWN Verified 06/14/19 07:20 Penicillins Allergy Unknown UNKNOWN Verified 06/14/19 07:20 salicylates Allergy Unknown CAUSES Verified 06/14/19 07:20 HIVES codeine AdvReac Unknown CAUSES Verified 06/14/19 07:20 NAUSEA Consultations 06/14/19 08:21 ED Decision to Admit Stat 06/14/19 09:23 Consult Case Management - Discharge Planning Routine Consult General Surgery Routine Ordered Studies 06/14/19 06:52 CT abd pelvis wo con Stat Hospital Course (1) SBO (small bowel obstruction): 79-year-old female presented with abdominal pain. CT abdomen pelvis revealed a small bowel obstruction with a visualized transition point thought to be secondary to adhesions. She had no risk factors including prior abdominal surgeries. She was admitted to the hospitalist service and made n.p.o. with IV fluids running. General surgery was consulted and recommended the SBO was likely caused by adhesions. As she was in stable condition with a soft, nondistended abdomen and only mild tenderness and had no nausea or vomiting, conservative management was recommended. The next day her clinical picture improved and her diet began with clear liquids. She tolerated this well and her diet was advanced over the next 2 days without issue. At time of discharge she was hemodynamically stable and afebrile and tolerating p.o. reliably. She was passing gas and had a bowel movement. Close primary care followup was recommended. Total Time Total Time Spent Total Time Spent (In Minutes): 60 Total Time Includes: Examination of the Patient, Discharge Planning, Medication Reconciliation and Communication With Other Providers Discharge Plan Discharge Items Patient Disposition: Home - Self-Care Reason For Visit: ABDOMINAL PAIN/ BOWEL OBSTRUCTION Discharge Diagnosis: Small bowel obstruction, resolved Activity: Resume your previous activity Non-emergency contact: Primary Care Provider Call non-emergency contact if: you have any medication questions Follow-up/Referrals: Jim Alvarez DO [Primary Care Provider] - 06/23/19 2:25 pm Diet: Heart Healthy and Low Fiber Addtl Attending Provider Instructions: Call medications as instructed on discharge list below. It is recommended that you follow-up with your primary care doctor within 1 week of discharge to ensure you are still doing well. It was a pleasure taking care of you! Please call if you have any questions or problems. You can reach a [facility] hospitalist on duty at [facility] 24 hours a day by calling [phone]. Take care of yourself. Darlene Alcantar DO [facility] Hospitalist Pending Studies at Discharge: No Stand-Alone Forms: [facility], Smoking Cessation Medications and DC Order Prescriptions: Continued furosemide [Lasix] 40 mg tablet 40 mg PO 4XWK RF: 0 potassium chloride 10 mEq Capsule, Extended Release 10 meq PO 4XWK RF: 0 warfarin [Coumadin] 2.5 mg tablet 2.5 mg PO DIRECTED RF: 0 tramadol [Ultram] 50 mg tablet 50 mg PO BID PRN (Reason: Pain) RF: 0 levothyroxine [Synthroid] 75 mcg tablet 75 mcg PO QAM RF: 0 warfarin [Coumadin] 5 mg tablet 5 mg PO WK RF: 0 losartan [Cozaar] 25 mg tablet 25 mg PO DAILY@1400 RF: 0 metoprolol succinate [Toprol XL] 25 mg tablet extended release 24 hr 12.5 mg PO DAILY@1400 RF: 0 colchicine [Colcrys] 0.6 mg tablet 0.6 mg PO Q OTHER DAY RF: 0 cholecalciferol (vitamin D3) 2,000 unit Tablet 2,000 unit PO DAILY@1400 RF: 0 lidocaine 1.8 % Adhesive Patch,Medicated 1 patch TOPICAL DAILY PRN (Reason: Pain) RF: 0 Discharge Orders: Discharge Order (Routine); Ordered 06/16/19 Ordered By: Darlene Devries/Other Patient Handouts: Diet Low Residue Admission Data Admit Date/Time: 06/14/19 08:26 Attending Provider: Darlene Alcantar Admit Provider: Hetal Renteria Primary Care Provider: Jim Alvarez Other Providers: Hetal Renteria ; Ajith Parmar Other Interventions: Discharge Summary Assessment (RN) Last Done: 06/16/19 14:28 DC Date/Time DO NOT enter until pt leaves facility: 06/16/19 16:45
== END 2019-06-16 16:45 | disposition home or self-care (01) | DRG 389 ==
LOC: ED 06:30 → 2N 08:26 → SUATTDRO 08:26 → 2N 09:02

== ENCOUNTER 2021-09-22 08:12 | Inpatient (IN) ==
[2021-09-22] MEDS ORDERED: ONDANSETRON INJ 2 MG/ML 2 ML VIAL IV STA ×2 (08:36→11:06)
[2021-09-22] MEDS ORDERED: HYDROmorphone INJ 0.5 MG/0.5 ML SYR IV STA (08:36)
--- NOTE | 2021-09-22 08:41 | Emergency Department Note ---
Impression & Plan Weakness, Arm pain, HTN (hypertension), Dizziness ED Provider Note NAME: GEORGIE HOLMAN AGE: 81 SEX: F : 1940 ARRIVES VIA: Walk-In INFORMANT: Patient ED PROVIDER(S): Erik Nix DO CHIEF COMPLAINT: feeling weak HPI: Patient is an 81-year-old female with a past medical history of small bowel obstruction, hypertension, hyperlipidemia, chronic A. fib on Eliquis who presents the ER status post left elbow surgery by Dr. Flynn 10 days ago. She was off Eliquis for a total of 24 hours. She notes she has been taking her medications but did not take any today. She admits to a headache. Her headache has been present for the past 3 days. She is having constant left elbow pain which is gradually getting better. Since the surgery she is felt very weak and rundown. She was sent in by her provider as she is still feeling weak. She denies any belly pain, vomiting or diarrhea. He does admit to some nausea. No dysuria urgency or frequency. She was able to eat cake last night. This morning when she woke up she swallowed some water and felt like it took a while to get down. She denies any dysuria urgency or frequency. No other exacerbating or remitting factors. ROS: See above HPI for pertinent positives & negatives. A total of 10 systems reviewed and were otherwise negative. PAST MEDICAL HISTORY:See Below PAST SURGICAL HISTORY:See Below FAMILY HISTORY:See Below SOCIAL HISTORY:See Below HOME MEDICATIONS:See Below ALLERGIES:See Below VITALS:See Below PHYSICAL EXAMINATION: GENERAL: Sitting up in bed, alert, chronically ill appearing EYE EXAM: normal conjunctiva. PERRL and EOM's grossly intact. OROPHARYNX: mucous membranes are dry NECK: supple, no nuchal rigidity, no adenopathy, non-tender LUNGS: Clear to auscultation. Normal chest wall mechanics HEART: no murmurs, S1 normal and S2 normal ABDOMEN: abdomen soft, non-tender, normo-active bowel sounds, no masses, no rebound or guarding. UPPER EXTREMITIES: upper extremities are grossly normal. LOWER EXTREMITIES: No pitting edema. NEURO EXAM: Normal sensorium, cranial nerves II-XII intact, normal speech, no weakness of arms, no weakness of legs. No drift. Finger to nose intact. Gross sensation intact. MEDICAL DECISION MAKING: Patient is an 81-year-old female who presents ER for the boasting complaint. IV was established blood work was obtained. Labs show no significant leukocytosis or anemia. BMP with a slightly elevated T bili at 1.3. LFTs bilirubin and troponin was negative. Lipase and TSH was remarkable. UA was negative. COVID was negative. CT head and chest x-ray were unremarkable. She was fairly hypertensive with systolics of 170s. Patient was given a dose of Dilaudid as well as a dose of Ativan. She notes she was fairly dizzy and lightheaded. She is very tearful. She does not feel as though she can get up. She was discussed with the hospitalist for further observation. Triage Nursing notes reviewed. Limited review of prior medical records performed Vital Signs: reviewed and remarkable for HTN Differential diagnosis: Infection, dehydration, metabolic abnormality, hypo/hyperglycemia, electrolyte disturbance, anemia, hypoxia, cardiac sources, intracerebral event, toxicologic, neurologic, as well as other pathologies. ER treatment provided: See below Diagnostics interpreted by me: ECG: A. fib rate of 77 Normal axis No PVCs QTC 439 Cardiac Monitoring: An order was placed for continuous cardiac monitoring. The monitor shows a rate of 70 with sinus rhythm. Laboratory studies: As stated above and show below. Imaging studies: CT head was negative Portable AP upright 1 view of the chest was unremarkable Consultation(s): none Procedures: none Critical Care: None Past Med/Surg History Medical History Chronic atrial fibrillation follows [place] - taking eliquis - approx 9 years ago - not symptomatic CKD (chronic kidney disease), stage III Gout History of uterine cancer HLD (hyperlipidemia) HTN (hypertension) Hypothyroidism Obesity Occipital stroke 2015 - no residual effects - follow a neurologist (unsure name) YOBANI (obstructive sleep apnea) on cpap Surgical History History of back surgery approx 1982, L4 History of bilateral knee replacement Hx of colonoscopy >10yrs ago, no problems noted Hx of right cataract extraction 2004 Status post cataract extraction "L side 1994" Status post cholecystectomy "09/14/04; performed by Dr. Barry" Status post hysterectomy "1989" Status post lumbar surgery "1984" Status post partial colectomy "10/20/2003" Status post tonsillectomy Status post total shoulder arthroplasty "L side; Dr. 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 Beliefs That Will Affect Care: None marital status: Current Living Situation: Alone Current Living Situation Comment: lives alone, 2 steps to get into the house current occupational status: retired Other Information That Helps Us Care for You: No Feels Safe at Home: Yes Safety Concerns: Feels Safe At This Time Assistive Devices: Cane, CPAP, Denture - Upper, Denture - Lower, Glasses and Walker Allergies Allergies Allergy/AdvReac Type Severity Reaction Status Date / Time adhesive Allergy Mild SKIN Verified 09/22/21 12:22 IRRITATION AND PULLS SKIN OFF Iodinated Contrast Media Allergy Mild RASH Verified 09/22/21 12:22 morphine Allergy Unknown UNKNOWN Verified 09/22/21 12:22 Penicillins Allergy Unknown UNKNOWN Verified 09/22/21 12:22 salicylates Allergy Unknown CAUSES Verified 09/22/21 12:22 HIVES aspirin AdvReac Mild Hives Verified 09/22/21 12:22 codeine AdvReac Mild CAUSES Verified 09/22/21 12:22 NAUSEA Home Meds Home Medications Medication Instructions Recorded Confirmed cholecalciferol (vitamin D3) 50 2,000 unit PO 2XWK 02/01/18 09/22/21 mcg (2,000 unit) tablet furosemide 40 mg tablet (Lasix) 40 mg PO Q2D 02/01/18 09/22/21 levothyroxine 75 mcg tablet 75 mcg PO QAM 02/01/18 09/22/21 (Synthroid) losartan 25 mg tablet (Cozaar) 25 mg PO DAILY 02/01/18 09/22/21 potassium chloride 10 mEq 10 meq PO Q2D 02/01/18 09/22/21 capsule,extended release apixaban 5 mg tablet (Eliquis) 5 mg PO BID 09/11/21 09/22/21 biotin 5,000 mcg sublingual tablet 5,000 mcg SUBLINGUAL 2XWK 09/11/21 09/22/21 gabapentin 100 mg capsule 200 mg PO HS 09/11/21 09/22/21 rosuvastatin 10 mg tablet 10 mg PO QAM 09/11/21 09/22/21 Previous Rx's Medication Instructions Recorded tramadol 50 mg tablet 50 mg PO Q6H PRN #20 tab 09/13/21 Results & Data (ED) Vital Signs Vital Signs - 24 hr 09/22/21 08:12 09/22/21 08:51 09/22/21 10:05 Temperature 36.2 C L Temperature Source Temporal Artery Scan Pulse Rate 69 Pulse Rate [Finger] 71 Pulse Rhythm Regular Respiratory Rate 16 22 Respiratory Effort / Characteristics Non-Labored Respiratory Depth Normal Respiratory Pattern Regular Blood Pressure 178/106 H Blood Pressure [Right Arm] 171/99 H Blood Pressure Mean 130 Blood Pressure Mean [Right Arm] 123 Pulse Oximetry 98 95 93 Oxygen Delivery Method Room Air Room Air Nasal Cannula Oxygen Flow Rate 1 Sepsis Recent Fever Within 48 Hours No Sepsis New/Unexplained Change in Mental Status No Sepsis Action Taken by Nursing No Action Required 09/22/21 11:25 Temperature Temperature Source Pulse Rate Pulse Rate [Finger] 58 L Pulse Rhythm Respiratory Rate 18 Respiratory Effort / Characteristics Respiratory Depth Respiratory Pattern Blood Pressure Blood Pressure [Right Arm] 161/104 H Blood Pressure Mean Blood Pressure Mean [Right Arm] 123 Pulse Oximetry 95 Oxygen Delivery Method Room Air Oxygen Flow Rate Sepsis Recent Fever Within 48 Hours Sepsis New/Unexplained Change in Mental Status Sepsis Action Taken by Nursing Laboratory Data Result diagrams: 09/22/21 08:50 09/22/21 08:50 Lab Results 09/22/21 09/22/21 09/22/21 Range/Units 08:50 08:50 08:50 WBC 9.40 (4.8-10.8) K/uL RBC 3.98 L (4.2-5.4) M/uL Hgb 12.5 (12.0-16.0) g/dL Hct 36.3 L (37-47) % MCV 91.2 (80-100) fL MCH 31.4 (25-34) pg MCHC 34.4 (32-36) g/dL RDW Std Deviation 44.8 (36.4-46.3) fL RDW Coeff of Jayla 13.4 (11.5-14.5) % Plt Count 253 (130-400) K/uL MPV 9.9 (7.4-10.4) fL Immature Gran % (Auto) 0.3 % Neut % (Auto) 78.1 % Lymph % (Auto) 8.3 % [place] % (Auto) 9.3 % Eos % (Auto) 3.4 % Baso % (Auto) 0.6 % Neut # (Auto) 7.34 H (1.4-6.5) K/uL Lymph # (Auto) 0.78 L (1.2-3.4) K/uL [place] # (Auto) 0.87 H (0.11-0.59) K/uL Eos # (Auto) 0.32 (0-0.5) K/uL Baso # (Auto) 0.06 (0-0.2) K/uL Immature Gran # (Auto) 0.03 H (0.00-0.02) K/uL Sodium 137 (136-145) mmol/L Potassium 4.1 (3.5-5.1) mmol/L Chloride 103 (98-107) mmol/L Carbon Dioxide 25 (21-32) mmol/L Anion Gap 9 (3-11) BUN 21 (6-23) mg/dl Creatinine 0.94 (0.6-1.2) mg/dl Est Cr Clr Drug Dosing 51.9 ml/min Est GFR ( Amer) 65.0 ml/min Est GFR (Non-Af Amer) 56.1 ml/min BUN/Creatinine Ratio 22.3 H (10-20) Glucose 100 H (70-99(Fasting)) mg/dl Calcium 9.8 (8.5-10.1) mg/dl Total Bilirubin 1.3 H (0.2-1.0) mg/dl AST 19 (13-39) U/L ALT 9 (7-52) U/L Alkaline Phosphatase 103 (34-104) U/L Troponin I High Sens 13.4 (0-14) pg/ml Total Protein 7.4 (6.0-8.3) gm/dl Albumin 3.8 (3.4-5.0) gm/dl Globulin 3.6 (2.5-4.0) gm/dl Albumin/Globulin Ratio 1.1 (0.9-2) Lipase 57 (11-82) U/L TSH 3.186 (0.300-4.500) uIu/ml Urine Color Urine Appearance (Clear) Urine pH (4.5-7.5) Ur Specific [place] (1.000-1.030) Urine Protein (Negative) Urine Glucose (UA) (Negative) Urine Ketones (Negative) Urine Blood (Negative) Urine Nitrite (Negative) Urine Bilirubin (Negative) Urine Urobilinogen (Negative) Ur Leukocyte Esterase (Negative) SARS-CoV-2, RNA, NAAT (NEGATIVE) 09/22/21 09/22/21 Range/Units 09:00 11:30 WBC (4.8-10.8) K/uL RBC (4.2-5.4) M/uL Hgb (12.0-16.0) g/dL Hct (37-47) % MCV (80-100) fL MCH (25-34) pg MCHC (32-36) g/dL RDW Std Deviation (36.4-46.3) fL RDW Coeff of Jayla (11.5-14.5) % Plt Count (130-400) K/uL MPV (7.4-10.4) fL Immature Gran % (Auto) % Neut % (Auto) % Lymph % (Auto) % [place] % (Auto) % Eos % (Auto) % Baso % (Auto) % Neut # (Auto) (1.4-6.5) K/uL Lymph # (Auto) (1.2-3.4) K/uL [place] # (Auto) (0.11-0.59) K/uL Eos # (Auto) (0-0.5) K/uL Baso # (Auto) (0-0.2) K/uL Immature Gran # (Auto) (0.00-0.02) K/uL Sodium (136-145) mmol/L Potassium (3.5-5.1) mmol/L Chloride (98-107) mmol/L Carbon Dioxide (21-32) mmol/L Anion Gap (3-11) BUN (6-23) mg/dl Creatinine (0.6-1.2) mg/dl Est Cr Clr Drug Dosing ml/min Est GFR ( Amer) ml/min Est GFR (Non-Af Amer) ml/min BUN/Creatinine Ratio (10-20) Glucose (70-99(Fasting)) mg/dl Calcium (8.5-10.1) mg/dl Total Bilirubin (0.2-1.0) mg/dl AST (13-39) U/L ALT (7-52) U/L Alkaline Phosphatase (34-104) U/L Troponin I High Sens (0-14) pg/ml Total Protein (6.0-8.3) gm/dl Albumin (3.4-5.0) gm/dl Globulin (2.5-4.0) gm/dl Albumin/Globulin Ratio (0.9-2) Lipase (11-82) U/L TSH (0.300-4.500) uIu/ml Urine Color Yellow Urine Appearance Clear (Clear) Urine pH 7.0 (4.5-7.5) Ur Specific [place] 1.012 (1.000-1.030) Urine Protein Negative (Negative) Urine Glucose (UA) Negative (Negative) Urine Ketones Negative (Negative) Urine Blood Negative (Negative) Urine Nitrite Negative (Negative) Urine Bilirubin Negative (Negative) Urine Urobilinogen Negative (Negative) Ur Leukocyte Esterase Negative (Negative) SARS-CoV-2, RNA, NAAT NEGATIVE (NEGATIVE) Administered Medications Apixaban (Apixaban 5 Mg Tablet) 5 mg PO BID [facility] Stop: 10/22/21 14:04 Last Admin: 09/22/21 14:48 Dose: 5 mg Documented by: [id number] Losartan Potassium (Losartan Potassium 25 Mg Tab) 25 mg PO DAILY [facility] Stop: 10/22/21 14:04 Last Admin: 09/22/21 14:47 Dose: 25 mg Documented by: [id number] Rosuvastatin Calcium (Rosuvastatin Calcium 10 Mg Tab) 10 mg PO QAM [facility] Stop: 10/22/21 14:04 Last Admin: 09/22/21 14:48 Dose: 10 mg Documented by: [id number] Discontinued Medications Hydromorphone HCl (Hydromorphone Inj 0.5 Mg/0.5 Ml Syr) 0.5 mg IV NOW STA Stop: 09/22/21 08:37 Last Admin: 09/22/21 08:59 Dose: 0.5 mg Documented by: [id number] Sodium Chloride (Nss) 500 mls @ 999 mls/hr IV .Q31M ONE Stop: 09/22/21 09:15 Last Infusion: 09/22/21 09:30 Dose: 0 mls/hr Documented by: [id number] Admin: 09/22/21 08:59 Dose: 999 mls/hr Documented by: [id number] Lorazepam (Lorazepam 2 Mg/1 Ml Vial) 0.25 mg IV NOW STA; Protocol Stop: 09/22/21 11:07 Last Admin: 09/22/21 11:37 Dose: 0.25 mg Documented by: [id number] Ondansetron HCl (Ondansetron Inj 2 Mg/Ml 2 Ml Vial) 4 mg IV NOW STA Stop: 09/22/21 08:37 Last Admin: 09/22/21 08:59 Dose: 4 mg Documented by: [id number] Ondansetron HCl (Ondansetron Inj 2 Mg/Ml 2 Ml Vial) 4 mg IV NOW STA Stop: 09/22/21 11:07 Last Admin: 09/22/21 11:37 Dose: 4 mg Documented by: [id number] Imaging Data Radiologist's Impression: Chest X-Ray 09/22/21 08:36 XR chest 1V portable HISTORY: 81 years-old Female weak acute weakness COMPARISON: Chest radiograph 01/31/2021 TECHNIQUE: Portable AP view of the chest FINDINGS: Cardiac silhouette is enlarged. No pneumothorax or large pleural effusion. Mild chronic interstitial coarsening. Degenerative changes of the spine and right shoulder. Reverse left shoulder total joint arthroplasty. IMPRESSION: Cardiomegaly without overt pulmonary edema. ACT 112: Negative or not required by law. The above report was generated using voice recognition software. It may contain grammatical, syntax or spelling errors. Electronically signed by: Paxton Moise M.D. 09/22/2021 9:[address] 09/22/21 08:36 CT head/brain wo con CLINICAL HISTORY: 81 years-old Female with weak. Acute headache with nausea and weakness TECHNIQUE: Multiple axial CT images of the head were obtained without contrast. A dose lowering technique was utilized adhering to the principles of ALARA. CT DOSE: 614.27 mGy.cm COMPARISON: 01/31/2021 FINDINGS: No acute intracranial hemorrhage, midline shift, intracranial mass, hydrocephalus, territorial ischemia or abnormal extra-axial collection. Involutional changes. White matter hypodensities suggestive of chronic microvascular ischemic disease. Unchanged appearance of the right cerebellar tonsil. The calvarium is intact. Evidence of prior lens repair. The paranasal sinuses, mastoid air cells, and middle ear cavities are clear. IMPRESSION: No acute intracranial abnormality. ACT 112: Negative or not required by law. The above report was generated using voice recognition software. It may contain grammatical, syntax or spelling errors. Electronically signed by: Paxton Moise M.D. 09/22/2021 9:59 AM Discharge Plan Visit Data Chief Complaint: Dehydration Stated Complaint: DEHYDRATION ED Provider: Erik Nix Discharge Problem: Weakness, Arm pain, HTN (hypertension), Dizziness Patient Disposition: Admitted As Inpatient Discharge Instructions Interventions: ED Discharge Assessment Last Done: 09/22/21 13:15
[2021-09-22] MEDS ORDERED: SODIUM CHLORIDE 0.9% 500 ML IV ONE (08:45)
--- NOTE | 2021-09-22 09:02 | XRay Report ---
XR chest 1V portable HISTORY: 81 years-old Female weak acute weakness COMPARISON: Chest radiograph 01/31/2021 TECHNIQUE: Portable AP view of the chest FINDINGS: Cardiac silhouette is enlarged. No pneumothorax or large pleural effusion. Mild chronic interstitial coarsening. Degenerative changes of the spine and right shoulder. Reverse left shoulder total joint a rthroplasty. IMPRESSION: Cardiomegaly without overt pulmonary edema. ACT 112: Negative or not required by law. The above report was generated using voice recognition software. It may contain grammatical, syntax o r spelling errors. Electronically signed by: Paxton Moise M.D. 09/22/2021 9:00 AM
[2021-09-22 09:21] LABS: Albumin Level 3.8 gm/dl (3.4-5.0); Bilirubin,Total 1.3 mg/dl (0.2-1.0); Calcium 9.8 mg/dl (8.5-10.1); Potassium 4.1 mmol/L (3.5-5.1)
[2021-09-22 09:24] LABS: Basophils # (auto) 0.06 K/uL (0-0.2); Basophils % (auto) 0.6 %; Eosinophils # (auto) 0.32 K/uL (0-0.5); Eosinophils % (auto) 3.4 %; Hematocrit (blood only) 36.3 % (37-47); Hemoglobin 12.5 g/dL (12.0-16.0); Immature Granulocytes # (auto) 0.03 K/uL (0.00-0.02); Immature Granulocytes % (auto) 0.3 %; Lymphocytes # (auto) 0.78 K/uL (1.2-3.4); Lymphocytes % (auto) 8.3 %; Mean Corpuscular Hemoglobin 31.4 pg (25-34); Mean Corpuscular Hgb Conc 34.4 g/dL (32-36); Mean Corpuscular Volume 91.2 fL (80-100); Mean Platelet Volume 9.9 fL (7.4-10.4); Monocytes # (auto) 0.87 K/uL (0.11-0.59); Monocytes % (auto) 9.3 %; Neutrophils # (auto) 7.34 K/uL (1.4-6.5); Neutrophils % (auto) 78.1 %; Platelet Count 253 K/uL (130-400); RDW Coefficient of Variation 13.4 % (11.5-14.5); RDW Standard Deviation 44.8 fL (36.4-46.3); Red Blood Count 3.98 M/uL (4.2-5.4)
[2021-09-22 09:27] LABS: Albumin Globulin Ratio 1.1 (0.9-2); BUN Creatinine Ratio 22.3 (10-20); Creatinine Clr Calc Pharmacy 51.9 ml/min; Est GFR (Non-African American) 56.1 ml/min; Globulin 3.6 gm/dl (2.5-4.0); Total Protein 7.4 gm/dl (6.0-8.3)
[2021-09-22 09:32] LABS: Troponin I High Sensitivity 13.4 pg/ml (0-14)
[2021-09-22 09:56] LABS: Appearance Urine Clear (Clear); Bilirubin Urine Negative (Negative); Blood Urine Negative (Negative); Color Urine Yellow; Glucose Urine UA Negative (Negative); Ketones Urine Negative (Negative); Leukocyte Esterase Urine Negative (Negative); Nitrite Urine Negative (Negative); Protein Urine Negative (Negative); Specific Gravity Urine 1.012 (1.000-1.030); Urobilinogen Urine Negative (Negative)
--- NOTE | 2021-09-22 10:01 | CT Scan Report ---
CT head/brain wo con CLINICAL HISTORY: 81 years-old Female with weak. Acute headache with nausea and weakness TECHNIQUE: Multiple axial CT images of the head were obtained without contrast. A dose lowering tech nique was utilized adhering to the principles of ALARA. CT DOSE: 614.27 mGy.cm COMPARISON: 01/31/2021 FINDINGS: No acute intracranial hemorrhage, midline shift, intracranial mass, hydrocephalus, territorial ischem ia or abnormal extra-axial collection. Involutional changes. White matter hypodensities suggestive of chronic microvascular ischemic disease. Unchanged appearance of the right cerebellar tonsil. The calvarium is intact. Evidence of prior lens repair. The paranasal sinuses, mastoid air cells, and middle ear cavities are clear. IMPRESSION: No acute intracranial abnormality. ACT 112: Negative or not required by law. The above report was generated using voice recognition software. It may contain grammatical, syntax o r spelling errors. Electronically signed by: Paxton Moise M.D. 09/22/2021 9:59 AM
[2021-09-22] MEDS ORDERED: LORazepam 2 MG/1 ML VIAL IV STA (11:06)
--- NOTE | 2021-09-22 11:31 | History & Physical Report ---
Date of Service September 22, 2021 Assessment & Plan (1) Headache: Plan: Headache ongoing for 3 days occurring just after drastic change in the way she was dosing her tramadol. No change in caffeine intake, no change in gabapentin intake, no neurologic deficits and CT head in ER is negative. Possible side effect from medication redosing and may just need some time to readjust. She will continue her tramadol at lower dose which is 25mg q8hrs but only as needed. Headache is 1/10 after medications and treatment provided in the ER. Daught and patient verbalized they were good with conservative management at this time. If headache were to persist, may consider MRI but will hold at this time. (2) Dysphagia: Plan: ?related to post operative state as this has happened to her in the past. Speech to evaluate. She is weak and fatigued and this may be contributing. Limit narcotic intake. (3) Cough: Plan: new cough that developed this week associated with runny nose. Denies fevers or chills and CXR reveals no infection. May be related to post nasal drip (changes consistent with this were seen on exam). Cont to monitor closey. Daughter and patient were advised that if cough persisted, or if she were to develop other symptoms of pneumonia such as fevers, reimaging would be reasonable. Daughter verbalized understanding. (4) Fatigue: Plan: Related to no sleep and side effect from medications given. Re-evaluate after having had some sleep and PT/OT to evaluate prior to discharge from the hospital. (5) HTN (hypertension): Plan: chronic, slightly elevated in ER but patient having some pain and also didn't take her medication this am. Give her am meds now and cont to monitor overnight. (6) Obesity: Plan: lifestyle changes recommended for improved health. (7) YOBANI (obstructive sleep apnea): Plan: on CPAP qHS. Will order here now. (8) Hypothyroidism: Plan: chronic, repeat TSH pending. Cont levothyroxine per home regimen. (9) CKD (chronic kidney disease), stage III: Plan: chronic, stable. Cont to monitor. (10) Chronic atrial fibrillation: Plan: Persistent, currently in afib. Asymptomatic. Cont apixaban per home regimen. No other rate or rhythm control agents needed. (11) DVT prophylaxis: Plan: apixaban full code Dispo- to home when symptoms improve. Darlene Ortiz, DO [facility] History of Present Illness Chief Complaint: weakness Primary Care Provider: Randi Arita MD 81 yo F presents with weakness and nausea. Recently had a left cubital tunnel release by Dr. Flynn 10 days ago and has felt poorly since this time. Reports a headache--CT in ER was negative. Headache has been ongoing for 3 days, starting just after going from higher dose of tramadol consistently back to a lower dose. Post op increased tramadol to 50mg q4hr from 25mg q8hrs. Continued gabapentin qHS during this time. Pain described as across forehead, dull, constant, about the same for 3 days. Was taking tramadol for pain and didn't want to try anything else. Eating well and then gradually ate less because of difficulty swallowing. Progressive dysphagis to solids and liquids. Reports post operative dysphagia in the past, also. Resolved spontaneously. She is hungry and denies nausea. Reports no back pain and headache is now a 1/10. She didn't sleep well last night and is fatigued. Uses CPAP qHS. Per her report today L arm swelling and pain is improved post operatively. She has chronic left foot pain that is unchanged. She presented overall because she was concerned she was becoming dehydrated. She is requesting a regular diet. Daughter is at bedside and corroborates story. Normal lab values generally, UA clear. CXR reveals no evidence of pneumonia. ROS reveals SOB slightly worse this week from baseline chronic SOB ("from my afib"), Cold sweats noted 2-3 times per night, last 3-4 days, +coughing phlegm, whitish, no fever, no chills/rigors. +runny nose last couple of days, denies chest pain, no palpitations. denies diarrhea, vomiting, UTI symptms. no abd pain Allergies Allergy/AdvReac Type Severity Reaction Status Date / Time adhesive Allergy Mild SKIN Verified 09/22/21 12:22 IRRITATION AND PULLS SKIN OFF Iodinated Contrast Media Allergy Mild RASH Verified 09/22/21 12:22 morphine Allergy Unknown UNKNOWN Verified 09/22/21 12:22 Penicillins Allergy Unknown UNKNOWN Verified 09/22/21 12:22 salicylates Allergy Unknown CAUSES Verified 09/22/21 12:22 HIVES aspirin AdvReac Mild Hives Verified 09/22/21 12:22 codeine AdvReac Mild CAUSES Verified 09/22/21 12:22 NAUSEA Home Medications Medication Instructions Recorded Confirmed Type cholecalciferol (vitamin D3) 50 2,000 unit PO 2XWK 02/01/18 09/22/21 History mcg (2,000 unit) tablet furosemide 40 mg tablet (Lasix) 40 mg PO Q2D 02/01/18 09/22/21 History levothyroxine 75 mcg tablet 75 mcg PO QAM 02/01/18 09/22/21 History (Synthroid) losartan 25 mg tablet (Cozaar) 25 mg PO DAILY 02/01/18 09/22/21 History potassium chloride 10 mEq 10 meq PO Q2D 02/01/18 09/22/21 History capsule,extended release apixaban 5 mg tablet (Eliquis) 5 mg PO BID 09/11/21 09/22/21 History biotin 5,000 mcg sublingual tablet 5,000 mcg SUBLINGUAL 2XWK 09/11/21 09/22/21 History gabapentin 100 mg capsule 200 mg PO HS 09/11/21 09/22/21 History rosuvastatin 10 mg tablet 10 mg PO QAM 09/11/21 09/22/21 History tramadol 50 mg tablet 50 mg PO Q6H PRN #20 tab 09/13/21 09/22/21 Rx Past Med/Surg History Medical History Chronic atrial fibrillation follows [facility] - taking eliquis - approx 9 years ago - not symptomatic CKD (chronic kidney disease), stage III Gout History of uterine cancer HLD (hyperlipidemia) HTN (hypertension) Hypothyroidism Obesity Occipital stroke 2015 - no residual effects - follow a neurologist (unsure name) YOBANI (obstructive sleep apnea) on cpap Surgical History History of back surgery approx 1982, L4 History of bilateral knee replacement Hx of colonoscopy >10yrs ago, no problems noted Hx of right cataract extraction 2004 Status post cataract extraction "L 1994" Status post cholecystectomy "09/14/04; performed by Dr. Barry" Status post hysterectomy "1989" Status post lumbar surgery "1984" Status post partial colectomy "10/20/2003" Status post tonsillectomy Status post total shoulder arthroplasty "L side; Dr. Flynn 08/2012" Family History Father Testicular cancer Mother Stroke Other Diabetes Hypertension Social History Smoking Status: Never smoker Tobacco Type: Cigarettes Cigarettes Per Day: 1/2 pack a day; Second Hand Exposure: No; Hx Alcohol Use: No Hx Substance Use: No Preferred Language: Beninese Communication Ability: Effective Preschool Assistant Director Required: No Beliefs That Will Affect Care: None marital status: Current Living Situation: Alone Current Living Situation Comment: Daughter with help with care post op current occupational status: retired Feels Safe at Home: Yes Assistive Devices: Cane, CPAP, Denture - Upper, Denture - Lower, Glasses and Walker Review of Systems 2 Review of Systems: All systems were reviewed and negative except as indicated above. Physical Exam Physical Exam: CONSTITUTIONAL: obese, vitals as above, generally well- appearing, NAD EYES: pupils small, PERRL, normal conjunctivae, no scleral icterus, ENT: external ear and nose normal, oropharynx with evidence of post-nasal drip, +tenderness to left frontal sinus with palpation, mild, +cerumen in external auditory canals bilaterally so TM couldnot be evaluated, no submandibular LAD. 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 Some erythroderma noted on left lower extremity to mid lower leg anteriorly. NEUROLOGIC: CN 2-12 grossly intact, no sensory deficit, normal cognition, normal speech, no tremor PSYCHIATRIC: sleepy but cooperative and oriented to person, place and time. Interview was performed while patient was supine with eye closed. Euthymic mood, makes good eye contact, language grossly intact, recent and remote memory grossly intact. Results & Data Results & Data ([facility]) Vital Signs (Past 12 Hours) Vital Signs Temp Pulse Pulse Resp BP BP Pulse Ox 09/22/21 10:05 71 22 171/99 H 93 09/22/21 08:51 95 09/22/21 08:12 36.2 C L 69 16 178/106 H 98 Laboratory Results Chest X-Ray 09/22/21 08:36 XR chest 1V portable HISTORY: 81 years-old Female weak acute weakness COMPARISON: Chest radiograph 01/31/2021 TECHNIQUE: Portable AP view of the chest FINDINGS: Cardiac silhouette is enlarged. No pneumothorax or large pleural effusion. Mild chronic interstitial coarsening. Degenerative changes of the spine and right shoulder. Reverse left shoulder total joint arthroplasty. IMPRESSION: Cardiomegaly without overt pulmonary edema. ACT 112: Negative or not required by law. The above report was generated using voice recognition software. It may contain grammatical, syntax or spelling errors. Electronically signed by: Paxton Moise M.D. 09/22/2021 9:[address] 09/22/21 08:36 CT head/brain wo con CLINICAL HISTORY: 81 years-old Female with weak. Acute headache with nausea and weakness TECHNIQUE: Multiple axial CT images of the head were obtained without contrast. A dose lowering technique was utilized adhering to the principles of ALARA. CT DOSE: 614.27 mGy.cm COMPARISON: 01/31/2021 FINDINGS: No acute intracranial hemorrhage, midline shift, intracranial mass, hydrocephalus, territorial ischemia or abnormal extra-axial collection. Involutional changes. White matter hypodensities suggestive of chronic microvascular ischemic disease. Unchanged appearance of the right cerebellar tonsil. The calvarium is intact. Evidence of prior lens repair. The paranasal sinuses, mastoid air cells, and middle ear cavities are clear. IMPRESSION: No acute intracranial abnormality. ACT 112: Negative or not required by law. The above report was generated using voice recognition software. It may contain grammatical, syntax or spelling errors. Electronically signed by: Paxton Moise M.D. 09/22/2021 9:59 AM Diagnostic Findings Short CBC 06/04/22 Range/Units 08:50 WBC 9.40 (4.8-10.8) K/uL Hgb 12.5 (12.0-16.0) g/dL Hct 36.3 L (37-47) % Plt Count 253 (130-400) K/uL BMP 09/22/21 08:50 Sodium 137 Potassium 4.1 Chloride 103 Carbon Dioxide 25 BUN 21 Creatinine 0.94 Glucose 100 H Calcium 9.8 Liver Function 09/22/21 Range/Units 08:50 Total Bilirubin 1.3 H (0.2-1.0) mg/dl AST 19 (13-39) U/L ALT 9 (7-52) U/L Alkaline Phosphatase 103 (34-104) U/L Albumin 3.8 (3.4-5.0) gm/dl Urine 09/22/21 Range/Units 09:00 Urine Color Yellow Urine Appearance Clear (Clear) Urine pH 7.0 (4.5-7.5) Ur Specific [place] 1.012 (1.000-1.030) Urine Protein Negative (Negative) Urine Glucose (UA) Negative (Negative) (1) HTN (hypertension) Hypertension type: unspecified Qualified Code(s): I10 - Essential (primary) hypertension
[2021-09-22] MEDS ORDERED: traMADol HCL 50 MG TABLET PO PRN (13:44)
[2021-09-22] MEDS ORDERED: ONDANSETRON INJ 2 MG/ML 2 ML VIAL IV PRN (13:44)
[2021-09-22] MEDS ORDERED: POLYETHYLENE (MIRALAX) 17 GM PACK PO PRN (13:44)
[2021-09-22] MEDS: LOSARTAN POTASSIUM 25 MG TAB PO SCH (14:47)
[2021-09-22] MEDS: APIXABAN 5 MG TABLET PO SCH ×2 (14:48→23:00)
[2021-09-22] MEDS: ROSUVASTATIN CALCIUM 10 MG TAB PO SCH (14:48)
[2021-09-22] MEDS: GABAPENTIN 100 MG CAP PO SCH (20:03)
[2021-09-23] MEDS: LEVOTHYROXINE SODIUM 75 MCG TABLET PO SCH (05:59)
[2021-09-23] MEDS: ACETAMINOPHEN 325 MG TAB PO PRN ×2 (05:59→14:36)
--- NOTE | 2021-09-23 06:59 | Orthopedic Consultation ---
Date of Service September 23, 2021 Assessment & Plan (1) Status post decompression of ulnar nerve at elbow: With regards to her elbow, she seems to be doing well. She still some numbness but that is to be expected. She is not having too much pain. She can do full range of motion of the elbow with physical therapy. There are no restrictions from a orthopedic standpoint. Unfortunately she is still struggling with dehydration and headaches. The medical team is currently working to help alleviate the symptoms. She is orthopedically stable for discharge when medically ready. She already has a follow-up appointment scheduled. History of Present Illness Reason for Consultation: 10 days status post left open cubital tunnel release. Requesting Physician: . Attending Physician: Alejandra Leung MD Bernie is a pleasant 81-year-old female who is now 10 days status post open cubital tunnel release in situ. She still has some numbness in the ulnar nerve distribution. She has been having issues with headaches, trouble swallowing, and dehydration since the procedure. She came to the emergency room last night and was admitted to the medical service. She is having some mild pain in the left elbow but the elbow pain is not too bad. Allergies Allergy/AdvReac Type Severity Reaction Status Date / Time adhesive Allergy Mild SKIN Verified 09/22/21 12:22 IRRITATION AND PULLS SKIN OFF Iodinated Contrast Media Allergy Mild RASH Verified 09/22/21 12:22 morphine Allergy Unknown UNKNOWN Verified 09/22/21 12:22 Penicillins Allergy Unknown UNKNOWN Verified 09/22/21 12:22 salicylates Allergy Unknown CAUSES Verified 09/22/21 12:22 HIVES aspirin AdvReac Mild Hives Verified 09/22/21 12:22 codeine AdvReac Mild CAUSES Verified 09/22/21 12:22 NAUSEA Home Medications Medication Instructions Recorded Confirmed Type cholecalciferol (vitamin D3) 50 2,000 unit PO 2XWK 02/01/18 09/22/21 History mcg (2,000 unit) tablet furosemide 40 mg tablet (Lasix) 40 mg PO Q2D 02/01/18 09/22/21 History levothyroxine 75 mcg tablet 75 mcg PO QAM 02/01/18 09/22/21 History (Synthroid) losartan 25 mg tablet (Cozaar) 25 mg PO DAILY 02/01/18 09/22/21 History potassium chloride 10 mEq 10 meq PO Q2D 02/01/18 09/22/21 History capsule,extended release apixaban 5 mg tablet (Eliquis) 5 mg PO BID 09/11/21 09/22/21 History biotin 5,000 mcg sublingual tablet 5,000 mcg SUBLINGUAL 2XWK 09/11/21 09/22/21 History gabapentin 100 mg capsule 200 mg PO HS 09/11/21 09/22/21 History rosuvastatin 10 mg tablet 10 mg PO QAM 09/11/21 09/22/21 History tramadol 50 mg tablet 50 mg PO Q6H PRN #20 tab 09/13/21 09/22/21 Rx Past Med/Surg History Medical History Chronic atrial fibrillation follows [facility] - taking eliquis - approx 9 years ago - not symptomatic CKD (chronic kidney disease), stage III Gout History of uterine cancer HLD (hyperlipidemia) HTN (hypertension) Hypothyroidism Obesity Occipital stroke 2015 - no residual effects - follow a neurologist (unsure name) YOBANI (obstructive sleep apnea) on cpap Surgical History History of back surgery approx 1982, L4 History of bilateral knee replacement Hx of colonoscopy >10yrs ago, no problems noted Hx of right cataract extraction 2004 Status post cataract extraction "L side 1994" Status post cholecystectomy "09/14/04; performed by Dr. Barry" Status post hysterectomy "1989" Status post lumbar surgery "1984" Status post partial colectomy "10/20/2003" Status post tonsillectomy Status post total shoulder arthroplasty "L side; Dr. Flynn 08/2012" Family History Father Testicular cancer Mother Stroke Other Diabetes Hypertension Social History Smoking Status: Never smoker Tobacco Type: Cigarettes Cigarettes Per Day: 1/2 pack a day; Second Hand Exposure: No; Do You Dip or Chew Tobacco: No; Tobacco Cessation Education Requested by Patient: No Hx Alcohol Use: No Hx Substance Use: No Preferred Language: Prydeinig Communication Ability: Effective Care Process Manager Required: No Beliefs That Will Affect Care: None marital status: Current Living Situation: Alone Current Living Situation Comment: lives alone, 2 steps to get into the house current occupational status: retired Other Information That Helps Us Care for You: No Feels Safe at Home: Yes Safety Concerns: Feels Safe At This Time Assistive Devices: Cane, CPAP, Denture - Upper, Denture - Lower, Glasses and Walker Review of Systems All systems reviewed & are unremarkable except as noted in HPI & below. Physical Exam On physical examination of the left elbow, the incision is clean and dry. There is no signs of infection. She has good strength in the ulnar nerve distribution. She still has some numbness. Constitutional WD/WN, vitals as above Eyes PERRL, conjunctivae normal, anicteric sclerae ENMT external ear and nose normal, oropharynx normal Neck trachea midline, no thyromegaly Respiratory normal respiratory effort Cardiovascular RRR, no murmur, no edema Gastrointestinal (Abdomen) normal bowel sounds, soft, nontender, no hepatosplenomegaly Psychiatric A+Ox3, euthymic affect Results & Data Results & Data Laboratory Results . Diagnostic Findings . PG Care Time/CCT Total # of Minutes Spent Total Time Spent with Patient: Total time spent is greater than 50% in coordination of care (as documented) at patient's floor/unit and/or counseling patient: Coding Level of Care Code None Diagnoses Status post decompression of ulnar nerve at elbow Z98.890
[2021-09-23 07:21] LABS: Hematocrit (blood only) 35.7 % (37-47); Hemoglobin 11.8 g/dL (12.0-16.0); Mean Corpuscular Hemoglobin 31.1 pg (25-34); Mean Corpuscular Hgb Conc 33.1 g/dL (32-36); Mean Corpuscular Volume 93.9 fL (80-100); Mean Platelet Volume 9.6 fL (7.4-10.4); Platelet Count 241 K/uL (130-400); RDW Coefficient of Variation 13.7 % (11.5-14.5); RDW Standard Deviation 47.2 fL (36.4-46.3); White Blood Count 9.62 K/uL (4.8-10.8)
[2021-09-23 07:38] LABS: BUN Creatinine Ratio 21.3 (10-20); Calcium 9.3 mg/dl (8.5-10.1); Est GFR (Non-African American) 56.1 ml/min; Magnesium 1.9 mg/dl (1.7-2.4); Potassium 4.5 mmol/L (3.5-5.1)
[2021-09-23] MEDS: LOSARTAN POTASSIUM 25 MG TAB PO SCH (07:43)
[2021-09-23] MEDS: ROSUVASTATIN CALCIUM 10 MG TAB PO SCH (07:44)
[2021-09-23] MEDS: APIXABAN 5 MG TABLET PO SCH ×2 (07:44→20:38)
--- NOTE | 2021-09-23 08:37 | Electrocardiogram Report ---
Test Reason : Blood Pressure : / mmHG Vent. Rate : 077 BPM Atrial Rate : 068 BPM P-R Int : 000 ms QRS Dur : 086 ms QT Int : 388 ms P-R-T Axes : 000 083 027 degrees QTc Int : 439 ms Atrial fibrillation with premature ventricular or aberrantly conducted complexes Low voltage QRS Abnormal ECG When compared with ECG of 10-SEP-2021 11:27, No significant change was found Confirmed by Joshua Henry ([id number]) on 09/23/2021 8:37:07 AM Referred By: REFERRED SELF Confirmed By:Joshua Henry
[2021-09-23] MEDS ORDERED: FUROSEMIDE 40 MG TAB PO SCH (09:00)
[2021-09-23] MEDS ORDERED: POTASSIUM CHLORIDE 10 MEQ TABCR PO SCH (09:00)
[2021-09-23] MEDS ORDERED: FLUTICASONE PROPIONATE NA SPR 16 GM BTL PRN (09:50)
[2021-09-23] MEDS ORDERED: SODIUM CHLORIDE 0.9% 1000ML 1,000 ML IV SCH (10:00)
--- NOTE | 2021-09-23 16:19 | Hospitalist Progress Note ---
Date of Service September 23, 2021 Assessment & Plan (1) Headache: Plan: Improved would continue PRN tylenol (2) Dysphagia: Plan: Longstanding Evaluated by HUMAN RESOURCES CONSULTANT today and appreciate input, continue diet modifications (alternate small bites of food and water), avoid cold liquids (3) Cough: Plan: CXR 09/22 shows cardiomegaly but no CHF or PNA Now requiring 1-2L NC after IVF, will stop IVF, repeat CXR now (4) Fatigue: Plan: Patient feels well and back to baseline. She is independent in her room (5) HTN (hypertension): Plan: BP improved (6) Obesity: Plan: lifestyle changes recommended for improved health. (7) YOBANI (obstructive sleep apnea): Plan: on CPAP qHS. Will continue (8) Hypothyroidism: Plan: chronic, repeat TSH pending. Cont levothyroxine per home regimen. (9) CKD (chronic kidney disease), stage III: Plan: chronic, stable. Cont to monitor. (10) Chronic atrial fibrillation: Plan: Persistent, currently in afib. Asymptomatic. Cont apixaban per home regimen. No other rate or rhythm control agents needed. (11) DVT prophylaxis: Plan: apixaban full code Dispo- Likely discharge to home tomorrow Admission and Anticipated Discharge Date Admission Date: September 23, 2021 Subjective Patient feels well, feels back to baseline Headache has improved with tylenol She is getting up and using restroom with no dififculty She was placed on oxygen (reportedly O2 sat 89-90% on room air) and placed on 1- 2L NC. Patient denies feeling short of breath Physical Exam Physical Exam: Appears well, pleasant and comfortable Respiratory: Diminished at bases Cardiovascular: irregular but not rapid, no murmurs/rubs/gallops Gastrointestinal (Abdomen): soft, non tender Musculoskeletal: no edema Neurologic: awake, alert, spontaneously moving extremities Results & Data Results & Data ([facility]) Vital Signs (Past 12 Hours) Vital Signs Temp Pulse Pulse Resp BP Pulse Ox 09/23/21 14:38 36.6 C 67 16 138/75 90 09/23/21 11:13 36.4 C L 64 18 157/83 H 95 09/23/21 07:38 36.5 C 66 16 164/93 H 95 09/23/21 07:29 65 Laboratory Results Short CBC 09/23/21 Range/Units 06:56 WBC 9.62 (4.8-10.8) K/uL Hgb 11.8 L (12.0-16.0) g/dL Hct 35.7 L (37-47) % Plt Count 241 (130-400) K/uL BMP 09/23/21 06:56 Sodium 138 Potassium 4.5 Chloride 106 Carbon Dioxide 26 BUN 20 Creatinine 0.94 Glucose 100 H Calcium 9.3 Medications Administered Current Inpatient Medications Acetaminophen (Acetaminophen 325 Mg Tab) 650 mg PO Q4H PRN PRN Reason: Pain or Fever Stop: 10/22/21 13:43 Last Admin: 09/23/21 14:36 Dose: 650 mg Documented by: Apixaban (Apixaban 5 Mg Tablet) 5 mg PO BID [facility] Stop: 10/22/21 14:04 Last Admin: 09/23/21 07:44 Dose: 5 mg Documented by: Fluticasone Propionate (Fluticasone Propionate Na Spr 16 Gm Btl) 1 sprays NA BID PRN PRN Reason: Congestion Stop: 10/23/21 20:59 Furosemide (Furosemide 40 Mg Tab) 40 mg PO DAILY [facility] Stop: 10/24/21 08:59 Gabapentin (Gabapentin 100 Mg Cap) 200 mg PO HS [facility] Stop: 10/22/21 20:59 Last Admin: 09/22/21 20:03 Dose: 200 mg Documented by: Levothyroxine Sodium (Levothyroxine Sodium 75 Mcg Tablet) 75 mcg PO DAILYBB [facility] Stop: 10/23/21 06:29 Last Admin: 09/23/21 05:59 Dose: 75 mcg Documented by: Losartan Potassium (Losartan Potassium 25 Mg Tab) 25 mg PO DAILY [facility] Stop: 10/22/21 14:04 Last Admin: 09/23/21 07:43 Dose: 25 mg Documented by: Ondansetron HCl (Ondansetron Inj 2 Mg/Ml 2 Ml Vial) 4 mg IV Q6H PRN PRN Reason: Nausea Stop: 10/22/21 13:43 Pantoprazole Sodium (Pantoprazole 40 Mg Tab) 40 mg PO QAM [facility] Stop: 10/24/21 08:59 Polyethylene Glycol (Polyethylene (Miralax) 17 Gm Pack) 17 gm PO DAILY PRN PRN Reason: Constipation Stop: 10/22/21 13:43 Potassium Chloride (Potassium Chloride 10 Meq Tabcr) 10 meq PO Q2D [facility] Stop: 10/23/21 08:59 Last Admin: 09/23/21 07:43 Dose: 10 meq Documented by: Rosuvastatin Calcium (Rosuvastatin Calcium 10 Mg Tab) 10 mg PO QAM [facility] Stop: 10/22/21 14:04 Last Admin: 09/23/21 07:44 Dose: 10 mg Documented by: Tramadol HCl (Tramadol Hcl 50 Mg Tablet) 25 mg PO Q6H PRN PRN Reason: Severe Pain Stop: 10/22/21 13:43 (1) HTN (hypertension) Hypertension type: unspecified Qualified Code(s): I10 - Essential (primary) hypertension
--- NOTE | 2021-09-23 18:41 | XRay Report ---
SINGLE VIEW CHEST CLINICAL HISTORY: Dyspnea. FINDINGS: An AP, portable, upright chest radiograph is compared to study dated 09/22/2021 and correlate d with chest CT dated 01/31/2021. The heart is enlarged noting atherosclerotic calcification of the t horacic aorta. There is pulmonary vascular congestion. Trace pleural effusions are noted with depende nt atelectasis. No pneumothorax is seen. The bony thorax is grossly intact. A left shoulder arthropla sty is in place. Advanced arthritic change is seen in the right shoulder. IMPRESSION: 1. Cardiomegaly with evidence of congestive failure. This has worsened from yesterday. 2. Trace pleural effusions. ACT 112: Negative or not required by law. Electronically signed by: Kody Giron M.D. 09/23/2021 6:40 PM
[2021-09-23] MEDS: GABAPENTIN 100 MG CAP PO SCH (20:38)
[2021-09-24] MEDS: LEVOTHYROXINE SODIUM 75 MCG TABLET PO SCH (05:40)
[2021-09-24 06:44] LABS: Hematocrit (blood only) 35.6 % (37-47); Hemoglobin 11.4 g/dL (12.0-16.0); Mean Corpuscular Hemoglobin 29.8 pg (25-34); Mean Platelet Volume 9.6 fL (7.4-10.4); Platelet Count 243 K/uL (130-400); RDW Standard Deviation 47.5 fL (36.4-46.3); Red Blood Count 3.83 M/uL (4.2-5.4); White Blood Count 9.06 K/uL (4.8-10.8)
[2021-09-24 07:07] LABS: BUN Creatinine Ratio 20.8 (10-20); Calcium 8.9 mg/dl (8.5-10.1); Creatinine Clr Calc Pharmacy 50.8 ml/min; Est GFR (African American) 63.4 ml/min; Est GFR (Non-African American) 54.7 ml/min; Potassium 4.4 mmol/L (3.5-5.1)
[2021-09-24] MEDS ORDERED: FUROSEMIDE 40 MG/4 ML VIAL IV ONE (08:00)
[2021-09-24] MEDS: APIXABAN 5 MG TABLET PO SCH (08:38)
[2021-09-24] MEDS: ROSUVASTATIN CALCIUM 10 MG TAB PO SCH (08:40)
[2021-09-24] MEDS: LOSARTAN POTASSIUM 25 MG TAB PO SCH (08:40)
[2021-09-24] MEDS ORDERED: FUROSEMIDE 40 MG TAB PO SCH (09:00)
[2021-09-24] MEDS ORDERED: PANTOprazole 40 MG TAB PO SCH (09:00)
--- NOTE | 2021-09-24 14:38 | Discharge Summary ---
Date of Service September 24, 2021 Admission HPI Per Admitting Provider 81 yo F presents with weakness and nausea. Recently had a left cubital tunnel release by Dr. Flynn 10 days ago and has felt poorly since this time. Reports a headache--CT in ER was negative. Headache has been ongoing for 3 days, starting just after going from higher dose of tramadol consistently back to a lower dose. Post op increased tramadol to 50mg q4hr from 25mg q8hrs. Continued gabapentin qHS during this time. Pain described as across forehead, dull, constant, about the same for 3 days. Was taking tramadol for pain and didn't want to try anything else. Eating well and then gradually ate less because of difficulty swallowing. Progressive dysphagis to solids and liquids. Reports post operative dysphagia in the past, also. Resolved spontaneously. She is hungry and denies nausea. Reports no back pain and headache is now a 1/10. She didn't sleep well last night and is fatigued. Uses CPAP qHS. Per her report today L arm swelling and pain is improved post operatively. She has chronic left foot pain that is unchanged. She presented overall because she was concerned she was becoming dehydrated. She is requesting a regular diet. Daughter is at bedside and corroborates story. Normal lab values generally, UA clear. CXR reveals no evidence of pneumonia. ROS reveals SOB slightly worse this week from baseline chronic SOB ("from my afib"), Cold sweats noted 2-3 times per night, last 3-4 days, +coughing phlegm, whitish, no fever, no chills/rigors. +runny nose last couple of days, denies chest pain, no palpitations. denies diarrhea, vomiting, UTI symptms. no abd pain Principal Diagnosis Headache Nausea Acute hypoxic respiratory failure Acute on chronic diastolic CHF Discharge Exam Patient feels well. Feels back to baseline. She is on room air. She is ambulating independently in her room On exam Gen- appears well, no acute distress CV- regular rate and rhythm, no murmurs/rubs Pulm- clear bilaterally, no wheezing/rhonchi/rales Extr- no edema Discharge Data Allergies Allergy/AdvReac Type Severity Reaction Status Date / Time adhesive Allergy Mild SKIN Verified 09/22/21 12:22 IRRITATION AND PULLS SKIN OFF Iodinated Contrast Media Allergy Mild RASH Verified 09/22/21 12:22 morphine Allergy Unknown UNKNOWN Verified 09/22/21 12:22 Penicillins Allergy Unknown UNKNOWN Verified 09/22/21 12:22 salicylates Allergy Unknown CAUSES Verified 09/22/21 12:22 HIVES aspirin AdvReac Mild Hives Verified 09/22/21 12:22 codeine AdvReac Mild CAUSES Verified 09/22/21 12:22 NAUSEA Consultations 09/22/21 11:52 ED Decision to Admit Stat Ordered Studies 09/22/21 08:36 CT head/brain wo con Stat Hospital Course (1) Headache: (2) Dysphagia: (3) Cough: (4) Fatigue: (5) HTN (hypertension): (6) Obesity: (7) YOBANI (obstructive sleep apnea): (8) Hypothyroidism: (9) CKD (chronic kidney disease), stage III: (10) Chronic atrial fibrillation: (11) DVT prophylaxis: Mrs Bernie Wolf is a 81 year old female with history of Afib on Eliquis, Hypothyroidism, YOBANI, CKD stage 3, chronic diastolic CHF presents to ER 09/22 with headache and nausea after a carpal tunnel surgery recently. She also was complaining of dysphagia but that has been a chronic issue. She was admitted for her symptoms and placed on IVF, received medications for nausea and tylenol for her headache. She was also seen by MEDICAL LABORATORY TECHNICIAN and instructed to alternate bites of food with liquid and to avoid cold liquids which seem to trigger esophageal spasm. With modifications, she was able to tolerate her food and she felt well by day 2 of admission. However, she was noted to be requiring oxygen (2L NC) due to O2 saturation dropping down to mid 80s on RA. Her CXR on 09/22 showed cardiomegally but no CHF and a repeat CXR on 09/23 now showed CHF. She apparently only takes her lasix every OTHER day rather than daily as prescribed. She also received IVF here for 1 day. Further IV fluids were discontinued and IV lasix was ordered for her but she refused. So she was resumed on her lasix 40mg PO daily. With resumption of her lasix to 40mg daily, she was able to be weaned off oxygen to room air. She was counseled to continue taking her lasix daily as prescribed and to follow up with her Product Marketing Specialist within 2 weeks of discharge. She felt well and back to her baseline. She felt comfortable to be released home with close follow up with her Product Marketing Specialist and surgeon. Total Time Total Time Spent Total Time Spent (In Minutes): 40 Discharge Plan Discharge Items Patient Disposition: Home - Self-Care Reason For Visit: WEAKNESS Discharge Diagnosis: Headache Nausea Acute hypoxic respiratory failure Acute on chronic diastolic CHF Condition on Discharge: Good Activity: Resume your previous activity Weightbearing: Full weightbearing Non-emergency contact: Primary Care Provider and Product Marketing Specialist Call non-emergency contact if: you have any medication questions and your symptoms worsen Follow-up/Referrals: Nathaniel Gilman DO [Product Marketing Specialist] - Randi Arita MD [Primary Care Provider] - Diet: Heart Healthy Fluids: 1800ml (7 cups) Addtl Attending Provider Instructions: Please take your lasix 40mg every day as instructed by your Product Marketing Specialist You should also be on a low salt diet and 1800 mL fluid restriction Please see your Product Marketing Specialist in 2 weeks Please see your surgeon as scheduled Pending Studies at Discharge: No Stand-Alone Forms: My [employer], Smoking Cessation Medications and DC Order Prescriptions: New furosemide 40 mg Tablet 40 mg PO DAILY 30 Days Qty: 30 RF: 0 Continued levothyroxine [Synthroid] 75 mcg tablet 75 mcg PO QAM RF: 0 losartan [Cozaar] 25 mg tablet 25 mg PO DAILY RF: 0 cholecalciferol (vitamin D3) 2,000 unit Tablet 2,000 unit PO 2XWK RF: 0 Eliquis 5 mg Tablet 5 mg PO BID RF: 0 gabapentin 100 mg Capsule 200 mg PO HS RF: 0 rosuvastatin 10 mg Tablet 10 mg PO QAM RF: 0 biotin 5,000 mcg Tablet, Sublingual 5,000 mcg sublingual 2XWK RF: 0 tramadol 50 mg tablet 50 mg PO Q6H PRN (Reason: pain) Qty: 20 RF: 0 Changed potassium chloride 10 mEq Capsule, Extended Release 10 meq PO DAILY 30 Days Qty: 30 RF: 0 Discontinued furosemide [Lasix] 40 mg tablet 40 mg PO Q2D RF: 0 Discharge Orders: Discharge Order (Routine); Ordered 09/24/21 Ordered By: Alejandra Leung Admission Data Admit Date/Time: 09/23/21 16:06 Attending Provider: Alejandra Leung Admit Provider: Darlene Alcantar Primary Care Provider: Randi Arita Other Providers: Darlene Alcantar Other Interventions: Discharge Summary Assessment (RN) Last Done: 09/24/21 14:40
== END 2021-09-24 17:03 | disposition home or self-care (01) | DRG 102 ==
LOC: ED 08:12 → 2N 08:12 → SUATTDRO 11:34 → 2N 13:15

== ENCOUNTER 2022-04-24 07:41 | Observation (INO) ==
[2022-04-24] MEDS ORDERED: HYDROmorphone INJ 0.5 MG/0.5 ML SYR IV STA (07:51)
[2022-04-24] MEDS ORDERED: SODIUM CHLORIDE 0.9% 500 ML IV ONE (07:51)
[2022-04-24] MEDS ORDERED: ONDANSETRON INJ 2 MG/ML 2 ML VIAL IV STA (07:51)
--- NOTE | 2022-04-24 07:55 | Emergency Department Note ---
Impression & Plan SBO (small bowel obstruction), Abdominal pain, Leukocytosis ED Provider Note NAME: GEORGIE HOLMAN AGE: 82 SEX: F : 1940 ARRIVES VIA: Ambulance INFORMANT: Patient ED PROVIDER(S): Erik Nix DO CHIEF COMPLAINT: abdominal pain HPI: Patient is an 82-year-old female with a past medical history obesity, small bowel obstruction, hypertension, hyperlipidemia, CVA who presents to the ER for abdominal pain. Pain is located in the right mid belly and started within the past 24 hours. Denies any headache or change in vision. No chest pain or shortness of breath. No dysuria, urgency, or frequency. She did have a bowel movement within the past 24 hours. She is concerned as this feels consistent with her previous bowel obstructions. She is a history of cholecystectomy, appendectomy, total hysterectomy and colon removal. Pain is constant and an 8 out of 10. She was brought in by EMS. PAST MEDICAL HISTORY:See Below PAST SURGICAL HISTORY:See Below FAMILY HISTORY:See Below SOCIAL HISTORY:See Below HOME MEDICATIONS:See Below ALLERGIES:See Below VITALS:See Below PHYSICAL EXAMINATION: GENERAL: Sitting up in bed, alert, conically ill-appearing, disheveled EYE EXAM: normal conjunctiva. PERRL and EOM's grossly intact. OROPHARYNX: mucous membranes are dry LUNGS: Clear to auscultation. Normal chest wall mechanics HEART: no murmurs, S1 normal and S2 normal ABDOMEN: abdomen soft, TTP diffusly, normo-active bowel sounds, no masses, no rebound or guarding. UPPER EXTREMITIES: upper extremities are grossly normal. LOWER EXTREMITIES: No pitting edema. NEURO EXAM: Normal sensorium, cranial nerves II-XII grossly intact, normal speech, no gross weakness of arms, no gross weakness of legs. MEDICAL DECISION MAKING: Patient is an 82-year-old female with a past medical history of obesity, SBO, hypertension, hyperlipidemia, CVA, chronic A. fib on Eliquis who presents ER for abdominal pain. History was obtained from the patient as well as additional independent historian including EMS. External records were reviewed. IV was established with obesity. Labs show mild leukocytosis likely secondary to abdominal pain and SBO. No anemia. BMP with no hyperkalemia. Creatinine slightly up at 1.3 from baseline 1.9 likely from dehydration. T bili mildly up at 1.7 with a baseline of 1.4. No transaminitis. No lipase to suggest pancreatitis. UA was clean. COVID was negative. CT abdomen pelvis question of small bowel obstruction. She was given IV fluids and IV morphine as well as Zofran. Updated bedside. Discussed with hospitalist admitted for further work- up. I [facility] the case presentation treatments [facility] Nursing notes reviewed. Limited review of prior medical records performed Vital Signs: reviewed and remarkable for tachy Differential diagnosis: Differential diagnoses includes but is not limited to gastritis, peptic ulcer disease, GERD, gallbladder disease, pancreatitis, small bowel obstruction, acute coronary syndrome, pericarditis, ischemic bowel, irritable bowel disease, irritable bowel syndrome, appendicitis, diverticulitis, malignancy, hernia, urinary tract infection, torsion, perforation, trauma, infectious. ER treatment provided: See below Diagnostics interpreted by me include EKG and cardiac monitoring as listed below: -Cardiac Monitoring: An order was placed for continuous cardiac monitoring. The monitor shows a rate of 92 with sinus rhythm. -Laboratory studies: Interpreted by me as stated above in MDM and shown below. Imaging studies: CTs show: CT abdomen pelvis showed a questionable small bowel obstruction Consultation(s): As described in MDM Procedures:none Critical Care: None Past Med/Surg History Medical History Abdominal pain Chronic atrial fibrillation follows [place] - taking eliquis - approx 9 years ago - not symptomatic CKD (chronic kidney disease), stage III Gout History of uterine cancer HLD (hyperlipidemia) HTN (hypertension) Hypothyroidism Obesity Occipital stroke 2015 - no residual effects - follow a neurologist (unsure name) YOBANI (obstructive sleep apnea) on cpap Surgical History History of back surgery approx 1982, L4 History of bilateral knee replacement Hx of colonoscopy >10yrs ago, no problems noted Hx of right cataract extraction 2004 Status post cataract extraction "L side 1994" Status post cholecystectomy "09/14/04; performed by Dr. Barry" Status post hysterectomy "1989" Status post lumbar surgery "1984" Status post partial colectomy "10/20/2003" Status post tonsillectomy Status post total shoulder arthroplasty "L side; Dr. Flynn 08/2012" Family History Father Testicular cancer Mother Stroke Other Diabetes Hypertension Social History Smoking Status: Unknown if ever smoked Tobacco Type: Cigarettes Cigarettes Per Day: 1/2 pack a day; Second Hand Exposure: No; Hx Alcohol Use: No Hx Substance Use: No Preferred Language: Uzbek Communication Ability: Effective Asbestos Handler Required: No Beliefs That Will Affect Care: None marital status: Current Living Situation: Alone Current Living Situation Comment: lives alone, 2 steps to get into the house current occupational status: retired Feels Safe at Home: Yes Assistive Devices: CPAP and Walker Allergies Allergies Allergy/AdvReac Type Severity Reaction Status Date / Time adhesive Allergy Mild SKIN Verified 09/22/21 12:22 IRRITATION AND PULLS SKIN OFF Iodinated Contrast Media Allergy Mild RASH Verified 09/22/21 12:22 morphine Allergy Unknown UNKNOWN Verified 09/22/21 12:22 Penicillins Allergy Unknown UNKNOWN Verified 09/22/21 12:22 salicylates Allergy Unknown CAUSES Verified 09/22/21 12:22 HIVES aspirin AdvReac Mild Hives Verified 09/22/21 12:22 codeine AdvReac Mild CAUSES Verified 09/22/21 12:22 NAUSEA Home Meds Home Medications Medication Instructions Recorded Confirmed cholecalciferol (vitamin D3) 50 2,000 unit PO 2XWK 02/01/18 04/24/22 mcg (2,000 unit) tablet levothyroxine 75 mcg tablet 75 mcg PO QAM 02/01/18 04/24/22 (Synthroid) losartan 25 mg tablet (Cozaar) 25 mg PO DAILY 02/01/18 04/24/22 apixaban 5 mg tablet (Eliquis) 5 mg PO BID 09/11/21 04/24/22 biotin 5,000 mcg sublingual tablet 5,000 mcg sublingual 2XWK 09/11/21 04/24/22 gabapentin 100 mg capsule 200 mg PO HS 09/11/21 04/24/22 rosuvastatin 10 mg tablet 10 mg PO QAM 09/11/21 04/24/22 furosemide 40 mg tablet (Lasix) 40 mg PO DAILY 04/24/22 04/24/22 tramadol 50 mg tablet 25 mg PO Q6H PRN pain 04/24/22 04/24/22 Previous Rx's Medication Instructions Recorded potassium chloride 10 mEq 10 meq PO DAILY 30 days #30 caps 09/24/21 capsule,extended release Results & Data (ED) Vital Signs Vital Signs - 24 hr 04/24/22 07:42 04/24/22 07:51 Temperature 36.7 C Temperature Source Oral Pulse Rate 66 66 Pulse Rhythm Regular Regular Pulse Strength Normal Respiratory Rate 22 22 Respiratory Effort / Characteristics Non-Labored Respiratory Depth Normal Respiratory Pattern Regular Blood Pressure 161/89 H Blood Pressure Mean 113 Pulse Oximetry 94 94 Oxygen Delivery Method Room Air Room Air Sepsis Recent Fever Within 48 Hours No Sepsis New/Unexplained Change in Mental Status No Sepsis Action Taken by Nursing No Action Required Laboratory Data 04/24/22 07:45 04/24/22 07:45 Lab Results 04/24/22 04/24/22 04/24/22 Range/Units 07:45 07:45 07:45 WBC 13.74 H (4.8-10.8) K/ul RBC 4.55 (3.93-5.22) M/uL Hgb 13.9 (12.0-16.0) g/dl Hct 41.1 (34.1-44.9) % MCV 90.3 (80.0-100.0) fL MCH 30.5 (25.0-34.0) pg MCHC 33.8 (32.0-36.0) g/dL RDW Std Deviation 44.1 (36.4-46.3) fL RDW Coeff of Jayla 13.3 (11.5-14.5) % Plt Count 206 (130-400) K/uL MPV 9.8 (9.4-12.3) fL Immature Gran % (Auto) 0.3 % Neut % (Auto) 84.1 % Lymph % (Auto) 6.9 % [place] % (Auto) 6.1 % Eos % (Auto) 1.9 % Baso % (Auto) 0.7 % Neut # (Auto) 11.55 H (1.4-6.5) K/uL Lymph # (Auto) 0.95 L (1.2-3.4) K/uL [place] # (Auto) 0.84 H (0.24-0.82) K/uL Eos # (Auto) 0.26 (0-0.50) K/uL Baso # (Auto) 0.10 (0-0.2) K/uL Immature Gran # (Auto) 0.04 H (0.00-0.02) K/uL Sodium 137 (136-145) mmol/L Potassium 4.0 (3.5-5.1) mmol/L Chloride 102 (98-107) mmol/L Carbon Dioxide 28 (21-32) mmol/L Anion Gap 7 (3-11) BUN 29 H (6-23) mg/dl Creatinine 1.33 H (0.6-1.2) mg/dl Est Cr Clr Drug Dosing 35.8 ml/min Est GFR ( Amer) 42.4 ml/min Est GFR (Non-Af Amer) 36.6 ml/min BUN/Creatinine Ratio 21.8 H (10-20) Glucose 144 H (70-99(Fasting)) mg/dl Calcium 9.6 (8.5-10.1) mg/dl Total Bilirubin 1.7 H (0.2-1.0) mg/dl AST 19 (13-39) U/L ALT 8 (7-52) U/L Alkaline Phosphatase 83 (34-104) U/L Total Protein 8.0 (6.0-8.3) gm/dl Albumin 4.3 (3.4-5.0) gm/dl Globulin 3.7 (2.5-4.0) gm/dl Albumin/Globulin Ratio 1.2 (0.9-2) Lipase 38 (11-82) U/L SARS-CoV-2, RNA, NAAT NEGATIVE (NEGATIVE) Administered Medications Sodium Chloride (Nss 1000ml) 1,000 mls @ 60 mls/hr IV .[id number] ARIC Stop: 04/25/22 19:19 Last Admin: 04/24/22 10:46 Dose: 60 mls/hr Documented By: NERY Discontinued Medications Hydromorphone HCl (Hydromorphone Inj 0.5 Mg/0.5 Ml Syr) 0.5 mg IV NOW STA Stop: 04/24/22 07:52 Last Admin: 04/24/22 07:56 Dose: 0.5 mg Documented By: NERY Sodium Chloride (Nss) 500 mls @ 999 mls/hr IV .Q31M ONE Stop: 04/24/22 08:21 Last Infusion: 04/24/22 10:46 Dose: 0 mls/hr Documented By: Admin: 04/24/22 07:57 Dose: 999 mls/hr Documented By: NERY Ceftriaxone Sodium (Rocephin) 2,000 mg in 70 mls @ 140 mls/hr IV NOW ONE Stop: 04/24/22 10:59 Last Infusion: 04/24/22 11:26 Dose: 0 mls/hr Documented By: Admin: 04/24/22 10:46 Dose: 140 mls/hr Documented By: NERY Metronidazole (Flagyl) 500 mg in 100 mls @ 100 mls/hr IV NOW STA Stop: 04/24/22 11:24 Last Admin: 04/24/22 10:45 Dose: 100 mls/hr Documented By: NERY Ondansetron HCl (Ondansetron Inj 2 Mg/Ml 2 Ml Vial) 4 mg IV NOW STA Stop: 04/24/22 07:52 Last Admin: 04/24/22 07:56 Dose: 4 mg Documented By: NERY Imaging Data Radiologist's Impression: Abdomen/Pelvis CT 04/24/22 07:51 CT OF THE ABDOMEN AND PELVIS WITHOUT CONTRAST CLINICAL HISTORY: Right-sided abdominal pain. COMPARISON STUDY: CT of the abdomen and pelvis January 31, 2021. TECHNIQUE: Axial images of the abdomen and pelvis were obtained without IV co ntrast. Images were reviewed in the axial, sagittal, and coronal planes. Automated exposure control was utilized for the study. A dose lowering technique was utilized adhering to the principles of ALARA. FINDINGS: Mild groundglass opacities with mosaic attenuation within the lung bases are noted. Moderate cardiomegaly is present. There is no pneumatosis, free air or portal venous gas. Liver surface is slightly nodular. This is unchanged. Dilatation of the common bile duct is unchanged. The gallbladder may be surgically absent. Unenhanced images of the spleen, adrenal glands and pancreas are unremarkable. Water attenuation bilateral renal lesions favor cysts. These are unchanged. There is no hydronephrosis. Moderate gaseous distention of the stomach. There are multiple loops of mildly dilated fluid-filled small bowel with air-fluid levels. There is mild associated mesenteric stranding. No well- defined transition point is identified although the distal ileum is decompressed. The right colon is fluid-filled. Pelvic surgical clips are noted. Uterus is surgically absent. No pathologic lymphadenopathy. No acute fractures within the visualized skeletal structures. IMPRESSION: 1. Multiple loops of mildly dilated fluid-filled small bowel with minimal associated mesenteric stranding. Although no well-defined transition point, the terminal ileum is decompressed. Therefore, the findings could reflect a partial small bowel obstruction or enteritis with ileus. Fluid-filled right colon. 2. Moderate gaseous distention of the stomach. ACT 112: Negative or not required by law. Electronically signed by: Jermain Diez M.D. 04/24/2022 8:28 AM Discharge Plan Visit Data Chief Complaint: Abdominal Pain Stated Complaint: ABDOMINAL PAIN ED Provider: Erik Nix Discharge Problem: SBO (small bowel obstruction), Abdominal pain, Leukocytosis Patient Disposition: Admitted As Inpatient Discharge Instructions Interventions: ED Discharge Assessment Last Done: 04/24/22 12:14
[2022-04-24 08:02] LABS: Basophils % (auto) 0.7 %; Eosinophils # (auto) 0.26 K/uL (0-0.50); Eosinophils % (auto) 1.9 %; Hematocrit (blood only) 41.1 % (34.1-44.9); Hemoglobin 13.9 g/dl (12.0-16.0); Immature Granulocytes # (auto) 0.04 K/uL (0.00-0.02); Immature Granulocytes % (auto) 0.3 %; Lymphocytes # (auto) 0.95 K/uL (1.2-3.4); Lymphocytes % (auto) 6.9 %; Mean Corpuscular Hemoglobin 30.5 pg (25.0-34.0); Mean Corpuscular Hgb Conc 33.8 g/dL (32.0-36.0); Mean Corpuscular Volume 90.3 fL (80.0-100.0); Mean Platelet Volume 9.8 fL (9.4-12.3); Monocytes # (auto) 0.84 K/uL (0.24-0.82); Monocytes % (auto) 6.1 %; Neutrophils # (auto) 11.55 K/uL (1.4-6.5); Neutrophils % (auto) 84.1 %; Platelet Count 206 K/uL (130-400); RDW Coefficient of Variation 13.3 % (11.5-14.5); RDW Standard Deviation 44.1 fL (36.4-46.3); Red Blood Count 4.55 M/uL (3.93-5.22); White Blood Count 13.74 K/ul (4.8-10.8)
[2022-04-24 08:25] LABS: Albumin Globulin Ratio 1.2 (0.9-2); Albumin Level 4.3 gm/dl (3.4-5.0); BUN Creatinine Ratio 21.8 (10-20); Bilirubin,Total 1.7 mg/dl (0.2-1.0); Calcium 9.6 mg/dl (8.5-10.1); Creatinine Clr Calc Pharmacy 35.8 ml/min; Est GFR (African American) 42.4 ml/min; Est GFR (Non-African American) 36.6 ml/min; Globulin 3.7 gm/dl (2.5-4.0)
--- NOTE | 2022-04-24 08:30 | CT Scan Report ---
CT OF THE ABDOMEN AND PELVIS WITHOUT CONTRAST CLINICAL HISTORY: Right-sided abdominal pain. COMPARISON STUDY: CT of the abdomen and pelvis January 31, 2021. TECHNIQUE: Axial images of the abdomen and pelvis were obtained without IV contrast. Images were revi ewed in the axial, sagittal, and coronal planes. Automated exposure control was utilized for the mila dy. A dose lowering technique was utilized adhering to the principles of ALARA. FINDINGS: Mild groundglass opacities with mosaic attenuation within the lung bases are noted. Moderat e cardiomegaly is present. There is no pneumatosis, free air or portal venous gas. Liver surface is s lightly nodular. This is unchanged. Dilatation of the common bile duct is unchanged. The gallbladder may be surgically absent. Unenhanced images of the spleen, adrenal glands and pancreas are unremarkab le. Water attenuation bilateral renal lesions favor cysts. These are unchanged. There is no hydroneph rosis. Moderate gaseous distention of the stomach. There are multiple loops of mildly dilated fluid-f illed small bowel with air-fluid levels. There is mild associated mesenteric stranding. No well-defin ed transition point is identified although the distal ileum is decompressed. The right colon is fluid -filled. Pelvic surgical clips are noted. Uterus is surgically absent. No pathologic lymphadenopathy. No acute fractures within the visualized skeletal structures. IMPRESSION: 1. Multiple loops of mildly dilated fluid-filled small bowel with minimal associated mesenteric stran ding. Although no well-defined transition point, the terminal ileum is decompressed. Therefore, the f indings could reflect a partial small bowel obstruction or enteritis with ileus. Fluid-filled right c olon. 2. Moderate gaseous distention of the stomach. ACT 112: Negative or not required by law. Electronically signed by: Jermain Diez M.D. 04/24/2022 8:28 AM
[2022-04-24 08:40] LABS: Appearance Urine Clear (Clear); Bilirubin Urine Negative (Negative); Blood Urine Negative (Negative); Color Urine Yellow; Glucose Urine UA Negative (Negative); Ketones Urine Trace (Negative); Leukocyte Esterase Urine Negative (Negative); Nitrite Urine Negative (Negative); Protein Urine Negative (Negative); Specific Gravity Urine 1.021 (1.000-1.030); Urobilinogen Urine Negative (Negative)
[2022-04-24] MEDS ORDERED: ALUMINUM/MAGNESIUM SUSP 30 ML UDC PO PRN (08:55)
[2022-04-24] MEDS ORDERED: ACETAMINOPHEN 325 MG TAB PO PRN (08:55)
[2022-04-24] MEDS ORDERED: MAGNESIUM HYDROXIDE SUSP 30 ML UDC PO PRN (08:55)
[2022-04-24] MEDS ORDERED: ONDANSETRON INJ 2 MG/ML 2 ML VIAL IV PRN (08:55)
[2022-04-24] MEDS ORDERED: POLYETHYLENE (MIRALAX) 17 GM PACK PO PRN (08:55)
--- NOTE | 2022-04-24 08:55 | History & Physical Report ---
Date of Service April 24, 2022 Assessment & Plan (1) Abdominal pain: (2) SBO (small bowel obstruction): (3) Chronic atrial fibrillation: (4) HTN (hypertension): (5) CKD (chronic kidney disease), stage III: (6) HLD (hyperlipidemia): (7) YOBANI (obstructive sleep apnea): (8) Hypothyroidism: Plan 82-year-old with abdominal pain. Abdominal/pelvic CT shows partial small bowel obstruction Abdominal pain: partial Small Bowel Obstruction vs enteritis with Ileus: Abdominal pain started 24 hours ago complex history of abdominal sx: cholecystectomy, appendectomy, hysterectomy, and partial colon resection Abdominal/Pelvic CT: could reflect a partial small bowel obstruction or enteritis with ileus. Fluid-filled right colon. Does not appear toxic Last BM 04/23; stool culture ordered and pending Some leukocytosis: WBC 13.74 Keep NPO 500 mL NSB administered in ED Continue gentle rehydration 0.9 NS at 60 mL/h x 2 bags; reassess BMP in a.m. Pain management with Dilaudid 0.5 mg every 6 PRN Empirically cover with Rocephin and Flagyl GEN surge consult Chronic Atrial Fibrillation: Takes Eloquis; continue Follows with Wesley Liriano PA-C OPT HTN: Takes Losartan; continue HFpEF: Diastolic; tricuspid regurg last echo 2018 EF 55% CKD3: Creatinine 1.33; baseline 1.1-1.2 Do not suspect REBECA at this time 500 mL NSB administered in ED Continue gentle rehydration 0.9 NS at 60 mL/h x 2 bags; reassess BMP in a.m. HLD: Takes Rosuvastatin; Continue YOBANI: CPAP at home Okay to use CPAP from home here Hypothyroidism: Takes Levothyroxine TSH 1.33 11/2021 Disposition: PCP: Dr. Arita Code Status: Full Code VTE Prophylaxis: Heparin SQ I personally was able to review all current laboratory work and diagnostic images obtained in the ED. Additionally, I was able to review the patients past medication reconciliation and history with direct visualization in the patients chart. This patient was discussed and collaborated with Dr. Wood. Please see his addendum for further details. History of Present Illness Chief Complaint: abdominal pain Primary Care Provider: Randi Arita MD Ms. Wofl is a 82-year-old female that presented to the [facility] with right-sided mid abdominal pain that has been occurring over the past 24 hours. She has an extensive abdominal history specifically including a Betzadia cystectomy, appendectomy, hysterectomy, partial bowel resection status post SBO. The patient reports having a BM over the last 24 hours describes it as liquidy, without hematochezia. An abdominal and pelvic CT was obtained with results indicating ileus with enteritis versus partial small bowel obstruction. The patient denies nausea or vomiting. The patient indicates that her appetite and oral intake have been at baseline. Additionally the patient denies chest pain, palpitations, dizziness, recent falls or trauma, recent illness. Patient is vaccinated against influenza and COVID. Patient uses a walker at home. Additional past medical history includes chronic atrial fibrillation (On Eloquis), CKD stage III, gout, HTN, HLD, occipital stroke (2016), history of uterine cancer and obesity. The patient follows with Wesley Liriano PA-C outpatient for her diastolic heart failure. Upon examination, patient is sitting upright in her hospital bed in no apparent distress. Her daughter Chel is at the bedside and both are able to participate in meaningful conversation. Patient is a good historian. Patient initially was hypertensive in the ED however suspect this was related to pain, pain has lessened and patient is normotensive at the time of my exam. Patient's abdomen is tender with hypoactive bowel sounds. As stated previously no nausea or vomiting. Patient with trace to +1 bilateral lower extremity edema which she describes as her baseline. Patient states she does have pain and spasms in her left foot related to past injury for which she takes gabapentin for. This patient will be admitted for further evaluation and management. For now, patient will be gently rehydrated, empirically treated with antibiotics, pain management with Dilaudid, keep n.p.o. for now and have general surgery consultation for input. Appreciate their assistance. Please see A/P for further details. Allergies Allergy/AdvReac Type Severity Reaction Status Date / Time adhesive Allergy Mild SKIN Verified 09/22/21 12:22 IRRITATION AND PULLS SKIN OFF Iodinated Contrast Media Allergy Mild RASH Verified 09/22/21 12:22 morphine Allergy Unknown UNKNOWN Verified 09/22/21 12:22 Penicillins Allergy Unknown UNKNOWN Verified 09/22/21 12:22 salicylates Allergy Unknown CAUSES Verified 09/22/21 12:22 HIVES aspirin AdvReac Mild Hives Verified 09/22/21 12:22 codeine AdvReac Mild CAUSES Verified 09/22/21 12:22 NAUSEA Home Medications Medication Instructions Recorded Confirmed Type cholecalciferol (vitamin D3) 50 2,000 unit PO 2XWK 02/01/18 04/24/22 History mcg (2,000 unit) tablet levothyroxine 75 mcg tablet 75 mcg PO QAM 02/01/18 04/24/22 History (Synthroid) losartan 25 mg tablet (Cozaar) 25 mg PO DAILY 02/01/18 04/24/22 History apixaban 5 mg tablet (Eliquis) 5 mg PO BID 09/11/21 04/24/22 History biotin 5,000 mcg sublingual tablet 5,000 mcg sublingual 2XWK 09/11/21 04/24/22 History gabapentin 100 mg capsule 200 mg PO HS 09/11/21 04/24/22 History rosuvastatin 10 mg tablet 10 mg PO QAM 09/11/21 04/24/22 History potassium chloride 10 mEq 10 meq PO DAILY 30 days #30 caps 09/24/21 04/24/22 Rx capsule,extended release furosemide 40 mg tablet (Lasix) 40 mg PO DAILY 04/24/22 04/24/22 History tramadol 50 mg tablet 25 mg PO Q6H PRN pain 04/24/22 04/24/22 History Past Med/Surg History Medical History Abdominal pain Chronic atrial fibrillation follows [facility] - taking eliquis - approx 9 years ago - not symptomatic CKD (chronic kidney disease), stage III Gout History of uterine cancer HLD (hyperlipidemia) HTN (hypertension) Hypothyroidism Obesity Occipital stroke 2015 - no residual effects - follow a neurologist (unsure name) YOBANI (obstructive sleep apnea) on cpap Surgical History History of back surgery approx 1982, L4 History of bilateral knee replacement Hx of colonoscopy >10yrs ago, no problems noted Hx of right cataract extraction 2004 Status post cataract extraction "L side 1994" Status post cholecystectomy "09/14/04; performed by Dr. Barry" Status post hysterectomy "1989" Status post lumbar surgery "1984" Status post partial colectomy "10/20/2003" Status post tonsillectomy Status post total shoulder arthroplasty "L side; Dr. 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 (+) tender abdomen : (-) urinary changes Skin: (-) rashes Psych: (-) anxiety, depression Physical Exam Physical Exam: Neuro: AAOx4, PERRLA, no aphagia, memory changes, CNII-XII grossly intact HEENT: head normocephalic, moist mucus membranes CV: Irreguarly irregular, (-) M/G/R, (+)1 LE BL edema, cap refill < 3 seconds (+) varicose veins BL LE Resp: Lungs CTA in all lomeli. On RA GI: Abdomen tender, soft, large/non-distended, hypoactive bowel sounds x 4, (-) CVA tenderness Musculoskeletal: 5/5 B/L UE strength, 5/5 B/L LE strength. No gait disturbance Skin: (-) rashes , (-) erythema. Psych: euthymic mood Results & Data Results & Data ([facility]) Vital Signs (Past 12 Hours) Vital Signs Temp Pulse Resp BP Pulse Ox O2 Del Method 04/24/22 07:51 66 22 94 Room Air 04/24/22 07:42 36.7 C 66 22 161/89 H 94 Room Air Laboratory Results Short CBC 04/24/22 Range/Units 07:45 WBC 13.74 H (4.8-10.8) K/ul Hgb 13.9 (12.0-16.0) g/dl Hct 41.1 (34.1-44.9) % Plt Count 206 (130-400) K/uL BMP 04/24/22 07:45 Sodium 137 Potassium 4.0 Chloride 102 Carbon Dioxide 28 BUN 29 H Creatinine 1.33 H Glucose 144 H Calcium 9.6 Liver Function 04/24/22 Range/Units 07:45 Total Bilirubin 1.7 H (0.2-1.0) mg/dl AST 19 (13-39) U/L ALT 8 (7-52) U/L Alkaline Phosphatase 83 (34-104) U/L Albumin 4.3 (3.4-5.0) gm/dl Urine 04/24/22 Range/Units Unknown Urine Color Yellow Urine Appearance Clear (Clear) Urine pH 5.0 (4.5-7.5) Ur Specific [place] 1.021 (1.000-1.030) Urine Protein Negative (Negative) Urine Glucose (UA) Negative (Negative) Diagnostic Findings Abdomen/Pelvis CT 04/24/22 07:51 CT OF THE ABDOMEN AND PELVIS WITHOUT CONTRAST CLINICAL HISTORY: Right-sided abdominal pain. COMPARISON STUDY: CT of the abdomen and pelvis January 31, 2021. TECHNIQUE: Axial images of the abdomen and pelvis were obtained without IV contrast. Images were reviewed in the axial, sagittal, and coronal planes. Automated exposure control was utilized for the study. A dose lowering techni que was utilized adhering to the principles of ALARA. FINDINGS: Mild groundglass opacities with mosaic attenuation within the lung bases are noted. Moderate cardiomegaly is present. There is no pneumatosis, free air or portal venous gas. Liver surface is slightly nodular. This is unchanged. Dilatation of the common bile duct is unchanged. The gallbladder may be surgically absent. Unenhanced images of the spleen, adrenal glands and pancreas are unremarkable. Water attenuation bilateral renal lesions favor cysts. These are unchanged. There is no hydronephrosis. Moderate gaseous distention of the stomach. There are multiple loops of mildly dilated fluid-filled small bowel with air-fluid levels. There is mild associated mesenteric stranding. No well- defined transition point is identified although the distal ileum is decompressed. The right colon is fluid-filled. Pelvic surgical clips are noted. Uterus is surgically absent. No pathologic lymphadenopathy. No acute fractures within the visualized skeletal structures. IMPRESSION: 1. Multiple loops of mildly dilated fluid-filled small bowel with minimal associated mesenteric stranding. Although no well-defined transition point, the terminal ileum is decompressed. Therefore, the findings could reflect a partial small bowel obstruction or enteritis with ileus. Fluid-filled right colon. 2. Moderate gaseous distention of the stomach. ACT 112: Negative or not required by law. Electronically signed by: Jermain Diez M.D. 04/24/2022 8:28 AM Code Status & VTE Plan Code Status Full code in the event of cardiac or respiratory arrest VTE Prophylaxis Plan VTE Prophylaxis will be ordered: Yes Supervising Physician Co-Signing Physician Notes Patient is an 82-year-old female with history of diastolic heart failure, paroxysmal atrial fibrillation on chronic anticoagulation with Eliquis, CKD stage III, H/O multiple abdominal surgeries and other medical problems presents with history of worsening abdominal pain associated with an episode of loose bowel movement. Patient denied any fever, chills, nausea, vomiting, chest pain, dyspnea. Her last Eliquis dose was yesterday morning. She denies any blood in stools. Please review HPI for complete details of presentation. Blood work showed leukocytosis with 13.74K, creatinine slightly improved from baseline to 1.3, glucose 144, total bili 1.7, otherwise within normal limits. Urinalysis showed trace ketones. CT abdomen suggestive of partial small bowel obstruction or enteritis with ileus. Also noted moderate gaseous distention of the stomach. On exam patient is obese, no apparent distress, normocephalic atraumatic, EOMI, normal breath sounds, clear to auscultation, S1-S2, no murmur, trace pedal edema, abdomen soft, mildly distended, tender predominantly in the right upper gastric, right upper quadrant and lower quadrant regions. Decreased bowel sounds but present. No guarding or rigidity. Alert, awake, oriented, grossly no focal deficits. Patient is admitted for management of partial small bowel obstruction, possible enteritis. Appreciate surgery input. Conservative management with bowel rest, IV fluids, pain control. Empirically started on antibiotics. Stool studies pending. Continue to hold Eliquis for now. Monitor volume status given history of diastolic failure. I personally reviewed the record. Patient is interviewed and examined at bedside. Patient's care is coordinated with Dana GARCIA . Please refer to the documentation above for details of patient's presentation and for discussion of other issues. (1) HTN (hypertension) Hypertension type: unspecified Qualified Code(s): I10 - Essential (primary) hypertension
[2022-04-24] MEDS ORDERED: traMADol HCL 50 MG TABLET PO PRN (09:51)
[2022-04-24] MEDS ORDERED: NON-FORMULARY MEDICATION (Biotin 5,000 mcg Tablet, Sublingual) SL SCH (10:00)
[2022-04-24] MEDS ORDERED: metroNIDAZOLE 500 MG/100 ML BAG IV STA (10:25)
[2022-04-24] MEDS ORDERED: cefTRIAXone SODIUM 2,000 MG/70 ML BAG IV ONE (10:30)
[2022-04-24] MEDS: SODIUM CHLORIDE 0.9% 1000ML 1,000 ML IV SCH (10:46)
--- NOTE | 2022-04-24 11:19 | Surgery Consultation ---
Date of Consultation April 24, 2022 Assessment & Plan (1) Partial small bowel obstruction: This is an 82yF of HTN, HLD, CKD, afib on eliquis who presents to the [facility] ED on 04/24/22 with complaints of abdominal pain around midnight. A CT a/p was performed that revealed "multiple loops of mildly dilated fluid-filled small bowel with minimal associated mesenteric stranding. Although no well-defined transition point, the terminal ileum is decompressed. Therefore, the findings could reflect a partial small bowel obstruction or enteritis with ileus. Fluid-filled right colon." On exam patient's abdomen is obese, soft, not overly distended, with generalized discomfort to palpation- worse in the right mid/lower abdomen. WBC 13, Cr: 1.3, could be on miri of some dehydration. Vital signs are stable. Past abdominal surgical history as above. For now would recommend a course of conservative management. NPO with IVF and ice/sips. Okay to hold off on NGT for now as no nausea/vomiting, but low threshold to place should the patient's symptoms worsen. No plans for acute surgical intervention. Will follow. Supervising Physician Co-Signing Physician Notes Dr. Nguyễn presented emergency room with abdominal pain somewhat right sided No nausea or vomiting, no complaint of flulike symptoms. CT scan shows gaseous distention of the stomach with minimal fluid Also very mildly distended small bowel loops with air and fluid-possible partial SBO versus enteritis Patient is awake and alert in no distress, has minimal abdominal pain at this time She does have good bowel sounds and minimal tenderness to palpation We will hold off on NG tube, nonoperative management at the present time History of Present Illness History of Present Illness This is an 82yF of HTN, HLD, CKD, afib on eliquis who presents to the [facility] ED on 04/24/22 with complaints of abdominal pain. Patient reports her abdominal pain started around midnight. She thought it was gas pains, however the pain progressively worsened to the point she rated it a 25/10 in severity. She was afraid she was developing a bowel obstruction, she had one a few years ago, therefore reports to the ER for evaluation. A CT a/p was performed that revealed "multiple loops of mildly dilated fluid-filled small bowel with minimal associated mesenteric stranding. Although no well-defined transition point, the terminal ileum is decompressed. Therefore, the findings could reflect a partial small bowel obstruction or enteritis with ileus. Fluid-filled right colon." She does tell me she at a handful of macadamia nuts yesterday and wonders if that is why she felt unwell. Patient denies any nausea/vomiting with this episode. Had normal BMs yesterday, but a bout of diarrhea this AM. Denies passing flatus curr ently. Past abdominal surgical history includes a cholecystectomy, appendectomy, partial colectomy for diverticulitis, and hysterectomy. She is currently feeling a bit better than admission. Reports her daughter was sick recently with either the flu or a head cold, but they have been avoiding contact with one another. No other sick contacts. Allergies Allergy/AdvReac Type Severity Reaction Status Date / Time adhesive Allergy Mild SKIN Verified 09/22/21 12:22 IRRITATION AND PULLS SKIN OFF Iodinated Contrast Media Allergy Mild RASH Verified 09/22/21 12:22 morphine Allergy Unknown UNKNOWN Verified 09/22/21 12:22 Penicillins Allergy Unknown UNKNOWN Verified 09/22/21 12:22 salicylates Allergy Unknown CAUSES Verified 09/22/21 12:22 HIVES aspirin AdvReac Mild Hives Verified 09/22/21 12:22 codeine AdvReac Mild CAUSES Verified 09/22/21 12:22 NAUSEA Home Medications Medication Instructions Recorded Confirmed Type cholecalciferol (vitamin D3) 50 2,000 unit PO 2XWK 02/01/18 04/24/22 History mcg (2,000 unit) tablet levothyroxine 75 mcg tablet 75 mcg PO QAM 02/01/18 04/24/22 History (Synthroid) losartan 25 mg tablet (Cozaar) 25 mg PO DAILY 02/01/18 04/24/22 History apixaban 5 mg tablet (Eliquis) 5 mg PO BID 09/11/21 04/24/22 History biotin 5,000 mcg sublingual tablet 5,000 mcg sublingual 2XWK 09/11/21 04/24/22 History gabapentin 100 mg capsule 200 mg PO HS 09/11/21 04/24/22 History rosuvastatin 10 mg tablet 10 mg PO QAM 09/11/21 04/24/22 History potassium chloride 10 mEq 10 meq PO DAILY 30 days #30 caps 09/24/21 04/24/22 Rx capsule,extended release furosemide 40 mg tablet (Lasix) 40 mg PO DAILY 04/24/22 04/24/22 History tramadol 50 mg tablet 25 mg PO Q6H PRN pain 04/24/22 04/24/22 History Patient History Medical History Abdominal pain Chronic atrial fibrillation follows [facility] - taking eliquis - approx 9 years ago - not symptomatic CKD (chronic kidney disease), stage III Gout History of uterine cancer HLD (hyperlipidemia) HTN (hypertension) Hypothyroidism Obesity Occipital stroke 2015 - no residual effects - follow a neurologist (unsure name) YOBANI (obstructive sleep apnea) on cpap Surgical History History of back surgery approx 1982, L4 History of bilateral knee replacement Hx of colonoscopy >10yrs ago, no problems noted Hx of right cataract extraction 2004 Status post cataract extraction "L side 1994" Status post cholecystectomy "09/14/04; performed by Dr. Barry" Status post hysterectomy "1989" Status post lumbar surgery "1984" Status post partial colectomy "10/20/2003" Status post tonsillectomy Status post total shoulder arthroplasty "L side; Dr. 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 Beliefs That Will Affect Care: None marital status: Current Living Situation: Alone Current Living Situation Comment: lives alone, 2 steps to get into the house current occupational status: retired Feels Safe at Home: Yes Assistive Devices: CPAP and Walker Review of Systems Constitutional: no fever and no chills Respiratory: no cough and no dyspnea Cardiovascular: no chest pain Gastrointestinal: + abdominal pain and + diarrhea/loose stools (x1 this morning); no nausea and no vomiting Physical Exam Physical Exam: awake/alert, no distress Respiratory: normal respiratory effort Gastrointestinal (Abdomen): Inspection/Auscultation: + abdominal surgical scar (midline) Percussion/Palpation: + abdomen tender (generalized discomfort to palpation, worse on R mid/lower abdomen) and abdomen soft Results & Data ([facility]) Vital Signs (Past 12 Hours) Vital Signs Temp Pulse Resp BP Pulse Ox O2 Del Method 04/24/22 07:51 66 22 94 Room Air 04/24/22 07:42 36.7 C 66 22 161/89 H 94 Room Air Diagnostic Findings [place], [place] [phone] CT Scan Report Patient:GEORGIE HOLMAN Admit Date:04/24/22 MR#:[id number] Address1:[address] [place] [address] Acct ID:[id number] Address2: Date:1940 [facility] Zip:[place] [address] Age:82 Location:ED Sex:F Room/Bed: Att Phy: Diagnosis:ABDOMINAL PAIN Zoey Phy:Randi Arita MD Service Date:04/24/22 Fam Phy: Interpreting Phy:Jermain Diez MDAdmit Phy: Ordering Phy:Erik Nix DO cc: ~ CT OF THE ABDOMEN AND PELVIS WITHOUT CONTRAST CLINICAL HISTORY: Right-sided abdominal pain. COMPARISON STUDY: CT of the abdomen and pelvis January 31, 2021. TECHNIQUE: Axial images of the abdomen and pelvis were obtained without IV contrast. Images were reviewed in the axial, sagittal, and coronal planes. Automated exposure control was utilized for the study. A dose lowering technique was utilized adhering to the principles of ALARA. FINDINGS: Mild groundglass opacities with mosaic attenuation within the lung bases are noted. Moderate cardiomegaly is present. There is no pneumatosis, free air or portal venous gas. Liver surface is slightly nodular. This is unchanged. Dilatation of the common bile duct is unchanged. The gallbladder may be surgically absent. Unenhanced images of the spleen, adrenal glands and pancreas are unremarkable. Water attenuation bilateral renal lesions favor cysts. These are unchanged. There is no hydronephrosis. Moderate gaseous distention of the stomach. There are multiple loops of mildly dilated fluid-filled small bowel with air-fluid levels. There is mild associated mesenteric stranding. No well- defined transition point is identified although the distal ileum is decompressed. The right colon is fluid-filled. Pelvic surgical clips are noted. Uterus is surgically absent. No pathologic lymphadenopathy. No acute fractures within the visualized skeletal structures. IMPRESSION: 1. Multiple loops of mildly dilated fluid-filled small bowel with minimal associated mesenteric stranding. Although no well-defined transition point, the terminal ileum is decompressed. Therefore, the findings could reflect a partial small bowel obstruction or enteritis with ileus. Fluid-filled right colon. 2. Moderate gaseous distention of the stomach. ACT 112: Negative or not required by law. Electronically signed by: Jermain Diez M.D. 04/24/2022 8:28 AM PG Care Time/CCT Total # of Minutes Spent Total Time Spent with Patient: Total time spent is greater than 50% in coordination of care (as documented) at patient's floor/unit and/or counseling patient: Coding Level of Care Code 44394 INT INP/OBS CARE MIN Diagnoses Partial small bowel obstruction K56.600
[2022-04-24] MEDS ORDERED: HYDROmorphone INJ 0.5 MG/0.5 ML SYR IV PRN (12:46)
[2022-04-24] MEDS: GABAPENTIN 100 MG CAP PO SCH (20:31)
[2022-04-24] MEDS: HEPARIN SOD 5,000 UNIT/0.5 ML VIAL SQ SCH (20:32)
[2022-04-24] MEDS: metroNIDAZOLE 500 MG/100 ML BAG IV SCH (20:32)
[2022-04-25] MEDS: metroNIDAZOLE 500 MG/100 ML BAG IV SCH ×3 (03:57→18:27)
[2022-04-25] MEDS: SODIUM CHLORIDE 0.9% 1000ML 1,000 ML IV SCH (04:00)
[2022-04-25 04:51] LABS: Hematocrit (blood only) 35.9 % (34.1-44.9); Hemoglobin 11.8 g/dl (12.0-16.0); Mean Corpuscular Hemoglobin 30.8 pg (25.0-34.0); Mean Corpuscular Hgb Conc 32.9 g/dL (32.0-36.0); Mean Corpuscular Volume 93.7 fL (80.0-100.0); Mean Platelet Volume 9.8 fL (9.4-12.3); Platelet Count 171 K/uL (130-400); RDW Coefficient of Variation 13.6 % (11.5-14.5); RDW Standard Deviation 46.2 fL (36.4-46.3); Red Blood Count 3.83 M/uL (3.93-5.22); White Blood Count 8.45 K/ul (4.8-10.8)
[2022-04-25 05:14] LABS: Calcium 8.7 mg/dl (8.5-10.1); Creatinine Clr Calc Pharmacy 48.7 ml/min; Est GFR (African American) 59.9 ml/min; Est GFR (Non-African American) 51.7 ml/min; Magnesium 2.1 mg/dl (1.7-2.4); Potassium 4.2 mmol/L (3.5-5.1)
[2022-04-25] MEDS: LEVOTHYROXINE SODIUM 75 MCG TABLET PO SCH (05:49)
--- NOTE | 2022-04-25 06:34 | Surgery Progress Note ---
Date of Service April 25, 2022 Assessment & Plan (1) SBO (small bowel obstruction): Plan: It appears she is improving and does not have a significant obstruction This may be just mild enteritis or an ileus I think we should try some clear liquids which I have ordered Her pain is from her left foot and not from her abdomen We will continue to monitor-advance diet as tolerated Admission and Anticipated Discharge Date Admission Date: April 24, 2022 Subjective Patient is awake and alert sitting in the edge of the bed She has no complaints of abdominal pain and feels relatively normal with respect to her abdomen She did receive some pain medication for left foot pain and for which she is sitting up Review of Systems Review of Systems: All systems reviewed & are unremarkable except as noted in HPI & below Physical Exam Constitutional: no acute distress Eyes: + anicteric sclerae Respiratory: normal respiratory effort; no respiratory distress Cardiovascular: Rate/Rhythm: regular rate Gastrointestinal (Abdomen): Inspection/Auscultation: normal bowel sounds Musculoskeletal: Head/Neck/Chest: head atraumatic Skin: no rashes, warm and dry Neurologic: awake Psychiatric: Orientation: alert Results & Data ([facility]) Vital Signs (Past 12 Hours) Vital Signs Pulse Resp BP Pulse Ox O2 Del Method O2 Flow Rate 04/25/22 02:03 63 15 131/57 L 100 Nasal Cannula 2 04/25/22 00:50 Nasal Cannula 2 PG Care Time/CCT Total # of Minutes Spent Total Time Spent with Patient: Total time spent is greater than 50% in coordination of care (as documented) at patient's floor/unit and/or counseling patient: Coding Level of Care Code INP/OBS CONSULT LVL 2, 35 MIN Diagnoses SBO (small bowel obstruction) K56.609
[2022-04-25] MEDS: ROSUVASTATIN CALCIUM 10 MG TAB PO SCH (08:23)
[2022-04-25] MEDS: LOSARTAN POTASSIUM 25 MG TAB PO SCH (08:23)
[2022-04-25] MEDS: HEPARIN SOD 5,000 UNIT/0.5 ML VIAL SQ SCH ×2 (08:24→21:34)
--- NOTE | 2022-04-25 08:29 | Hospitalist Progress Note ---
Date of Service April 25, 2022 Assessment & Plan (1) Abdominal pain: (2) SBO (small bowel obstruction): (3) Chronic atrial fibrillation: (4) HTN (hypertension): (5) CKD (chronic kidney disease), stage III: (6) HLD (hyperlipidemia): (7) YOBANI (obstructive sleep apnea): (8) Hypothyroidism: Plan 82-year-old with abdominal pain. Abdominal/pelvic CT shows partial small bowel obstruction Abdominal pain: partial Small Bowel Obstruction vs enteritis with Ileus: Abdominal pain started 24 hours ago complex history of abdominal sx: cholecystectomy, appendectomy, hysterectomy, and partial colon resection Abdominal/Pelvic CT: could reflect a partial small bowel obstruction or enteritis with ileus. Fluid-filled right colon. Does not appear toxic Last BM 04/23; stool culture ordered and pending Some leukocytosis: WBC 13.74 Keep NPO 500 mL NSB administered in ED Continue gentle rehydration 0.9 NS at 60 mL/h x 2 bags; reassess BMP in a.m. Pain management with Dilaudid 0.5 mg every 6 PRN Empirically cover with Rocephin and Flagyl GEN surge consult 04/25 patient feeling better, denies any abdominal pain. She is passing flatus. Stool studies ordered but not collected. No BM in the hospital. Starting clear liquid diet today Chronic Atrial Fibrillation: Takes Eloquis; continue Follows with Wesley Liriano PA-C OPT HTN: Takes Losartan; continue HFpEF: Diastolic; tricuspid regurg last echo 2018 EF 55% CKD3: Creatinine 1.33; baseline 1.1-1.2 Do not suspect REBECA at this time Received gentle hydration in ED Now Cr 1 HLD: Takes Rosuvastatin; Continue YOBANI: CPAP at home Okay to use CPAP from home here Hypothyroidism: Takes Levothyroxine TSH 1.33 11/2021 Disposition: PCP: Dr. Arita Code Status: Full Code VTE Prophylaxis: Heparin SQ Admission and Anticipated Discharge Date Admission Date: April 24, 2022 Subjective Pt seen in follow up of SBO Currently denies any abdominal pain Reports she is passing gas Had diarrhea prior to coming to hospital, stool studies ordered but not collected No BM in the hospital Seen by surgery, plan to start liquid diet Patient also denies any fevers chills chest pain shortness of breath nausea vomiting Review of Systems Review of Systems: All systems reviewed & are unremarkable except as noted in Subjective Physical Exam Physical Exam: General: elderly F WD/WN in NAD HEENT: head normocephalic, moist mucus membranes CV: Irreguarly irregular, (-) M/G/R, (+)1 LE BL edema, (+) varicose veins BL LE Resp: Lungs CTA in all lomeli. On RA GI: Abdomen nontender, soft, hypoactive bowel sounds x 4, (-) CVA tenderness Musculoskeletal: 5/5 B/L UE strength, 5/5 B/L LE strength. No gait disturbance Neuro: AAOx4, PERRL, speech fluent, no facial asymmetry, moves extremities Skin: (-) rashes , (-) erythema. Psych: euthymic mood Results & Data Results & Data ([facility]) Vital Signs (Past 12 Hours) Vital Signs Temp Pulse Resp BP Pulse Ox Pulse Ox O2 Del Method 04/25/22 08:01 36.4 C L 59 L 20 139/75 92 Room Air 04/25/22 07:55 92 04/25/22 02:03 63 15 131/57 L 100 Nasal Cannula 04/25/22 00:50 Nasal Cannula O2 Del Method O2 Flow Rate 04/25/22 08:01 04/25/22 07:55 Room Air 04/25/22 02:03 2 04/25/22 00:50 2 Laboratory Results 04/25/22 04/25/22 04/25/22 Range/Units 04:40 04:40 04:40 WBC 8.45 (4.8-10.8) K/ul RBC 3.83 L (3.93-5.22) M/uL Hgb 11.8 L (12.0-16.0) g/dl Hct 35.9 (34.1-44.9) % MCV 93.7 (80.0-100.0) fL MCH 30.8 (25.0-34.0) pg MCHC 32.9 (32.0-36.0) g/dL RDW Std Deviation 46.2 (36.4-46.3) fL RDW Coeff of Jayla 13.6 (11.5-14.5) % Plt Count 171 (130-400) K/uL MPV 9.8 (9.4-12.3) fL Sodium 140 (136-145) mmol/L Potassium 4.2 (3.5-5.1) mmol/L Chloride 108 H (98-107) mmol/L Carbon Dioxide 27 (21-32) mmol/L Anion Gap 5 (3-11) BUN 24 H (6-23) mg/dl Creatinine 1.00 D (0.6-1.2) mg/dl Est Cr Clr Drug Dosing 48.7 ml/min Est GFR ( Amer) 59.9 ml/min Est GFR (Non-Af Amer) 51.7 ml/min BUN/Creatinine Ratio 24.0 H (10-20) Glucose 96 (70-99(Fasting)) mg/dl Calcium 8.7 (8.5-10.1) mg/dl Phosphorus 3.3 (2.5-4.9) mg/dl Magnesium 2.1 (1.7-2.4) mg/dl Medications Administered Current Inpatient Medications Acetaminophen (Acetaminophen 325 Mg Tab) 650 mg PO Q4H PRN PRN Reason: Pain or Fever Stop: 05/24/22 08:54 Al Hydrox/Mg Hydrox/Simethicone (Aluminum/Magnesium Susp 30 Ml Udc) 15 ml PO Q4H PRN PRN Reason: Dyspepsia Stop: 05/24/22 08:54 Gabapentin (Gabapentin 100 Mg Cap) 200 mg PO HS ARIC Stop: 05/24/22 20:59 Last Admin: 04/24/22 20:31 Dose: 200 mg Heparin Sodium (Porcine) (Heparin Sod 5,000 Unit/0.5 Ml Vial) 5,000 units SQ Q12 [facility] Stop: 05/24/22 20:59 Last Admin: 04/25/22 08:24 Dose: 5,000 units Hydromorphone HCl (Hydromorphone Inj 0.5 Mg/0.5 Ml Syr) 0.5 mg IV Q6H PRN PRN Reason: Pain Stop: 05/08/22 12:45 Sodium Chloride (Nss 1000ml) 1,000 mls @ 60 mls/hr IV .[id number] ARIC Stop: 04/25/22 19:19 Last Admin: 04/25/22 04:00 Dose: 60 mls/hr Ceftriaxone Sodium 2,000 mg/ (Dextrose) 70 mls @ 100 mls/hr IV Q24H [facility]; Protocol Stop: 05/05/22 10:59 Metronidazole (Flagyl) 500 mg in 100 mls @ 100 mls/hr IV Q8H [facility] Stop: 05/04/22 18:59 Last Infusion: 04/25/22 05:47 Dose: Infused Levothyroxine Sodium (Levothyroxine Sodium 75 Mcg Tablet) 75 mcg PO DAILYBB [facility] Stop: 05/25/22 06:29 Last Admin: 04/25/22 05:49 Dose: 75 mcg Losartan Potassium (Losartan Potassium 25 Mg Tab) 25 mg PO DAILY [facility] Stop: 05/25/22 08:59 Last Admin: 04/25/22 08:23 Dose: 25 mg Magnesium Hydroxide (Magnesium Hydroxide Susp 30 Ml Udc) 30 ml PO Q12H PRN PRN Reason: Constipation Stop: 05/24/22 08:54 Ondansetron HCl (Ondansetron Inj 2 Mg/Ml 2 Ml Vial) 4 mg IV Q6H PRN PRN Reason: Nausea Stop: 05/24/22 08:54 Polyethylene Glycol (Polyethylene (Miralax) 17 Gm Pack) 17 gm PO DAILY PRN PRN Reason: Constipation Stop: 05/24/22 08:54 Potassium Chloride (Potassium Chloride 10 Meq Tabcr) 10 meq PO DAILY [facility] Stop: 05/25/22 08:59 Last Admin: 04/25/22 08:41 Dose: Not Given Rosuvastatin Calcium (Rosuvastatin Calcium 10 Mg Tab) 10 mg PO QAM [facility] Stop: 05/25/22 08:59 Last Admin: 04/25/22 08:23 Dose: 10 mg Tramadol HCl (Tramadol Hcl 50 Mg Tablet) 25 mg PO Q6H PRN PRN Reason: pain Stop: 05/24/22 09:50 Last Admin: 04/25/22 04:03 Dose: 25 mg Vitamin D (Cholecalciferol 1,000 Units 25 Mcg Tab) 2,000 units PO SuTh@0900 [facility] Stop: 05/25/22 08:59 Last Admin: 04/25/22 08:23 Dose: 2,000 units (1) HTN (hypertension) Hypertension type: unspecified Qualified Code(s): I10 - Essential (primary) hypertension
[2022-04-25] MEDS: POTASSIUM CHLORIDE 10 MEQ TABCR PO SCH (08:41)
[2022-04-25] MEDS ORDERED: CHOLECALCIFEROL 1,000 UNITS 25 MCG TAB PO SCH (09:00)
[2022-04-25] MEDS: cefTRIAXone SODIUM 2,000 MG in DEXTROSE 5% 50 ML IV SCH (12:07)
[2022-04-25 21:17] LABS: Adenovirus F 40/41 PCR Not Detected (NotDetected); Astrovirus PCR Not Detected (NotDetected); Campylobacter PCR Not Detected (NotDetected); Cryptosporidium PCR Not Detected (NotDetected); Cyclospora cayetanensis PCR Not Detected (NotDetected); Entamoeba histolytica PCR Not Detected (NotDetected); Enteroaggregative E.coli(EAEC) Not Detected (NotDetected); Enteropathogenic E.coli (EPEC) Not Detected (NotDetected); Enterotoxigenic E.coli (ETEC) Not Detected (NotDetected); Giardia lamblia PCR Not Detected (NotDetected); Norovirus GI/GII PCR Not Detected (NotDetected); Plesiomonas shigelloides PCR Not Detected (NotDetected); Rotavirus A PCR Not Detected (NotDetected); Salmonella PCR Not Detected (NotDetected); Sapovirus PCR Not Detected (NotDetected); Shiga-like Toxin E.coli (STEC) Not Detected (NotDetected); Shigella/Enteroinvasive E.coli Not Detected (NotDetected); Vibrio cholerae PCR Not Detected (NotDetected); Vibrio species PCR Not Detected (NotDetected); Yersinia enterocolitica PCR Not Detected (NotDetected)
[2022-04-25] MEDS: GABAPENTIN 100 MG CAP PO SCH (21:34)
[2022-04-26] MEDS: metroNIDAZOLE 500 MG/100 ML BAG IV SCH ×3 (02:52→11:28)
[2022-04-26] MEDS ORDERED: DOCUSATE SODIUM/SENNA 50/8.6MG TAB PO STA (02:59)
[2022-04-26 06:40] LABS: Hematocrit (blood only) 36.4 % (34.1-44.9); Hemoglobin 11.9 g/dl (12.0-16.0); Mean Corpuscular Hemoglobin 30.2 pg (25.0-34.0); Mean Corpuscular Hgb Conc 32.7 g/dL (32.0-36.0); Mean Corpuscular Volume 92.4 fL (80.0-100.0); Platelet Count 169 K/uL (130-400); RDW Coefficient of Variation 13.5 % (11.5-14.5); RDW Standard Deviation 46.2 fL (36.4-46.3); Red Blood Count 3.94 M/uL (3.93-5.22); White Blood Count 7.71 K/ul (4.8-10.8)
[2022-04-26 07:02] LABS: BUN Creatinine Ratio 21.1 (10-20); Calcium 8.9 mg/dl (8.5-10.1); Creatinine Clr Calc Pharmacy 44.6 ml/min; Est GFR (Non-African American) 46.6 ml/min; Magnesium 2.1 mg/dl (1.7-2.4); Phosphorus 3.1 mg/dl (2.5-4.9); Potassium 4.3 mmol/L (3.5-5.1)
[2022-04-26] MEDS: LEVOTHYROXINE SODIUM 75 MCG TABLET PO SCH (07:14)
[2022-04-26] MEDS: ROSUVASTATIN CALCIUM 10 MG TAB PO SCH (08:09)
[2022-04-26] MEDS: HEPARIN SOD 5,000 UNIT/0.5 ML VIAL SQ SCH (08:09)
[2022-04-26] MEDS: POTASSIUM CHLORIDE 10 MEQ TABCR PO SCH (08:09)
[2022-04-26] MEDS: LOSARTAN POTASSIUM 25 MG TAB PO SCH (08:09)
--- NOTE | 2022-04-26 08:14 | Surgery Progress Note ---
Date of Service April 26, 2022 Assessment & Plan (1) Abdominal pain: Plan: Abdominal pain has resolved No evidence of obstruction requiring surgical intervention We will advance to low fiber diet Patient wishes to go home and if this is okay from a surgical standpoint Possible DC today Dr. Valdez is covering over the weekend Admission and Anticipated Discharge Date Admission Date: April 24, 2022 Subjective Patient tolerating full liquid diet She feels normal and wants to go home Had a bowel movement Review of Systems Review of Systems: All systems reviewed & are unremarkable except as noted in HPI & below Physical Exam Physical Exam: Abdomen is soft with bowel sounds Constitutional: no acute distress Eyes: + anicteric sclerae Respiratory: normal respiratory effort; no respiratory distress Cardiovascular: Rate/Rhythm: regular rate Gastrointestinal (Abdomen): Inspection/Auscultation: normal bowel sounds Musculoskeletal: Head/Neck/Chest: head atraumatic Skin: no rashes, warm and dry Neurologic: awake Psychiatric: Orientation: alert Results & Data ([facility]) Vital Signs (Past 12 Hours) Vital Signs Temp Pulse Pulse Resp BP Pulse Ox O2 Del Method 04/26/22 07:10 36.7 C 57 L 20 136/82 92 Room Air 04/26/22 02:45 36.4 C L 62 16 116/67 90 Room Air 04/25/22 21:00 60 04/25/22 22:30 36.6 C 56 L 18 132/77 91 Room Air PG Care Time/CCT Total # of Minutes Spent Total Time Spent with Patient: Total time spent is greater than 50% in coordination of care (as documented) at patient's floor/unit and/or counseling patient: Coding Level of Care Code INP/OBS CONSULT LVL 2, 35 MIN Diagnoses Abdominal pain R10.9
--- NOTE | 2022-04-26 08:31 | Hospitalist Progress Note ---
Date of Service April 26, 2022 Assessment & Plan (1) Abdominal pain: (2) SBO (small bowel obstruction): (3) Chronic atrial fibrillation: (4) HTN (hypertension): (5) CKD (chronic kidney disease), stage III: (6) HLD (hyperlipidemia): (7) YOBANI (obstructive sleep apnea): (8) Hypothyroidism: Plan 82-year-old with abdominal pain. Abdominal/pelvic CT shows partial small bowel obstruction Abdominal pain: partial Small Bowel Obstruction vs enteritis with Ileus: Abdominal pain started 24 hours ago prior to admission Complex history of abdominal sx: cholecystectomy, appendectomy, hysterectomy, and partial colon resection Abdominal/Pelvic CT: could reflect a partial small bowel obstruction or enteritis with ileus. Fluid-filled right colon. Does not appear toxic Last BM 04/23; stool culture ordered and pending Some leukocytosis: WBC 13.74 on admission -> now 7.7K Received gentle hydration Pain management Empirically covered with Rocephin and Flagyl GEN surge consult Stool studies obtained, negative Tolerated diet, seen by surgery, switched to low fiber diet Chronic Atrial Fibrillation: Takes Eliquis; continue Follows with Wesley Liriano PA-C OPT HTN: Takes Losartan; continue HFpEF: Diastolic; tricuspid regurg last echo 2018 EF 55% CKD3: Creatinine 1.33; baseline 1.1-1.2 Do not suspect REBECA at this time Received gentle hydration in ED Now Cr 1 HLD: Takes Rosuvastatin; Continue YOBANI: CPAP at home Okay to use CPAP from home here Hypothyroidism: Takes Levothyroxine TSH 1.33 11/2021 Disposition: PCP: Dr. Arita Code Status: Full Code VTE Prophylaxis: Heparin SQ Admission and Anticipated Discharge Date Admission Date: April 24, 2022 Subjective Pt seen in follow up of SBO Currently denies any abdominal pain Tolerating diet- switched to low fiber diet by surgery Had BM -stool studies negative Had diarrhea prior to coming to hospital Patient also denies any fevers chills chest pain shortness of breath nausea vomiting She would like to be discharged home. Review of Systems Review of Systems: All systems reviewed & are unremarkable except as noted in Subjective Physical Exam Physical Exam: General: elderly F WD/WN in NAD HEENT: head normocephalic, moist mucus membranes CV: Irreguarly irregular, (-) M/G/R, (+)1 LE BL edema, (+) varicose veins BL LE Resp: Lungs CTA in all lomeli. On RA GI: Abdomen nontender, soft,+ bowel sounds Musculoskeletal: 5/5 B/L UE strength, 5/5 B/L LE strength Neuro: AAOx4, PERRL, speech fluent, no facial asymmetry, moves extremities Skin: (-) rashes , (-) erythema. Psych: euthymic mood Results & Data Results & Data ([facility]) Vital Signs (Past 12 Hours) Vital Signs Temp Pulse Pulse Resp BP Pulse Ox O2 Del Method 04/26/22 07:10 36.7 C 57 L 20 136/82 92 Room Air 04/26/22 02:45 36.4 C L 62 16 116/67 90 Room Air 04/25/22 21:00 60 04/25/22 22:30 36.6 C 56 L 18 132/77 91 Room Air Laboratory Results 04/26/22 04/26/22 04/25/22 Range/Units 06:09 06:09 19:20 WBC 7.71 (4.8-10.8) K/ul RBC 3.94 (3.93-5.22) M/uL Hgb 11.9 L (12.0-16.0) g/dl Hct 36.4 (34.1-44.9) % MCV 92.4 (80.0-100.0) fL MCH 30.2 (25.0-34.0) pg MCHC 32.7 (32.0-36.0) g/dL RDW Std Deviation 46.2 (36.4-46.3) fL RDW Coeff of Jayla 13.5 (11.5-14.5) % Plt Count 169 (130-400) K/uL MPV 10.0 (9.4-12.3) fL Sodium 139 (136-145) mmol/L Potassium 4.3 (3.5-5.1) mmol/L Chloride 106 (98-107) mmol/L Carbon Dioxide 29 (21-32) mmol/L Anion Gap 4 (3-11) BUN 23 (6-23) mg/dl Creatinine 1.09 (0.6-1.2) mg/dl Est Cr Clr Drug Dosing 44.6 ml/min Est GFR ( Amer) 54.0 ml/min Est GFR (Non-Af Amer) 46.6 ml/min BUN/Creatinine Ratio 21.1 H (10-20) Glucose 91 (70-99(Fasting)) mg/dl Calcium 8.9 (8.5-10.1) mg/dl Phosphorus 3.1 (2.5-4.9) mg/dl Magnesium 2.1 (1.7-2.4) mg/dl Stl C. cayetanensis PCR Not Detected (NotDetected) Stool Rotavirus A PCR Not Detected (NotDetected) Stl Adenov F 40/41 PCR Not Detected (NotDetected) Stool Astrovirus (PCR) Not Detected (NotDetected) Stool Campylobacter PCR Not Detected (NotDetected) Stool Cryptosporidium PCR Not Detected (NotDetected) Stl E.coli Shiga Tox PCR Not Detected (NotDetected) Stl Enterotoxigenic E PCR Not Detected (NotDetected) Stool EPEC (PCR) Not Detected (NotDetected) Stool EAEC (PCR) Not Detected (NotDetected) Stl E. histolytica PCR Not Detected (NotDetected) Stool Giardia Lamblia PCR Not Detected (NotDetected) Stool Salmonella PCR Not Detected (NotDetected) Stool Sapovirus (PCR) Not Detected (NotDetected) Stl P. shigelloides PCR Not Detected (NotDetected) Stl Shigella/EIEC PCR Not Detected (NotDetected) St Y.enterocolitica PCR Not Detected (NotDetected) Stool Vibrio (PCR) Not Detected (NotDetected) Stl Vibrio cholerae PCR Not Detected (NotDetected) Stl Norovirus GI/GII PCR Not Detected (NotDetected) Medications Administered Current Inpatient Medications Acetaminophen (Acetaminophen 325 Mg Tab) 650 mg PO Q4H PRN PRN Reason: Pain or Fever Stop: 05/24/22 08:54 Last Admin: 04/26/22 05:15 Dose: 650 mg Al Hydrox/Mg Hydrox/Simethicone (Aluminum/Magnesium Susp 30 Ml Udc) 15 ml PO Q4H PRN PRN Reason: Dyspepsia Stop: 05/24/22 08:54 Gabapentin (Gabapentin 100 Mg Cap) 200 mg PO HS [facility] Stop: 05/24/22 20:59 Last Admin: 04/25/22 21:34 Dose: 200 mg Heparin Sodium (Porcine) (Heparin Sod 5,000 Unit/0.5 Ml Vial) 5,000 units SQ Q12 [facility] Stop: 05/24/22 20:59 Last Admin: 04/26/22 08:09 Dose: 5,000 units Hydromorphone HCl (Hydromorphone Inj 0.5 Mg/0.5 Ml Syr) 0.5 mg IV Q6H PRN PRN Reason: Pain Stop: 05/08/22 12:45 Last Admin: 04/25/22 21:33 Dose: 0.5 mg Ceftriaxone Sodium 2,000 mg/ (Dextrose) 70 mls @ 100 mls/hr IV Q24H [facility]; Protocol Stop: 05/05/22 10:59 Last Infusion: 04/25/22 14:03 Dose: Infused Metronidazole (Flagyl) 500 mg in 100 mls @ 100 mls/hr IV Q8H [facility] Stop: 05/04/22 18:59 Last Infusion: 04/26/22 03:46 Dose: Infused Levothyroxine Sodium (Levothyroxine Sodium 75 Mcg Tablet) 75 mcg PO DAILYBB [facility] Stop: 05/25/22 06:29 Last Admin: 04/26/22 07:14 Dose: 75 mcg Losartan Potassium (Losartan Potassium 25 Mg Tab) 25 mg PO DAILY [facility] Stop: 05/25/22 08:59 Last Admin: 04/26/22 08:09 Dose: 25 mg Magnesium Hydroxide (Magnesium Hydroxide Susp 30 Ml Udc) 30 ml PO Q12H PRN PRN Reason: Constipation Stop: 05/24/22 08:54 Ondansetron HCl (Ondansetron Inj 2 Mg/Ml 2 Ml Vial) 4 mg IV Q6H PRN PRN Reason: Nausea Stop: 05/24/22 08:54 Polyethylene Glycol (Polyethylene (Miralax) 17 Gm Pack) 17 gm PO DAILY PRN PRN Reason: Constipation Stop: 05/24/22 08:54 Potassium Chloride (Potassium Chloride 10 Meq Tabcr) 10 meq PO DAILY [facility] Stop: 05/25/22 08:59 Last Admin: 04/26/22 08:09 Dose: 10 meq Rosuvastatin Calcium (Rosuvastatin Calcium 10 Mg Tab) 10 mg PO QAM [facility] Stop: 05/25/22 08:59 Last Admin: 04/26/22 08:09 Dose: 10 mg Sennosides (Sennosides 8.8 Mg/5 Ml Udc) 8.8 mg PO BID [facility] Stop: 05/26/22 08:59 Last Admin: 04/26/22 08:13 Dose: 8.8 mg Tramadol HCl (Tramadol Hcl 50 Mg Tablet) 25 mg PO Q6H PRN PRN Reason: pain Stop: 05/24/22 09:50 Last Admin: 04/25/22 04:03 Dose: 25 mg Vitamin D (Cholecalciferol 1,000 Units 25 Mcg Tab) 2,000 units PO SuTh@0900 [facility] Stop: 05/25/22 08:59 Last Admin: 04/25/22 08:23 Dose: 2,000 units (1) HTN (hypertension) Hypertension type: unspecified Qualified Code(s): I10 - Essential (primary) hypertension
[2022-04-26] MEDS ORDERED: SENNOSIDES 8.8 MG/5 ML UDC PO SCH (09:00)
[2022-04-26] MEDS: cefTRIAXone SODIUM 2,000 MG in DEXTROSE 5% 50 ML IV SCH ×2 (11:21→11:28)
--- NOTE | 2022-04-26 11:41 | Discharge Summary ---
Date of Service April 26, 2022 Admission HPI Per Admitting Provider Ms. Wolf is a 82-year-old female that presented to the [facility] with right-sided mid abdominal pain that has been occurring over the past 24 hours. She has an extensive abdominal history specifically including a Betzaida cystectomy, appendectomy, hysterectomy, partial bowel resection status post SBO. The patient reports having a BM over the last 24 hours describes it as liquidy, without hematochezia. An abdominal and pelvic CT was obtained with results indicating ileus with enteritis versus partial small bowel obstruction. The patient denies nausea or vomiting. The patient shiela cates that her appetite and oral intake have been at baseline. Additionally the patient denies chest pain, palpitations, dizziness, recent falls or trauma, recent illness. Patient is vaccinated against influenza and COVID. Patient uses a walker at home. Additional past medical history includes chronic atrial fibrillation (On Eloquis), CKD stage III, gout, HTN, HLD, occipital stroke (2016), history of uterine cancer and obesity. The patient follows with Wesley Liriano PA-C outpatient for her diastolic heart failure. Upon examination, patient is sitting upright in her hospital bed in no apparent distress. Her daughter Chel is at the bedside and both are able to participate in meaningful conversation. Patient is a good historian. Patient initially was hypertensive in the ED however suspect this was related to pain, pain has lessened and patient is normotensive at the time of my exam. Patient's abdomen is tender with hypoactive bowel sounds. As stated previously no nausea or vomiting. Patient with trace to +1 bilateral lower extremity edema which she describes as her baseline. Patient states she does have pain and spasms in her left foot related to past injury for which she takes gabapentin for. This patient will be admitted for further evaluation and management. For now, patient will be gently rehydrated, empirically treated with antibiotics, pain management with Dilaudid, keep n.p.o. for now and have general surgery consultation for input. Appreciate their assistance. Please see A/P for further details. Admission Exam Per Admitting Provider Neuro: AAOx4, PERRLA, no aphagia, memory changes, CNII-XII grossly intact HEENT: head normocephalic, moist mucus membranes CV: Irreguarly irregular, (-) M/G/R, (+)1 LE BL edema, cap refill < 3 seconds (+) varicose veins BL LE Resp: Lungs CTA in all lomeli. On RA GI: Abdomen tender, soft, large/non-distended, hypoactive bowel sounds x 4, (-) CVA tenderness Musculoskeletal: 5/5 B/L UE strength, 5/5 B/L LE strength. No gait disturbance Skin: (-) rashes , (-) erythema. Psych: euthymic mood Principal Diagnosis Small bowel obstruction Discharge Exam General: elderly F WD/WN in NAD HEENT: head normocephalic, moist mucus membranes CV: Irreguarly irregular, (-) M/G/R, (+)1 LE BL edema, (+) varicose veins BL LE Resp: Lungs CTA in all lomeli. On RA GI: Abdomen nontender, soft,+ bowel sounds Musculoskeletal: 5/5 B/L UE strength, 5/5 B/L LE strength Neuro: AAOx4, PERRL, speech fluent, no facial asymmetry, moves extremities Skin: (-) rashes , (-) erythema. Psych: euthymic mood Discharge Data Allergies Allergy/AdvReac Type Severity Reaction Status Date / Time adhesive Allergy Mild SKIN Verified 09/22/21 12:22 IRRITATION AND PULLS SKIN OFF Iodinated Contrast Media Allergy Mild RASH Verified 09/22/21 12:22 morphine Allergy Unknown UNKNOWN Verified 09/22/21 12:22 Penicillins Allergy Unknown UNKNOWN Verified 09/22/21 12:22 salicylates Allergy Unknown CAUSES Verified 09/22/21 12:22 HIVES aspirin AdvReac Mild Hives Verified 09/22/21 12:22 codeine AdvReac Mild CAUSES Verified 09/22/21 12:22 NAUSEA Consultations 04/24/22 08:47 ED Decision to Admit Stat 04/24/22 10:31 Consult General Surgery Routine Ordered Studies 04/24/22 07:51 CT abd pelvis wo con Stat IMPRESSION: 1. Multiple loops of mildly dilated fluid-filled small bowel with minimal associated mesenteric stranding. Although no well-defined transition point, the terminal ileum is decompressed. Therefore, the findings could reflect a partial small bowel obstruction or enteritis with ileus. Fluid-filled right colon. 2. Moderate gaseous distention of the stomach. Hospital Course (1) Abdominal pain: (2) SBO (small bowel obstruction): (3) Chronic atrial fibrillation: (4) HTN (hypertension): (5) CKD (chronic kidney disease), stage III: (6) HLD (hyperlipidemia): (7) YOBANI (obstructive sleep apnea): (8) Hypothyroidism: Plan 82-year-old with abdominal pain. Abdominal/pelvic CT shows partial small bowel obstruction Abdominal pain: partial Small Bowel Obstruction vs enteritis with Ileus: Abdominal pain started 24 hours ago prior to admission Complex history of abdominal sx: cholecystectomy, appendectomy, hysterectomy, and partial colon resection Abdominal/Pelvic CT: could reflect a partial small bowel obstruction or enteritis with ileus. Fluid-filled right colon. Does not appear toxic Last BM 04/23; stool culture ordered and pending Some leukocytosis: WBC 13.74 on admission -> now 7.7K Received gentle hydration Pain management Empirically covered with Rocephin and Flagyl GEN surge consult Stool studies obtained, negative Tolerated diet, seen by surgery, switched to low fiber diet Chronic Atrial Fibrillation: Takes Eliquis; continue Follows with Wesley Liriano PA-C OPT HTN: Takes Losartan; continue HFpEF: Diastolic; tricuspid regurg last echo 2018 EF 55% CKD3: Creatinine 1.33; baseline 1.1-1.2 Do not suspect REBECA at this time Received gentle hydration in ED Now Cr 1 HLD: Takes Rosuvastatin; Continue YOBANI: CPAP at home Okay to use CPAP from home here Hypothyroidism: Takes Levothyroxine TSH 1.33 11/2021 Total Time Total Time Spent Total Time Spent (In Minutes): 40 Discharge Plan Discharge Items Patient Disposition: Home - Self-Care Reason For Visit: ABDOMINAL PAIN Discharge Diagnosis: Small bowel obstruction Activity: Per Instructions section Non-emergency contact: Primary Care Provider Call non-emergency contact if: you have any medication questions and your symptoms worsen Follow-up/Referrals: Randi Arita MD [Primary Care Provider] - (Date & Time 05/02/2022 2:20 PM Provider Rani Li MD Department General Internal Medicine [facility] ) Diet: Other - See Diet Comment Addtl Attending Provider Instructions: Follow-up with primary care doctor, the appointment was scheduled for you for May 02. For now recommend low fiber/low residue diet. For now avoid heavy greasy or fried foods. Make sure you stay well-hydrated. Do not take Lasix tomorrow. Pending Studies at Discharge: No Stand-Alone Forms: [facility], Smoking Cessation Medications and DC Order Prescriptions: Continued levothyroxine [Synthroid] 75 mcg tablet 75 mcg PO QAM losartan [Cozaar] 25 mg tablet 25 mg PO DAILY cholecalciferol (vitamin D3) 2,000 unit Tablet 2,000 unit PO 2XWK Rx Instructions: Friday and potassium chloride 10 mEq Capsule, Extended Release 10 meq PO DAILY 30 Days Qty: 30 0RF furosemide [Lasix] 40 mg Tablet 40 mg PO DAILY tramadol 50 mg tablet 25 mg PO Q6H PRN (Reason: pain) Eliquis 5 mg Tablet 5 mg PO BID gabapentin 100 mg Capsule 200 mg PO HS rosuvastatin 10 mg Tablet 10 mg PO QAM biotin 5,000 mcg Tablet, Sublingual 5,000 mcg sublingual 2XWK Rx Instructions: Friday and Discharge Orders: Discharge Order (Routine); Ordered 04/26/22 Ordered By: Tadeo Forte Admission Data Admit Date/Time: 04/24/22 08:55 Attending Provider: Tadeo Forte Admit Provider: Barrett Wood Primary Care Provider: Randi Arita Other Providers: Barrett Wood ; Aidan Fall
== END 2022-04-26 12:57 | disposition home or self-care (01) ==
LOC: ED 07:41 → SUATTDRO 08:55 → EDINP 08:55 → INTOOBSV 08:55 → 2N 04-25 12:14

== ENCOUNTER 2024-12-03 09:50 | Inpatient (IN) ==
[2024-12-03 10:41] LABS: Hematocrit (blood only) 36.1 % (37.0-47.0); Hemoglobin 11.9 g/dl (12.0-16.0); Immature Granulocytes # (auto) 0.09 K/uL (0.01-0.20); Immature Granulocytes % (auto) 0.6 %; Mean Corpuscular Hemoglobin 29.9 pg (25.0-34.0); Mean Corpuscular Volume 90.7 fL (80.0-100.0); Platelet Count 171 K/uL (130-400); RDW Standard Deviation 45.1 fL (36.4-46.3); Red Blood Count 3.98 M/uL (4.20-5.40); White Blood Count 14.51 K/ul (4.8-10.8)
--- NOTE | 2024-12-03 10:43 | Emergency Department Note ---
Impression & Plan Hypoxia, Chronic shoulder pain ED Provider Note NAME: GEORGIE HOLMAN AGE: 84 SEX: F : 1940 ARRIVES VIA: Walk-In INFORMANT: Patient, ED PROVIDER(S): Lisa Li MD CHIEF COMPLAINT: Right shoulder pain HPI: This is a 84 year-old female present for right shoulder pain. Patient notes that she has a chronic shoulder pain and is due for a shoulder replacement. She was told this by orthopedics but because of her new atrial fibrillation she has deferred surgery. She notes that this pain has worsened over the past 1 day due to overuse. She notes no new symptoms of pain just progressively worsening. Reports no chest pain or shortness of breath. No numbness or tingling. Pain from shoulder down to her wrist at this time. ROS: See above HPI for pertinent positives & negatives. A total of 10 systems reviewed and were otherwise negative. PAST MEDICAL HISTORY: See Below PAST SURGICAL HISTORY: See Below FAMILY HISTORY: See Below SOCIAL HISTORY: See Below HOME MEDICATIONS: See Below ALLERGIES: See Below VITALS: See Below PHYSICAL EXAMINATION: General: Mild distress due to pain Head: Normocephalic and atraumatic Eyes: Normal inspection, extraocular muscles intact Ear, nose, throat: Normal external exam Neck: Normal range of motion Respiratory: lungs clear to auscultation bilaterally Cardiovascular: Regular rate/rhythm, no murmur GI: soft, nontender, no guarding or rebound Extremities: nontender, moves all extremities, 2+ pulses, sensation intact, range of motion limited due to pain and shoulder Neuro: The patient awake and alert, appropriately conversive, no focal deficits, symmetric faces Skin: Warm, dry, and intact MEDICAL DECISION MAKING: This is a 84-year-old [id number] female presenting for right shoulder pain. Will do screening x-rays of the shoulder and chest. Will do basic blood work. Patient is already on tramadol and gabapentin. Give hydromorphone at this time due to excruciating pain. Low concern for dissection currently. Already on blood thinners make PE unlikely. - Bloodwork is reviewed showing mild leukocytosis, without significant anemia, electrolyte or creatinine abnormality. - X-ray of the shoulder reveals glenohumeral osteoarthritis without fracture/dislocation -Chest Xray independently interpreted by me showing no pneumothorax, focal opacity, or pleural effusions. -Slightly elevated troponin, remained stable on repeat check. -She does have pain improved after Dilaudid administration. However she became significant hypoxic requiring 6 L nasal cannula. She desatted to about 60%. Prior to Dilaudid, she was resting at 92%. -Patient notes improved pain however she still hypoxic even off oxygen multiple hours later. She also feels dizzy, nauseous. 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 -Will with the patient due to persistent hypoxia, nausea, vomiting and difficulty breathing at home -Admitted under Dr. Rodgers after discussion with resident Differential diagnosis: Osteoarthritis, dissection, ACS, pneumonia, CHF Independent History obtained from: Daughter Diagnostics interpreted by me: ECG: ECG independently interpreted by me with atrial fibrillation rate of 63, normal QRS, normal QTc, no ST segment elevations consistent with STEMI criteria, nonspecific T wave abnormalities Cardiac Monitoring: An order was placed for continuous cardiac monitoring. The monitor shows a rate of 66 with atrial fibrillation rhythm. Past Med/Surg History Problem List Chronic shoulder pain (Acute) Hypoxia (Acute) SBO (small bowel obstruction) (Acute) Abdominal pain (Acute) Leukocytosis (Acute) Partial small bowel obstruction Abdominal pain Status post replacement of left shoulder joint Status post decompression of ulnar nerve at elbow (~08/2021) Dizziness (Acute) Fatigue Cough Dysphagia Headache DVT prophylaxis Weakness (Acute) Arm pain (Acute) HTN (hypertension) (Acute) Encounter for pre-operative examination Obesity History of total knee arthroplasty (Chronic) "; 1993" Fracture, nasal (Acute) Facial contusion (Acute) Head trauma (Acute) Contusion of right knee (Acute) Coagulopathy (Acute) Contusion of arm, right (Acute) Contusion of arm, left (Acute) Fall Left shoulder pain DVT prophylaxis Small bowel obstruction due to adhesions SBO (small bowel obstruction) (Acute) Lateral epicondylitis of left elbow Cubital tunnel syndrome HLD (hyperlipidemia) (Chronic) HTN (hypertension) (Chronic) YOBANI (obstructive sleep apnea) (Chronic) on cpap Hypothyroidism (Chronic) CKD (chronic kidney disease), stage III (Chronic) History of uterine cancer (Chronic) Gout (Chronic) Chronic atrial fibrillation (Chronic) follows [place] - taking eliquis - approx 9 years ago - not symptomatic Occipital stroke (Chronic) 2016 - no residual effects - follow a neurologist (unsure name) Status post hysterectomy (Chronic) "1989" Status post tonsillectomy (Chronic) Status post cholecystectomy (Chronic) "09/14/04; performed by Dr. Barry" Status post lumbar surgery (Chronic) "1984" Status post cataract extraction (Chronic) "L side 1994" Status post partial colectomy (Chronic) "10/20/2003" Status post total shoulder arthroplasty (Chronic) "L side; Dr. Flynn 08/2012" Medical History Abdominal pain Chronic atrial fibrillation follows [place] - taking eliquis - approx 9 years ago - not symptomatic CKD (chronic kidney disease), stage III Gout History of uterine cancer HLD (hyperlipidemia) HTN (hypertension) Hypothyroidism Obesity Occipital stroke 2016 - no residual effects - follow a neurologist (unsure name) YOBANI (obstructive sleep apnea) on cpap Surgical History History of back surgery approx 1982, L4 History of bilateral knee replacement Hx of colonoscopy >10yrs ago, no problems noted Hx of right cataract extraction 2004 Status post cataract extraction "L side 1994" Status post cholecystectomy "09/14/04; performed by Dr. Barry" Status post hysterectomy "1989" Status post lumbar surgery "1984" Status post partial colectomy "10/20/2003" Status post tonsillectomy Status post total shoulder arthroplasty "L side; Dr. Flynn 08/2012" Family History Father Testicular cancer Mother Stroke Other Diabetes Hypertension Social History Smoking Status: Former smoker Tobacco Type: Cigarettes Cigarettes Per Day: 1/2 pack a day; Second Hand Exposure: No; Do You Dip or Chew Tobacco: No; Hx Alcohol Use: Yes Alcohol type: beer and wine Hx Substance Use: No Preferred Language: Ukrainian Communication Ability: Effective Collarette Separator Required: No Beliefs That Will Affect Care: None marital status: Current Living Situation: Alone Current Living Situation Comment: lives alone, 2 steps to get into the house current occupational status: retired Feels Safe at Home: Yes Assistive Devices: Cane, CPAP and Walker Allergies Allergies Allergy/AdvReac Type Severity Reaction Status Date / Time adhesive Allergy Mild SKIN Verified 12/16/22 14:21 IRRITATION AND PULLS SKIN OFF Iodinated Contrast Media Allergy Mild RASH Verified 12/16/22 14:21 morphine Allergy Unknown UNKNOWN Verified 12/16/22 14:21 Penicillins Allergy Unknown UNKNOWN Verified 12/16/22 14:21 salicylates Allergy Unknown CAUSES Verified 12/16/22 14:21 HIVES aspirin AdvReac Mild Hives Verified 12/16/22 14:21 codeine AdvReac Mild CAUSES Verified 12/16/22 14:21 NAUSEA Home Meds Home Medications Medication Instructions Recorded Confirmed cholecalciferol (vitamin D3) 50 2,000 unit PO 2XWK 02/01/18 04/24/22 mcg (2,000 unit) tablet levothyroxine 75 mcg tablet 75 mcg PO QAM 02/01/18 12/16/22 (Synthroid) losartan 25 mg tablet (Cozaar) 25 mg PO DAILY 02/01/18 12/16/22 apixaban 5 mg tablet (Eliquis) 5 mg PO BID 09/11/21 12/16/22 biotin 5,000 mcg sublingual tablet 5,000 mcg sublingual 2XWK 09/11/21 04/24/22 rosuvastatin 10 mg tablet 10 mg PO QAM 09/11/21 12/16/22 furosemide 40 mg tablet (Lasix) 40 mg PO DAILY 04/24/22 12/16/22 tramadol 50 mg tablet 25 mg PO Q6H PRN pain 04/24/22 12/16/22 gabapentin 300 mg capsule 300 mg PO HS 12/16/22 12/16/22 terbinafine HCl 250 mg tablet 250 mg PO .DAILY WITH MEAL 12/16/22 12/16/22 Previous Rx's Medication Instructions Recorded potassium chloride 10 mEq 10 meq PO DAILY 30 days #30 caps 09/24/21 capsule,extended release diclofenac sodium 1 % topical gel 2 g topical QID #100 grams 12/16/22 (Voltaren Arthritis Pain) Results & Data (ED) Vital Signs Vital Signs - 24 hr 12/03/24 09:56 12/03/24 10:04 12/03/24 10:34 Temperature 36.8 C Temperature Source Temporal Artery Scan Pulse Rate 71 74 Pulse Rate [Apical] 68 Respiratory Rate 18 18 Respiratory Effort / Characteristics Non-Labored Spontaneous Non-Labored Respiratory Depth Normal Normal Respiratory Pattern Regular Blood Pressure 152/76 H Blood Pressure [Left Arm] 147/80 H Blood Pressure Mean 101 Blood Pressure Mean [Left Arm] 102 Blood Pressure Position Sitting Pulse Oximetry 92 92 Oxygen Delivery Method Room Air Room Air Oxygen Flow Rate Sepsis Recent Fever Within 48 Hours No Sepsis New/Unexplained Change in Mental Status No Sepsis Action Taken by Nursing No Action Required Oxygen Flow Rate - Titration Pulse Oximetry Post Tiitration 12/03/24 11:07 12/03/24 11:10 12/03/24 11:10 Temperature Temperature Source Pulse Rate Pulse Rate [Apical] Respiratory Rate 16 Respiratory Effort / Characteristics Respiratory Depth Respiratory Pattern Blood Pressure Blood Pressure [Left Arm] Blood Pressure Mean Blood Pressure Mean [Left Arm] Blood Pressure Position Pulse Oximetry 60 L 97 Oxygen Delivery Method Room Air Nasal Cannula Room Air Nasal Cannula Oxygen Flow Rate 0 6 Sepsis Recent Fever Within 48 Hours Sepsis New/Unexplained Change in Mental Status Sepsis Action Taken by Nursing Oxygen Flow Rate - Titration 6 Pulse Oximetry Post Tiitration 98 12/03/24 13:00 12/03/24 14:30 12/03/24 14:36 Temperature Temperature Source Pulse Rate 66 Pulse Rate [Apical] 53 L 62 Respiratory Rate 16 Respiratory Effort / Characteristics Respiratory Depth Normal Respiratory Pattern Regular Blood Pressure Blood Pressure [Left Arm] Blood Pressure Mean Blood Pressure Mean [Left Arm] Blood Pressure Position Pulse Oximetry 97 97 Oxygen Delivery Method Nasal Cannula Nasal Cannula Oxygen Flow Rate 6 2 Sepsis Recent Fever Within 48 Hours Sepsis New/Unexplained Change in Mental Status Sepsis Action Taken by Nursing Oxygen Flow Rate - Titration Pulse Oximetry Post Tiitration Laboratory Data 12/03/24 10:28 12/03/24 10:28 Lab Results 12/03/24 12/03/24 Range/Units 10:28 12:42 WBC 14.51 H (4.8-10.8) K/ul RBC 3.98 L (4.20-5.40) M/uL Hgb 11.9 L (12.0-16.0) g/dl Hct 36.1 L (37.0-47.0) % MCV 90.7 (80.0-100.0) fL MCH 29.9 (25.0-34.0) pg MCHC 33.0 (32.0-36.0) g/dL RDW Std Deviation 45.1 (36.4-46.3) fL RDW Coeff of Jayla 13.4 (11.5-14.5) % Plt Count 171 (130-400) K/uL MPV 9.9 (9.4-12.4) fL Immature Gran % (Auto) 0.6 % Neut % (Auto) 79.1 % Lymph % (Auto) 5.7 % [place] % (Auto) 13.6 % Eos % (Auto) 0.3 % Baso % (Auto) 0.7 % Neut # (Auto) 11.49 H (1.40-6.50) K/uL Lymph # (Auto) 0.82 L (1.20-3.40) K/uL [place] # (Auto) 1.97 H (0.11-0.59) K/uL Eos # (Auto) 0.04 (0.00-0.50) K/uL Baso # (Auto) 0.10 (0.00-0.20) K/uL Immature Gran # (Auto) 0.09 (0.01-0.20) K/uL Sodium 136 (136-145) mmol/L Potassium 3.8 (3.5-5.1) mmol/L Chloride 100 (98-107) mmol/L Carbon Dioxide 29 (21-32) mmol/L Anion Gap 7 (3-11) BUN 19 (6-23) mg/dl Creatinine 1.15 (0.6-1.2) mg/dl Est Cr Clr Drug Dosing Not Reportable eGFR 46.39 BUN/Creatinine Ratio 16.5 (10-20) Glucose 134 H (70-99(Fasting)) mg/dl Calcium 9.3 (8.6-10.3) mg/dl Total Bilirubin 2.3 H (0.2-1.0) mg/dl AST 12 L (13-39) U/L ALT 4 L (7-52) U/L Alkaline Phosphatase 76 (34-104) U/L Troponin I High Sens 35.5 H 32.8 H (0-14) pg/ml Total Protein 7.1 (6.0-8.3) gm/dl Albumin 3.6 (3.4-5.0) gm/dl Globulin 3.5 (2.5-4.0) gm/dl Albumin/Globulin Ratio 1.0 (0.9-2) Administered Medications Discontinued Medications Hydromorphone HCl (Hydromorphone Inj 0.5 Mg/0.5 Ml Syr) 0.5 mg IV NOW STA Stop: 12/03/24 10:42 Last Admin: 12/03/24 10:58 Dose: 0.5 mg Documented By: MMG Ondansetron HCl (Ondansetron Inj 2 Mg/Ml 2 Ml Vial) 4 mg IV NOW STA Stop: 12/03/24 10:57 Last Admin: 12/03/24 10:58 Dose: 4 mg Documented By: MMG Ondansetron HCl (Ondansetron Inj 2 Mg/Ml 2 Ml Vial) Confirm Administered Dose 4 mg .ROUTE .STK-MED ONE Stop: 12/03/24 10:58 Last Admin: 12/03/24 10:59 Dose: Not Given Documented By: MMG Imaging Data Radiologist's Impression: Chest X-Ray 12/03/24 10:26 XR chest 1V portable CLINICAL HISTORY: shoulder pain COMPARISON STUDY: 09/23/2021 FINDINGS: Stable prominent cardiomegaly with pulmonary vascular congestion. No consolidation or pleural effusion seen. No pneumothorax. Left shoulder prosthesis is partially visualized. There are degenerative changes at the right shoulder. IMPRESSION: No acute findings. ACT 112: Negative or not required by law. Electronically signed by: Anders Laws M.D. 12/03/2024 11:02 AM Shoulder X-Ray 12/03/24 10:26 XR shoulder RT min 2V routine CLINICAL HISTORY: chronic shoulder pain COMPARISON: None FINDINGS: There is moderate glenohumeral osteoarthritis. No fracture or dislocation. IMPRESSION: No fracture seen. ACT 112: Negative or not required by law. Electronically signed by: Anders Laws M.D. 12/03/2024 11:02 AM Discharge Plan Visit Data Chief Complaint: Shoulder Pain Stated Complaint: RIGHT SHOULDER PAIN ED Provider: Lisa Li Discharge Problem: Hypoxia, Chronic shoulder pain Patient Disposition: Admitted As Inpatient Condition: Fair Forms Stand Alone Forms: [facility] [employer] Prescriptions Prescriptions: No Action levothyroxine [Synthroid] 75 mcg tablet 75 mcg PO QAM losartan [Cozaar] 25 mg tablet 25 mg PO DAILY cholecalciferol (vitamin D3) 2,000 unit Tablet 2,000 unit PO 2XWK Rx Instructions: Friday and potassium chloride 10 mEq Capsule, Extended Release 10 meq PO DAILY 30 Days Qty: 30 0RF furosemide [Lasix] 40 mg Tablet 40 mg PO DAILY tramadol 50 mg tablet 25 mg PO Q6H PRN (Reason: pain) Eliquis 5 mg Tablet 5 mg PO BID rosuvastatin 10 mg Tablet 10 mg PO QAM biotin 5,000 mcg Tablet, Sublingual 5,000 mcg sublingual 2XWK Rx Instructions: Friday and terbinafine HCl 250 mg tablet 250 mg PO .DAILY WITH MEAL gabapentin 300 mg capsule 300 mg PO HS diclofenac sodium [Voltaren Arthritis Pain] 1 % gel 2 g topical QID Qty: 100 0RF Rx Instructions: apply to Right elbow four times daily as needed. Referrals Referrals: Randi Arita MD [Primary Care Provider] - Discharge Problem: Chronic shoulder pain Qualifiers: Laterality: right Qualified Code(s): M25.511 - Pain in right shoulder; G89.29 - Other chronic pain
[2024-12-03 10:56] LABS: Anion Gap 7 (3-11); Bilirubin,Total 2.3 mg/dl (0.2-1.0); Calcium 9.3 mg/dl (8.6-10.3); Carbon Dioxide 29 mmol/L (21-32); Chloride 100 mmol/L (98-107); Potassium 3.8 mmol/L (3.5-5.1); Sodium 136 mmol/L (136-145)
[2024-12-03] MEDS: ONDANSETRON INJ 2 MG/ML 2 ML VIAL IV STA ×2 (10:58→14:58)
[2024-12-03] MEDS: HYDROmorphone INJ 0.5 MG/0.5 ML SYR IV STA (10:58)
[2024-12-03] MEDS: ONDANSETRON INJ 2 MG/ML 2 ML VIAL ONE (10:59)
[2024-12-03 11:02] LABS: Alanine Aminotransferase 4 U/L (7-52); Albumin Globulin Ratio 1.0 (0.9-2); Alkaline Phosphatase 76 U/L (34-104); Blood Urea Nitrogen 19 mg/dl (6-23); Globulin 3.5 gm/dl (2.5-4.0); Glucose 134 mg/dl (70-99(Fasting)); Total Protein 7.1 gm/dl (6.0-8.3)
--- NOTE | 2024-12-03 11:03 | XRay Report ---
XR chest 1V portable CLINICAL HISTORY: shoulder pain COMPARISON STUDY: 09/23/2021 FINDINGS: Stable prominent cardiomegaly with pulmonary vascular congestion. No consolidation or pleur al effusion seen. No pneumothorax. Left shoulder prosthesis is partially visualized. There are degene rative changes at the right shoulder. IMPRESSION: No acute findings. ACT 112: Negative or not required by law. Electronically signed by: Anders Laws M.D. 12/03/2024 11:02 AM
--- NOTE | 2024-12-03 11:03 | XRay Report ---
XR shoulder RT min 2V routine CLINICAL HISTORY: chronic shoulder pain COMPARISON: None FINDINGS: There is moderate glenohumeral osteoarthritis. No fracture or dislocation. IMPRESSION: No fracture seen. ACT 112: Negative or not required by law. Electronically signed by: Anders Laws M.D. 12/03/2024 11:02 AM
--- NOTE | 2024-12-03 15:01 | Electrocardiogram Report ---
Test Reason : Blood Pressure : */* mmHG Vent. Rate : 63 BPM Atrial Rate : * BPM P-R Int : * ms QRS Dur : 86 ms QT Int : 410 ms P-R-T Axes : * 82 2 degrees QTcB Int : 419 ms Atrial fibrillation Low voltage QRS Cannot rule out Anterior infarct , age undetermined Abnormal ECG When compared with ECG of 22-Sep-2021 08:57, Nonspecific T wave abnormality now evident in Anterior leads Confirmed by Zachariah Enrique ([id number]) on 12/03/2024 3:01:00 PM Referred By: REFERRED SELF Confirmed By: Zachariah Enrique
--- NOTE | 2024-12-03 16:33 | History & Physical Report ---
Date of Service December 03, 2024 History of Present Illness Primary Care Provider: Randi Arita MD Allergies Allergy/AdvReac Type Severity Reaction Status Date / Time adhesive Allergy Mild SKIN Verified 12/16/22 14:21 IRRITATION AND PULLS SKIN OFF Iodinated Contrast Media Allergy Mild RASH Verified 12/16/22 14:21 morphine Allergy Unknown UNKNOWN Verified 12/16/22 14:21 Penicillins Allergy Unknown UNKNOWN Verified 12/16/22 14:21 salicylates Allergy Unknown CAUSES Verified 12/16/22 14:21 HIVES aspirin AdvReac Mild Hives Verified 12/16/22 14:21 codeine AdvReac Mild CAUSES Verified 12/16/22 14:21 NAUSEA Home Medications Medication Instructions Recorded Confirmed Type cholecalciferol (vitamin D3) 50 0 unit PO 2XWK 02/01/18 12/03/24 History mcg (2,000 unit) tablet levothyroxine 75 mcg tablet 88 mcg PO QAM 02/01/18 12/03/24 History (Synthroid) losartan 25 mg tablet (Cozaar) 25 mg PO DAILY 02/01/18 12/03/24 History apixaban 5 mg tablet (Eliquis) 5 mg PO BID 09/11/21 12/03/24 History biotin 5,000 mcg sublingual tablet 0 mcg sublingual 2XWK 09/11/21 12/03/24 History rosuvastatin 10 mg tablet 10 mg PO QAM 09/11/21 12/03/24 History potassium chloride 10 mEq 10 meq PO DAILY 30 days #30 caps 09/24/21 12/03/24 Rx capsule,extended release furosemide 40 mg tablet (Lasix) 60 mg PO DAILY 04/24/22 12/03/24 History diclofenac sodium 1 % topical gel 2 g topical QID #100 grams 12/16/22 12/03/24 Rx (Voltaren Arthritis Pain) gabapentin 300 mg capsule 300 mg PO TID 12/16/22 12/03/24 History Past Med/Surg History Problem List Chronic shoulder pain (Acute) Hypoxia (Acute) SBO (small bowel obstruction) (Acute) Abdominal pain (Acute) Leukocytosis (Acute) Partial small bowel obstruction Abdominal pain Status post replacement of left shoulder joint Status post decompression of ulnar nerve at elbow (~08/2021) Dizziness (Acute) Fatigue Cough Dysphagia Headache DVT prophylaxis Weakness (Acute) Arm pain (Acute) HTN (hypertension) (Acute) Encounter for pre-operative examination Obesity History of total knee arthroplasty (Chronic) "; 1993" Fracture, nasal (Acute) Facial contusion (Acute) Head trauma (Acute) Contusion of right knee (Acute) Coagulopathy (Acute) Contusion of arm, right (Acute) Contusion of arm, left (Acute) Fall Left shoulder pain DVT prophylaxis Small bowel obstruction due to adhesions SBO (small bowel obstruction) (Acute) Lateral epicondylitis of left elbow Cubital tunnel syndrome HLD (hyperlipidemia) (Chronic) HTN (hypertension) (Chronic) YOBANI (obstructive sleep apnea) (Chronic) on cpap Hypothyroidism (Chronic) CKD (chronic kidney disease), stage III (Chronic) History of uterine cancer (Chronic) Gout (Chronic) Chronic atrial fibrillation (Chronic) follows [facility] - taking eliquis - approx 9 years ago - not symptomatic Occipital stroke (Chronic) 2015 - no residual effects - follow a neurologist (unsure name) Status post hysterectomy (Chronic) "1989" Status post tonsillectomy (Chronic) Status post cholecystectomy (Chronic) "09/14/04; performed by Dr. Barry" Status post lumbar surgery (Chronic) "1984" Status post cataract extraction (Chronic) "L side 1994" Status post partial colectomy (Chronic) "10/20/2003" Status post total shoulder arthroplasty (Chronic) "L side; Dr. Flynn 08/2012" Medical History Abdominal pain Chronic atrial fibrillation follows [facility] - taking eliquis - approx 9 years ago - not symptomatic CKD (chronic kidney disease), stage III Gout History of uterine cancer HLD (hyperlipidemia) HTN (hypertension) Hypothyroidism Obesity Occipital stroke 2015 - no residual effects - follow a neurologist (unsure name) YOBANI (obstructive sleep apnea) on cpap Surgical History History of back surgery approx 1982, L4 History of bilateral knee replacement Hx of colonoscopy >10yrs ago, no problems noted Hx of right cataract extraction 2004 Status post cataract extraction "L side 1994" Status post cholecystectomy "09/14/04; performed by Dr. Barry" Status post hysterectomy "1989" Status post lumbar surgery "1984" Status post partial colectomy "10/20/2003" Status post tonsillectomy Status post total shoulder arthroplasty "L side; Dr. Flynn 08/2012" Family History Father Testicular cancer Mother Stroke Other Diabetes Hypertension Social History Smoking Status: Former smoker Tobacco Type: Cigarettes Cigarettes Per Day: 1/2 pack a day; Second Hand Exposure: No; Do You Dip or Chew Tobacco: No; Hx Alcohol Use: Yes Alcohol type: beer and wine Hx Substance Use: No Preferred Language: Persian Communication Ability: Effective Supervisor Electronic Testing Required: No Beliefs That Will Affect Care: None marital status: Current Living Situation: Alone Current Living Situation Comment: lives alone, 2 steps to get into the house current occupational status: retired Feels Safe at Home: Yes Assistive Devices: Cane, CPAP and Walker Results & Data Results & Data Vital Signs (Past 12 Hours) Vital Signs Temp Pulse Pulse Resp BP BP Pulse Ox 12/03/24 14:36 66 12/03/24 14:30 62 97 12/03/24 13:00 53 L 16 97 12/03/24 11:10 97 12/03/24 11:10 16 60 L 12/03/24 11:07 12/03/24 10:34 74 12/03/24 10:04 68 18 147/80 H 92 12/03/24 09:56 36.8 C 71 18 152/76 H 92 O2 Del Method O2 Flow Rate 12/03/24 14:36 12/03/24 14:30 Nasal Cannula 2 12/03/24 13:00 Nasal Cannula 6 12/03/24 11:10 Nasal Cannula 6 12/03/24 11:10 Room Air 12/03/24 11:07 Room Air, Nasal Cannula 0 12/03/24 10:34 12/03/24 10:04 Room Air 12/03/24 09:56 Room Air Supervising Physician Co-Signing Physician Notes I personally examined the patient and verified all potter points of history and exam, discussed case, and agree with decision making with Dr Valle Right shoulder pain. Shortness of breath. Vitals noted, in general she is awake and alert still little bit sedated although her daughter notes she is acting more like herself. Breathing unlabored but she does have rales and she is on 2 L. Right shoulder is tender but is not red hot or swollen. Labs and diagnostics noted. Right shoulder painseems most consistent with OA flare. Considered septic joint because of her white count of 14.5, but this is really not consistent with what we are seeing on exam or imaging. Considered cervical radiculopathy because of the radiation down her arm, but the radiation seems more vague and not dermatomal. Pain control: Scheduled Tylenol, as needed Toradol, topical Voltaren. She is looking at a shoulder surgery, and it seems that her OA is severe enough that is probably going to be the main remedy. PT/OT eval and treat. Hypoxia/pulmonary edema/suspected acute on chronic diastolic CHF (suspected acute on chronic HFpEF)looking at her previous chest x-rays she seems to have cardiomegaly and pulmonary vascular congestion frequently. I do not have any echo on record since 2018, although the daughter notes that she has something more recent and Eimly Reagan, but not entirely sure how recentrelating a leaky valve. Given that is not clear what is going on with her, and it is not clear exactly when her last echo wasrepeat echocardiogram. Diurese with Lasix IV in addition to her p.o. I suspect that she probably lives with a mild degree of decompensated failure and then the reduced respiratory drive from the Dilaudid simply tipped her into more noticeable difficulty breathing. Leukocytosiswith no overt other signs or symptoms of infection, I suspect demargination. Serial labs, serial exams. Mild troponin elevationprobably very mild demand ischemia related to all of the above. Very nominal elevations and trended down. Doubt it is of any clinical significance. Otherwise as above.
--- NOTE | 2024-12-03 17:54 | Billing Data ---
Date of Service December 03, 2024 Coding Level of Care Code [id number] INT INP/OBS CARE
[2024-12-03] MEDS ORDERED: KETOROLAC TROMETHAMINE 15 MG/ML VIAL IV PRN (18:30)
--- NOTE | 2024-12-03 18:42 | History & Physical Report ---
Date of Service December 03, 2024 Assessment & Plan (1) Osteoarthritis: (2) Acute CHF: (3) Leukocytosis: (4) Elevated troponin: (5) A-fib: (6) Hyperlipidemia: (7) Hypothyroidism: Plan pt is an 82 yo female HTN, CKD stage 3, Hyperlipidemia (HLD), YOBANI, Hypothyroidism, presenting with severe right shoulder pain. # Osteoarthritis / Cervical Radiculopathy - pt arrived in the ED due to right shoulder pain beginning 3 days ago, which h as progressively worsened. Pt states shoulder pain 10/10, radiating generally down the right arm to the wrist. No numbness or tingling. She identified pain as pulsatile dull, achy with moments of sharpness. -XRay- in ED -- Right moderate glenohumeral osteoarthritis, no fractures seen - XRay- in ED -- Stable prominent cardiomegaly with pulmonary vascular congestion - EKG in Ed -- A. Fib -Likely due to acute inflammatory process -Toradol, 10 mg iv, q6, PRN -Acetaminophen, 1000 mg q8, TID # Acute CHF -Echocardiogram ordered -40 mg IV Lasik -Oxygen as Needed - I/O - Weight management - Fluid restriction # Leukocytosis -WBC 14.51 -likely related to demargination -continue to monitor CBC # Increased Troponins -Troponin decrease from admission to second check 35.5 --> 32.8 -Likely due to acute stress of shoulder pain/increase oxygen demands -Continue to monitor # A. Fib -Continue Eliquis 5 mg # Hyperlipidemia -Continue Rosuvastatin 10 mg po qAM # Hypothyroidism - continue Levothyroxine 88 mcg DVT Prophalyxis: Continue Eloquis 5 mg Disp med: Med/surge Telemetry Admission and Anticipated Discharge Date Admission Date: December 03, 2024 History of Present Illness Chief Complaint: Pt is an 84 year-old female with a PMX of HTN, CKD stage 3, A. Fib, Hyperlipidemia (HLD), YOBANI, Hypothyroidism, presenting to the ED with right shoulder pain. Pt identified she has had general right shoulder pain for 3 years. She is scheduled to meet with orthopedics and cardiology the following week to possibly discuss surgery. Today, pt arrived in the ED due to right shoulder pain beginning 3 days ago, which has progressively worsened. Pt states shoulder pain 10/10, radiating generally down the right arm to the wrist. No numbness or tingling. She identified pain as pulsatile dull, achy with moments of sharpness. Pt. has no chest pain. Additionally, pt's temperature is stable. In the ED, pt was given hydromorphone 0.5, with zofryn 4mg x2. X-ray of right shoulder - moderate osteoarthritic changes, and X-ray of chest -- stable prominent cardiomegaly with pulmonary vascular congestion. EKG -- shows A. Fib. Pt. admitted with Acute Osteoarthritis and exacerbatted CHF. Primary Care Provider: Randi Arita MD Allergies Allergy/AdvReac Type Severity Reaction Status Date / Time adhesive Allergy Mild SKIN Verified 12/16/22 14:21 IRRITATION AND PULLS SKIN OFF Iodinated Contrast Media Allergy Mild RASH Verified 12/16/22 14:21 morphine Allergy Unknown UNKNOWN Verified 12/16/22 14:21 Penicillins Allergy Unknown UNKNOWN Verified 12/16/22 14:21 salicylates Allergy Unknown CAUSES Verified 12/16/22 14:21 HIVES aspirin AdvReac Mild Hives Verified 12/16/22 14:21 codeine AdvReac Mild CAUSES Verified 12/16/22 14:21 NAUSEA Home Medications Medication Instructions Recorded Confirmed Type cholecalciferol (vitamin D3) 50 0 unit PO 2XWK 02/01/18 12/03/24 History mcg (2,000 unit) tablet levothyroxine 75 mcg tablet 88 mcg PO QAM 02/01/18 12/03/24 History (Synthroid) losartan 25 mg tablet (Cozaar) 25 mg PO DAILY 02/01/18 12/03/24 History apixaban 5 mg tablet (Eliquis) 5 mg PO BID 09/11/21 12/03/24 History biotin 5,000 mcg sublingual tablet 0 mcg sublingual 2XWK 09/11/21 12/03/24 History rosuvastatin 10 mg tablet 10 mg PO QAM 09/11/21 12/03/24 History potassium chloride 10 mEq 10 meq PO DAILY 30 days #30 caps 09/24/21 12/03/24 Rx capsule,extended release furosemide 40 mg tablet (Lasix) 60 mg PO DAILY 04/24/22 12/03/24 History diclofenac sodium 1 % topical gel 2 g topical QID #100 grams 12/16/22 12/03/24 Rx (Voltaren Arthritis Pain) gabapentin 300 mg capsule 300 mg PO TID 12/16/22 12/03/24 History Past Med/Surg History Problem List Hypothyroidism Hyperlipidemia A-fib Elevated troponin Leukocytosis Acute CHF Osteoarthritis Chronic shoulder pain (Acute) Hypoxia (Acute) SBO (small bowel obstruction) (Acute) Abdominal pain (Acute) Leukocytosis (Acute) Partial small bowel obstruction Abdominal pain Status post replacement of left shoulder joint Status post decompression of ulnar nerve at elbow (~08/2021) Dizziness (Acute) Fatigue Cough Dysphagia Headache DVT prophylaxis Weakness (Acute) Arm pain (Acute) HTN (hypertension) (Acute) Encounter for pre-operative examination Obesity History of total knee arthroplasty (Chronic) "; 1993" Fracture, nasal (Acute) Facial contusion (Acute) Head trauma (Acute) Contusion of right knee (Acute) Coagulopathy (Acute) Contusion of arm, right (Acute) Contusion of arm, left (Acute) Fall Left shoulder pain DVT prophylaxis Small bowel obstruction due to adhesions SBO (small bowel obstruction) (Acute) Lateral epicondylitis of left elbow Cubital tunnel syndrome HLD (hyperlipidemia) (Chronic) HTN (hypertension) (Chronic) YOBANI (obstructive sleep apnea) (Chronic) on cpap Hypothyroidism (Chronic) CKD (chronic kidney disease), stage III (Chronic) History of uterine cancer (Chronic) Gout (Chronic) Chronic atrial fibrillation (Chronic) follows [facility] - taking eliquis - approx 9 years ago - not symptomatic Occipital stroke (Chronic) 2016 - no residual effects - follow a neurologist (unsure name) Status post hysterectomy (Chronic) "1989" Status post tonsillectomy (Chronic) Status post cholecystectomy (Chronic) "09/14/04; performed by Dr. Barry" Status post lumbar surgery (Chronic) "1984" Status post cataract extraction (Chronic) "L side 1994" Status post partial colectomy (Chronic) "10/20/2003" Status post total shoulder arthroplasty (Chronic) "L side; Dr. Flynn 08/2012" Medical History Abdominal pain Chronic atrial fibrillation follows [facility] - taking eliquis - approx 9 years ago - not symptomatic CKD (chronic kidney disease), stage III Gout History of uterine cancer HLD (hyperlipidemia) HTN (hypertension) Hypothyroidism Obesity Occipital stroke 2016 - no residual effects - follow a neurologist (unsure name) YOBANI (obstructive sleep apnea) on cpap Surgical History History of back surgery approx 1982, L4 History of bilateral knee replacement Hx of colonoscopy >10yrs ago, no problems noted Hx of right cataract extraction 2004 Status post cataract extraction "L side 1994" Status post cholecystectomy "09/14/04; performed by Dr. Barry" Status post hysterectomy "1989" Status post lumbar surgery "1984" Status post partial colectomy "10/20/2003" Status post tonsillectomy Status post total shoulder arthroplasty "L side; Dr. Flynn 08/2012" Family History Father Testicular cancer Mother Stroke Other Diabetes Hypertension Social History Smoking Status: Former smoker Tobacco Type: Cigarettes Cigarettes Per Day: 1/2 pack a day; Second Hand Exposure: No; Do You Dip or Chew Tobacco: No; Hx Alcohol Use: Yes Alcohol type: beer and wine Hx Substance Use: No Preferred Language: Lithuanian Communication Ability: Effective Cloud Architect Required: No Beliefs That Will Affect Care: None marital status: Current Living Situation: Alone Current Living Situation Comment: lives alone, 2 steps to get into the house current occupational status: retired Feels Safe at Home: Yes Assistive Devices: Cane, CPAP and Walker Results & Data Results & Data Vital Signs (Past 12 Hours) Vital Signs Temp Pulse Pulse Resp BP BP Pulse Ox 12/03/24 17:30 52 L 16 127/63 98 12/03/24 16:00 55 L 16 121/61 97 12/03/24 14:36 66 12/03/24 14:30 62 97 12/03/24 13:00 53 L 16 97 12/03/24 11:10 97 12/03/24 11:10 16 60 L 12/03/24 11:07 12/03/24 10:34 74 12/03/24 10:04 68 18 147/80 H 92 12/03/24 09:56 36.8 C 71 18 152/76 H 92 O2 Del Method O2 Flow Rate 12/03/24 17:30 Nasal Cannula 2 12/03/24 16:00 Nasal Cannula 2 12/03/24 14:36 12/03/24 14:30 Nasal Cannula 2 12/03/24 13:00 Nasal Cannula 6 12/03/24 11:10 Nasal Cannula 6 12/03/24 11:10 Room Air 12/03/24 11:07 Room Air, Nasal Cannula 0 12/03/24 10:34 12/03/24 10:04 Room Air 12/03/24 09:56 Room Air Supervising Physician Co-Signing Physician Notes I personally examined the patient and verified all potter points of history and exam, discussed case, and agree with decision making with Dr Valle Right shoulder pain. Shortness of breath. Vitals noted, in general she is awake and alert still little bit sedated although her daughter notes she is acting more like herself. Breathing unlabored but she does have rales and she is on 2 L. Right shoulder is tender but is not red hot or swollen. Labs and diagnostics noted. Right shoulder painseems most consistent with OA flare. Considered septic joint because of her white count of 14.5, but this is really not consistent with what we are seeing on exam or imaging. Considered cervical radiculopathy because of the radiation down her arm, but the radiation seems more vague and not dermatomal. Pain control: Scheduled Tylenol, as needed Toradol, topical Voltaren. She is looking at a shoulder surgery, and it seems that her OA is severe enough that is probably going to be the main remedy. PT/OT eval and treat. Hypoxia/pulmonary edema/suspected acute on chronic diastolic CHF (suspected acute on chronic HFpEF)looking at her previous chest x-rays she seems to have cardiomegaly and pulmonary vascular congestion frequently. I do not have any echo on record since 2018, although the daughter notes that she has something more recent and Emily Reagan, but not entirely sure how recentrelating a leaky valve. Given that is not clear what is going on with her, and it is not clear exactly when her last echo wasrepeat echocardiogram. Diurese with Lasix IV in addition to her p.o. I suspect that she probably lives with a mild degree of decompensated failure and then the reduced respiratory drive from the Dilaudid simply tipped her into more noticeable difficulty breathing. Leukocytosiswith no overt other signs or symptoms of infection, I suspect demargination. Serial labs, serial exams. Mild troponin elevationprobably very mild demand ischemia related to all of the above. Very nominal elevations and trended down. Doubt it is of any clinical significance. Otherwise as above.
[2024-12-03] MEDS: ACETAMINOPHEN 500 MG TAB PO SCH (18:48)
[2024-12-03] MEDS: DICLOFENAC SOD 1% GEL 100 GM TUBE EXT SCH (20:25)
[2024-12-03] MEDS: Patient's HEIGHT &/or WEIGHT Needed SCH (20:25)
[2024-12-03] MEDS: FUROSEMIDE 40 MG/4 ML VIAL IV ONE (20:31)
[2024-12-03] MEDS: KETOROLAC TROMETHAMINE 15 MG/ML VIAL IV PRN (20:32)
[2024-12-03] MEDS: APIXABAN 5 MG TABLET PO SCH (21:25)
[2024-12-03] MEDS: GABAPENTIN 300 MG CAP PO SCH (21:26)
[2024-12-03] MEDS ORDERED: Nursing to Pharmacy Communication SCH (21:45)
[2024-12-03 23:56] LABS: Anion Gap 3.0 (3-11); Blood Urea Nitrogen 23.0 mg/dl (6-23); Calcium 8.9 mg/dl (8.6-10.3); Carbon Dioxide 32.0 mmol/L (21-32); Chloride 101.0 mmol/L (98-107); Creatinine Clr Calc Pharmacy 30.1 ml/min; Glucose 103.0 mg/dl (70-99(Fasting)); Magnesium 2.0 mg/dl (1.7-2.4); Potassium 4.0 mmol/L (3.5-5.1); Sodium 136.0 mmol/L (136-145)
[2024-12-04] MEDS: LEVOTHYROXINE SODIUM 88 MCG TABLET PO SCH (05:35)
[2024-12-04] MEDS ORDERED: Nursing to Pharmacy Communication SCH (07:00)
[2024-12-04 08:14] LABS: Hematocrit (blood only) 32.9 % (37.0-47.0); Hemoglobin 10.5 g/dl (12.0-16.0); Immature Granulocytes # (auto) 0.12 K/uL (0.01-0.20); Immature Granulocytes % (auto) 1.1 %; Mean Corpuscular Hemoglobin 29.9 pg (25.0-34.0); Mean Corpuscular Volume 93.7 fL (80.0-100.0); Platelet Count 140 K/uL (130-400); RDW Standard Deviation 48.0 fL (36.4-46.3); Red Blood Count 3.51 M/uL (4.20-5.40); White Blood Count 11.10 K/ul (4.8-10.8)
[2024-12-04 08:39] LABS: Alanine Aminotransferase 4.0 U/L (7-52); Albumin Globulin Ratio 1.0 (0.9-2); Alkaline Phosphatase 65.0 U/L (34-104); Anion Gap 7.0 (3-11); Bilirubin,Total 2.1 mg/dl (0.2-1.0); Blood Urea Nitrogen 28.0 mg/dl (6-23); Calcium 9.0 mg/dl (8.6-10.3); Carbon Dioxide 29.0 mmol/L (21-32); Chloride 101.0 mmol/L (98-107); Creatinine Clr Calc Pharmacy 25.9 ml/min; Globulin 3.1 gm/dl (2.5-4.0); Glucose 97.0 mg/dl (70-99(Fasting)); Potassium 4.1 mmol/L (3.5-5.1); Sodium 137.0 mmol/L (136-145); Total Protein 6.3 gm/dl (6.0-8.3)
[2024-12-04] MEDS ORDERED: FUROSEMIDE 20 MG TAB PO SCH (09:00)
[2024-12-04] MEDS ORDERED: LOSARTAN POTASSIUM 25 MG TAB PO SCH (09:00)
[2024-12-04] MEDS: ROSUVASTATIN CALCIUM 10 MG TAB PO SCH (09:06)
--- NOTE | 2024-12-04 10:31 | Hospitalist Progress Note ---
Date of Service December 04, 2024 Assessment & Plan (1) Osteoarthritis: (2) Acute CHF: (3) Leukocytosis: (4) Elevated troponin: (5) A-fib: (6) Hyperlipidemia: (7) Hypothyroidism: Plan pt is an 82 yo female HTN, CKD stage 3, Hyperlipidemia (HLD), YOBANI, Hypothyroidism, presenting with severe right shoulder pain. #Osteoarthritis / Cervical Radiculopathy - Pt arrived in the ED due to right shoulder pain beginning 3 days ago, which has progressively worsened. Pt states shoulder pain 10/10, radiating down the right arm to the wrist. No numbness or tingling. Patient reports pain as throbbing and aching, worst in shoulder and radiating down arm -Shoulder X-ray: Right moderate glenohumeral osteoarthritis, no fractures seen -Likely due to acute inflammatory process -Acetaminophen, 1000 mg q8, TID #Acute CHF - Patient did not present with dyspnea, but felt SOB, dizzy, with N/V after Dilaudid administration in ED - CXR: Stable prominent cardiomegaly with pulmonary vascular congestion - TTE ordered: Severe tricuspid regurgitation with EF: 60-65%, and R. ventricle pressure 40-50mm hg; otherwise stable - Findings coincide with stable right sided heart failure, IV Lasix administration potentially worsened right heart pre-load in addition to Dilaudid med in ED leading to poor pulmonary vascular perfusion and potential reason why dyspnea was persistent for first 24 hours - Oxygen as needed for O2 sat < 90% - Dyspnea improved, with O2 sat stable 93% on room air 12/04 afternoon #REBECA - Likely due to dehydration and poor perfusion as well as IV Lasix dose - Continue holding nephrotoxic medications #Leukocytosis - WBC down trending - Etiology likely related to leukocyte demargination rather than acute in fection, afebrile w/o evidence of acute infection - UTI 3 weeks prior, patient finished outpatient abx treatment 2 weeks prior - continue to monitor CBC QAM #Increased Troponins -Troponin peak 35.5, no chest pain, palpitations SOB, atypical chest pain -Likely due to acute stress of shoulder pain/demand ischemia -Resolved #A. Fib -Stable -Continue Eliquis 5 mg BID #Hyperlipidemia -Continue Rosuvastatin 10 mg po qAM #Hypothyroidism - continue Levothyroxine 88 mcg DVT Prophalyxis: Continue Eloquis 5 mg Disp med: Med/surge Telemetry Admission and Anticipated Discharge Date Admission Date: December 03, 2024 Supervising Physician Co-Signing Physician Notes I personally examined the patient and verified all potter points of history and exam, discussed case, and agree with decision making with Dr Oneal Right shoulder feeling better, although not quite as good as she would hope. Ate breakfast, but has had some nausea since. No shortness of breath. Vitals noted, in general she is awake and alert pleasant no distress. HEENT normocephalic atraumatic mucous membranes moist. Breathing unlabored no accessory muscle use good effort. Skin without rashes pallor or icterus. Neuro without focal deficits. Right shoulder painappears to be OA mediated, severe. It sounds like she is in need of shoulder replacement. We discussed that obviously in that context true pain control may be impossible, but we can certainly try to get to pain improvement. She is very realistic with her goals for this. Further we discussed that with what we are seeing with her echocardiogram, with coordination between cardiology and anesthesia I would suspect that she could proceed with shoulder surgery, but I did discuss with patient and daughter that obviously that would be out of my hands to directly influence. Congestive heart failureher hypoxia has improved. And her echocardiogram actually is far more consistent with a right-sided CHF, predominantly mediated by tricuspid regurgitation. I suspect her findings of pulmonary edema yesterday were more due to vasodilation from the Dilaudid than anything with her cardiomyopathy. Further, we discussed that her brisk blood pressure and creatinine response to diuresis would be much more consistent with right-sided CHF, given that the right heart is so preload dependent. We discussed that also, since we gave her a dose of Lasix that essentially would be barely more po tent than her home dosing (she takes 60 mg p.o., we gave 40 mg IV, and she had such a brisk response, I wonder if she does not absorb the Lasix very well and the p.o. dosing may be ineffective. From there, given that she does not appear to need any further diuresis, we will hold off on further diuretics. If she were to need diuresis, I did wonder if she would have a more brisk diuresis with p.o. Bumex if an oral diuretic was needed. Again, however, right now she is obviously dry. Nauseaetiology not entirely clear, might be due to dehydration. Not really tolerating p.o. well for lunch. Obviously normally would not want to "juanito a diuretic with IV fluids", but given that her almost purely right-sided CHF was unexpected and yesterday's pulmonary edema was probably not so much congestive heart failure as just vasodilation in response to narcotic, and now she is nauseated potentially from the dehydrationwill give a liter of LR slowly and follow. Otherwise as above. Subjective Patient is seen resting comfortably this AM. Patient denies chest pain, SOB, cough, wheeze, abdominal pain, fever, and chills. Patient does endorse p alpitations that quickly resolved and some nausea and vomiting that improved with zofran therapy. Patient remains afebrile and hemodynamically stable. Physical Exam Physical Exam: General: patient resting comfortably, NAD, non-toxic in appearance, answers questions appropriately. Skin: warm, dry, intact HEENT: NC/AT, anicteric sclera, conjunctiva without injection, moist mucus membranes. Heart: +S1/S2, regular, no m/r/g Lungs: equal air entry bilaterally, no rales/rhonchi/wheezes Abd: +BS, soft, NT/ND Ext: warm, no clubbing/cyanosis or edema Neuro: nonfocal, speech intact, no facial droop, moving all extremities. Results & Data Results & Data Vital Signs (Past 12 Hours) Vital Signs Temp Pulse Pulse Pulse Resp BP Pulse Ox 12/04/24 08:00 12/04/24 07:58 54 L 12/04/24 07:31 36.5 C 55 L 18 89/54 L 97 12/04/24 03:14 36.5 C 47 L 18 103/54 L 95 12/03/24 23:06 36.4 C L 50 L 18 97/51 L 98 O2 Del Method O2 Flow Rate 12/04/24 08:00 Nasal Cannula 2 12/04/24 07:58 12/04/24 07:31 Nasal Cannula 2 12/04/24 03:14 Nasal Cannula 2 12/03/24 23:06 Nasal Cannula 2 Resident Activity Tracking Resident Involvement: Resident Care Provided Care Provided: Adult Hospital Medicine
[2024-12-04] MEDS: ONDANSETRON INJ 2 MG/ML 2 ML VIAL IV PRN (11:13)
--- NOTE | 2024-12-04 13:31 | Electrocardiogram Report ---
Test Reason : Blood Pressure : */* mmHG Vent. Rate : 41 BPM Atrial Rate : 50 BPM P-R Int : * ms QRS Dur : 84 ms QT Int : 496 ms P-R-T Axes : * 77 7 degrees QTcB Int : 409 ms Atrial fibrillation with slow ventricular response Low voltage QRS Nonspecific T wave abnormality Abnormal ECG When compared with ECG of 03-Dec-2024 12:21, Vent. rate has decreased by 22 bpm Confirmed by Joshua Henry ([id number]) on 12/04/2024 1:30:37 PM Referred By: REFERRED SELF Confirmed By: Joshua Henry
[2024-12-04] MEDS: LACTATED RINGER'S 1,000 ML IV SCH (14:20)
--- NOTE | 2024-12-04 15:43 | Billing Data ---
Date of Service December 04, 2024 Coding Level of Care Code 43132 SUB INP/OBS CARE MIN
[2024-12-05 07:18] LABS: Hematocrit (blood only) 30.3 % (37.0-47.0); Hemoglobin 10.0 g/dl (12.0-16.0); Immature Granulocytes # (auto) 0.06 K/uL (0.01-0.20); Immature Granulocytes % (auto) 0.6 %; Mean Corpuscular Hemoglobin 30.9 pg (25.0-34.0); Mean Corpuscular Volume 93.5 fL (80.0-100.0); Platelet Count 176 K/uL (130-400); RDW Standard Deviation 46.2 fL (36.4-46.3); Red Blood Count 3.24 M/uL (4.20-5.40); White Blood Count 10.55 K/ul (4.8-10.8)
[2024-12-05 07:49] LABS: Anion Gap 6.0 (3-11); Blood Urea Nitrogen 38.0 mg/dl (6-23); Calcium 8.8 mg/dl (8.6-10.3); Carbon Dioxide 32.0 mmol/L (21-32); Chloride 99.0 mmol/L (98-107); Creatinine Clr Calc Pharmacy 21.6 ml/min; Glucose 78.0 mg/dl (70-99(Fasting)); Potassium 4.2 mmol/L (3.5-5.1); Sodium 137.0 mmol/L (136-145)
[2024-12-05] MEDS: LACTATED RINGER'S 1,000 ML IV SCH (08:44)
[2024-12-05] MEDS: APIXABAN 2.5 MG TAB PO SCH (09:03)
[2024-12-05] MEDS: PANTOprazole 40 MG/10 ML SYR IV SCH (09:05)
[2024-12-05] MEDS: FAMOTIDINE 20MG IV PUSH 20 MG/5 ML SYR IV SCH (09:09)
--- NOTE | 2024-12-05 13:34 | Hospitalist Progress Note ---
Date of Service December 05, 2024 Assessment & Plan (1) Osteoarthritis: (2) Acute CHF: (3) Leukocytosis: (4) Elevated troponin: (5) A-fib: (6) Hyperlipidemia: (7) Hypothyroidism: (8) (HFpEF) heart failure with preserved ejection fraction: (9) REBECA (acute kidney injury): Plan pt is an 82 yo female HTN, CKD stage 3, Hyperlipidemia (HLD), YOBANI, Hypothyroidism, presenting with severe right shoulder pain. #Osteoarthritis / Cervical Radiculopathy - Pt arrived in the ED due to right shoulder pain beginning 3 days ago, which has progressively worsened. Pt states shoulder pain 10/10, radiating down the right arm to the wrist. No numbness or tingling. Patient reports pain as throbbing and aching, worst in shoulder and radiating down arm -Shoulder X-ray: Right moderate glenohumeral osteoarthritis, no fractures seen -Likely due to acute inflammatory process -Acetaminophen, 1000mg q8, TID #HFpEF complicated by right heart strain - Patient did not present with dyspnea, but felt SOB, dizzy, with N/V after Dilaudid administration in ED - CXR: Stable prominent cardiomegaly with pulmonary vascular congestion - TTE ordered: Severe tricuspid regurgitation with EF: 60-65%, and R. ventricle pressure 40-50mm hg; otherwise stable - Findings coincide with stable right sided heart failure, IV Lasix administration potentially worsened right heart pre-load in addition to Dilaudid med in ED leading to poor pulmonary vascular perfusion and potential reason why dyspnea was persistent for first 24 hours - Oxygen as needed for O2 sat < 90% - Dyspnea improved, with O2 sat stable 93% on room air 12/04 afternoon - Consider discontinuation of home Lasix medication on d/c - can worsen R. preload/pulmonary perfusion and patient with only trace peripheral edema without evidence of rales on exam #REBECA - Likely due to dehydration and poor perfusion as well as IV Lasix dose - Continue holding nephrotoxic medications - Eliquis dose reduced to 2.5mg while kidney function is poor, increase back to 5mg BID on d/c #Leukocytosis - WBC down trending - Etiology likely related to leukocyte demargination rather than acute infection, afebrile w/o evidence of acute infection - UTI 3 weeks prior, patient finished outpatient abx treatment 2 weeks prior - continue to monitor CBC QAM #Increased Troponins -Troponin peak 35.5, no chest pain, palpitations SOB, atypical chest pain -Likely due to acute stress of shoulder pain/demand ischemia -Resolved #A. Fib -Stable -Eliquis 2.5 mg BID while REBECA ongoing, increase to 5mg BID at resolution of REBECA #Hyperlipidemia -Continue Rosuvastatin 10 mg po qAM #Hypothyroidism - continue Levothyroxine 88 mcg DVT Prophalyxis: Continue Eloquis 5 mg Disp med: Med/surge Telemetry Admission and Anticipated Discharge Date Admission Date: December 03, 2024 Supervising Physician Co-Signing Physician Notes I personally examined the patient and verified all potter points of history and exam, discussed case, and agree with decision making with Dr Oneal overall feeling better. Breathing feels fine. Shoulder pain under reasonable control. Eating and drinking well now. Nausea and vomiting has essentially resolved. She does note (and notes that this is chronic) that she has a degree of feeling like food does not quite stick but definitely goes down slowly, and sometimes with food or liquid she feels a little bit of a gurgling in her mid chest before it feels like it empties. She believes she should have an endoscopy but is not sure she really wants to. Vitals noted, in general she is awake and alert pleasant no distress. HEENT normocephalic atraumatic mucous membranes moist. Breathing unlabored no accessory muscle use good effort. Skin without rashes pallor or icterus. Neuro without focal deficits. Labs and diagnostics noted. AKIseems to be in observably brisk response to diuresis. To clarify (given transition in care today into tomorrow) she was given 40 mg of Lasix IV x 1, and her home dose is 60 mg p.o. daily (and to clarify further she did not take her home dose day of admission). With that 1 dose, barely higher than her home dose, she has had a creatinine go from normal to 2.1. I suspect this is because her CHF, now that we have more detail, is purely right sided/tricuspid regurgitation mediated. She is probably quite preload dependent for forward flow, and given that somebody with purely right-sided CHF will often have a little bit of intestinal edema, I wonder if she absorbs her Lasix at all. For now continue to treat the REBECA with IV fluids, obviously hold off on diuretics, but probably discontinue altogether. I did message her primary proposal coordinator to let them know what we are seeing. Right shoulder painappears to be OA mediated, severe. It sounds like she is in need of shoulder replacement. Pain control is now reasonable for the time being, and she has reasonable goals knowing that it is going to be impossible for things to be great, but she would like some sort of a bridge plan to at least get her through to surgery. Further we discussed that with what we are seeing with her echocardiogram, with coordination between cardiology and anesthesia I would suspect that she could proceed with shoulder surgery, but I did discuss with patient and daughter that obviously that would be out of my hands to directly influence. Congestive heart failure Her clinical picture in the ER seem to fit with left-sided CHFshe had rales, hypoxia, and a chest x-ray with pulmonary vascular congestion. With hindsight, knowing that her heart failure is purely right- sided, I think her pulmonary edema was probably just vasodilation in the face of IV Dilaudid, and her CHF picture chronically is purely right-sided. I discussed with her that I am skeptical whether or not the Lasix was actually doing anything (I suspect it was not being absorbed) and I am also skeptical as to whether or not she really would benefit from a diuretic anyway, given that she seems to be purely a right-sided CHF picture. Nausea Improved. Chronic sticking sensation/dysphagia seems to fit with either esophageal stricture or web. Discussed further than EGD could be beyond just diagnostic, also therapeutic. She is tolerating p.o. well today. Otherwise as above. Subjective Patient is seen resting comfortably this AM. Patient denies chest pain, SOB, cough, wheeze, abdominal pain, fever, and chills. Today patient feels better compared to yesterday and reports only mild R. shoulder pain. Patient remains afebrile and hemodynamically stable. Physical Exam Physical Exam: General: patient resting comfortably, NAD, non-toxic in appearance, answers questions appropriately. Skin: warm, dry, intact HEENT: NC/AT, anicteric sclera, conjunctiva without injection, moist mucus membranes. Heart: +S1/S2, regular, no m/r/g Lungs: equal air entry bilaterally, no rales/rhonchi/wheezes Abd: +BS, soft, NT/ND Ext: warm, no clubbing/cyanosis or edema Neuro: nonfocal, speech intact, no facial droop, moving all extremities. Results & Data Results & Data Vital Signs (Past 12 Hours) Vital Signs Temp Pulse Pulse Resp BP Pulse Ox O2 Del Method 12/05/24 11:43 36.8 C 60 20 123/66 90 Room Air 12/05/24 10:07 50 L 12/05/24 08:20 36.4 C L 67 16 116/73 95 Room Air 12/05/24 07:29 Nasal Cannula 12/05/24 03:10 36.4 C L 50 L 18 129/83 98 Nasal Cannula O2 Flow Rate 12/05/24 11:43 12/05/24 10:07 12/05/24 08:20 12/05/24 07:29 3 12/05/24 03:10 3 Resident Activity Tracking Resident Involvement: Resident Care Provided Care Provided: Adult Hospital Medicine (2) Acute CHF Heart failure type: right-sided Qualified Code(s): I50.811 - Acute right heart failure
--- NOTE | 2024-12-05 14:10 | Billing Data ---
Date of Service December 05, 2024 Coding Level of Care Code 22826 SUB INP/OBS CARE MIN
[2024-12-05 15:45] LABS: Appearance Urine Clear (Clear); Bacteria Urine Automated None Seen (None Seen); Cast Urine Automated >20 /lpf (0-2); Glucose Urine UA Negative (Negative); RBC Urine Automated 0-2 /hpf (0-2); WBC Urine Automated 0-5 /hpf (0-5)
--- NOTE | 2024-12-06 06:59 | Hospitalist Progress Note ---
Date of Service December 06, 2024 Assessment & Plan (1) REBECA (acute kidney injury): (2) Osteoarthritis: (3) (HFpEF) heart failure with preserved ejection fraction: (4) A-fib: Plan Bernie Wolf is an 84yo female with PMHx HFpEF (R-sided), HTN, CKD stage 3, Hyperlipidemia, YOBANI, Hypothyroidism, presenting with severe right shoulder pain likely 2/2 osteoarthritis. Continues to require inpatient management of acute kidney injury and optimization of chronic medication regimen. #REBECA Creatinine 2.14 up from 2.11 and prior around 1.7 with baseline creatinine around 1.0 - Likely due to dehydration 2/2 aggressive diuresis in ED - Adjustments of medications with renal complications: gabapentin 300mg BID (prev 300 TID, takes for nerve pain in L foot related to past injury), holding losartan 25mg daily (consider discontinuing altogether), continue Eliquis 2.5mg BID (may inc back to 5mg BID once REBECA has resolved) - ordered bladder scan for potential obstructive pathology --Give 500 mL of normal saline slowly - Hold home Lasix #HFpEF Originally suspected to be exacerbation, currently not in HF exacerbation - Patient did not present with dyspnea, but felt SOB, dizzy, with N/V after Dilaudid administration in ED - CXR: Stable prominent cardiomegaly with pulmonary vascular congestion - TTE ordered: Severe tricuspid regurgitation with EF: 60-65%, and R. ventricle pressure 40-50mm hg; otherwise stable - Findings coincide with stable right sided heart failure, IV Lasix administration potentially worsened right heart pre-load in addition to Dilaudid med in ED leading to poor pulmonary vascular perfusion and potential reason why dyspnea was persistent for first 24 hours - saturating >90% on room air -Holding home p.o. Lasix #Osteoarthritis - Pt arrived in the ED due to acute on chronic right shoulder pain beginning 3 days prior to admission, initially noted shoulder pain 10/10, radiating down the right arm to the wrist. No numbness or tingling. Patient reports pain as throbbing and aching, worst in shoulder and radiating down arm. Pain is improving -Shoulder X-ray: Right moderate glenohumeral osteoarthritis, no fractures seen - Continue acetaminophen 1000mg q8 prn - PT/OT #Leukocytosis, resolved - Etiology likely related to leukocyte demargination rather than acute infection, afebrile w/o evidence of acute infection - UTI 3 weeks prior, patient finished outpatient abx treatment 2 weeks prior - CBC qAM #Anemia-Hgb 10, normocytic - Check iron studies, B12, folate, TSH in the morning #Increased Troponin, resolved -Troponin peak 35.5, no chest pain, palpitations SOB, atypical chest pain - Echo from 12/04/24 with LVEF 60-65, mild MR, severe TR; no wall motion abnormalities - Likely due to acute stress of shoulder pain/demand ischemia #A. Fib, stable -Eliquis 2.5 mg BID while REBECA ongoing, increase to 5mg BID at resolution of REBECA #Hyperlipidemia -Continue Rosuvastatin 10 mg po qAM #Hypothyroidism - continue Levothyroxine 88 mcg VTE ppx: Continue Eliquis 2.5mg BID Disp med: Continued stay med/surge Telemetry, but likely can discharge on 12/07 if REBECA improves Admission and Anticipated Discharge Date Admission Date: December 03, 2024 Supervising Physician Co-Signing Physician Notes I personally examined the patient and verified all potter points of history and exam, discussed case, and agree with decision making with Dr. Bond with the following additions/exceptions: S-patient feels better today, much less pain in the right shoulder but is planning getting a shoulder replacement-has an appointment scheduled for orthopedics. She is making urine, eating and drinking, feels well otherwise. Telemetry of atrial fibrillation with rates in the 50s O- Vitals Reviewed Gen: AAOx3, NAD HEENT: Anicteric sclerae, EOMI CV: Regularly irregular, bradycardic, no mgr nl S1S2 Pulm: CTAB no wcr Ext: Right shoulder with positive TTP anteriorly, some pain with Roberts impingement test Skin: No rashes, warm/dry BMP reviewed A/P: 84-year-old female with a history of HTN, CKD stage III, permanent atrial fibrillation on Eliquis, HLD, YOBANI on CPAP, hypothyroidism, HFpEF, here with acute on chronic right shoulder pain secondary to osteoarthritis. Was hypoxic on admission after receiving IV opioids and thought to be volume overloaded. Was given IV Lasix and now with REBECA. Continue to give more gentle IV fluids, hold home Lasix and losartan Follow BMP in the morning Workup for anemia Subjective Bernie is seen resting comfortably this AM. Patient denies chest pain, SOB, cough, wheeze, abdominal pain, fever, and chills. Today patient feels good compared to yesterday and reports only mild-moderate R shoulder pain with movement, little to none at rest. Denies any radiation of pain or electric shock sensation down R arm. Remains afebrile and hemodynamically stable. Physical Exam Physical Exam: General: patient resting comfortably, NAD, non-toxic in appearance, answers questions appropriately. HEENT: NC/AT, anicteric sclera, conjunctiva without injection, moist mucus membranes. CV: RRR, +s1/s2, no m/r/g Resp: equal air entry b/l, no rales/rhonchi/wheezes GI/Abd: +BS, soft, NT/ND Ext: R shoulder ROM limited by pain; otherwise all ext warm, no clubbing/cyanosis or edema Neuro: nonfocal, speech intact, no facial droop, moving all extremities. Skin: warm, dry, intact Results & Data Results & Data Vital Signs (Past 12 Hours) Vital Signs Temp Pulse Pulse Resp BP Pulse Ox O2 Del Method 12/06/24 03:39 36.4 C L 74 20 109/68 92 Room Air 12/06/24 00:14 36.5 C 53 L 18 101/66 92 Room Air 12/05/24 21:44 64 12/05/24 21:15 52 L 16 119/72 93 Room Air 12/05/24 20:12 36.6 C 57 L 18 100/60 90 Room Air 12/05/24 19:43 Room Air Resident Activity Tracking Resident Involvement: Resident Care Provided Care Provided: Adult Hospital Medicine (3) (HFpEF) heart failure with preserved ejection fraction Heart failure chronicity: acute on chronic Qualified Code(s): I50.33 - Acute on chronic diastolic (congestive) heart failure
[2024-12-06 07:36] LABS: Anion Gap 6.0 (3-11); Blood Urea Nitrogen 44.0 mg/dl (6-23); Calcium 8.9 mg/dl (8.6-10.3); Carbon Dioxide 29.0 mmol/L (21-32); Chloride 99.0 mmol/L (98-107); Creatinine Clr Calc Pharmacy 21.4 ml/min; Glucose 86.0 mg/dl (70-99(Fasting)); Potassium 4.4 mmol/L (3.5-5.1); Sodium 134.0 mmol/L (136-145)
[2024-12-06] MEDS: SODIUM CHLORIDE 0.9% 500 ML IV SCH (10:21)
--- NOTE | 2024-12-06 15:21 | Billing Data ---
Date of Service December 06, 2024 Coding Level of Care Code 64381 SUB INP/OBS CARE
[2024-12-06] MEDS: GABAPENTIN 300 MG CAP PO SCH (20:23)
[2024-12-07 07:52] LABS: Hematocrit (blood only) 33.1 % (37.0-47.0); Hemoglobin 10.4 g/dl (12.0-16.0); Immature Granulocytes # (auto) 0.05 K/uL (0.01-0.20); Immature Granulocytes % (auto) 0.7 %; Mean Corpuscular Hemoglobin 29.4 pg (25.0-34.0); Mean Corpuscular Volume 93.5 fL (80.0-100.0); Platelet Count 201 K/uL (130-400); RDW Standard Deviation 46.5 fL (36.4-46.3); Red Blood Count 3.54 M/uL (4.20-5.40); White Blood Count 7.32 K/ul (4.8-10.8)
[2024-12-07 08:10] LABS: Anion Gap 5.0 (3-11); Blood Urea Nitrogen 39.0 mg/dl (6-23); Calcium 8.7 mg/dl (8.6-10.3); Carbon Dioxide 30.0 mmol/L (21-32); Chloride 102.0 mmol/L (98-107); Creatinine Clr Calc Pharmacy 24.6 ml/min; Glucose 82.0 mg/dl (70-99(Fasting)); Iron 46.0 mcg/dl (35-150); Potassium 4.3 mmol/L (3.5-5.1); Sodium 137.0 mmol/L (136-145); Total Iron Binding Cap Calc 277.0 mcg/dl (250-450); Transferrin 198.0 mg/dl (200-360); Transferrin (FE) Percent Satur 17.0 % (15-50)
[2024-12-07 08:20] VITALS: RESP 16
[2024-12-07 08:23] LABS: Thyroid Stimulating Hormone 2.537 uIu/ml (0.300-4.500)
[2024-12-07 08:28] LABS: Ferritin 501.6 ng/ml (8-388)
[2024-12-07 08:35] LABS: Folate (Folic Acid),Ser orPlas 7.37 ng/ml (>5.38); Vitamin B12 205.0 pg/ml (180-914)
--- NOTE | 2024-12-07 09:06 | Discharge Summary ---
Date of Service December 07, 2024 Admission HPI Per Admitting Provider Pt is an 84 year-old female with a PMX of HTN, CKD stage 3, A. Fib, Hyperlipidemia (HLD), YOBANI, Hypothyroidism, presenting to the ED with right shoulder pain. Pt identified she has had general right shoulder pain for 3 years. She is scheduled to meet with orthopedics and cardiology the following week to possibly discuss surgery. Today, pt arrived in the ED due to right shoulder pain beginning 3 days ago, which has progressively worsened. Pt states shoulder pain 10/10, radiating generally down the right arm to the wrist. No numbness or tingling. She identified pain as pulsatile dull, achy with moments of sharpness. Pt. has no chest pain. Additionally, pt's temperature is stable. In the ED, pt was given hydromorphone 0.5, with zofryn 4mg x2. X-ray of right shoulder - moderate osteoarthritic changes, and X-ray of chest -- stable prominent cardiomegaly with pulmonary vascular congestion. EKG -- shows A. Fib. Pt. admitted with Acute Osteoarthritis and exacerbated CHF. Admission Exam Per Admitting Provider none seen on H&P note, but below is ED provider exam: General: Mild distress due to pain Head: Normocephalic and atraumatic Eyes: Normal inspection, extraocular muscles intact Ear, nose, throat: Normal external exam Neck: Normal range of motion Respiratory: lungs clear to auscultation bilaterally Cardiovascular: Regular rate/rhythm, no murmur GI: soft, nontender, no guarding or rebound Extremities: nontender, moves all extremities, 2+ pulses, sensation intact, range of motion limited due to pain and shoulder Neuro: The patient awake and alert, appropriately conversive, no focal deficits, symmetric faces Skin: Warm, dry, and intact Principal Diagnosis REBECA; R shoulder osteoarthritis, moderate Discharge Exam General: sitting comfortably at edge of bed, NAD, non-toxic in appearance, answers questions appropriately. HEENT: NC/AT, anicteric sclerae, EOM intact, PERRL b/l CV: irregularly irregular deloris, +s1/s2, no m/r/g; 2+ radial pulses b/l Resp: equal air entry b/l, no rales/rhonchi/wheezes GI/Abd: +BS, soft, NT/ND Ext: R shoulder ROM limited by pain; otherwise all ext warm, no clubbing/cyanosis or edema Neuro: nonfocal, speech intact, no facial droop, moving all extremities. Skin: warm, dry, intact Discharge Data Allergies Allergy/AdvReac Type Severity Reaction Status Date / Time adhesive Allergy Mild SKIN Verified 12/16/22 14:21 IRRITATION AND PULLS SKIN OFF Iodinated Contrast Media Allergy Mild RASH Verified 12/16/22 14:21 morphine Allergy Unknown UNKNOWN Verified 12/16/22 14:21 Penicillins Allergy Unknown UNKNOWN Verified 12/16/22 14:21 salicylates Allergy Unknown CAUSES Verified 12/16/22 14:21 HIVES aspirin AdvReac Mild Hives Verified 12/16/22 14:21 codeine AdvReac Mild CAUSES Verified 12/16/22 14:21 NAUSEA Consultations 12/03/24 14:48 ED Decision to Admit Stat Hospital Course (1) REBECA (acute kidney injury): (2) Osteoarthritis: (3) (HFpEF) heart failure with preserved ejection fraction: (4) A-fib: Plan Bernie Wolf is an 84yo female with PMHx HFpEF (R-sided), HTN, CKD stage 3, Hyperlipidemia, YOBANI, Hypothyroidism, presenting with severe right shoulder pain likely 2/2 osteoarthritis. Due to her continued medical stability and improving labs, we feel comfortable with her discharge today on the condition that she follows up with PCP this week and start home health services. #REBECA, resolving Creatinine improvin.14 -> 1.85 - Was likely due to dehydration 2/2 aggressive diuresis in ED - Continue adjusted doses/freqs of medications with renal complications: gabapentin 300mg BID (prev 300 TID, takes for nerve pain in L foot related to past injury), holding losartan 25mg daily (consider discontinuing altogether), continue Eliquis 2.5mg BID (may inc back to 5mg BID once REBECA has resolved per PCP discretion) - ordered bladder scan for potential obstructive pathology: no retention seen - Will have pt follow up with her PCP Dr. Arita and have them obtain a BMP in 2-3 day through [facility] #HFpEF, stable Originally suspected to be exacerbation, currently not in HF exacerbation - Patient did not present with dyspnea, but felt SOB, dizzy, with N/V after Dilaudid administration in ED - CXR: Stable prominent cardiomegaly with pulmonary vascular congestion - TTE 12/04/24: Severe tricuspid regurgitation with EF: 60-65%, and R. ventricle pressure 40-50mm hg; otherwise stable - Findings coincide with stable right sided heart failure, IV Lasix administration potentially worsened right heart pre-load in addition to Dilaudid med in ED leading to poor pulmonary vascular perfusion and potential reason why dyspnea was persistent for first 24 hours - saturating >90% on room air #Osteoarthritis - Pt arrived in the ED due to right shoulder pain beginning 3 days ago, initially noted shoulder pain 10/10, radiating down the right arm to the wrist. No numbness or tingling. Patient reported pain as throbbing and aching, worst in shoulder and radiating down arm, has since improved -Shoulder X-ray: Right moderate glenohumeral osteoarthritis, no fractures seen - Continue acetaminophen 1000mg q8 prn - Has followup with orthopedic surgeon next week for surgical consultation for R shoulder arthroplasty, also cardiology appt for surgical clearance coming up #Leukocytosis, resolved - Etiology likely related to leukocyte demargination rather than acute infection, afebrile w/o evidence of acute infection - UTI 3 weeks prior, patient finished outpatient abx treatment 2 weeks prior #Increased Troponin, resolved -Troponin peak 35.5, no chest pain, palpitations SOB, atypical chest pain - Echo from 12/04/24 with LVEF 60-65, mild MR, severe TR; no wall motion abnormalities - Likely due to acute stress of shoulder pain/demand ischemia #A. Fib, stable -Eliquis 2.5 mg BID while REBECA ongoing, increase to 5mg BID at resolution of REBECA #Hyperlipidemia -Continue Rosuvastatin 10 mg po qAM #Hypothyroidism - continue Levothyroxine 88 mcg VTE ppx: Continue Eliquis 2.5mg BID Disp med: Med/surge Telemetry Total Time Total Time Spent Total Time Spent (In Minutes): 40 Discharge Plan Discharge Items Patient Disposition: Home - Home Health Services Reason For Visit: SHOULDER PAIN Discharge Diagnosis: acute kidney injury, R shoulder moderate osteoarthritis Condition on Discharge: Fair Activity: Per Instructions section Non-emergency contact: Primary Care Provider Call non-emergency contact if: your symptoms worsen and your pain is not controlled Follow-up/Referrals: Randi Arita MD [Primary Care Provider] - Diet: Heart Healthy Ambulatory Orders: Basic Metabolic Panel (Routine) Timeframe: 3 Days Location: Determined by Patient Ordered By: Wilmer Rodriguez Attending Provider Instructions: You were evaluated and treated at [facility] initially for R shoulder pain, found to be related to progressing osteoarthritis, and subsequently for REBECA (acute kidney injury) likely related to excess diuretics given for suspected heart failure exacerbation. Due to your continued medical stability and improving labs, we feel comfortable with your discharge today on the condition that you follow up with your PCP this week and have home health services. #Acute Kidney Injury, resolving - Likely occurred due to dehydration from aggressive diuresis at beginning of hospital stay - Continue taking your reduced doses and holding the following meds until PCP followup: continue Eliquis 2.5mg twice daily (may inc back to 5mg twice daily once REBECA has resolved, to the discretion of your PCP), gabapentin 300mg twice daily, holding losartan 25mg daily, holding Lasix, and holding potassium supplementation -Please have your PCP check your kidney function with a blood test in 2 days #Osteoarthritis, R shoulder - Initially severe throbbing/aching shoulder pain radiating down the right arm to the wrist without numbness or tingling - R shoulder X-ray: Right moderate glenohumeral osteoarthritis, no fracture or dislocation - Continue acetominophen (tylenol) as needed for pain, PCP may allow topical Voltaren (diclofenac) if kidney function continues to improve - Continue PT/OT after discharge to help improve pain and function until your surgery - Surgery followup next week, cardiology appt for surgical clearance #HFpEF (heart failure with preserved ejection fraction), stable Originally suspected to be exacerbation, but is not currently the case - We advise you to avoid very salty/processed foods as these can contain a lot of sodium, which can precipitate an exacerbation of your heart failure #Normocytic anemia, improving - hemoglobin 10 -> 10.4 in the past day - Vitamin B12 slightly low, so we encourage you to pickle maker vitamin B12 tablets to take daily #Leukocytosis, resolved - Etiology likely related to leukocyte demargination rather than acute infection, afebrile w/o evidence of acute infection #Increased Troponin, resolved -Troponin peak 35.5, no chest pain, palpitations SOB, atypical chest pain - Echo from 12/04/24 with LVEF 60-65, mild MR, severe TR; no wall motion abnormalities - Likely due to acute stress of shoulder pain/demand ischemia #A. Fib, stable -continue Eliquis 2.5 mg twice daily until followup with your PCP. At that point can decide whether to increase back to 5mg twice daily if kidney function continues to improve #Hyperlipidemia -Continue Rosuvastatin 10 mg po qAM #Hypothyroidism - TSH within normal limits (2.54) - continue Levothyroxine 88 mcg Pending Studies at Discharge: No Stand-Alone Forms: My [facility] Specific Media, Smoking Cessation Medications and DC Order Prescriptions: New cyanocobalamin (vitamin B-12) 1,000 mcg capsule 1,000 mcg PO DAILY Qty: 30 0RF Rx Instructions: OTC Continued levothyroxine [Synthroid] 75 mcg tablet 88 mcg PO QAM cholecalciferol (vitamin D3) 2,000 unit Tablet 0 unit PO [id number] Patient Comments: 12/03- otc unable to verify Rx Instructions: Friday and rosuvastatin 10 mg Tablet 10 mg PO QAM biotin 5,000 mcg Tablet, Sublingual 0 mcg sublingual [id number] Rx Instructions: Friday and diclofenac sodium [Voltaren Arthritis Pain] 1 % gel 2 g topical QID Qty: 100 0RF Patient Comments: 12/03- otc/no fill history unable to verify Rx Instructions: apply to Right elbow four times daily as needed. Changed Eliquis 5 mg Tablet 2.5 mg PO BID Qty: 15 0RF gabapentin 300 mg capsule 300 mg PO BID Qty: 0 0RF Held losartan [Cozaar] 25 mg tablet 25 mg PO DAILY Hold Instructions: Resume on 12/14/24. resume after following up with your PCP potassium chloride 10 mEq Capsule, Extended Release 10 meq PO DAILY 30 Days Qty: 30 0RF Hold Instructions: Resume on 12/14/24. may resume after following up with your PCP based on their discretion furosemide [Lasix] 40 mg Tablet 60 mg PO DAILY Hold Instructions: Resume on 12/14/24. may resume after following up with your PCP based on their discretion Rx Instructions: 1 and 2 tab Discharge Orders: Discharge Order- CHF (Routine); Ordered 12/07/24 Ordered By: Ct Devries/Other Patient Handouts: Creatinine (Blood), Monitoring Kidney Health, Osteoarthritis Alternative Tx, Osteoarthritis: Coping with Pain, OA Glenohumeral Admission Data Admit Date/Time: 12/03/24 16:09 Attending Provider: Ct Verduzco Admit Provider: Bhumi Valle Primary Care Provider: Randi Arita Other Providers: Erik Rodgers; [place],Home Care; [facility],Home Healthcare; [facility],Referral Center Other Interventions: Discharge Summary Assessment (RN) Last Done: 12/07/24 11:54 Supervising Physician Co-Signing Physician Notes I personally examined the patient and verified all potter points of history and exam, discussed case, and agree with decision making with Dr. Bond with the following additions/exceptions: S-patient reports shoulder pain is well-controlled, is making urine, no other complaints and ready for discharge Telemetry of atrial fibrillation with rates in the 50s-60s O- Vitals Reviewed Gen: AAOx3, NAD HEENT: Anicteric sclerae, EOMI CV: Regularly irregular, bradycardic, no mgr nl S1S2 Pulm: CTAB no wcr Ext: Right shoulder with positive TTP anteriorly Skin: No rashes, warm/dry BMP reviewed A/P: 84-year-old female with a history of HTN, CKD stage III, permanent atrial fibrillation on Eliquis, HLD, YOBANI on CPAP, hypothyroidism, HFpEF, here with acute on chronic right shoulder pain secondary to osteoarthritis. The pain in her shoulder improved with Tylenol, Voltaren gel. She was hypoxic on admission after receiving IV opioids and thought to be volume overloaded. Was given IV Lasix and developed REBECA. She received gentle IV fluids and her home Lasix and losartan were held Her creatinine improved from 2.1 down to 1.85 on the day of discharge and her BUN improved from 44 down to 39. She will continue to remain off of her Lasix and losartan as well as potassium supplement until after she has a repeat basic metabolic panel in 2 days as an outpatient For her anemia workup, her B12 was borderline low and will be replaced. Her folate, iron studies, and TSH are all normal. Suspect likely anemia of chronic disease but needs to follow-up with PCP Stable for discharge to home. She has close follow-up planned with cardiology for preoperative clearance for shoulder replacement surgery and has appointment scheduled with orthopedic surgery in the near future. Resident Activity Tracking Resident Involvement: Resident Care Provided Care Provided: Adult [facility]
[2024-12-07 11:49] VITALS: BP 134/77; TEMP 97.7; O2SAT 90
[2024-12-07 11:57] VITALS: PULSE 52
--- NOTE | 2024-12-07 16:57 | Billing Data ---
Date of Service December 07, 2024 Coding Level of Care Code [id number] INP/OBS DISCH >30 MIN Time Spent (min) 35 Comment 35 minutes spent on discharge with [id number] care, discharge arrangements, review labs
== END 2024-12-07 12:14 | disposition home health service (06) | DRG 292 ==
LOC: ED 09:50 → SUATTDRO 16:09 → 2N 16:09